=== PATIENT | female | born 1970 | race Caucasian/White ===

== ENCOUNTER 2016-10-13 10:36 | Emergency (ER) | payer OTHER ==
[2016-10-13] MEDS ORDERED: SODIUM CHLORIDE 0.9% 1,000 ML IV STA (11:26)
[2016-10-13] MEDS ORDERED: ONDANSETRON 4 MG/2 ML VIAL IVP STA (11:26)
[2016-10-13] MEDS ORDERED: HYDROmorphone 1 MG/ML 1 ML SYRINGE IVP STA (11:26)
--- NOTE | 2016-10-13 11:30 | ED ---
Abdominal Pain HPI - General Chief Complaint: Abdominal Pain Stated Complaint: abd pain Time Seen by Provider: 10/13/16 11:19 Source: patient Mode of arrival: ambulatory - History of Present Illness Initial Comments: 46-year-old female patient presents to emergency department with complaint of left lower quadrant abdominal pain that started about 4 days ago. Patient states that since then she has been feeling generally unwell, has had chills, and has not wanted to get out of bed. Patient states that she did contact her surgeon Dr. Middleton and he did order a CT as well as labs and urine which she had completed at [facility]. She has not got the results of these tests, and Dr. Middleton is on vacation. Patient does have a history of diverticulitis, bowel obstruction, bowel resection, and colostomy with reversal in 2013. Patient is also complaining of some left flank tenderness, frequency in urination, and nausea. She did have a small amount of diarrhea yesterday. Patient denies any vomiting, constipation, fever, chest pain shortness of breath , dizziness, weakness, hematuria, dysuria, or urinary urgency. - Related Data Home Medications Medication Instructions Recorded Confirmed Lisinopril 40 mg PO DAILY 06/22/15 10/13/16 Acetaminophen/Diphenhydramine 2 - 3 tab PO TID PRN 02/29/16 10/13/16 [Tylenol PM 500-25mg] Gabapentin 800 mg PO TID 02/29/16 10/13/16 Methocarbamol [Robaxin] 500 mg PO Q8H PRN 02/29/16 10/13/16 HYDROcodone/APAP 7.5-325MG [[place] 1 tab PO BID PRN 10/13/16 10/13/16 7.5-325] Simvastatin [Zocor] 20 mg PO HS 10/13/16 10/13/16 Previous Rx's Medication Instructions Recorded Ciprofloxacin HCl [Cipro] 500 mg PO Q12HR #20 tablet 10/13/16 metroNIDAZOLE [Flagyl] 500 mg PO TID #30 tab 10/13/16 Allergies Allergy/AdvReac Type Severity Reaction Status Date / Time erythromycin base Allergy Nausea & Verified 10/13/16 11:22 [Erythromycin Base] Vomiting tramadol HCl [From Ultram] Allergy Itching Verified 10/13/16 11:22 simvastatin AdvReac LEG CRAMPS Verified 10/13/16 11:22 Review of Systems ROS Statement: Those systems with pertinent positive or pertinent negative responses have been documented in the HPI. ROS Other: All systems not noted in ROS Statement are negative. Past Medical History Past Medical History: Asthma, COPD, GERD/Reflux, Hyperlipidemia, Hypertension Additional Past Medical History / Comment(s): DIVERTICULITIS. RESTLESS LEG SYNDROME. DDD, BACK PAIN History of Any Multi-Drug Resistant Organisms: None Reported Past Surgical History: Back Surgery, Bowel Resection, Cholecystectomy, Hernia Repair, Tonsillectomy, Tubal Ligation Additional Past Surgical History / Comment(s): TEMPORARY COLOSTOMY. EPIDURAL INJECTIONS, COLOSTOMY REVERSAL, BACK SURGERY 04/27 Past Anesthesia/Blood Transfusion Reactions: Postoperative Nausea & Vomiting ( PONV) Past Psychological History: Anxiety, Bipolar, Depression Smoking Status: Current every day smoker Past Alcohol Use History: None Reported Past Drug Use History: Marijuana - Past Family History Mother Family Medical History: No Reported History Father Family Medical History: COPD Sister(s) Family Medical History: No Reported History Brother(s) Family Medical History: No Reported History Daughter(s) Family Medical History: No Reported History Son(s) Family Medical History: No Reported History General Exam General appearance: alert, in no apparent distress Eye exam: Present: normal appearance, PERRL, EOMI. Absent: scleral icterus, conjunctival injection, periorbital swelling ENT exam: Present: normal exam, mucous membranes moist Neck exam: Present: normal inspection. Absent: tenderness, meningismus, lymphadenopathy Respiratory exam: Present: normal lung sounds bilaterally. Absent: respiratory distress, wheezes, rales, rhonchi, stridor Cardiovascular Exam: Present: regular rate, normal rhythm, normal heart sounds. Absent: systolic murmur, diastolic murmur, rubs, gallop, clicks GI/Abdominal exam: Present: soft, distended (Left lower quadrant), tenderness, normal bowel sounds. Absent: guarding, rebound, rigid, organomegaly, mass, hernia Extremities exam: Present: normal inspection, full ROM, normal capillary refill. Absent: tenderness, pedal edema, joint swelling, calf tenderness Back exam: Present: normal inspection, CVA tenderness (L). Absent: CVA tenderness (R) Neurological exam: Present: alert, oriented X3, CN II-XII intact Psychiatric exam: Present: normal affect, normal mood Skin exam: Present: warm, dry, intact, normal color. Absent: rash Course Vital Signs 10/13/16 10:59 Temperature 99.5 F Pulse Rate 90 Respiratory 18 Rate Blood Pressure 166/109 O2 Sat by Pulse 98 Oximetry Medical Decision Making - Medical Decision Making 46-year-old female patient presents to emergency department today for evaluation of left lower quadrant abdominal pain. Patient did have a computed tomography scan done at [facility] on 3:30 which did show a slowly enlarging right adrenal mass, minimal diverticulosis of the sigmoid colon, cystic lesion associated with the left adnexa significantly smaller in size on a previous study, and mild degenerative changes within the spine. KUB performed here today reveals a nonspecific abdomen. Urine and serum labs are unremarkable. Patient's symptoms and area of the pain are consistent with some diverticulitis. Patient will be treated for that at this time with a home prescription of Cipro and Flagyl. Patient does have Bryan at home for pain control. Patient instructed to follow-up with her surgeon soon as possible. As well as her primary care physician in one to 2 days for recheck. Patient instructed to return for any new, worsening, or concerning symptoms. Patient verbalizes understanding and agrees this plan. - Lab Data Result diagrams: 10/13/16 11:47 10/13/16 11:47 Lab Results 10/13/16 10/13/16 10/13/16 Range/Units 11:47 11:47 11:47 WBC 6.2 (3.8-10.6) k/uL RBC 4.67 (3.80-5.40) m/uL Hgb 14.6 (11.4-16.0) gm/dL Hct 45.9 (34.0-46.0) % MCV 98.4 (80.0-100.0) fL MCH 31.4 (25.0-35.0) pg MCHC 31.9 (31.0-37.0) g/dL RDW 13.5 (11.5-15.5) % Plt Count 363 (150-450) k/uL Neutrophils % 69 % Lymphocytes % 21 % Monocytes % 5 % Eosinophils % 2 % Basophils % 1 % Neutrophils # 4.3 (1.3-7.7) k/uL Lymphocytes # 1.3 (1.0-4.8) k/uL Monocytes # 0.3 (0-1.0) k/uL Eosinophils # 0.1 (0-0.7) k/uL Basophils # 0.0 (0-0.2) k/uL Sodium 142 (137-145) mmol/L Potassium 4.2 (3.5-5.1) mmol/L Chloride 108 H (98-107) mmol/L Carbon Dioxide 22 (22-30) mmol/L Anion Gap 12 mmol/L BUN 10 (7-17) mg/dL Creatinine 0.61 (0.52-1.04) mg/dL Est GFR (MDRD) Af Amer >60 (>60 ml/min/1.73 sqM) Est GFR (MDRD) Non-Af >60 (>60 ml/min/1.73 sqM) Glucose 99 (74-99) mg/dL Calcium 10.2 (8.4-10.2) mg/dL Total Bilirubin 0.4 (0.2-1.3) mg/dL AST 14 (14-36) U/L ALT 13 (9-52) U/L Alkaline Phosphatase 74 (38-126) U/L Total Protein 7.3 (6.3-8.2) g/dL Albumin 4.4 (3.5-5.0) g/dL Amylase 77 (30-110) U/L Lipase 88 (23-300) U/L Urine Color Colorless Urine Appearance Clear (Clear) Urine pH 6.0 (5.0-8.0) Ur Specific [place] 1.001 (1.001-1.035) Urine Protein Negative (Negative) Urine Glucose (UA) Negative (Negative) Urine Ketones Negative (Negative) Urine Blood Negative (Negative) Urine Nitrite Negative (Negative) Urine Bilirubin Negative (Negative) Urine Urobilinogen <2.0 (<2.0) mg/dL Ur Leukocyte Esterase Negative (Negative) Disposition Clinical Impression: Diverticulitis of sigmoid colon, Abdominal pain Disposition: HOME SELF-CARE Condition: Stable Instructions: Abdominal Pain (ED), Diverticulitis (ED), Diverticulitis Diet (ED ) Additional Instructions: Increased fluids. Use home medications for pain control. Take antibiotic prescriptions and full. Follow-up with surgeon and primary care physician. Return for any new, worsening, or concerning symptoms. Prescriptions: Ciprofloxacin HCl [Cipro] 500 mg PO Q12HR #20 tablet metroNIDAZOLE [Flagyl] 500 mg PO TID #30 tab Referrals: Thierno Garcia MD [Primary Care Provider] - 1-2 days Time of Disposition: 12:58
[2016-10-13 12:05] LABS: Appearance,Urine Clear (Clear); Basophils % (A) 1 %; Bilirubin,Urine Negative (Negative); CH 31.9; CHCM 32.6; Eosinophils # (A) 0.1 k/uL (0-0.7); Eosinophils % (A) 2 %; Glucose,Urine (UA) Negative (Negative); HCT 45.9 % (34.0-46.0); HDW 2.52; HGB 14.6 gm/dL (11.4-16.0); Ketones,Urine Negative (Negative); Leukocyte Esterase,Urine Negative (Negative); Luc % (Auto) 3; Lymphocytes # (A) 1.3 k/uL (1.0-4.8); Lymphocytes % (A) 21 %; MCH 31.4 pg (25.0-35.0); MCHC 31.9 g/dL (31.0-37.0); MCV 98.4 fL (80.0-100.0); Mean Platelet Volume 6.3; Monocytes # (A) 0.3 k/uL (0-1.0); Monocytes % (A) 5 %; Neutrophils # (A) 4.3 k/uL (1.3-7.7); Neutrophils % (A) 69 %; Nitrite,Urine Negative (Negative); Protein,Urine Negative (Negative); RBC 4.67 m/uL (3.80-5.40); RDW 13.5 % (11.5-15.5); Specific Gravity,Urine 1.001 (1.001-1.035); UA Billing (MACRO vs. MICRO) CHEM; Urobilinogen,Urine <2.0 mg/dL (<2.0); WBC 6.2 k/uL (3.8-10.6); WBC (Perox) 6.45
[2016-10-13 12:13] LABS: ALT 13 U/L (9-52); AST 14 U/L (14-36); Alkaline Phosphatase 74 U/L (38-126); Amylase 77 U/L (30-110); Anion Gap 12 mmol/L; Blood Urea Nitrogen 10 mg/dL (7-17); Calcium 10.2 mg/dL (8.4-10.2); Carbon Dioxide 22 mmol/L (22-30); Chloride 108 mmol/L (98-107); Glucose 99 mg/dL (74-99); Non-African American GFR(MDRD) >60 (>60 ml/min/1.73 sqM); Potassium 4.2 mmol/L (3.5-5.1); Sodium 142 mmol/L (137-145); Total Bilirubin 0.4 mg/dL (0.2-1.3); Total Protein 7.3 g/dL (6.3-8.2)
--- NOTE | 2016-10-13 12:32 | XR ---
EXAMINATION TYPE: XR KUB DATE OF EXAM: 10/13/2016 12:25 PM CLINICAL HISTORY: History of colitis and prior abdominal surgeries presents with pain TECHNIQUE: 2 upright KUB images of the abdomen are obtained. COMPARISON: Abdominal x-ray March 24, 2016. CT abdomen and pelvis September 03, 2015. FINDINGS: Gas is seen in nondistended stomach as well as small and large bowel loops scattered throug hout the abdomen and pelvis. There are scattered pelvic phleboliths seen. Cholecystectomy clips are n oted. S-shaped scoliosis is present. Lung bases are clear. No pneumoperitoneum is identified. IMPRESSION: Overall nonobstructive bowel gas pattern.
[2016-10-13 13:27] VITALS: BP 141/77; PULSE 57; RESP 16; TEMP 98.2
== END 2016-10-13 13:24 | disposition home or self-care (01) ==
LOC: EC 10:36
DX: K57.32 Diverticulitis of large intestine without perforation or abscess without bleeding (principal); I10 Essential (primary) hypertension; E78.5 Hyperlipidemia, unspecified; F17.200 Nicotine dependence, unspecified, uncomplicated; Z90.49 Acquired absence of other specified parts of digestive tract; Z98.51 Tubal ligation status; Z98.890 Other specified postprocedural states; Z79.899 Other long term (current) drug therapy; Z88.1 Allergy status to other antibiotic agents; Z88.6 Allergy status to analgesic agent; Z88.8 Allergy status to other drugs, medicaments and biological substances
CPT/HCPCS: 96374 ×2; 96375 ×2; 99284 ×2; 36415; 80053; 82150; 83690; 85025; 81003; 74000; J2405; J1170

== ENCOUNTER → 2016-11-24 | Outpatient (CLI) | payer OTHER ==
--- NOTE | 2016-11-24 21:44 | MR ---
EXAMINATION TYPE: MR lumbar spine wo con DATE OF EXAM: 11/24/2016 9:35 PM COMPARISON: 09/14/2014 HISTORY: Low back pain x10 years, Surg 1 year ago CONTRAST: 0 mL intravenous MultiHance. TECHNIQUE: Multiplanar, multisequence images of the lumbar spine were acquired. FINDINGS: L5-S1: No significant disc bulge or disc herniation. No spinal canal stenosis. No foraminal stenosi s. There is been an interval laminectomy at L5 on the right.. L4-L5: There is mild disc bulge present with mild anterior thecal sac contact. No AP spinal canal ankur nosis or neural foraminal stenosis present. L3-L4: No significant disc bulge or disc herniation. No spinal canal stenosis. No foraminal stenosi s. . L2-L3: Mild right paracentral disc bulging is present with mild anterior thecal sac compression. No A P spinal canal stenosis present. Neural foramen are patent. L1-L2: No significant disc bulge or disc herniation. No spinal canal stenosis. No foraminal stenosi s. . T12-L1: No significant disc bulge or disc herniation. No spinal canal stenosis. No foraminal stenos is. . Cord terminates at the T12-L1 level. IMPRESSION: 1. Mild disc bulging in the right paracentral region at L2-L3 with mild anterior thecal sac compressi on. 2. Mild disc bulge L4-5. Thecal sac contact. 3. Postsurgical changes L5-S1.
--- NOTE | 2016-11-25 08:37 | XR ---
EXAM TYPE: LUMBAR SPINE X RAY SERIES COMPARISON: NONE HISTORY: Pain TECHNIQUE: 6 views are submitted including extension and flexion lateral views. FINDINGS: Alignment is anatomic. The pedicles are intact. The transverse processes are intact. There is no s pondylolysis or spondylolisthesis. There is hypertrophic change and degenerative disc disease at all levels with vacuum disc at L2-3. Facet arthropathy L5-S1 and L4-L5 slight scoliotic curvature. Surgical clips right upper quadrant. On extension view there is a 4 mm retrolisthesis of L4 relative to L5 which is stable in flexion and neutral views. IMPRESSION: 1. Multilevel degenerative disc disease with 4 mm retrolisthesis L4 on L5 which is stable in flexion and extension.
== END ==
LOC: RADMRIMAIN 20:20
PROVIDERS: ATTEND Neurological Surgery
DX: M51.26 Other intervertebral disc displacement, lumbar region (principal); M51.36 Other intervertebral disc degeneration, lumbar region; M43.16 Spondylolisthesis, lumbar region; Z98.890 Other specified postprocedural states
CPT/HCPCS: 72114; 72148

== ENCOUNTER 2016-12-13 11:30 | Emergency (ER) | payer OTHER ==
[2016-12-13 11:42] VITALS: BP 120/76; PULSE 84; RESP 20; TEMP 97.5
[2016-12-13] MEDS ORDERED: HYDROmorphone 1 MG/ML 1 ML SYRINGE IM STA (12:20)
[2016-12-13] MEDS ORDERED: ORPHENADRINE 30 MG/ML 2 ML VIAL IM STA (12:20)
[2016-12-13] MEDS ORDERED: KETOROLAC 60 MG/2 ML VIAL IM STA (12:20)
--- NOTE | 2016-12-13 12:22 | ED ---
Back Pain [facility] - General Chief Complaint: Back Pain/Injury Stated Complaint: Back Pain Time Seen by Provider: 12/13/16 12:12 Source: patient, RN notes reviewed, old records reviewed Limitations: no limitations - History of Present Illness Initial Comments: This is a 46-year-old female presenting to emergency Department chief complaint of acute exacerbation of chronic back pain. Patient reports that she had an MRI done 2 weeks ago and is seeing Dr. Delgadillo for this. Patient reports that she had an appointment with him and he she has a follow-up appointment with him on Thursday discussed the findings. She reports that she has a herniated L2-L3 and L3-L4 disc. Patient states she's had previous spinal fusion. Patient states that over the past few days she's been doing more strenuous work and is out of her pain medication. She is on a pain contract with Dr. Nance. Patient states that she is looking for some relief here. She understands that she cannot receive any pain medications. Patient states that she's been hunched over and her neck is now hurting because she has been compensating for her lower back. Patient denies any difficulty urinating or bowel movements. Denies any saddle anesthesias. Patient states that her father is coming to pick her up to drive her home.Patient denies any recent fever, chills, shortness of breath, chest pain, back pain, abdominal pain, nausea vomiting, numbness or tingling, dysuria or hematuria, constipation or diarrhea, headaches or visual changes, or any other current symptoms - Related Data Home Medications Medication Instructions Recorded Confirmed Lisinopril 40 mg PO DAILY 06/22/15 10/13/16 Acetaminophen/Diphenhydramine 2 - 3 tab PO TID PRN 02/29/16 10/13/16 [Tylenol PM 500-25mg] Gabapentin 800 mg PO TID 02/29/16 10/13/16 Methocarbamol [Robaxin] 500 mg PO Q8H PRN 02/29/16 10/13/16 HYDROcodone/APAP 7.5-325MG [[place] 1 tab PO BID PRN 10/13/16 10/13/16 7.5-325] Simvastatin [Zocor] 20 mg PO HS 10/13/16 10/13/16 Previous Rx's Medication Instructions Recorded Ciprofloxacin HCl [Cipro] 500 mg PO Q12HR #20 tablet 10/13/16 Ondansetron Odt [Zofran Odt] 4 mg PO Q8HR PRN #10 tab 10/13/16 metroNIDAZOLE [Flagyl] 500 mg PO TID #30 tab 10/13/16 Baclofen 10 mg PO TID #15 tab 12/13/16 Allergies Allergy/AdvReac Type Severity Reaction Status Date / Time erythromycin base Allergy Nausea & Verified 12/13/16 11:42 [Erythromycin Base] Vomiting tramadol HCl [From Ultram] Allergy Itching Verified 12/13/16 11:42 simvastatin AdvReac LEG CRAMPS Verified 12/13/16 11:42 Review of Systems ROS Statement: Those systems with pertinent positive or pertinent negative responses have been documented in the HPI. ROS Other: All systems not noted in ROS Statement are negative. Past Medical History Past Medical History: Asthma, COPD, Fibromyalgia, GERD/Reflux, Hyperlipidemia, Hypertension Additional Past Medical History / Comment(s): DIVERTICULITIS. RESTLESS LEG SYNDROME. DDD, BACK PAIN History of Any Multi-Drug Resistant Organisms: None Reported Past Surgical History: Back Surgery, Bowel Resection, Cholecystectomy, Hernia Repair, Tonsillectomy, Tubal Ligation Additional Past Surgical History / Comment(s): TEMPORARY COLOSTOMY. EPIDURAL INJECTIONS, COLOSTOMY REVERSAL, BACK SURGERY 04/27 Past Anesthesia/Blood Transfusion Reactions: Postoperative Nausea & Vomiting ( PONV) Past Psychological History: Anxiety, Bipolar, Depression Smoking Status: Current every day smoker Past Alcohol Use History: None Reported Past Drug Use History: Marijuana - Past Family History Mother Family Medical History: No Reported History Father Family Medical History: COPD Sister(s) Family Medical History: No Reported History Brother(s) Family Medical History: No Reported History Daughter(s) Family Medical History: No Reported History Son(s) Family Medical History: No Reported History General Exam - General Exam Comments Initial Comments: Pleasant 46-year-old female. No distress. Limitations: no limitations General appearance: alert, in no apparent distress Head exam: Present: atraumatic, normocephalic, normal inspection Eye exam: Present: normal appearance, PERRL, EOMI. Absent: scleral icterus, conjunctival injection, periorbital swelling ENT exam: Present: normal exam, mucous membranes moist Neck exam: Present: normal inspection. Absent: tenderness, meningismus, lymphadenopathy Respiratory exam: Present: normal lung sounds bilaterally. Absent: respiratory distress, wheezes, rales, rhonchi, stridor Cardiovascular Exam: Present: regular rate, normal rhythm, normal heart sounds. Absent: systolic murmur, diastolic murmur, rubs, gallop, clicks GI/Abdominal exam: Present: soft, normal bowel sounds. Absent: distended, tenderness, guarding, rebound, rigid Extremities exam: Present: normal inspection, full ROM, normal capillary refill. Absent: tenderness, pedal edema, joint swelling, calf tenderness Back exam: Present: normal inspection, full ROM, tenderness (lumbar spinal tenderness) Expanded Back exam: Positive Straight Leg Raise: Left Neurological exam: Present: alert, oriented X3, CN II-XII intact Psychiatric exam: Present: normal affect, normal mood Skin exam: Present: warm, dry, intact, normal color. Absent: rash Course Vital Signs 12/13/16 11:39 Temperature 97.5 F L Pulse Rate 84 Respiratory 20 Rate Blood Pressure 120/76 O2 Sat by Pulse 100 Oximetry Medical Decision Making - Medical Decision Making Pleasant 46-year-old female with chief complaint of chronic back pain. She is under a pain contract. Recent MRI shows herniated L2-L3 and L3-L4 disc. She is informed of the results. Denies any saddle anesthesias. Patient does have full range of motion. Positive bilateral straight leg test. Patient was given IM Toradol, Norflex and 0.5 of Dilaudid for her pain. Patient has been advised to follow-up with her primary care provider for further pain medication refill. She will be discharged with some muscle relaxer medication. Patient understands treatment plan and will comply. Return parameters were discussed. She does have an appointment on Thursday to see spinal specialist. Disposition Clinical Impression: Acute exacerbation of chronic low back pain Disposition: HOME SELF-CARE Condition: Good Instructions: Chronic Back Pain (ED) Additional Instructions: Follow-up with her primary care provider within the next 2-3 days. Patient advised to apply heat over the lower back and neck. Take muscle relaxers as prescribed. Return the emergency Department if any alarming signs or symptoms occur. Prescriptions: Baclofen 10 mg PO TID #15 tab Referrals: Thierno Garcia MD [Primary Care Provider] - 1-2 days Time of Disposition: 12:21
== END 2016-12-13 12:36 | disposition home or self-care (01) ==
LOC: EC 11:30
DX: M51.26 Other intervertebral disc displacement, lumbar region (principal); I10 Essential (primary) hypertension; E78.5 Hyperlipidemia, unspecified; F17.200 Nicotine dependence, unspecified, uncomplicated; Z79.899 Other long term (current) drug therapy; Z88.1 Allergy status to other antibiotic agents; Z88.5 Allergy status to narcotic agent; Z88.8 Allergy status to other drugs, medicaments and biological substances; Z98.1 Arthrodesis status
CPT/HCPCS: 99283; 96372 ×3; J2360; J1885; J1170

== ENCOUNTER 2016-12-22 09:59 | Emergency (ER) | payer OTHER ==
[2016-12-22] MEDS ORDERED: SODIUM CHLORIDE 0.9% 1,000 ML IV STA ×2 (10:26)
[2016-12-22] MEDS ORDERED: ONDANSETRON 4 MG/2 ML VIAL IVP STA ×2 (10:26→12:10)
[2016-12-22] MEDS ORDERED: HYDROmorphone 1 MG/ML 1 ML SYRINGE IVP STA (10:26)
--- NOTE | 2016-12-22 10:29 | ED ---
General Adult HPI - General Chief complaint: Nausea/Vomiting/Diarrhea Stated complaint: Vomiting Time Seen by Provider: 12/22/16 10:15 Source: patient, RN notes reviewed Mode of arrival: wheelchair Limitations: no limitations - History of Present Illness Initial comments: Patient 46-year-old female who presents emergency room today with chief complaint of symptoms nausea vomiting diarrhea over the last 3 days. She states she's unable to keep anything down. Has not been able take her pain medication or blood pressure medicine due to the symptoms. Denies any signs of blood. Does admit to some abdominal cramping which she believes is from the nausea. She denies any other complaints or symptoms at this time. Patient denies any recent fever, chills, shortness of breath, chest pain, numbness or tingling, dysuria or hematuria, constipation, headaches or visual changes, or any other complaints. - Related Data Home Medications Medication Instructions Recorded Confirmed Lisinopril 40 mg PO DAILY 06/22/15 12/22/16 ALPRAZolam [Xanax] 0.25 mg PO BID 12/22/16 12/22/16 Atorvastatin Calcium [Lipitor] 20 mg PO HS 12/22/16 12/22/16 Diclofenac Sodium [Voltaren] 75 mg PO BID 12/22/16 12/22/16 Gabapentin [Gabapentin] 600 mg PO TID 12/22/16 12/22/16 HYDROcodone/APAP 10-325MG [[place] 1 tab PO TID PRN 12/22/16 12/22/16 10-325] Previous Rx's Medication Instructions Recorded Ondansetron Odt [Zofran ODT] 4 mg PO Q8HR PRN #20 tab 12/22/16 Allergies Allergy/AdvReac Type Severity Reaction Status Date / Time erythromycin base AdvReac Nausea & Verified 12/22/16 10:59 [Erythromycin Base] Vomiting simvastatin AdvReac LEG CRAMPS Verified 12/22/16 10:59 tramadol HCl [From Ultram] AdvReac Itching Verified 12/22/16 10:59 Review of Systems ROS Statement: Those systems with pertinent positive or pertinent negative responses have been documented in the HPI. ROS Other: All systems not noted in ROS Statement are negative. Past Medical History Past Medical History: Asthma, COPD, Fibromyalgia, GERD/Reflux, Hyperlipidemia, Hypertension Additional Past Medical History / Comment(s): DIVERTICULITIS. RESTLESS LEG SYNDROME. DDD, BACK PAIN History of Any Multi-Drug Resistant Organisms: None Reported Past Surgical History: Back Surgery, Bowel Resection, Cholecystectomy, Hernia Repair, Tonsillectomy, Tubal Ligation Additional Past Surgical History / Comment(s): TEMPORARY COLOSTOMY. EPIDURAL INJECTIONS, COLOSTOMY REVERSAL, BACK SURGERY 04/27 Past Anesthesia/Blood Transfusion Reactions: Postoperative Nausea & Vomiting ( PONV) Past Psychological History: Anxiety, Bipolar, Depression Smoking Status: Current every day smoker Past Alcohol Use History: None Reported Past Drug Use History: Marijuana - Past Family History Mother Family Medical History: No Reported History Father Family Medical History: COPD Sister(s) Family Medical History: No Reported History Brother(s) Family Medical History: No Reported History Daughter(s) Family Medical History: No Reported History Son(s) Family Medical History: No Reported History General Exam - General Exam Comments Initial Comments: General: The patient is awake and alert, in no distress, and does not appear acutely ill. Eye: Pupils are equal, round and reactive to light, extra-ocular movements are intact. No nystagmus. There is normal conjunctiva bilaterally. No signs of icterus. Ears, nose, mouth and throat: There are moist mucous membranes and no oral lesions. Neck: The neck is supple, there is no tenderness or JVD. Cardiovascular: There is a regular rate and rhythm. No murmur, rub or gallop is appreciated. Respiratory: Lungs are clear to auscultation, respirations are non-labored, breath sounds are equal. No wheezes, stridor, rales, or rhonchi. Gastrointestinal: Normal. Abdomen. Normal bowel sounds. Patient does have mild tenderness epigastric and midline of the abdomen. No rebound tenderness. No guarding. No CVA tenderness. Musculoskeletal: Normal ROM, no tenderness. Strength 5/5. Sensation intact. Pulses equal bilaterally 2+. Neurological: A&O x 3. CN II-XII intact, There are no obvious motor or sensory deficits. Coordination appears grossly intact. Speech is normal. Skin: Skin is warm and dry and no rashes or lesions are noted. Psychiatric: Cooperative, appropriate mood & affect, normal judgment. Limitations: no limitations Course Vital Signs 12/22/16 10:00 Temperature 98.4 F Pulse Rate 74 Respiratory 20 Rate Blood Pressure 129/75 O2 Sat by Pulse 98 Oximetry Medical Decision Making - Medical Decision Making Patient reexamined at this time shows no signs of distress. Patient's labs been reviewed does show 3+ ketones. Given a liter half fluids here in the emergency room is feeling better. Patient's AST ALT mildly elevated. Advised patient close follow-up family doctor over the next 2 days have repeat liver enzymes checked. Patient feeling better will be discharged home with nausea medication. Advised return if symptoms increase or worsen. - Lab Data Result diagrams: 12/22/16 11:11 12/22/16 11:11 Lab Results 12/22/16 12/22/16 12/22/16 Range/Units 10:43 11:03 11:11 WBC (3.8-10.6) k/uL RBC (3.80-5.40) m/uL Hgb (11.4-16.0) gm/dL Hct (34.0-46.0) % MCV (80.0-100.0) fL MCH (25.0-35.0) pg MCHC (31.0-37.0) g/dL RDW (11.5-15.5) % Plt Count (150-450) k/uL Neutrophils % % Lymphocytes % % Monocytes % % Eosinophils % % Basophils % % Neutrophils # (1.3-7.7) k/uL Lymphocytes # (1.0-4.8) k/uL Monocytes # (0-1.0) k/uL Eosinophils # (0-0.7) k/uL Basophils # (0-0.2) k/uL Sodium 138 (137-145) mmol/L Potassium 3.5 (3.5-5.1) mmol/L Chloride 107 (98-107) mmol/L Carbon Dioxide 20 L (22-30) mmol/L Anion Gap 11 mmol/L BUN 8 (7-17) mg/dL Creatinine 0.43 L (0.52-1.04) mg/dL Est GFR (MDRD) Af Amer >60 (>60 ml/min/1.73 sqM) Est GFR (MDRD) Non-Af >60 (>60 ml/min/1.73 sqM) Glucose 115 H (74-99) mg/dL Calcium 9.2 (8.4-10.2) mg/dL Total Bilirubin 0.4 (0.2-1.3) mg/dL AST 78 H (14-36) U/L ALT 270 H (9-52) U/L Alkaline Phosphatase 106 (38-126) U/L Total Protein 6.2 L (6.3-8.2) g/dL Albumin 3.6 (3.5-5.0) g/dL Amylase 37 (30-110) U/L Lipase 42 (23-300) U/L Urine Color Yellow Urine Appearance Clear (Clear) Urine pH 6.5 (5.0-8.0) Ur Specific [place] 1.017 (1.001-1.035) Urine Protein 1+ H (Negative) Urine Glucose (UA) Negative (Negative) Urine Ketones 3+ H (Negative) Urine Blood Small H (Negative) Urine Nitrite Negative (Negative) Urine Bilirubin Negative (Negative) Urine Urobilinogen 2.0 (<2.0) mg/dL Ur Leukocyte Esterase Negative (Negative) Urine RBC 3 (0-5) /hpf Urine WBC 1 (0-5) /hpf Ur Squamous Epith Cells 1 (0-4) /hpf Urine Mucus Moderate H (None) /hpf Stool Occult Blood Negative (Negative) 12/22/16 Range/Units 11:11 WBC 7.6 (3.8-10.6) k/uL RBC 4.15 (3.80-5.40) m/uL Hgb 13.1 (11.4-16.0) gm/dL Hct 39.8 (34.0-46.0) % MCV 95.8 (80.0-100.0) fL MCH 31.5 (25.0-35.0) pg MCHC 32.9 (31.0-37.0) g/dL RDW 14.9 (11.5-15.5) % Plt Count 333 (150-450) k/uL Neutrophils % 83 % Lymphocytes % 11 % Monocytes % 4 % Eosinophils % 0 % Basophils % 0 % Neutrophils # 6.3 (1.3-7.7) k/uL Lymphocytes # 0.8 L (1.0-4.8) k/uL Monocytes # 0.3 (0-1.0) k/uL Eosinophils # 0.0 (0-0.7) k/uL Basophils # 0.0 (0-0.2) k/uL Sodium (137-145) mmol/L Potassium (3.5-5.1) mmol/L Chloride (98-107) mmol/L Carbon Dioxide (22-30) mmol/L Anion Gap mmol/L BUN (7-17) mg/dL Creatinine (0.52-1.04) mg/dL Est GFR (MDRD) Af Amer (>60 ml/min/1.73 sqM) Est GFR (MDRD) Non-Af (>60 ml/min/1.73 sqM) Glucose (74-99) mg/dL Calcium (8.4-10.2) mg/dL Total Bilirubin (0.2-1.3) mg/dL AST (14-36) U/L ALT (9-52) U/L Alkaline Phosphatase (38-126) U/L Total Protein (6.3-8.2) g/dL Albumin (3.5-5.0) g/dL Amylase (30-110) U/L Lipase (23-300) U/L Urine Color Urine Appearance (Clear) Urine pH (5.0-8.0) Ur Specific [place] (1.001-1.035) Urine Protein (Negative) Urine Glucose (UA) (Negative) Urine Ketones (Negative) Urine Blood (Negative) Urine Nitrite (Negative) Urine Bilirubin (Negative) Urine Urobilinogen (<2.0) mg/dL Ur Leukocyte Esterase (Negative) Urine RBC (0-5) /hpf Urine WBC (0-5) /hpf Ur Squamous Epith Cells (0-4) /hpf Urine Mucus (None) /hpf Stool Occult Blood (Negative) Disposition Clinical Impression: Nausea vomiting and diarrhea Disposition: HOME SELF-CARE Condition: Good Instructions: Acute Nausea and Vomiting (ED) Additional Instructions: Please use medication as discussed. Please follow-up with family doctor in the next 2 days of symptoms have not improved. Please return to emergency room if the symptoms increase or worsen or for any other concerns. Prescriptions: Ondansetron Odt [Zofran ODT] 4 mg PO Q8HR PRN #20 tab PRN Reason: Nausea Referrals: Thierno Garcia MD [Primary Care Provider] - 1-2 days Time of Disposition: 12:34
[2016-12-22 11:01] LABS: Appearance,Urine Clear (Clear); Bilirubin,Urine Negative (Negative); Glucose,Urine (UA) Negative (Negative); Ketones,Urine 3+ (Negative); Leukocyte Esterase,Urine Negative (Negative); Mucus,Urine Moderate /hpf; Nitrite,Urine Negative (Negative); PH, Urine 6.5 (5.0-8.0); Particle Count 5017; Protein,Urine 1+ (Negative); RBC,Urine 3 /hpf (0-5); Specific Gravity,Urine 1.017 (1.001-1.035); Squamous Epithelial Cell,Urine 1 /hpf (0-4); UA Billing (MACRO vs. MICRO) MICRO; WBC,Urine 1 /hpf (0-5)
[2016-12-22 11:30] LABS: Basophils % (A) 0 %; CH 31.5; CHCM 33.1; Eosinophils % (A) 0 %; HCT 39.8 % (34.0-46.0); HDW 2.58; HGB 13.1 gm/dL (11.4-16.0); Luc # (Auto) 0.11; Luc % (Auto) 1; Lymphocytes # (A) 0.8 k/uL (1.0-4.8); Lymphocytes % (A) 11 %; MCH 31.5 pg (25.0-35.0); MCHC 32.9 g/dL (31.0-37.0); MCV 95.8 fL (80.0-100.0); Mean Platelet Volume 6.7; Monocytes # (A) 0.3 k/uL (0-1.0); Monocytes % (A) 4 %; Neutrophils # (A) 6.3 k/uL (1.3-7.7); Neutrophils % (A) 83 %; RBC 4.15 m/uL (3.80-5.40); RDW 14.9 % (11.5-15.5); WBC 7.6 k/uL (3.8-10.6); WBC (Perox) 7.64
--- NOTE | 2016-12-22 11:38 | XR ---
Abdomen HISTORY: Abdomen pain, nausea vomiting and diarrhea Frontal view of the abdomen on 2 images Comparison prior exam 10/13/2016 Scoliosis, surgical clips in right upper quadrant are stable. Lung bases are clear. There is no bowel obstruction or pneumoperitoneum evident. There are air-fluid levels present. Probable vascular calci fications within the pelvis. IMPRESSION: Correlate for enteritis, ileus, follow-up as indicated.
[2016-12-22 11:55] LABS: ALT 270 U/L (9-52); AST 78 U/L (14-36); Alkaline Phosphatase 106 U/L (38-126); Amylase 37 U/L (30-110); Anion Gap 11 mmol/L; Blood Urea Nitrogen 8 mg/dL (7-17); Calcium 9.2 mg/dL (8.4-10.2); Carbon Dioxide 20 mmol/L (22-30); Chloride 107 mmol/L (98-107); Glucose 115 mg/dL (74-99); Non-African American GFR(MDRD) >60 (>60 ml/min/1.73 sqM); Potassium 3.5 mmol/L (3.5-5.1); Sodium 138 mmol/L (137-145); Total Bilirubin 0.4 mg/dL (0.2-1.3); Total Protein 6.2 g/dL (6.3-8.2)
[2016-12-22] MEDS ORDERED: SODIUM CHLORIDE 0.9% 500 ML IV STA (12:10)
[2016-12-22] MEDS ORDERED: FAMOTIDINE 20 MG/2 ML VIAL IV STA (12:24)
[2016-12-22 13:08] VITALS: BP 136/78; PULSE 70; RESP 18; TEMP 98.9
== END 2016-12-22 13:08 | disposition home or self-care (01) ==
LOC: EC 09:59
DX: R11.2 Nausea with vomiting, unspecified (principal); R19.7 Diarrhea, unspecified; R10.816 Epigastric abdominal tenderness; R74.8 Abnormal levels of other serum enzymes; F17.200 Nicotine dependence, unspecified, uncomplicated; K21.9 Gastro-esophageal reflux disease without esophagitis; I10 Essential (primary) hypertension; Z79.1 Long term (current) use of non-steroidal anti-inflammatories (NSAID); Z79.899 Other long term (current) drug therapy; Z88.1 Allergy status to other antibiotic agents; Z88.6 Allergy status to analgesic agent; Z88.8 Allergy status to other drugs, medicaments and biological substances; Z90.49 Acquired absence of other specified parts of digestive tract; Z93.3 Colostomy status
CPT/HCPCS: 36415; 80053; 82150; 83690; 85025; 82272; 81001; 74000; 99284; 96374; 96375 ×2; 96376; 96361 ×2; J2405; J1170

== ENCOUNTER → 2017-01-05 | Outpatient (CLI) | payer OTHER ==
[2017-01-05 12:24] LABS: EKG EKG PERFORMED
[2017-01-05 13:04] LABS: Appearance,Urine Clear (Clear); Bilirubin,Urine Negative (Negative); Glucose,Urine (UA) Negative (Negative); Ketones,Urine Negative (Negative); Leukocyte Esterase,Urine Negative (Negative); Nitrite,Urine Negative (Negative); Protein,Urine Negative (Negative); Specific Gravity,Urine 1.012 (1.001-1.035); UA Billing (MACRO vs. MICRO) CHEM; Urobilinogen,Urine <2.0 mg/dL (<2.0)
[2017-01-05 13:18] LABS: Basophils % (A) 0 %; CH 31.2; CHCM 31.4; Eosinophils # (A) 0.1 k/uL (0-0.7); Eosinophils % (A) 1 %; HCT 41.8 % (34.0-46.0); HDW 2.52; Hypochromasia Slight; Luc # (Auto) 0.12; Luc % (Auto) 2; Lymphocytes # (A) 1.5 k/uL (1.0-4.8); Lymphocytes % (A) 23 %; MCHC 31.1 g/dL (31.0-37.0); MCV 99.7 fL (80.0-100.0); Macrocytosis Slight; Mean Platelet Volume 6.3; Monocytes # (A) 0.3 k/uL (0-1.0); Monocytes % (A) 5 %; Neutrophils # (A) 4.3 k/uL (1.3-7.7); Neutrophils % (A) 69 %; RDW 14.8 % (11.5-15.5); WBC 6.3 k/uL (3.8-10.6); WBC (Perox) 6.76
--- NOTE | 2017-01-05 13:19 | XR ---
EXAMINATION TYPE: XR chest 2V DATE OF EXAM: 01/05/2017 HISTORY: Z01.818 pre surgical. REFERENCE: NONE. FINDINGS: The lungs are clear. Pleural spaces are clear. Heart size is normal. IMPRESSION: NORMAL CHEST.
[2017-01-05 13:20] LABS: Partial Thromboplastin Time 22.3 sec (22.0-30.0); Prothrombin Time 9.9 sec (9.0-12.0)
[2017-01-05 13:30] LABS: Anion Gap 8 mmol/L; Blood Urea Nitrogen 10 mg/dL (7-17); Carbon Dioxide 23 mmol/L (22-30); Chloride 107 mmol/L (98-107); Non-African American GFR(MDRD) >60 (>60 ml/min/1.73 sqM); Potassium 4.3 mmol/L (3.5-5.1); Sodium 138 mmol/L (137-145)
== END | disposition home or self-care (01) ==
LOC: RADXRMAIN 11:41
PROVIDERS: ATTEND Neurological Surgery
DX: Z01.818 Encounter for other preprocedural examination (principal); Z01.812 Encounter for preprocedural laboratory examination
CPT/HCPCS: 36415; 71020; 80051; 81003; 82565; 84520; 85025; 85610; 85730; 87070; 87086; 93005

== ENCOUNTER → 2017-01-14 | Outpatient (CLI) | payer OTHER ==
[2017-01-14 10:14] LABS: ALT 23 U/L (9-52); AST 15 U/L (14-36); Cholesterol 217 mg/dL (<200); Creatine Kinase 36 U/L (30-135); HDL Cholesterol 56 mg/dL (40-60); Triglycerides 166 mg/dL (<150)
== END | disposition home or self-care (01) ==
LOC: LABWHC1 09:21
PROVIDERS: ATTEND Internal Medicine
DX: E78.2 Mixed hyperlipidemia (principal)
CPT/HCPCS: 36415; 80061; 82550; 84450; 84460

== ENCOUNTER 2017-01-15 09:05 | Inpatient (IN) | payer OTHER ==
[2017-01-15] MEDS ORDERED: LIDOCAINE 2% INJ 20 MG/ML (20 ML MDV) ONE (13:10)
[2017-01-15] MEDS ORDERED: fentaNYL (PF) 50 MCG/ML 2 ML AMP ONE (13:11)
[2017-01-15] MEDS ORDERED: MIDAZOLAM 2 MG/2 ML VIAL ONE (13:11)
[2017-01-15] MEDS ORDERED: SODIUM CHLORIDE 0.9% 1,000 ML IV ONE (13:30)
[2017-01-15] MEDS ORDERED: fentaNYL (PF) 50 MCG/ML 2 ML AMP IVP ONE (13:33)
[2017-01-15] MEDS ORDERED: LIDOCAINE 2% INJ 20 MG/ML SQ ONE (13:36)
[2017-01-15] MEDS ORDERED: MIDAZOLAM 2 MG/2 ML VIAL IVP ONE (13:42)
[2017-01-15] MEDS ORDERED: PRASUGREL 10 MG TAB ONE (13:43)
[2017-01-15] MEDS ORDERED: BIVALIRUDIN BOLUS 250 MG/50 ML IV ONE (13:44)
[2017-01-15] MEDS ORDERED: PRASUGREL 10 MG TAB PO ONE (13:44)
[2017-01-15] MEDS ORDERED: BIVALIRUDIN 250 MG in SODIUM CHLORIDE 0.9% 50 ML IV ONE (13:45)
[2017-01-15] MEDS ORDERED: NITROGLYCERIN 1000MCG/10ML SYRINGE INTRACORON ONE (13:47)
[2017-01-15] MEDS ORDERED: IODIXANOL 320 MG/ML 100 ML IV ONE (14:08)
[2017-01-15] MEDS ORDERED: RX INFO: IV CONTRAST WAS GIVEN 1 EACH MISC MISCELLANE PRN (14:23)
[2017-01-15] MEDS ORDERED: MAG HYDROX/AL HYDROX/SIMETH 30 ML CUP PO PRN (14:23)
[2017-01-15] MEDS ORDERED: NITROGLYCERIN SL TABS 0.4 MG TAB SUBLINGUAL PRN (14:23)
[2017-01-15] MEDS ORDERED: ATROPINE SULFATE 0.1 MG/ML 10ML SYRINGE IV PRN (14:23)
[2017-01-15] MEDS ORDERED: SODIUM CHLORIDE 0.9% 1,000 ML IV SCH (14:30)
[2017-01-15] MEDS ORDERED: ONDANSETRON 4 MG TAB PO PRN (14:55)
[2017-01-15] MEDS: HYDROcodone/APAP 10-325MG 1 EACH TAB PO PRN ×2 (15:10→20:17)
[2017-01-15] MEDS: ALPRAZolam 0.25 MG TAB PO PRN ×2 (15:10→20:18)
[2017-01-15 15:26] LABS: Glucose,Whole Blood 108 mg/dL (75-99)
[2017-01-15] MEDS: GABAPENTIN 300 MG CAP PO SCH ×2 (15:53→21:04)
[2017-01-15 16:39] VITALS: BMI 34.0
[2017-01-15] MEDS: ATORVASTATIN 80 MG TAB PO SCH (20:18)
[2017-01-15] MEDS: METOPROLOL TARTRATE 25 MG TAB PO SCH (20:19)
[2017-01-15] MEDS: ZOLPIDEM 5 MG TAB PO PRN (21:04)
[2017-01-16] MEDS: ALPRAZolam 0.25 MG TAB PO PRN ×2 (02:13→07:50)
[2017-01-16] MEDS: HYDROcodone/APAP 10-325MG 1 EACH TAB PO PRN ×4 (02:13→18:41)
[2017-01-16 03:32] LABS: CH 30.9; HDW 2.52; HGB 12.4 gm/dL (11.4-16.0); MCH 31.7 pg (25.0-35.0); MCHC 32.7 g/dL (31.0-37.0); MCV 96.9 fL (80.0-100.0); Mean Platelet Volume 6.7; RBC 3.92 m/uL (3.80-5.40); RDW 14.7 % (11.5-15.5); WBC 9.7 k/uL (3.8-10.6)
[2017-01-16 03:48] LABS: Anion Gap 6 mmol/L; Blood Urea Nitrogen 10 mg/dL (7-17); Calcium 9.2 mg/dL (8.4-10.2); Carbon Dioxide 20 mmol/L (22-30); Chloride 112 mmol/L (98-107); Cholesterol 182 mg/dL (<200); Glucose 102 mg/dL (74-99); HDL Cholesterol 49 mg/dL (40-60); Magnesium 1.7 mg/dL (1.6-2.3); Non-African American GFR(MDRD) >60 (>60 ml/min/1.73 sqM); Phosphorous 4.4 mg/dL (2.5-4.5); Potassium 4.2 mmol/L (3.5-5.1); Sodium 138 mmol/L (137-145); Triglycerides 247 mg/dL (<150)
--- NOTE | 2017-01-16 07:28 | CONS ---
CARDIAC CONSULTATION Ms. Barr is a 46-year-old female with a known history of hypertension, hyperlipidemia, history of chronic tobacco use and a family history of coronary artery disease who presented to the emergency room at [facility] with symptoms of chest discomfort radiating to the jaw. She has been having discomfort on and off since yesterday, after having an EMG, presented to the emergency room today and was found to have ST segment elevation. In view of that, was transferred to [facility] for further evaluation. Patient denies any prior cardiac history. Unfortunately, she smokes on a regular basis. She is quite limited in her activity because of her back discomfort and has been evaluated for possible surgical intervention. She follows on a regular basis with Dr. Mancilla regarding her back. She has no clear history of PND or peripheral edema. She has no dizziness, no palpitation, no syncope. Her coronary risk factor is remarkable for hypertension, hyperlipidemia, chronic tobacco use and a history of coronary artery disease in her family. Her medication at home includes Xanax, amlodipine 5 mg daily, Lipitor 20 mg daily, gabapentin, hydrocodone, ibuprofen and lisinopril. REVIEW OF SYSTEMS: RESPIRATORY SYSTEM: She has history of asthma, history of chronic tobacco use. GI SYSTEM: No recent GI bleeding, no peptic ulcer disease. SYSTEM: No dysuria or hematuria. NERVOUS SYSTEM: History of chronic back pain. SOCIAL HISTORY: She drinks a large amount of caffeine, smokes as noted and uses marijuana occasionally. No alcohol intake. PHYSICAL EXAMINATION: She is a 46-year-old female, alert, oriented, evaluated in the Cardiac Catheterization laboratory, anxious, heart rate in the 60s, blood pressure 147/ 100. HEAD: Normocephalic. EYES: Sclera nonicteric. NECK: No bruit. LUNGS: Clear to auscultation anteriorly. HEART: Regular rate and rhythm, S1, S2, no S3, no rub. ABDOMEN: Soft, nontender, positive bowel sounds, no organomegaly. EXTREMITIES: No edema. Intact pedal pulses. EKG reveals sinus mechanism, normal axis with ST segment elevation of lead 2, 3 and AVF with small QRS apparent. IMPRESSION: 1. Acute inferior myocardial infarction. 2. Chronic tobacco use. 3. Hypertension. 4. Hyperlipidemia. 5. Chronic back pain. 6. History of bipolar disorder. RECOMMENDATION: I have recommended proceeding with coronary angiography and angioplasty and stenting if needed. The finding, as well as the risk and complication were discussed with the patient who is in full understanding and agreement. Thank you for this consult. Will follow with you. SHAWNA
[2017-01-16] MEDS: LISINOPRIL 5 MG TAB PO SCH (07:46)
[2017-01-16] MEDS: ASPIRIN 81 MG CHEW PO SCH (07:46)
[2017-01-16] MEDS: METOPROLOL TARTRATE 25 MG TAB PO SCH ×2 (07:47→19:34)
[2017-01-16] MEDS: PRASUGREL 10 MG TAB PO SCH (07:47)
[2017-01-16] MEDS: GABAPENTIN 300 MG CAP PO SCH ×3 (07:47→19:35)
--- NOTE | 2017-01-16 10:06 | ECHOF ---
Referral Reason:mi MEASUREMENTS -------- HEIGHT: 165.1 cm WEIGHT: 92.5 kg BP: 147/83 IVSd: 1.1 cm (0.6 - 1.1) LVIDd: 3.3 cm (3.9 - 5.3) LVPWd: 1.4 cm (0.6 - 1.1) IVSs: 1.5 cm LVIDs: 2.5 cm LVPWs: 1.7 cm Ao Diam: 3.3 cm (2.0 - 3.7) AV Cusp: 2.0 cm (1.5 - 2.6) LA Diam: 2.8 cm (2.7 - 3.8) MV EXCURSION: 20.130 mm (> 18.000) MV EF SLOPE: 82 mm/s (70 - 150) EPSS: 0.4 cm MV E Darrel: 1.08 m/s MV DecT: 204 ms MV A Darrel: 0.50 m/s MV E/A Ratio: 2.17 RAP: 5.00 mmHg RVSP: 33.59 mmHg FINDINGS -------- Sinus rhythm. This was a technically good study. There is mild concentric left ventricular hypertrophy. Overall left ventricular systolic function is normal with, an EF between 55 - 60 %. The right ventricle is normal in size and function. The left atrium is normal in size. The right atrium is normal in size. The aortic valve is trileaflet, and appears structurally normal. No aortic stenosis or regurgitation. Mild mitral regurgitation is present. Mild tricuspid regurgitation present. The right ventricular systolic pressure, as measured by Doppler, is 33.59mmHg. Pulmonic valve appears structurally normal. The aortic root size is normal. The pericardium is normal. CONCLUSIONS -------- 1. Sinus rhythm. 2. Mild tricuspid regurgitation present. 3. The right ventricular systolic pressure, as measured by Doppler, is 33.59mmHg. 4. Pulmonic valve appears structurally normal. 5. The aortic root size is normal. 6. The pericardium is normal. 7. This was a technically good study. 8. There is mild concentric left ventricular hypertrophy. 9. Overall left ventricular systolic function is normal with, an EF between 55 - 60 %. 10. The right ventricle is normal in size and function. 11. The left atrium is normal in size. 12. The right atrium is normal in size. 13. The aortic valve is trileaflet, and appears structurally normal. No aortic stenosis or regurgitation. 14. Mild mitral regurgitation is present. BULLDOZER/LOADER/COMPACTOR/SCRAPER: Gabrielle Curran RDCS
[2017-01-16] MEDS: ALPRAZolam 0.5 MG TAB PO PRN ×2 (13:34→18:41)
[2017-01-16] MEDS: ATORVASTATIN 80 MG TAB PO SCH (19:35)
[2017-01-16] MEDS: ZOLPIDEM 5 MG TAB PO PRN (22:19)
[2017-01-17] MEDS: ALPRAZolam 0.5 MG TAB PO PRN ×2 (03:33→09:58)
[2017-01-17] MEDS: HYDROcodone/APAP 10-325MG 1 EACH TAB PO PRN ×2 (03:33→09:58)
[2017-01-17 08:26] VITALS: RESP 18; TEMP 97.7
--- NOTE | 2017-01-17 08:57 | PCN ---
Mrs. Barr is a 46 year old female with a known history of hypertension, hyperlipidemia, chronic tobacco use who presented with [facility] with symptoms of chest discomfort and evidence consistent with an acute inferior myocardial infarction. In view of that, recommendation was made regarding cardiac catheterization. The procedure as well as risks and complications were discussed with the patient who is in full understanding and agreement. PROCEDURE: The patient was brought to the concrete plant laborer, after receiving Fentanyl and Benadryl and achieving moderate conscious sedative state, using Xylocaine anesthesia and Seldinger technique, a 6 Belgian sheath was introduced into the right femoral artery. Following that, selective right and left coronary angiography was performed using 6 Belgian 4 Bend left Nolan catheter and 6 Belgian right FR4 guiding catheter. After obtaining images of the left system, angioplasty and stenting of the right coronary artery were performed. Following that, a 6 Belgian tight pigtail catheter was introduced into the left ventricle and a 30 degree LARSON view of the left ventricle was obtained. Following that, catheter and sheath were removed. Hemostasis was obtained with deployment of an Angioseal. There were no immediate complications. The patient was returned to her room in stable condition. FINDINGS: LEFT MAIN: This is a large size vessel bifurcating into the left circumflex, left anterior descending coronary artery, left main coronary artery without any obstructive coronary artery disease. LEFT ANTERIOR DESCENDING ARTERY: This is a large size vessel reaching towards the apex with a wrap around the apex segment giving rise to two diagonal branches. The second one is large in caliber. The proximal left circumflex has mild intimal disease 10-20%. LEFT CIRCUMFLEX: This is a non-dominant vessel giving rise to two obtuse marginal branches. The first one is large in caliber. The left circumflex and its branches have no evidence of obstructive coronary artery disease. RIGHT CORONARY ARTERY: This is a large dominant vessel bifurcating into PDA and PLV. In the mid right coronary artery, there is intracoronary thrombus with 99 % stenosis. The rest of the vessel has no high grade stenosis. LEFT VENTRICULOGRAM: The left ventriculogram was performed in 30 degree LARSON view and revealed mild mid interior wall hypokinesia. Ejection fraction is 50% . There was no significant mitral regurgitation. HEMODYNAMICS: There was no gradient across the aortic valve. The left ventricular end diastolic pressure was 16-18 mmHg. CONCLUSION: 1. Critical stenosis in the mid right coronary artery. 2. Mild plaque in the proximal left anterior descending coronary artery. 3. Minimally impaired left ventricular systolic function. In view of the findings and anatomy, I recommend proceeding with angioplasty and stenting of the right coronary artery. The procedure, as well as risks and complications were discussed with the patient who is in full understanding and agreement. SHAWNA
--- NOTE | 2017-01-17 09:08 | PCN ---
Mrs. Barr is a 46 year old female who presents with acute myocardial infarction to the [facility]. Underwent cardiac catheterization and was found to have critical stenosis involving the mid right coronary artery , in view of that, recommendation was made regarding angioplasty and stenting. The procedure, risks and complications were discussed with the patient who is in full understanding and agreement. PROCEDURE: Using the 6 [place] FR4 guiding catheter and after cannulating the ostium, a 0.14 balanced medium weight J-wire was advanced across the lesion, positioned distally and then a 2.5 x 12 mm Trek balloon was advanced. One inflation at 10 atmospheres was done. Following that, the balloon was removed and a 2.75 x 15 mm Xience Alpine stent was deployed, it was dilated at 16 atmospheres. Following that, the balloon was removed and a 2.75 x 12 mm Xience alpine stent was deployed proximal to the first one and was dilated at 16 atmospheres. After the last inflation, after appropriate wait, the balloon and the guidewire were withdrawn back in the guiding catheter. Images were obtained, repeated. Those images revealed stable successful stenting. At that point, left ventriculogram was performed. Following that, the catheter and the sheath were removed. Hemostasis was obtained with deployment of an Angioseal. There were no immediate complications. The patient was returned to her room in stable condition. Of note, the patient received Angiomax per protocol as well as oral loading dose of Effient. she had chest discomfort and EKG changes with the inflation that resolved at the end of the procedure. RESULTS: Successful stenting of the mid right coronary artery with reduction of stenosis from 99% to 0%. RECOMMENDATIONS: The patient will be continued on aspirin, Effient, beta allie , bakari inhibitor, statin. The importance of dual antiplatelet treatment was discussed with the patient and her family who are in full understanding and agreement. SHAWNA
--- NOTE | 2017-01-17 09:22 | PN ---
Dear Dr. Garcia: I had the pleasure of performing cardiac catheterization and coronary angioplasty and stenting on Mrs. Barr on the january and a full copy of procedure note will be forwarded to you. In brief, she was found to have subtotally occluded mid right coronary artery and underwent successful stenting of that vessel using drug eluting stent. I am hopeful that this procedure will stabilize her status. Thank you again for allowing me to participate in her care. Please feel free to call for any questions. Sincerely yours, SHAWNA
[2017-01-17] MEDS: GABAPENTIN 300 MG CAP PO SCH (10:00)
[2017-01-17] MEDS: ASPIRIN 81 MG CHEW PO SCH (10:00)
[2017-01-17] MEDS: PRASUGREL 10 MG TAB PO SCH (10:00)
[2017-01-17] MEDS: METOPROLOL TARTRATE 25 MG TAB PO SCH (10:00)
[2017-01-17] MEDS: LISINOPRIL 5 MG TAB PO SCH (10:00)
--- NOTE | 2017-01-17 10:23 | HP ---
DATE OF ADMISSION: 01/15/2017 DATE OF SERVICE: 01/15/2017 CHIEF COMPLAINT: Chest pain. This is a 46-year-old white female who went to [facility] Emergency Room with complaints of chest discomfort and chest pain. The patient was having this chest discomfort and pain with radiation to the jaw for about 24 hours. Apparently the patient thought that this was due to the ENG she had in Dr. Mancilla's office. In the emergency room she was found to have ST elevation in the II, III and aVF leads. The patient was transferred to [facility] for further evaluation and treatment. The patient was seen by Dr. Seo and he did cardiac catheterization, valvuloplasty and stent placement. She was then admitted to ICU. I saw the patient in the ICU and the patient was at that time having significant relief in her symptoms. Her vital signs are stable. Her past medical history reveals that she has longstanding history of hypertensive cardiovascular disease, hyperlipidemia, and she also has chronic low back pain and she also has had lumbar spinal fusion and currently patient is receiving pain management from Dr. Mancilla. She also has a history of major depression. She has been on Voltaren, Neurontin, [place], lisinopril and simvastatin. She has had a partial colectomy for diverticulitis by Dr. Middleton. She also had a history of chronic obstructive pulmonary disease. She was recently scheduled for spinal surgery and apparently she was found this was going to be cancelled. She smokes about a pack of cigarettes a day. She has no known drug allergies. Family history is strongly positive for coronary artery disease. The patient's younger sister apparently had a heart attack. The patient's mother also has coronary artery disease. REVIEW OF SYSTEMS: Patient has headaches on and off and she has had no history of cardiac disease in the past and also she has generalized body pain and arthritis and also fibromyalgia. She has no abdominal pain. She has no polyuria or dysuria. She has no other neurological symptoms. Physical examination reveals a 46-year-old white female well nourished and well developed. She is alert and oriented. She is extremely anxious. She has some relief of the chest pain following the angioplasty and stent placement. There is no jaundice. There is no generalized lymphadenopathy or petechia and no bruises. Pulse is 76 per minute and regular. Blood pressure 136/70. Examination of the ENT negative. Neck is supple. There is no jugular venous distention. There is no goiter. There is no carotid bruit. Heart is in sinus rhythm. Lungs are clear to auscultation and percussion. Abdomen is soft and nontender. There is no mass palpable. Examination of the lower extremities reveal no pitting edema. Neurologic examination does not reveal any localizing signs. IMPRESSION: 1. Chest pain. 2. Unstable angina. 3. Rule out acute myocardial infarction. 4. Hypertensive cardiovascular disease. 5. Chronic obstructive pulmonary disease. 6. Degenerative disc disease lumbar spine with lumbar radiculopathy. 7. Past history of diverticulitis and partial colectomy. 8. Hyperlipidemia. 9. Major depression. PLAN: Will continue to monitor her heart and vital signs in the ICU and will get serial EKGs and cardiac enzymes. Dr. Seo will continue to follow the patient. When her condition is stable she will be transferred out of ICU and also she will be placed back on her home medications and she will be placed on Xanax p.r.n. for her anxiety. The prognosis is guarded. The diagnosis, prognosis and therapeutic plans were discussed in detail with the patient. SHAWNA
--- NOTE | 2017-01-17 12:22 | P.PN ---
Subjective Principal diagnosis: NOn STEMI This is a 46-year-old female with known history of hypertension, hyperlipidemia, chronic tobacco use, family history of coronary artery disease who presented to the hospital with a non-Q wave myocardial infarction. She underwent angioplasty with stent placement of the mid RCA Dr. Seo. He was seen and examined this morning, denies any chest pain or difficulty in breathing. She has been up ambulating without any difficulty. Patient is requesting to be put on Chantix 4 nicotine cessation. Pressure 138/70 with a heart rate in the 70s. Potassium 4.2, BUN 10, creatinine 0.5. Objective - Vital Signs Vital signs: Vital Signs Temp 97.7 F 01/17/17 08:00 Pulse 71 01/17/17 08:00 Resp 18 01/17/17 08:00 BP 139/71 01/17/17 08:00 Pulse Ox 92 L 01/17/17 04:00 Intake & Output 01/16/17 01/17/17 01/17/17 18:59 06:59 18:59 Intake Total 360 460 220 Output Total 200 400 Balance 160 60 220 Weight 86.4 kg 89.9 kg Intake: IV 40 20 Invasive Line 2 40 20 Oral 360 420 200 Output: Urine 200 400 Other: Voiding Method Toilet Toilet Toilet # Voids 1 0 - Exam PHYSICAL EXAMINATION: HEENT: Head is atraumatic, normocephalic. Pupils equal, round. Neck is supple. There is no elevated jugular venous pressure. HEART EXAMINATION: Heart S1, S2 normal. No murmur or gallop heard. CHEST EXAMINATION: Lungs are clear to auscultation and precussion. No chest wall tenderness is noted on palpation or with deep breathing. ABDOMEN: [ Soft, nontender. Bowel sounds are heard. No organomegaly noted]. Right groin soft, no evidence of any hematoma. EXTREMITIES:[ 2+ peripheral pulses with no evidence of peripheral edema and no calf tenderness noted]. NEUROLOGIC [patient is awake, alert and oriented -3.] . - Labs CBC & Chem 7: 01/16/17 03:21 01/16/17 03:21 Assessment and Plan (1) NSTEMI (non-ST elevated myocardial infarction) Status: Acute (2) Hyperlipemia Status: Acute (3) Nicotine dependence Status: Acute (4) Bipolar 1 disorder, depressed Status: Acute (5) Hypertension Status: Acute (6) Tobacco use Status: Acute Plan: From cardiology's perspective, patient should be able to be discharged home today. We will make her a follow-up appointment to see Dr. Seo in the office in one week. She will be discharged home on aspirin 81 mg daily, Lipitor 80 mg daily, lisinopril 5 mg daily, metoprolol tartrate 25 mg one tablet by mouth twice a day, Effient 10 mg daily, for one month then the patient has been provided an additional prescription to start Plavix 75 mg daily at that time. Patient will also be discharged home on Chantix as well as sublingual nitroglycerin. Prescriptions for all of the above medications have been provided to the patient and she has been educated regarding these as well. DNP note has been reviewed, I agree with a documented findings and plan of care. Patient was seen and examined.
--- NOTE | 2017-01-17 12:29 | PN ---
This patient is status post anterior wall myocardial infarction. The patient is doing fairly well. She has remained hemodynamically stable. Denies any chest pain or shortness of breath. Patient is afebrile. Respirations are not labored. Blood pressure is 140/90 mmHg. Heart: S1, S2 normal. Lungs are clinically clear to auscultation and percussion. Right groin is normal. Patient's maximum troponin was 5.0. We will continue the current medications. She will be transferred to the [facility] Unit. SHAWNA
[2017-01-17 12:32] VITALS: BP 116/78; PULSE 64
--- NOTE | 2017-01-17 15:54 | PN ---
DATE OF SERVICE: 01/16/2017 This is a 46 year old white female who went to [facility] emergency room with chest pain and she was found to have EKG changes of ST elevation and the patient was transferred to [facility] and Dr. Seo saw the patient and he did a cardiac catheterization and angioplasty and stent placement and post procedure, the patient was admitted to ICU. The patient apparently has significant relief in her symptoms. Apparently she has had acute inferior myocardial infarction and the patient is requiring ( ) without any complications. Her vital signs are stable. She is complaining of severe anxiety and she will be placed on Xanax prn. She also has been placed back on her previous medications and her low back pain is being controlled with [place] and apparently the patient if she continues to be stable, she will be transferred out of ICU to telemetry possibly today or tomorrow. Prognosis guarded. Apparently the patient has been scheduled for lumbar spinal fusion and this will be cancelled. SHAWNA
== END 2017-01-17 14:19 | disposition home or self-care (01) | DRG 247 ==
LOC: 6ICU 13:30 → 6SEL 01-16 19:24
PROVIDERS: ADMIT Internal Medicine; ATTEND Internal Medicine
PROC: B2111ZZ Fluoroscopy of Multiple Coronary Arteries using Low Osmolar Contrast (ICD-10-PCS; 2017-01-15)
PROC: B2151ZZ Fluoroscopy of Left Heart using Low Osmolar Contrast (ICD-10-PCS; 2017-01-15)
PROC: 027035Z Dilation of Coronary Artery, One Artery with Two Drug-eluting Intraluminal Devices, Percutaneous Approach (ICD-10-PCS; principal; 2017-01-15 13:20)
PROC: 4A023N7 Measurement of Cardiac Sampling and Pressure, Left Heart, Percutaneous Approach (ICD-10-PCS; 2017-01-15 13:20)
DX: I21.19 ST elevation (STEMI) myocardial infarction involving other coronary artery of inferior wall (principal); I11.9 Hypertensive heart disease without heart failure; E78.5 Hyperlipidemia, unspecified; J44.9 Chronic obstructive pulmonary disease, unspecified; I25.10 Atherosclerotic heart disease of native coronary artery without angina pectoris; R51 Headache; J45.909 Unspecified asthma, uncomplicated; M51.16 Intervertebral disc disorders with radiculopathy, lumbar region; E78.00 Pure hypercholesterolemia, unspecified; F41.9 Anxiety disorder, unspecified; M79.7 Fibromyalgia; M19.90 Unspecified osteoarthritis, unspecified site; F31.9 Bipolar disorder, unspecified; G89.29 Other chronic pain; F17.210 Nicotine dependence, cigarettes, uncomplicated; F12.90 Cannabis use, unspecified, uncomplicated; Z79.1 Long term (current) use of non-steroidal anti-inflammatories (NSAID); Z79.891 Long term (current) use of opiate analgesic; Z79.899 Other long term (current) drug therapy; Z82.49 Family history of ischemic heart disease and other diseases of the circulatory system; Z90.49 Acquired absence of other specified parts of digestive tract; Z98.1 Arthrodesis status; Z88.1 Allergy status to other antibiotic agents; Z88.5 Allergy status to narcotic agent; Z88.8 Allergy status to other drugs, medicaments and biological substances; Z87.19 Personal history of other diseases of the digestive system; Z86.19 Personal history of other infectious and parasitic diseases
CPT/HCPCS: 80048; 80061; 83735; 84100; 84484; 85027; 93306; 93458

== ENCOUNTER 2017-02-13 11:26 | Inpatient (IN) | payer OTHER ==
[2017-02-13] MEDS ORDERED: IPRATROPIUM-ALBUTEROL 3 ML NEB INHALATION STA (12:11)
[2017-02-13] MEDS ORDERED: ONDANSETRON 4 MG/2 ML VIAL IVP STA (12:12)
[2017-02-13] MEDS ORDERED: FAMOTIDINE 20 MG/2 ML VIAL IV STA (12:12)
--- NOTE | 2017-02-13 12:15 | ED ---
General Adult HPI - General Chief complaint: Nausea/Vomiting/Diarrhea Stated complaint: SOB, CONGESTION Time Seen by Provider: 02/13/17 12:05 Source: patient, RN notes reviewed Mode of arrival: ambulatory Limitations: no limitations - History of Present Illness Initial comments: Patient is a pleasant 46-year-old female presenting to the emergency department for complaints of shortness of breath and nausea and vomiting. Patient states she is felt short of breath since he left the hospital. Patient states she left the hospital 2 weeks ago following a heart attack. Patient states breathing has slowly worsened since that time. Patient does have a history of similar breathing problems previously associated with COPD. Occasional cough. Patient has had nausea vomiting diarrhea for the past 2-3 days. Diarrhea is a couple times per day. Patient has vomited multiple times. Patient still has nausea. No fever. No chest pain. No recent antibiotics. - Related Data Home Medications Medication Instructions Recorded Confirmed ALPRAZolam [Xanax] 0.25 mg PO DAILY PRN 12/22/16 02/13/17 Gabapentin 600 mg PO TID 12/22/16 02/13/17 HYDROcodone/APAP 10-325MG [[place] 1 tab PO Q4H PRN 12/22/16 02/13/17 10-325] Albuterol Inhaler [Ventolin Hfa 2 puff INHALATION RT-Q6H PRN 01/15/17 02/13/17 Inhaler] Aspirin EC [Ecotrin Low Dose] 81 mg PO DAILY 02/13/17 02/13/17 Clopidogrel Bisulfate [Plavix] 75 mg PO DAILY 02/13/17 02/13/17 Varenicline [Chantix] 0.5 - 1 mg PO DIRECTED 02/13/17 02/13/17 Previous Rx's Medication Instructions Recorded Atorvastatin [Lipitor] 80 mg PO HS #30 tab 01/17/17 Lisinopril [Zestril] 5 mg PO DAILY #30 tab 01/17/17 Metoprolol Tartrate [Lopressor] 25 mg PO BID #60 tab 01/17/17 Nitroglycerin Sl Tabs [Nitrostat] 0.4 mg SUBLINGUAL Q5M PRN #25 01/17/17 Prasugrel [Effient] 10 mg PO DAILY #30 tab 01/17/17 Allergies Allergy/AdvReac Type Severity Reaction Status Date / Time erythromycin base AdvReac Nausea & Verified 02/13/17 13:14 [Erythromycin Base] Vomiting simvastatin AdvReac LEG CRAMPS Verified 02/13/17 13:14 tramadol HCl [From Ultram] AdvReac Itching Verified 02/13/17 13:14 Review of Systems ROS Statement: Those systems with pertinent positive or pertinent negative responses have been documented in the HPI. ROS Other: All systems not noted in ROS Statement are negative. Constitutional: Denies: fever Eyes: Denies: eye pain ENT: Denies: ear pain Respiratory: Reports: cough, dyspnea Cardiovascular: Denies: chest pain Endocrine: Reports: fatigue Gastrointestinal: Reports: nausea, vomiting, diarrhea. Denies: abdominal pain Genitourinary: Denies: dysuria Musculoskeletal: Denies: back pain Skin: Denies: rash Neurological: Denies: weakness Past Medical History Past Medical History: Asthma, COPD, Fibromyalgia, GERD/Reflux, Hyperlipidemia, Hypertension, Myocardial Infarction (OR) Additional Past Medical History / Comment(s): DIVERTICULITIS. RESTLESS LEG SYNDROME. DDD, BACK PAIN History of Any Multi-Drug Resistant Organisms: None Reported Past Surgical History: Back Surgery, Bowel Resection, Cholecystectomy, Heart Catheterization With Stent, Hernia Repair, Tonsillectomy, Tubal Ligation Additional Past Surgical History / Comment(s): TEMPORARY COLOSTOMY. EPIDURAL INJECTIONS, COLOSTOMY REVERSAL, BACK SURGERY 04/27, cyst taken off ovary. Past Anesthesia/Blood Transfusion Reactions: Postoperative Nausea & Vomiting ( PONV) Past Psychological History: Anxiety, Bipolar, Depression Smoking Status: Current every day smoker Past Alcohol Use History: None Reported Past Drug Use History: Marijuana - Past Family History Mother Family Medical History: Hyperlipidemia, Hypertension, Myocardial Infarction (OR) Father Family Medical History: Hypertension Additional Family Medical History / Comment(s): per pt she thinks father has COPD of emphysema Sister(s) Family Medical History: No Reported History Brother(s) Family Medical History: No Reported History Daughter(s) Family Medical History: No Reported History Son(s) Family Medical History: No Reported History General Exam Limitations: no limitations General appearance: alert, in no apparent distress Head exam: Present: atraumatic Eye exam: Present: normal appearance, PERRL ENT exam: Present: normal oropharynx Neck exam: Present: normal inspection Respiratory exam: Present: wheezes Cardiovascular Exam: Present: regular rate, normal rhythm GI/Abdominal exam: Present: soft. Absent: tenderness Extremities exam: Present: normal inspection. Absent: pedal edema, calf tenderness Neurological exam: Present: alert Psychiatric exam: Present: normal affect, normal mood Skin exam: Present: normal color Course Vital Signs 02/13/17 02/13/17 02/13/17 11:39 12:19 12:21 Temperature 98.2 F Pulse Rate 72 71 Respiratory 20 22 Rate Blood Pressure 144/82 150/84 O2 Sat by Pulse 100 99 Oximetry 02/13/17 02/13/17 12:33 12:44 Temperature Pulse Rate 73 77 Respiratory Rate Blood Pressure O2 Sat by Pulse Oximetry EKG Findings - EKG Comments: EKG Findings:: Sinus rhythm 72. [place] 134. QRS 74. QT 408. QTC 446. Normal axis. Normal QRS. Normal ST-T. Medical Decision Making - Medical Decision Making Patient reexamined and is somewhat improved following nebulizer treatment. Patient states overall she does not feel well. Case was discussed in detail with Dr. Patel, who will admit for Dr. Garcia. Patient does not meet sepsis criteria. - Lab Data Result diagrams: 02/13/17 12:00 02/13/17 12:00 Lab Results 02/13/17 02/13/17 02/13/17 Range/Units 12:00 12:00 12:00 WBC 7.1 (3.8-10.6) k/uL RBC 3.76 L (3.80-5.40) m/uL Hgb 11.8 (11.4-16.0) gm/dL Hct 35.9 (34.0-46.0) % MCV 95.5 (80.0-100.0) fL MCH 31.5 (25.0-35.0) pg MCHC 33.0 (31.0-37.0) g/dL RDW 15.4 (11.5-15.5) % Plt Count 316 (150-450) k/uL Neutrophils % 82 % Lymphocytes % 8 % Monocytes % 7 % Eosinophils % 1 % Basophils % 0 % Neutrophils # 5.9 (1.3-7.7) k/uL Lymphocytes # 0.6 L (1.0-4.8) k/uL Monocytes # 0.5 (0-1.0) k/uL Eosinophils # 0.0 (0-0.7) k/uL Basophils # 0.0 (0-0.2) k/uL PT (9.0-12.0) sec INR (<1.2) APTT (22.0-30.0) sec Sodium 143 (137-145) mmol/L Potassium 3.8 (3.5-5.1) mmol/L Chloride 111 H (98-107) mmol/L Carbon Dioxide 21 L (22-30) mmol/L Anion Gap 11 mmol/L BUN 9 (7-17) mg/dL Creatinine 0.53 (0.52-1.04) mg/dL Est GFR (MDRD) Af Amer >60 (>60 ml/min/1.73 sqM) Est GFR (MDRD) Non-Af >60 (>60 ml/min/1.73 sqM) Glucose 92 (74-99) mg/dL Calcium 8.9 (8.4-10.2) mg/dL Total Bilirubin 0.2 (0.2-1.3) mg/dL AST 14 (14-36) U/L ALT 23 (9-52) U/L Alkaline Phosphatase 133 H (38-126) U/L Total Creatine Kinase 59 (30-135) U/L CK-MB (CK-2) 0.7 (0.0-2.4) ng/mL CK-MB (CK-2) Rel Index 1.2 Troponin I <0.012 (0.000-0.034) ng/mL NT-Pro-B Natriuret Pep pg/mL Total Protein 5.6 L (6.3-8.2) g/dL Albumin 3.1 L (3.5-5.0) g/dL 02/13/17 02/13/17 Range/Units 12:00 12:00 WBC (3.8-10.6) k/uL RBC (3.80-5.40) m/uL Hgb (11.4-16.0) gm/dL Hct (34.0-46.0) % MCV (80.0-100.0) fL MCH (25.0-35.0) pg MCHC (31.0-37.0) g/dL RDW (11.5-15.5) % Plt Count (150-450) k/uL Neutrophils % % Lymphocytes % % Monocytes % % Eosinophils % % Basophils % % Neutrophils # (1.3-7.7) k/uL Lymphocytes # (1.0-4.8) k/uL Monocytes # (0-1.0) k/uL Eosinophils # (0-0.7) k/uL Basophils # (0-0.2) k/uL PT 11.1 (9.0-12.0) sec INR 1.1 (<1.2) APTT 24.1 (22.0-30.0) sec Sodium (137-145) mmol/L Potassium (3.5-5.1) mmol/L Chloride (98-107) mmol/L Carbon Dioxide (22-30) mmol/L Anion Gap mmol/L BUN (7-17) mg/dL Creatinine (0.52-1.04) mg/dL Est GFR (MDRD) Af Amer (>60 ml/min/1.73 sqM) Est GFR (MDRD) Non-Af (>60 ml/min/1.73 sqM) Glucose (74-99) mg/dL Calcium (8.4-10.2) mg/dL Total Bilirubin (0.2-1.3) mg/dL AST (14-36) U/L ALT (9-52) U/L Alkaline Phosphatase (38-126) U/L Total Creatine Kinase (30-135) U/L CK-MB (CK-2) (0.0-2.4) ng/mL CK-MB (CK-2) Rel Index Troponin I (0.000-0.034) ng/mL NT-Pro-B Natriuret Pep 1850 pg/mL Total Protein (6.3-8.2) g/dL Albumin (3.5-5.0) g/dL - Radiology Data Radiology results: image reviewed (Chest x-ray does show right middle lobe infiltrate.) Disposition Clinical Impression: Pneumonia, Vomiting Disposition: ADMITTED IP TO THIS [facility] Referrals: Thierno Garcia MD [Primary Care Provider] - 1-2 days Decision Time: 13:35
[2017-02-13 12:29] LABS: Basophils % (A) 0 %; CH 31.6; CHCM 33.3; Eosinophils % (A) 1 %; HCT 35.9 % (34.0-46.0); HDW 2.66; HGB 11.8 gm/dL (11.4-16.0); Luc # (Auto) 0.15; Luc % (Auto) 2; Lymphocytes # (A) 0.6 k/uL (1.0-4.8); Lymphocytes % (A) 8 %; MCH 31.5 pg (25.0-35.0); MCV 95.5 fL (80.0-100.0); Mean Platelet Volume 7.2; Monocytes # (A) 0.5 k/uL (0-1.0); Monocytes % (A) 7 %; Neutrophils # (A) 5.9 k/uL (1.3-7.7); Neutrophils % (A) 82 %; RBC 3.76 m/uL (3.80-5.40); RDW 15.4 % (11.5-15.5); WBC 7.1 k/uL (3.8-10.6); WBC (Perox) 7.83
[2017-02-13 12:34] LABS: INR 1.1 (<1.2); Partial Thromboplastin Time 24.1 sec (22.0-30.0); Prothrombin Time 11.1 sec (9.0-12.0)
[2017-02-13 12:36] LABS: ALT 23 U/L (9-52); AST 14 U/L (14-36); Alkaline Phosphatase 133 U/L (38-126); Anion Gap 11 mmol/L; Blood Urea Nitrogen 9 mg/dL (7-17); Calcium 8.9 mg/dL (8.4-10.2); Carbon Dioxide 21 mmol/L (22-30); Chloride 111 mmol/L (98-107); Glucose 92 mg/dL (74-99); Non-African American GFR(MDRD) >60 (>60 ml/min/1.73 sqM); Potassium 3.8 mmol/L (3.5-5.1); Sodium 143 mmol/L (137-145); Total Bilirubin 0.2 mg/dL (0.2-1.3); Total Protein 5.6 g/dL (6.3-8.2)
[2017-02-13 12:57] LABS: Creatine Kinase 59 U/L (30-135)
[2017-02-13 13:10] LABS: Creatine Kinase MB 0.7 ng/mL (0.0-2.4); Troponin I <0.012 ng/mL (0.000-0.034)
--- NOTE | 2017-02-13 13:10 | XR ---
"EXAMINATION TYPE: XR chest 2V DATE OF EXAM: 02/13/2017 COMPARISON: Chest radiograph dated 01/05/2017 HISTORY: Difficulty breathing TECHNIQUE: Frontal and lateral views of the chest are obtained. FINDINGS: There is new focal right middle lobe airspace disease retracting the minor fissure inferio rly with adjacent peribronchial thickening and air bronchograms of the bronchus intermedius. There is no pleural effusion or pneumothorax seen. The cardiac silhouette size is within normal limi ts. The osseous structures are intact. Cholecystectomy clips are noted within the right upper quadr ant. IMPRESSION: New right middle lobe airspace disease retracting the minor fissure with associated lupis bronchial thickening along the bronchus intermedius. Findings favor acute infectious process such as pneumonia or bronchitis and postobstructive atelectasis from distal mucous plugging. A Yellow message has been communicated to Jam Garrett DO via the [employer] | Critical Result sy stem on 02/13/2017 1:08 PM, Message ID [id number]."
[2017-02-13] MEDS ORDERED: DICYCLOMINE 10 MG/ML 2 ML AMP IM STA (13:20)
[2017-02-13] MEDS ORDERED: PNEUMONIA PROTOCOL UTILIZED 1 EACH MISC PO PRN (13:35)
[2017-02-13] MEDS ORDERED: LEVOFLOXACIN 750MG-D5W PMX 750 MG in DEXTROSE/WATER 1 150ML.BAG IVPB STA (13:35)
[2017-02-13] MEDS ORDERED: PIPERACILLIN-TAZOBACTAM 3.375 GM in DEXTROSE/WATER 1 50ML.BAG IVPB STA (13:35)
[2017-02-13] MEDS ORDERED: IPRATROPIUM-ALBUTEROL 3 ML NEB INHALATION PRN (13:35)
[2017-02-13] MEDS: SODIUM CHLORIDE 0.9% 1,000 ML IV SCH ×2 (14:16→23:12)
[2017-02-13] MEDS: PIPERACILLIN-TAZOBACTAM 3.375 GM in DEXTROSE/WATER 1 50ML.BAG IVPB SCH ×2 (16:28→23:12)
[2017-02-13] MEDS: IPRATROPIUM-ALBUTEROL 3 ML NEB INHALATION SCH ×2 (16:35→20:30)
[2017-02-13] MEDS ORDERED: RX INFO: IV CONTRAST WAS GIVEN 1 EACH MISC MISCELLANE PRN (16:44)
[2017-02-13] MEDS ORDERED: CLOPIDOGREL 75 MG TAB PO SCH (17:00)
--- NOTE | 2017-02-13 17:19 | P.HPIM ---
History of Present Illness H&P Date: 02/13/17 Chief Complaint: Coughing, sneezing, diarrhea, shortness of breath this morning as she got u This is a dictation by Dr. Bradly Lilly FACP. PCP is Dr. Thierno Garcia. Date of service 02/13/2017 History and physical in the temporary absence of Dr. Thierno Garcia. Chief complaint: # In the morning when she got up and around, however she has been coughing and sneezing with diarrhea watery stools with the stomach upset for the last 2 days. Patient stated that her mom who living in a home beside her home she came and visited and she had a bronchitis and that she coughing in front of her and she felt subsequently 2 days later that she got her infection from her mom. History of present illness: 46 years old white female she is currently engaged and she has 4 children. 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 She presented today to the emergency room with sudden onset of shortness of breath started today after she got up around and with a history of she has been coughing and sneezing having diarrhea with the stomach upset and that she has a wet to the stools she denied any recent history of antibiotic and no recent history of traveling. Past medical history patient was in the hospital 2 weeks ago where she has chest pain and they did the cardiac catheterization followed by 2 stent was placed by Dr. kirstin ames. She did not really know if she is on a few and or Plavix or Plavix and aspirin we had to figure out through her pharmacist which we currently placed her on aspirin and Plavix according the information we received from the [facility] through our pharmacy. Her Social history she is and she has 4 children 2 boys and 2 girls and she had the 10 grandchildren. Her ALLERGY she has ALLERGY to tramadol and Ultram and cold her itching also she has ALLERGY to erythromycin and exhibited causing upset stomach. Family history Mom 68 years old with a history of stent and MA, dad 73 years old history of hypertension, her brother 1 and he is 4 years old and healthy and she has one sister at age of 43 and has a stent. Surgical history she has been worked with several surgery by Dr. Middleton , patient with a history of blockage and the colostomy one year ago and then reversed subsequently after 1 year duration she had 4 hernia and incisional was repaired she had a tubal ligation and she had laparoscopic cholecystectomy and she had tonsillectomy her back fused in [place] by Dr. jackson. Patient smoker for 30 years and that trying to get out smoking and that she started on the Chantix in the hospital and her previous admission to the to the cardiac floor on the discharge she stated that she finished the first week and currently on the blue pill twice a day which is 1 mg twice a day of Chantix. And she wishing to quit smoking. Medication is adjusted and seen and we will be pleased her on Chantix again as to continue for helping her to stop smoking new Review of system neuropsychiatry was negative no evidence of strokes in the past. #2 cardiovascular history of recent admission to the hospital with a [address] kirstin ames and resolving chest pain with a strong family history of hyperlipidemia respiratory mainly the cough and the shortness of breath associated with the chest x-ray right middle lobe was questionable pneumonia versus infarct versus PE. GI symptoms of diarrhea sneezing and we will obtain C. difficile. no symptoms. Musculoskeletal generally achy. On examination today: HEENT was negative normal hearing normal oropharynx no rhinitis. Neck supple no JVD no thyromegaly no lymphadenopathy trachea midline. Next Chest increased anteroposterior diameter with the rhonchi's however no dullness on percussion on the right middle lobe with the associated cough. Heart regular sinus rhythm. Abdomen soft positive bowel sounds with the scar from previous laparoscopic cholecystectomy and tubal ligation. Extremities no edema and positive pulses Skin multiple tattooing 32 in number scattered over the body with the presence of risk of hepatitis. Assessment and plan #1 right middle lobe pneumonia #2 with a sudden onset of shortness of breath will be ruling out acute PE's patient he would the recent hospitalization. #3 tracheobronchitis #4 hyperlipidemia with family history of heart disease #5 COPD with chronic smoker #6 cessation of smoking with the start of Chantix. #7 multiple tattooing. Plan #1 acute hepatitis viral panel #2 obtain computed tomography scan angiogram was normal renal function #3 continue the antibiotic #4 continue this Chantix No. 5 clarification on her antiplatelet found to be Plavix and aspirin which reordered as well as DVT prophylaxis with SCDs on the lower extremities. Farther treatment depend on the patient response and the results of the computed tomography scan thank you Past Medical History Past Medical History: Asthma, Chest Pain / Angina, COPD, Fibromyalgia, GERD/ Reflux, Hyperlipidemia, Hypertension, Myocardial Infarction (MA) Additional Past Medical History / Comment(s): DIVERTICULITIS. RESTLESS LEG SYNDROME. DDD, BACK PAIN Last Myocardial Infarction Date:: 01-15-17 History of Any Multi-Drug Resistant Organisms: None Reported Past Surgical History: Back Surgery, Bowel Resection, Cholecystectomy, Heart Catheterization With Stent, Hernia Repair, Tonsillectomy, Tubal Ligation Additional Past Surgical History / Comment(s): "HAD A FOOT OF BOWEL REMOVE "TEMPORARY COLOSTOMY. EPIDURAL INJECTIONS, COLOSTOMY REVERSAL. "HAD 4 SX FOR INC HERNIA-HAS CLIP FOR MESH IN PLACE" BACK SURGERY 04/27, cyst taken off ovary.X2 CARDIAC STENTS Past Anesthesia/Blood Transfusion Reactions: Postoperative Nausea & Vomiting ( PONV) Date of Last Stent Placement:: 01-15-17 Smoking Status: Current every day smoker - Past Family History Mother Family Medical History: Hyperlipidemia, Hypertension, Myocardial Infarction (MA) Father Family Medical History: Hypertension Additional Family Medical History / Comment(s): per pt she thinks father has COPD of emphysema Sister(s) Family Medical History: No Reported History Brother(s) Family Medical History: No Reported History Daughter(s) Family Medical History: No Reported History Son(s) Family Medical History: No Reported History Medications and Allergies Home Medications Medication Instructions Recorded Confirmed Type ALPRAZolam [Xanax] 0.25 mg PO DAILY PRN 12/22/16 02/13/17 History Gabapentin 600 mg PO TID 12/22/16 02/13/17 History HYDROcodone/APAP 10-325MG [[place] 1 tab PO Q4H PRN 12/22/16 02/13/17 History 10-325] Albuterol Inhaler [Ventolin Hfa 2 puff INHALATION RT-Q6H PRN 01/15/17 02/13/17 History Inhaler] Aspirin EC [Ecotrin Low Dose] 81 mg PO DAILY 02/13/17 02/13/17 History Clopidogrel Bisulfate [Plavix] 75 mg PO DAILY 02/13/17 02/13/17 History Varenicline [Chantix] 0.5 - 1 mg PO DIRECTED 02/13/17 02/13/17 History Allergies Allergy/AdvReac Type Severity Reaction Status Date / Time erythromycin base AdvReac Nausea & Verified 02/13/17 13:14 [Erythromycin Base] Vomiting simvastatin AdvReac LEG CRAMPS Verified 02/13/17 13:14 tramadol HCl [From Ultram] AdvReac Itching Verified 02/13/17 13:14 Physical Exam Vitals: Vital Signs Temp Pulse Pulse Resp BP BP Pulse Ox 02/13/17 16:27 98.1 F 74 20 123/71 98 02/13/17 15:19 98.6 F 73 20 130/60 96 02/13/17 14:23 98.6 F 02/13/17 13:46 73 20 126/90 99 02/13/17 12:44 77 02/13/17 12:33 73 02/13/17 12:21 150/84 02/13/17 12:19 71 22 99 02/13/17 11:39 98.2 F 72 20 144/82 100 Intake and Output 02/13/17 02/13/17 02/13/17 06:59 14:59 22:59 Other: Voiding Method Toilet Weight 86.183 kg Patient Weight 02/14/17 06:59 Weight 86.183 kg Results CBC & Chem 7: 02/13/17 12:00 02/13/17 12:00 Labs: Abnormal Lab Results - Last 24 Hours (Table) 02/13/17 02/13/17 Range/Units 12:00 12:00 RBC 3.76 L (3.80-5.40) m/uL Lymphocytes # 0.6 L (1.0-4.8) k/uL Chloride 111 H (98-107) mmol/L Carbon Dioxide 21 L (22-30) mmol/L Alkaline Phosphatase 133 H (38-126) U/L Total Protein 5.6 L (6.3-8.2) g/dL Albumin 3.1 L (3.5-5.0) g/dL
[2017-02-13] MEDS: ASPIRIN 81 MG CHEW PO SCH (17:42)
--- NOTE | 2017-02-13 18:34 | CT ---
EXAMINATION TYPE: CT chest angio for PE DATE OF EXAM: 02/13/2017 COMPARISON: NONE HISTORY: Patient complains of difficulty breathing, chest congestion, and new diagnosis of pneumonia. CT DLP: 334.5 mGycm Automated exposure control for dose reduction was used. CONTRAST: CT Chest for pulmonary embolism performed with with IV Contrast, patient injected with 100 mL of Omni paque 350. FINDINGS: There are 3-D post processed images. The lungs are clear of consolidation. There is no sign of a pulmonary mass. There is mild pulmonary e mphysema. There are some interstitial groundglass type infiltrates in the mid lung hanson. There is s ome linear density in the right mid lung consistent with some loculated pleural fluid and atelectasis . This measures 4 x 1.5 cm. There is some focal atelectasis at the lateral lung bases as well. There is no mobile pleural fluid. Heart size is normal. There is mild bilateral bronchial adenopathy with lymph nodes that measure up to 1 cm. There is some linear filling defect in the lateral basal segment right lower lobe pulmonary artery. I see no evidence of aortic aneurysm or dissection. The ascending aorta is top normal in size and nicanor sures 4 cm. The bony thorax is intact. There is spurring in the thoracic spine. IMPRESSION: There is evidence for small embolism in the right lower lobe pulmonary artery. Minimal bronchial adenopathy. Patchy bilateral atelectasis and pleural thickening. Groundglass inters titial pulmonary infiltrates are nonspecific and consistent with interstitial lung disease. Borderline enlarged ascending aorta. 3.5 cm low-density right adrenal mass without change compared to old CT scan on 09/03/2015. This exam was discussed with the nurse on the floor Samson at 6:30 PM.
[2017-02-13] MEDS ORDERED: HEPARIN SODIUM,PORCINE 5,000 UNIT/ML 1 ML VIAL IV PRN (18:43)
[2017-02-13] MEDS ORDERED: HEPARIN SODIUM,PORCINE 5,000 UNIT/ML 1 ML VIAL IV ONE (19:00)
[2017-02-13 19:38] LABS: Basophils % (A) 0 %; CH 31.5; CHCM 32.5; Eosinophils % (A) 0 %; HCT 34.7 % (34.0-46.0); HDW 2.63; HGB 11.1 gm/dL (11.4-16.0); Luc # (Auto) 0.19; Luc % (Auto) 3; Lymphocytes # (A) 0.6 k/uL (1.0-4.8); Lymphocytes % (A) 10 %; MCH 31.2 pg (25.0-35.0); MCHC 31.9 g/dL (31.0-37.0); MCV 97.6 fL (80.0-100.0); Mean Platelet Volume 7.1; Monocytes # (A) 0.4 k/uL (0-1.0); Monocytes % (A) 7 %; Neutrophils # (A) 4.8 k/uL (1.3-7.7); Neutrophils % (A) 79 %; RBC 3.56 m/uL (3.80-5.40); RDW 15.7 % (11.5-15.5); WBC 6.1 k/uL (3.8-10.6); WBC (Perox) 6.65
[2017-02-13 19:46] LABS: INR 1.1 (<1.2); Partial Thromboplastin Time 25.2 sec (22.0-30.0); Prothrombin Time 10.9 sec (9.0-12.0)
[2017-02-13] MEDS: HEPARIN SODIUM,PORCINE/D5W PMX 25,000 UNIT in DEXTROSE/WATER 1 500ML.BAG IV SCH (19:54)
[2017-02-13] MEDS: GABAPENTIN 300 MG CAP PO SCH (20:42)
[2017-02-13] MEDS: METOPROLOL TARTRATE 25 MG TAB PO SCH (20:42)
[2017-02-13] MEDS: ATORVASTATIN 80 MG TAB PO SCH (20:42)
[2017-02-13] MEDS: HYDROcodone/APAP 10-325MG 1 EACH TAB PO PRN (20:43)
[2017-02-13] MEDS: ALPRAZolam 0.25 MG TAB PO PRN (20:43)
[2017-02-13] MEDS ORDERED: PANTOPRAZOLE 40 MG/10 ML VIAL IVP ONE (21:00)
[2017-02-14 01:37] LABS: Basophils % (A) 0 %; CH 31.4; CHCM 32.3; Eosinophils % (A) 1 %; HCT 34.2 % (34.0-46.0); HDW 2.62; HGB 10.6 gm/dL (11.4-16.0); Luc # (Auto) 0.14; Luc % (Auto) 3; Lymphocytes # (A) 0.8 k/uL (1.0-4.8); Lymphocytes % (A) 15 %; MCH 30.5 pg (25.0-35.0); MCHC 31.1 g/dL (31.0-37.0); MCV 97.9 fL (80.0-100.0); Macrocytosis Slight; Mean Platelet Volume 7.4; Monocytes # (A) 0.4 k/uL (0-1.0); Monocytes % (A) 7 %; Neutrophils # (A) 3.9 k/uL (1.3-7.7); Neutrophils % (A) 74 %; RBC 3.49 m/uL (3.80-5.40); RDW 15.6 % (11.5-15.5); WBC 5.3 k/uL (3.8-10.6); WBC (Perox) 5.64
[2017-02-14] MEDS ORDERED: HEPARIN SODIUM,PORCINE 10,000 UNIT/ML 1 ML VIAL IV STA (01:56)
[2017-02-14] MEDS: HYDROcodone/APAP 10-325MG 1 EACH TAB PO PRN ×4 (05:20→23:04)
--- NOTE | 2017-02-14 07:40 | XR ---
EXAMINATION TYPE: XR chest 2V DATE OF EXAM: 02/14/2017 HISTORY: pneumonia. REFERENCE: Previous study dated 02/13/2017. FINDINGS: Airspace disease in the right midlung has improved and is almost entirely resolved. There c ontinues to be mild interstitial change. The heart is not enlarged. No definite pleural fluid is pres ent. IMPRESSION: IMPROVING RIGHT MIDDLE LOBE PNEUMONIA.
[2017-02-14 07:48] LABS: Basophils % (A) 0 %; CH 31.5; CHCM 32.2; Eosinophils % (A) 1 %; HCT 34.1 % (34.0-46.0); HDW 2.62; HGB 10.9 gm/dL (11.4-16.0); Luc # (Auto) 0.16; Luc % (Auto) 3; Lymphocytes # (A) 0.8 k/uL (1.0-4.8); Lymphocytes % (A) 16 %; MCH 31.4 pg (25.0-35.0); MCHC 31.9 g/dL (31.0-37.0); MCV 98.3 fL (80.0-100.0); Macrocytosis Slight; Mean Platelet Volume 7.1; Monocytes # (A) 0.4 k/uL (0-1.0); Monocytes % (A) 8 %; Neutrophils # (A) 3.7 k/uL (1.3-7.7); Neutrophils % (A) 72 %; RBC 3.47 m/uL (3.80-5.40); RDW 15.7 % (11.5-15.5); WBC 5.2 k/uL (3.8-10.6); WBC (Perox) 5.51
[2017-02-14] MEDS: IPRATROPIUM-ALBUTEROL 3 ML NEB INHALATION SCH (07:56)
[2017-02-14 08:29] LABS: Anion Gap 7 mmol/L; Blood Urea Nitrogen 5 mg/dL (7-17); Carbon Dioxide 22 mmol/L (22-30); Chloride 111 mmol/L (98-107); Glucose 89 mg/dL (74-99); Non-African American GFR(MDRD) >60 (>60 ml/min/1.73 sqM); Potassium 3.5 mmol/L (3.5-5.1); Sodium 140 mmol/L (137-145)
[2017-02-14 08:42] LABS: Hepatitis B Surface Ag Index 0.07
[2017-02-14 08:47] LABS: Hepatitis B Core IgM Index 0.02
[2017-02-14] MEDS: PIPERACILLIN-TAZOBACTAM 3.375 GM in DEXTROSE/WATER 1 50ML.BAG IVPB SCH ×3 (08:48→23:03)
[2017-02-14] MEDS: METOPROLOL TARTRATE 25 MG TAB PO SCH ×2 (08:48→20:38)
[2017-02-14] MEDS: ASPIRIN 81 MG CHEW PO SCH (08:49)
[2017-02-14] MEDS: LISINOPRIL 5 MG TAB PO SCH (08:49)
[2017-02-14] MEDS: GABAPENTIN 300 MG CAP PO SCH ×3 (08:49→20:39)
[2017-02-14] MEDS: PANTOPRAZOLE 40 MG TABLET PO SCH (08:49)
[2017-02-14] MEDS: ALPRAZolam 0.25 MG TAB PO PRN (08:49)
[2017-02-14] MEDS ORDERED: HEPARIN SODIUM,PORCINE 5,000 UNIT/ML 1 ML VIAL IV STA ×2 (08:52→16:59)
[2017-02-14 08:59] LABS: Hepatitis C Virus IgG Ab Negative (Negative); Hepatitis C Virus IgG Index 0.04
[2017-02-14] MEDS: ALBUTEROL NEBULIZED 2.5 MG/3 ML INHALATION PRN ×3 (11:30→20:38)
--- NOTE | 2017-02-14 11:30 | P.PN ---
Subjective Principal diagnosis: #1 right middle lobe pneumonia #2 right lower lobe PE #3 recent history of stent placement by Dr. kirstin ames 2. #4 multiple tattoo was positive risks. #5 chronic smoker for more than 40 years with the underlying COPD, interstitial lung disease considered. #6 hepatitis panel not available yet. #7 shortness of breath improved. This is a dictation on progress note date of service 02/14/[address] Amanda Lilly FACP in the temporary absence of Dr. Thierno Garcia. Vital signs stable temperature 98.1 orally pulse 76 respiratory rate 18 blood pressure 130/66 with mean pressure 87 at 7:00 her ABGs was 97%. On exam: HEENT negative. Neck was supple no JVD no thyromegaly no lymphadenopathy. Chest: Scattered wheezes and rhonchi no dullness on percussion on the right middle lobe area, computed tomography scan angiogram of the chest indicating pneumonia in the right lower lobe with no evidence of consultation however there is a evidence of interstitial lung disease. Heart: No chest pain and patient had recently 2 weeks ago 2 stent was placed by Dr. kirstin ames she was on Plavix and aspirin. However patient found with the PE and currently on heparin protocol Plavix was held temporary until we obtain the opinion of the cardiology to evaluate what medicine we should complete with the heparin and subsequently as outpatient if they prefer Coumadin versus and no anticoagulant with the addition to the Plavix or not using the Plavix. Abdomen soft positive bowel sounds and no organomegaly enlargement patient thought that she had some diarrhea however so far we don't have any stool sample. Extremities no edema and positive pulses. Assessment and plan. As mentioned above patient on antibiotic for the pneumonia also on heparin for the underlying PE and aspirin for the stent uncontrolled we have the opinion of the cardiology regarding of the stent and the PE and a combination of medication to avoid bleeding. Also monitoring her hemoglobin and hematocrit as well and a stool for Hemoccult. Objective - Vital Signs Vital signs: Vital Signs Temp 98.1 F 02/14/17 07:00 Pulse 72 02/14/17 08:08 Resp 18 02/14/17 07:00 BP 130/66 02/14/17 07:00 Pulse Ox 93 L 02/14/17 07:56 Intake & Output 02/13/17 02/14/17 02/14/17 18:59 06:59 18:59 Intake Total 123.333 151.8 Output Total 2 Balance 121.333 151.8 Weight 86.183 kg Intake: Intake, IV Titration 123.333 151.8 Amount Heparin Sodium,Porcine/ 123.333 151.8 D5w Pmx 25,000 unit In Dextrose/Water 1 500ml. bag @ 11.604 UNITS/KG/HR 20 mls/hr IV .Q24H [facility] Rx #:[id number] Output: Urine 1 Stool 1 Other: Voiding Method Toilet # Voids 2 # Bowel Movements 2 - Labs CBC & Chem 7: 02/14/17 07:00 02/14/17 07:00 Labs: Abnormal Lab Results - Last 24 Hours (Table) 02/13/17 02/13/17 02/13/17 Range/Units 12:00 12:00 19:26 RBC 3.76 L 3.56 L (3.80-5.40) m/uL Hgb 11.1 L (11.4-16.0) gm/dL RDW 15.7 H (11.5-15.5) % Lymphocytes # 0.6 L 0.6 L (1.0-4.8) k/uL APTT (22.0-30.0) sec Chloride 111 H (98-107) mmol/L Carbon Dioxide 21 L (22-30) mmol/L BUN (7-17) mg/dL Calcium (8.4-10.2) mg/dL Alkaline Phosphatase 133 H (38-126) U/L Total Protein 5.6 L (6.3-8.2) g/dL Albumin 3.1 L (3.5-5.0) g/dL Stool Occult Blood (Negative) 02/13/17 02/14/17 02/14/17 Range/Units 21:00 01:17 01:17 RBC 3.49 L (3.80-5.40) m/uL Hgb 10.6 L (11.4-16.0) gm/dL RDW 15.6 H (11.5-15.5) % Lymphocytes # 0.8 L (1.0-4.8) k/uL APTT 33.3 H (22.0-30.0) sec Chloride (98-107) mmol/L Carbon Dioxide (22-30) mmol/L BUN (7-17) mg/dL Calcium (8.4-10.2) mg/dL Alkaline Phosphatase (38-126) U/L Total Protein (6.3-8.2) g/dL Albumin (3.5-5.0) g/dL Stool Occult Blood Positive H (Negative) 02/14/17 02/14/17 02/14/17 Range/Units 07:00 07:00 07:00 RBC 3.47 L (3.80-5.40) m/uL Hgb 10.9 L (11.4-16.0) gm/dL RDW 15.7 H (11.5-15.5) % Lymphocytes # 0.8 L (1.0-4.8) k/uL APTT 42.7 H (22.0-30.0) sec Chloride 111 H (98-107) mmol/L Carbon Dioxide (22-30) mmol/L BUN 5 L (7-17) mg/dL Calcium 8.0 L (8.4-10.2) mg/dL Alkaline Phosphatase (38-126) U/L Total Protein (6.3-8.2) g/dL Albumin (3.5-5.0) g/dL Stool Occult Blood (Negative)
--- NOTE | 2017-02-14 12:25 | P.CRDCN ---
History of Present Illness Consult date: 02/14/17 History of present illness: This is a pleasant 46-year-old female patient who sees Dr. Seo as an outpatient with a known CAD who just underwent stenting of the RCA in January 2017 presented to the hospital complaining of shortness of breath. She denies having any chest pain or discomfort but she stated she has been more short of breath lately. CTA of the chest was performed and showed small PE. The patient was subsequently admitted to the hospital and she was started on heparin IV. We get involved in the care of the patient to manage her antiplatelet in addition to the heparin. Unfortunately the Plavix was stopped which I did resume it. Currently the patient is on aspirin which I am going to continue and also she is on heparin IV. She denies having any chest pain or discomfort for or dizziness or lightheadedness or any syncope. I will obtain an echocardiogram was Doppler and continue following up with her. Past Medical History Past Medical History: Asthma, Chest Pain / Angina, COPD, Fibromyalgia, GERD/ Reflux, Hyperlipidemia, Hypertension, Myocardial Infarction ([place]) Additional Past Medical History / Comment(s): DIVERTICULITIS. RESTLESS LEG SYNDROME. DDD, BACK PAIN Last Myocardial Infarction Date:: 01-15-17 History of Any Multi-Drug Resistant Organisms: None Reported Past Surgical History: Back Surgery, Bowel Resection, Cholecystectomy, Heart Catheterization With Stent, Hernia Repair, Tonsillectomy, Tubal Ligation Additional Past Surgical History / Comment(s): "HAD A FOOT OF BOWEL REMOVE "TEMPORARY COLOSTOMY. EPIDURAL INJECTIONS, COLOSTOMY REVERSAL. "HAD 4 SX FOR INC HERNIA-HAS CLIP FOR MESH IN PLACE" BACK SURGERY 04/27, cyst taken off ovary.X2 CARDIAC STENTS Past Anesthesia/Blood Transfusion Reactions: Postoperative Nausea & Vomiting ( PONV) Date of Last Stent Placement:: 01-15-17 Smoking Status: Current every day smoker - Past Family History Mother Family Medical History: Hyperlipidemia, Hypertension, Myocardial Infarction ([place]) Father Family Medical History: Hypertension Additional Family Medical History / Comment(s): per pt she thinks father has COPD of emphysema Sister(s) Family Medical History: No Reported History Brother(s) Family Medical History: No Reported History Daughter(s) Family Medical History: No Reported History Son(s) Family Medical History: No Reported History Medications and Allergies Home Medications Medication Instructions Recorded Confirmed Type ALPRAZolam [Xanax] 0.25 mg PO DAILY PRN 12/22/16 02/13/17 History Gabapentin 600 mg PO TID 12/22/16 02/13/17 History HYDROcodone/APAP 10-325MG [[place] 1 tab PO Q4H PRN 12/22/16 02/13/17 History 10-325] Albuterol Inhaler [Ventolin Hfa 2 puff INHALATION RT-Q6H PRN 01/15/17 02/13/17 History Inhaler] Aspirin EC [Ecotrin Low Dose] 81 mg PO DAILY 02/13/17 02/13/17 History Clopidogrel Bisulfate [Plavix] 75 mg PO DAILY 02/13/17 02/13/17 History Varenicline [Chantix] 0.5 - 1 mg PO DIRECTED 02/13/17 02/13/17 History Allergies Allergy/AdvReac Type Severity Reaction Status Date / Time erythromycin base AdvReac Nausea & Verified 02/13/17 13:14 [Erythromycin Base] Vomiting simvastatin AdvReac LEG CRAMPS Verified 02/13/17 13:14 tramadol HCl [From Ultram] AdvReac Itching Verified 02/13/17 13:14 Physical Exam Vitals: Vital Signs Temp Pulse Pulse Resp BP BP Pulse Ox 02/14/17 11:44 76 02/14/17 11:31 76 02/14/17 08:08 72 02/14/17 07:56 76 93 L 02/14/17 07:00 98.1 F 68 18 130/66 97 02/14/17 05:34 76 02/14/17 05:25 72 02/14/17 05:24 98.5 F 68 16 128/77 93 L 02/13/17 23:00 98.7 F 69 16 115/65 97 02/13/17 20:48 73 02/13/17 20:40 80 140/80 02/13/17 20:31 73 02/13/17 16:27 98.1 F 74 20 123/71 98 02/13/17 15:19 98.6 F 73 20 130/60 96 02/13/17 14:23 98.6 F 02/13/17 13:46 73 20 126/90 99 02/13/17 12:44 77 02/13/17 12:33 73 Intake and Output 08/04/17 08/05/17 08/05/17 22:59 06:59 14:59 Intake Total 123.333 151.8 Output Total 2 1 Balance 121.333 150.8 Intake: Intake, IV Titration 123.333 151.8 Amount Heparin Sodium,Porcine/ 123.333 151.8 D5w Pmx 25,000 unit In Dextrose/Water 1 500ml. bag @ 11.604 UNITS/KG/HR 20 mls/hr IV .Q24H [facility] Rx #:[id number] Output: Urine 1 Stool 1 1 Other: Voiding Method Toilet # Voids 2 # Bowel Movements 2 - Constitutional General appearance: no acute distress - Respiratory Respiratory: bilateral: wheezing - Cardiovascular Rhythm: regular Heart sounds: normal: S1, S2 Results 02/14/17 07:00 02/14/17 07:00 Cardiac Enzymes 02/13/17 02/13/17 Range/Units 12:00 12:00 AST 14 (14-36) U/L CK-MB (CK-2) 0.7 (0.0-2.4) ng/mL Troponin I <0.012 (0.000-0.034) ng/mL Coagulation 02/13/17 02/13/17 02/14/17 Range/Units 12:00 19:26 01:17 PT 11.1 10.9 (9.0-12.0) sec APTT 24.1 25.2 33.3 H (22.0-30.0) sec 02/14/17 Range/Units 07:00 PT (9.0-12.0) sec APTT 42.7 H (22.0-30.0) sec CBC 02/13/17 02/13/17 02/14/17 Range/Units 12:00 19:26 01:17 WBC 7.1 6.1 5.3 (3.8-10.6) k/uL RBC 3.76 L 3.56 L 3.49 L (3.80-5.40) m/uL Hgb 11.8 11.1 L 10.6 L (11.4-16.0) gm/dL Hct 35.9 34.7 34.2 (34.0-46.0) % Plt Count 316 288 264 (150-450) k/uL 02/14/17 Range/Units 07:00 WBC 5.2 (3.8-10.6) k/uL RBC 3.47 L (3.80-5.40) m/uL Hgb 10.9 L (11.4-16.0) gm/dL Hct 34.1 (34.0-46.0) % Plt Count 293 (150-450) k/uL Comprehensive Metabolic Panel 02/13/17 02/14/17 Range/Units 12:00 07:00 Sodium 143 140 (137-145) mmol/L Potassium 3.8 3.5 (3.5-5.1) mmol/L Chloride 111 H 111 H (98-107) mmol/L Carbon Dioxide 21 L 22 (22-30) mmol/L BUN 9 5 L (7-17) mg/dL Creatinine 0.53 0.56 (0.52-1.04) mg/dL Glucose 92 89 (74-99) mg/dL Calcium 8.9 8.0 L (8.4-10.2) mg/dL AST 14 (14-36) U/L ALT 23 (9-52) U/L Alkaline Phosphatase 133 H (38-126) U/L Total Protein 5.6 L (6.3-8.2) g/dL Albumin 3.1 L (3.5-5.0) g/dL Current Medications Generic Name Dose Route Start Last Admin Trade Name Freq PRN Reason Stop Dose Admin Hydrocodone Bitart/Acetaminophen 1 each 02/13/17 19:18 02/14/17 11:19 [place] 10 PO 1 each Q6H PRN Administration Pain Albuterol Sulfate 2.5 mg 02/14/17 11:10 02/14/17 11:30 Ventolin Nebulized INHALATION 2.5 mg RT-QID PRN Administration Shortness Of Breath Or Wheezing Alprazolam 0.25 mg 02/13/17 19:18 02/14/17 08:49 Xanax PO 0.25 mg DAILY PRN Administration Anxiety Aspirin 81 mg 02/13/17 17:00 02/14/17 08:49 Aspirin PO 81 mg DAILY [facility] Administration Atorvastatin Calcium 80 mg 02/13/17 21:00 02/13/17 20:42 Lipitor PO 80 mg HS [facility] Administration Budesonide 0.5 mg 02/14/17 20:00 Pulmicort INHALATION RT-BID [facility] Clopidogrel Bisulfate 75 mg 02/14/17 12:30 Plavix PO DAILY [facility] Gabapentin 600 mg 02/13/17 22:00 02/14/17 08:49 Neurontin PO 600 mg TID [facility] Administration Heparin Sodium (Porcine) 0 unit 02/13/17 18:43 02/14/17 02:03 Heparin IV 4,000 unit PER PROTOCOL PRN Administration Low PTT Protocol Levofloxacin 750 mg/ IV 150 mls @ 100 mls/hr 02/14/17 12:00 Solution IVPB 02/26/17 12:01 Q24H [facility] Piperacillin/Tazobactam/ 50 mls @ 12.5 mls/hr 02/13/17 16:00 02/14/17 08:48 Dextrose 3.375 gm/ IV Solution IVPB 02/23/17 16:01 12.5 mls/hr Q8HR [facility] Administration Sodium Chloride 1,000 mls @ 100 mls/hr 02/13/17 13:45 02/13/17 23:12 Saline 0.9% IV 100 mls/hr .Q10H [facility] Administration Heparin Sodium/Dextrose 25,000 500 mls @ 20 mls/hr 02/13/17 19:15 02/14/17 08 :40 unit/ IV Solution IV 15.34 units/kg/hr .Q24H [facility] 26.44 mls/hr Protocol Titration 11.604 UNITS/KG/HR Lisinopril 5 mg 02/14/17 09:00 02/14/17 08:49 Zestril PO 5 mg DAILY [facility] Administration Methylprednisolone Sodium Succinate 60 mg 02/14/17 12:00 Solu-Medrol IV Q6HR [facility] Metoprolol Tartrate 25 mg 02/13/17 21:00 02/14/17 08:48 Lopressor PO 25 mg BID [facility] Administration Miscellaneous Information 1 each 02/13/17 13:35 Pneumonia Protocol Utilized PO ONCE PRN Per Protocol Miscellaneous Information 1 each 02/13/17 16:44 Rx Info: Iv Contrast Was Given MISCELLANE 02/15/17 16:47 DAILY PRN Per Protocol Pantoprazole Sodium 40 mg 02/14/17 07:30 02/14/17 08:49 Protonix PO 40 mg [id number] [facility] Administration Varenicline 1 mg 02/14/17 21:00 Chantix PO BID [facility] Intake and Output 02/13/17 02/14/17 02/14/17 22:59 06:59 14:59 Intake Total 123.333 151.8 Output Total 2 1 Balance 121.333 150.8 Intake: Intake, IV Titration 123.333 151.8 Amount Heparin Sodium,Porcine/ 123.333 151.8 D5w Pmx 25,000 unit In Dextrose/Water 1 500ml. bag @ 11.604 UNITS/KG/HR 20 mls/hr IV .Q24H [facility] Rx #:[id number] Output: Urine 1 Stool 1 1 Other: Voiding Method Toilet # Voids 2 # Bowel Movements 2 02/14/17 07:00 02/14/17 07:00 Assessment and Plan Plan: This is a pleasant 46-year-old female patient with a known CAD and prior stenting of the RCA presented to the hospital with shortness of breath and was diagnosed was PE. I am going to continue the heparin IV, resume the Plavix, and continue the aspirin. I will obtain an echocardiogram was Doppler. We'll continue following up with her.
[2017-02-14] MEDS: SODIUM CHLORIDE 0.9% 1,000 ML IV SCH ×2 (12:48→20:38)
--- NOTE | 2017-02-14 13:28 | US ---
EXAMINATION TYPE: US venous doppler duplex LE BI DATE OF EXAM: 02/14/2017 1:12 PM COMPARISON: NONE CLINICAL HISTORY: possible dvt. PE, on heparin, heart cath x 2 weeks ago rt groin. No leg pain or sw elling. SIDE PERFORMED: Bilateral TECHNIQUE: The lower extremity deep venous system is examined utilizing real time linear array sonog tamir with graded compression, doppler sonography and color-flow sonography. VESSELS IMAGED: External Iliac Vein (EIV) Common Femoral Vein Deep Femoral Vein Greater Saphenous Vein * Femoral Vein Popliteal Vein Small Saphenous Vein * Proximal Calf Veins (* superficial vessels) Right Leg: Appears negative for DVT Left Leg: Appears negative for DVT Grayscale, color doppler, spectral doppler imaging performed of the deep veins of the lower extremiti es. There is normal flow, compressibility, vascular waveforms bilaterally. IMPRESSION: No ultrasound evidence for acute DVT in either lower extremity.
[2017-02-14 15:06] VITALS: BMI 31.6
--- NOTE | 2017-02-14 15:45 | NM ---
EXAMINATION TYPE: NM pul vent and perfuse DATE OF EXAM: 02/14/2017 COMPARISON: CTA chest from yesterday. Chest x-ray from earlier today. HISTORY: Dyspnea rule out pulmonary embolism TECHNIQUE: Utilizing inhalation of 70.5 mCi Tc 99m DTPA aerosol and intravenous injection of 5.16 mC i of Tc 99m MAA, ventilation and perfusion images are acquired post injection in multiple projections . FINDINGS: Normal radiotracer distribution is noted in the lungs. There is no evidence of mismatched defects. IMPRESSION: No scintigraphic evidence for pulmonary embolism
[2017-02-14] MEDS: LEVOFLOXACIN 750MG-D5W PMX 750 MG in DEXTROSE/WATER 1 150ML.BAG IVPB SCH (16:13)
[2017-02-14] MEDS: HEPARIN SODIUM,PORCINE/D5W PMX 25,000 UNIT in DEXTROSE/WATER 1 500ML.BAG IV SCH (16:54)
[2017-02-14] MEDS: CLOPIDOGREL 75 MG TAB PO SCH (17:00)
[2017-02-14] MEDS: methylPREDNISolone SOD SUCCI 125 MG/2 ML VIAL IV SCH ×3 (17:00→23:04)
--- NOTE | 2017-02-14 18:38 | CONS ---
Kenia Barr is a 46 -year-old female who presented to [facility] about two weeks ago. At that time, she had chest pain, was found to have an acute coronary syndrome with acute myocardial infarction and subsequently had two stents placed. She subsequently was discharged home and comes into the ED on 02/13/2017 with shortness of breath that seems to be since she left the hospital. She had been having occasional cough and wheezing, had nausea and vomiting and diarrhea for the last two to three days as well. I was personally asked by Dr. Patel to provide consultation on this patient. She is scheduled to be seen in our office within the next week as well and apparently had seen her in the past for pleurisy several years ago. She denies any fever or chills at this time. CT scan was done which showed small pulmonary embolism on the right side. Subsequently a pulmonary consultation is placed. His past medical history is positive for asthma, COPD, fibromyalgia, gastroesophageal reflux disease, hyperlipidemia, hypertension, recent acute myocardial infarction, diverticulitis, restless leg syndrome. No previous history of deep venous thrombosis or pulmonary embolism. Previous history of back surgery, bowel resection with temporary colostomy. Colostomy reversal, cholecystectomy, cardiac catheterization with two stents placement. Family history is positive for COPD in her father. Mother had history of acute myocardial infarction and hyperlipidemia. MEDICATIONS: Prior to admission were: 1. Aspirin. 2. Plavix. 3. Nitroglycerine sublingual. 4. ( ). 5. Metoprolol. 6. Lisinopril. 7. [place]. 8. Gabapentin. 9. Ventolin HFA. 10. Xanax. 11. 81 mg Aspirin. Review of systems is noncontributory. On physical examination, the blood pressure was 130/66. Respiratory rate 18. Pulse rate 68. Temperature 98.1. O2 sat on room air is 97%. HEENT reveals pupils are equal. No jugular venous distention. Chest reveals decreased breath sounds. Prolonged expiration. Expiratory wheezing. Cardiovascular system reveals S1, S2. Abdomen is soft. There is trace pedal edema bilaterally. There is no calf tenderness. There is an ecchymotic area in the left amaral. White count 5.2. Hemoglobin 10.9. Sodium 140. Potassium 3.5. Chloride 111. Bicarb 22. PTT today is 42.7. Albumin is 3.1. Stool for occult blood is positive. D. dimer has not been done. CT scan of the chest was personally reviewed by me. I am not entirely convince of the pulmonary embolism in the right lower lobe pulmonary artery. There are some interstitial ground glass type infiltrates in the mid lung hanson. IMPRESSION: 1. Shortness of breath which is most likely secondary to asthma with chronic obstructive pulmonary disease with acute exacerbation. 2. Acute myocardial infarction with cardiomyopathy, contributing to shortness of breath is likely. 3. Beta allie that may be contributing to bronchospasm. 4. Possibly pulmonary embolism which if anything may be small. 5. Stool for occult blood positive. At this point in time, would check a VQ scan. If this is equivocal or negative , would consider discontinuing heparin. Would check lower extremity duplexes. Would have cardiology further evaluate the patient as the patient may need Plavix and aspirin to prevent closure of her stent. She was counseled about her condition and this approach. We will follow her closely and make changes as necessary. I would like to thank you for allowing us to participate in her care. SHAWNA
[2017-02-14] MEDS: BUDESONIDE 0.5 MG/2 ML NEBU INHALATION SCH (20:38)
[2017-02-14] MEDS: ATORVASTATIN 80 MG TAB PO SCH (20:38)
[2017-02-14] MEDS: VARENICLINE 1 MG TAB PO SCH (20:39)
[2017-02-15 04:51] LABS: Basophils % (A) 0 %; CH 31.4; CHCM 32.2; Eosinophils % (A) 0 %; HCT 35.2 % (34.0-46.0); HDW 2.66; HGB 11.1 gm/dL (11.4-16.0); Luc # (Auto) 0.06; Luc % (Auto) 2; Lymphocytes # (A) 0.6 k/uL (1.0-4.8); Lymphocytes % (A) 17 %; MCHC 31.6 g/dL (31.0-37.0); Mean Platelet Volume 7.2; Monocytes % (A) 1 %; Neutrophils # (A) 2.7 k/uL (1.3-7.7); Neutrophils % (A) 80 %; RDW 15.7 % (11.5-15.5); Reticulocyte % 0.6 % (0.5-2.0); WBC 3.4 k/uL (3.8-10.6); WBC (Perox) 3.87
[2017-02-15] MEDS: HYDROcodone/APAP 10-325MG 1 EACH TAB PO PRN ×2 (04:51→12:07)
[2017-02-15] MEDS: SODIUM CHLORIDE 0.9% 1,000 ML IV SCH (04:51)
[2017-02-15 04:58] LABS: Anion Gap 10 mmol/L; Blood Urea Nitrogen 7 mg/dL (7-17); Carbon Dioxide 24 mmol/L (22-30); Chloride 109 mmol/L (98-107); Non-African American GFR(MDRD) >60 (>60 ml/min/1.73 sqM); Sodium 143 mmol/L (137-145)
[2017-02-15] MEDS: methylPREDNISolone SOD SUCCI 125 MG/2 ML VIAL IV SCH (05:11)
[2017-02-15 05:20] LABS: Calcium 8.6 mg/dL (8.4-10.2); Glucose 183 mg/dL (74-99); Potassium 3.9 mmol/L (3.5-5.1)
[2017-02-15] MEDS: ALBUTEROL NEBULIZED 2.5 MG/3 ML INHALATION PRN ×2 (07:53→11:39)
[2017-02-15] MEDS: BUDESONIDE 0.5 MG/2 ML NEBU INHALATION SCH (07:53)
[2017-02-15 07:57] VITALS: BP 119/73; RESP 18; TEMP 97.1
[2017-02-15] MEDS: PIPERACILLIN-TAZOBACTAM 3.375 GM in DEXTROSE/WATER 1 50ML.BAG IVPB SCH (09:31)
[2017-02-15] MEDS: PANTOPRAZOLE 40 MG TABLET PO SCH (09:31)
[2017-02-15] MEDS: CLOPIDOGREL 75 MG TAB PO SCH (09:32)
[2017-02-15] MEDS: GABAPENTIN 300 MG CAP PO SCH (09:32)
[2017-02-15] MEDS: ASPIRIN 81 MG CHEW PO SCH (09:32)
[2017-02-15] MEDS: LISINOPRIL 5 MG TAB PO SCH (09:32)
[2017-02-15] MEDS: VARENICLINE 1 MG TAB PO SCH (09:32)
[2017-02-15] MEDS: METOPROLOL TARTRATE 25 MG TAB PO SCH (09:32)
[2017-02-15] MEDS: ALPRAZolam 0.25 MG TAB PO PRN (09:42)
[2017-02-15] MEDS ORDERED: predniSONE 20 MG TAB PO SCH (11:00)
--- NOTE | 2017-02-15 11:13 | P.PN ---
Subjective Principal diagnosis: Shortness of breath This is a pleasant 46-year-old female patient who sees Dr. Seo as an outpatient with a known CAD who just underwent stenting of the RCA in January 2017 presented to the hospital complaining of shortness of breath. She denies having any chest pain or discomfort but she stated she has been more short of breath lately. CTA of the chest was performed and showed small PE. The patient was subsequently admitted to the hospital and she was started on heparin IV. We get involved in the care of the patient to manage her antiplatelet in addition to the heparin. Unfortunately the Plavix was stopped which I did resume it. Currently the patient is on aspirin which I am going to continue and also she is on heparin IV. She denies having any chest pain or discomfort for or dizziness or lightheadedness or any syncope. The patient subsequently underwent VQ scan which showed no PE. The CTA was reviewed by Dr. Chelo Aviles Who did not convinced that the patient had a PE. Objective - Vital Signs Vital signs: Vital Signs Temp 97.1 F L 02/15/17 07:00 Pulse 78 02/15/17 08:17 Resp 18 02/15/17 07:00 BP 119/73 02/15/17 07:00 Pulse Ox 95 02/15/17 07:00 Intake & Output 02/14/17 02/15/17 02/15/17 18:59 06:59 18:59 Intake Total 770.179 365.324 Output Total 1 Balance 769.179 365.324 Weight 86.183 kg Intake: Intake, IV Titration 370.179 365.324 Amount Heparin Sodium,Porcine/ 370.179 365.324 D5w Pmx 25,000 unit In Dextrose/Water 1 500ml. bag @ 11.604 UNITS/KG/HR 20 mls/hr IV .Q24H [facility] Rx #:[id number] Oral 400 Output: Stool 1 Other: # Voids 2 1 # Bowel Movements 0 1 - Constitutional General appearance: Present: no acute distress - Respiratory Respiratory: bilateral: CTA - Cardiovascular Rhythm: regular Heart sounds: normal: S1, S2 - Labs CBC & Chem 7: 02/15/17 04:24 02/15/17 04:24 Labs: Abnormal Lab Results - Last 24 Hours (Table) 02/14/17 02/14/17 02/15/17 Range/Units 16:07 22:13 04:24 WBC 3.4 L (3.8-10.6) k/uL RBC 3.60 L (3.80-5.40) m/uL Hgb 11.1 L (11.4-16.0) gm/dL RDW 15.7 H (11.5-15.5) % Lymphocytes # 0.6 L (1.0-4.8) k/uL APTT 39.7 H 76.1 H (22.0-30.0) sec Chloride (98-107) mmol/L Glucose (74-99) mg/dL 02/15/17 02/15/17 Range/Units 04:24 04:24 WBC (3.8-10.6) k/uL RBC (3.80-5.40) m/uL Hgb (11.4-16.0) gm/dL RDW (11.5-15.5) % Lymphocytes # (1.0-4.8) k/uL APTT 61.5 H (22.0-30.0) sec Chloride 109 H (98-107) mmol/L Glucose 183 H (74-99) mg/dL Microbiology - Last 24 Hours (Table) 02/13/17 20:33 Gram Stain - Preliminary Sputum Sputum Culture - Preliminary 02/13/17 12:20 Blood Culture - Preliminary Blood No Growth after 24 hours Assessment and Plan Plan: From a cardiovascular standpoint of view, the patient can be discharged home. She is to be go home on aspirin and Plavix.
[2017-02-15 11:51] VITALS: PULSE 72
[2017-02-15] MEDS: LEVOFLOXACIN 750MG-D5W PMX 750 MG in DEXTROSE/WATER 1 150ML.BAG IVPB SCH ×2 (12:07→14:47)
--- NOTE | 2017-02-15 13:55 | ECHOF ---
Referral Reason:PE MEASUREMENTS -------- HEIGHT: 165.1 cm WEIGHT: 86.2 kg BP: 130/66 RVIDd: 3.2 cm (< 3.3) IVSd: 1.2 cm (0.6 - 1.1) LVIDd: 4.5 cm (3.9 - 5.3) LVPWd: 1.2 cm (0.6 - 1.1) IVSs: 1.6 cm LVIDs: 2.5 cm LVPWs: 1.6 cm LAESV Index (A-L): 28.85 ml/m Ao Diam: 3.4 cm (2.0 - 3.7) AV Cusp: 1.7 cm (1.5 - 2.6) LA Diam: 3.7 cm (2.7 - 3.8) MV E Darrel: 1.12 m/s MV DecT: 265 ms MV A Darrel: 0.65 m/s MV E/A Ratio: 1.72 RAP: 5.00 mmHg RVSP: 30.90 mmHg FINDINGS -------- Sinus rhythm. This was a technically adequate study. There is mild concentric left ventricular hypertrophy. Overall left ventricular systolic function is normal with, an EF between 60 - 65 %. The right ventricle is normal in size and function. LA is midly dilated 29-33ml/m2. The right atrium is normal in size. Aortic valve is trileaflet and is mildly thickened. There is no evidence of aortic regurgitation. There is no evidence of aortic stenosis. The mitral valve leaflets are mildly thickened. There is trace to mild mitral regurgitation. Mild tricuspid regurgitation present. There is no evidence of pulmonary hypertension. The right ventricular systolic pressure, as measured by Doppler, is 30.90mmHg. The pulmonic valve was not well visualized. The aortic root size is normal. Normal inferior vena cava with normal inspiratory collapse consistent with estimated right atrial pressure of 5 mmHg. The pericardium is normal. There is no pericardial effusion. CONCLUSIONS -------- 1. Sinus rhythm. 2. There is no evidence of pulmonary hypertension. 3. The right ventricular systolic pressure, as measured by Doppler, is 30.90mmHg. 4. The pulmonic valve was not well visualized. 5. The aortic root size is normal. 6. There is no pericardial effusion. 7. This was a technically adequate study. 8. There is mild concentric left ventricular hypertrophy. 9. Overall left ventricular systolic function is normal with, an EF between 60 - 65 %. 10. LA is midly dilated 29-33ml/m2. 11. Aortic valve is trileaflet and is mildly thickened. 12. The mitral valve leaflets are mildly thickened. 13. There is trace to mild mitral regurgitation. 14. Mild tricuspid regurgitation present. MEDICAL LOGISTICS SPECIALIST: Billy Gonzalez RDCS
[2017-02-15] MEDS ORDERED: HEPARIN SODIUM,PORCINE 5,000 UNIT/ML 1 ML VIAL SQ SCH (21:00)
--- NOTE | 2017-02-16 10:34 | PN ---
She was seen again on 02/15/2017. She has been hemodynamically stable. She has less shortness of breath and is feeling better overall. On physical examination, her respiratory rate is 18, pulse rate is 76, temperature 97.1, blood pressure 119/73. HEENT reveals pupils are equal. Chest is clear. Cardiovascular system reveals an S1, S2. Abdomen is soft. There is no pedal edema. Labs reveal a white count of 3.4, hemoglobin of 11.1. VQ is negative for pulmonary embolus. Venous Doppler study of the lower extremities is negative for DVT. CT scan of the chest was suspicious for small emboli in the right lower lobe pulmonary artery, which to me was questionable with some linear density in the right mid lung, which may have been pleural thickening versus atelectasis from mucous plugging. IMPRESSION AT THIS TIME: 1. Shortness of breath secondary to asthma with exacerbation with cardiomyopathy and recent myocardial infarction. 2. Status post stent placement for which she would require Plavix and aspirin per Cardiology. 3. Doubt pulmonary embolus and will discontinue IV heparin. Keep her on subcu heparin only for DVT prophylaxis. 4. Narrow antibiotic regimen by discontinuing Zosyn. Continue Levaquin and switch her to oral steroids. Continue bronchodilators, aerosolized steroids. Her prognosis at this time is fair. Agree with possible discharge planning in the next day or 2. MTDD
--- NOTE | 2017-02-18 18:36 | DS ---
DATE OF ADMISSION: 02/13/2017 DATE OF DISCHARGE: 02/15/2017 NEW DATA: PCP is Dr. Thierno Garcia CONSULTATIONS: 1. Dr. Chelo Aviles, Pulmonary. 2. Dr. Mendoza, Cardiology. FINAL DIAGNOSES: 1. Right middle lobe pneumonia. 2. Chronic obstructive pulmonary disease with exacerbation. 3. History of persistent asthma. 4. Coronary artery disease, atherosclerotic heart disease, with recent stent x2 in the right coronary artery. 5. Systolic function 60% to 65% with trace to mild mitral regurgitation and mild tricuspid regurgitation. 6. No evidence of pulmonary emboli by pulmonary perfusion imaging. However, small PE by pulmonary angiogram with the decision of Pulmonary, no evidence of PE as well as Cardiology, and heparin discontinued. Patient will be discharged on antibiotic and steroid per Dr. Chelo Aviles. 7. Negative hepatitis A, B and B core as well as hepatitis C, with multiple 32 tattoos on the skin of the body. 8. Bronchitis associated with current illness. Initial presentation in the ER was shortness of breath, nausea and vomiting, 2 weeks after she had previous chest pain and underwent stent placement. HOSPITAL COURSE: Patient was admitted, had a chest x-ray showing right middle lobe pneumonitis versus pneumonia with the sudden onset of shortness of breath. Pulmonary angiogram was done that indicated underlying right lower lobe small PE. Patient was started on heparin protocol. Subsequently consultation with Pulmonary, Dr. Chelo Aviles, as well as, because of the heparin, Plavix and aspirin, with the increased risk of bleeding, [facility], who has seen the patient before for stent placement [address]. [address] Mendoza saw the patient; he believed there was no evidence of PE. Dr. Chelo Aviles had a repeat V/Q scan, which was completely negative. Venous ultrasound of the lower extremities also was negative. With these findings, patient was continued on the antibiotic and bronchodilator and will be discharged home today to be followed by Dr. Chelo Aviles in the office as well as Dr. Garcia. Patient was admitted on 02/13 and discharged on 02/15. Continue the antibiotic for one week. Dr. Chelo Aviles placed her back on the steroid; he started her on 60 mg of steroid. We gave a prescription for one week duration. He will be seeing her next week within 4 to 5 days. Also she will be followed by Cardiology, Dr. Seo, for her stent and the ( ). No chest pain during her hospitalization. No evidence of congestive heart failure. No sequelae. Patient will be discharged home today, ambulatory, on cardiac diet, with the antibiotic , as mentioned, which was changed to Levaquin by Dr. Chelo Aviles, Pulmonary, at 750 mg daily for 7 days. She will also be on pantoprazole 40 mg before breakfast. She will also be on Plavix and aspirin for her stent. 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 Patient will follow, as mentioned, with Dr. Chelo Aviles as well as Dr. Thierno Garcia on his return from vacation. SHAWNA
== END 2017-02-15 14:00 | disposition home or self-care (01) | DRG 175 ==
LOC: EC 11:26 → 4MS4W 13:35
PROVIDERS: ADMIT Internal Medicine; ATTEND Internal Medicine
DX: I26.99 Other pulmonary embolism without acute cor pulmonale (principal); J18.9 Pneumonia, unspecified organism; I42.9 Cardiomyopathy, unspecified; J44.0 Chronic obstructive pulmonary disease with (acute) lower respiratory infection; J44.1 Chronic obstructive pulmonary disease with (acute) exacerbation; J45.901 Unspecified asthma with (acute) exacerbation; F17.200 Nicotine dependence, unspecified, uncomplicated; G25.81 Restless legs syndrome; I10 Essential (primary) hypertension; F41.9 Anxiety disorder, unspecified; I25.10 Atherosclerotic heart disease of native coronary artery without angina pectoris; M79.7 Fibromyalgia; K21.9 Gastro-esophageal reflux disease without esophagitis; E78.5 Hyperlipidemia, unspecified; I25.2 Old myocardial infarction; Z95.5 Presence of coronary angioplasty implant and graft; Z79.82 Long term (current) use of aspirin; Z79.02 Long term (current) use of antithrombotics/antiplatelets; Z79.899 Other long term (current) drug therapy; Z86.59 Personal history of other mental and behavioral disorders; Z88.1 Allergy status to other antibiotic agents; Z88.5 Allergy status to narcotic agent; Z88.8 Allergy status to other drugs, medicaments and biological substances; Z82.5 Family history of asthma and other chronic lower respiratory diseases
CPT/HCPCS: 36415; 71020; 71275; 78582; 80048; 80053; 80074; 82272; 82550; 82553; 83880; 84484; 85025; 85045; 85610; 85730; 87040; 87070; 87205; 87324; 93005; 93306; 93970; 94640; 94760

== ENCOUNTER 2017-03-03 10:13 | Observation (INO) | payer MEDICARE, OTHER ==
[2017-03-03] MEDS ORDERED: ASPIRIN 81 MG PO STA (10:31)
[2017-03-03] MEDS ORDERED: MORPHINE SULFATE 4 MG/ML SYRINGE IV STA (10:31)
[2017-03-03] MEDS ORDERED: NITROGLYCERIN OINT 1 INCH/GM PACKET TOPICAL STA (10:31)
[2017-03-03] MEDS ORDERED: IPRATROPIUM-ALBUTEROL 3 ML NEB INHALATION STA (10:34)
--- NOTE | 2017-03-03 10:34 | ED ---
Chest Pain HPI - General Chief Complaint: Chest Pain Stated Complaint: Chest Pain Time Seen by Provider: 03/03/17 10:25 Source: patient Mode of arrival: wheelchair Limitations: no limitations - History of Present Illness Initial Comments: This 46-year-old white female presents with a complaint of some chest pain. This is described as a midsternal chest tightness which started this past evening. She denies any radiation. It is associated with some shortness of breath which she has had for the past 3 days. She took 2 sublingual nitroglycerin last evening with relief. She took 2 more sublingual nitroglycerin this morning with some relief. She does relate a cardiac history. She had 2 cardiac stents placed last month after suffering from a myocardial infarction. She denies any leg pain or swelling. She does have a history of previous pulmonary embolism. She denies any fevers or chills. She does have an occasional cough. No other complaints or modifying factors. - Related Data Home Medications Medication Instructions Recorded Confirmed Gabapentin 600 mg PO TID 12/22/16 03/03/17 HYDROcodone/APAP 10-325MG [[place] 1 tab PO TID PRN 12/22/16 03/03/17 10-325] Albuterol Inhaler [Ventolin Hfa 2 puff INHALATION RT-Q6H PRN 01/15/17 03/03/17 Inhaler] Aspirin EC [Ecotrin Low Dose] 81 mg PO DAILY 02/13/17 03/03/17 Clopidogrel Bisulfate [Plavix] 75 mg PO DAILY 02/13/17 03/03/17 Varenicline [Chantix] 0.5 - 1 mg PO DIRECTED 02/13/17 03/03/17 ALPRAZolam [Xanax] 0.5 mg PO DAILY PRN 03/03/17 03/03/17 Diclofenac Sodium [Voltaren] 75 mg PO BID 03/03/17 03/03/17 amLODIPine [Norvasc] 5 mg PO DAILY 03/03/17 03/03/17 Previous Rx's Medication Instructions Recorded Atorvastatin [Lipitor] 80 mg PO HS #30 tab 01/17/17 Lisinopril [Zestril] 5 mg PO DAILY #30 tab 01/17/17 Metoprolol Tartrate [Lopressor] 25 mg PO BID #60 tab 01/17/17 Nitroglycerin Sl Tabs [Nitrostat] 0.4 mg SUBLINGUAL Q5M PRN #25 01/17/17 Budesonide [Pulmicort] 0.5 mg INHALATION RT-BID #14 neb 02/15/17 Allergies Allergy/AdvReac Type Severity Reaction Status Date / Time erythromycin base AdvReac Nausea & Verified 03/03/17 11:05 [Erythromycin Base] Vomiting simvastatin AdvReac LEG CRAMPS Verified 03/03/17 11:05 tramadol HCl [From Ultram] AdvReac Itching Verified 03/03/17 11:05 Review of Systems ROS Statement: Those systems with pertinent positive or pertinent negative responses have been documented in the HPI. ROS Other: All systems not noted in ROS Statement are negative. Past Medical History Past Medical History: Asthma, Chest Pain / Angina, COPD, Fibromyalgia, GERD/ Reflux, Hyperlipidemia, Hypertension, Myocardial Infarction ([place]) Additional Past Medical History / Comment(s): DIVERTICULITIS. RESTLESS LEG SYNDROME. DDD, BACK PAIN Last Myocardial Infarction Date:: 01-15-17 History of Any Multi-Drug Resistant Organisms: None Reported Past Surgical History: Back Surgery, Bowel Resection, Cholecystectomy, Heart Catheterization With Stent, Hernia Repair, Tonsillectomy, Tubal Ligation Additional Past Surgical History / Comment(s): "HAD A FOOT OF BOWEL REMOVE "TEMPORARY COLOSTOMY. EPIDURAL INJECTIONS, COLOSTOMY REVERSAL. "HAD 4 SX FOR INC HERNIA-HAS CLIP FOR MESH IN PLACE" BACK SURGERY 04/27, cyst taken off ovary.X2 CARDIAC STENTS Past Anesthesia/Blood Transfusion Reactions: Postoperative Nausea & Vomiting ( PONV) Date of Last Stent Placement:: 01-15-17 Past Psychological History: Anxiety, Bipolar, Depression Smoking Status: Current every day smoker - Past Family History Mother Family Medical History: Hyperlipidemia, Hypertension, Myocardial Infarction ([place]) Father Family Medical History: Hypertension Additional Family Medical History / Comment(s): per pt she thinks father has COPD of emphysema Sister(s) Family Medical History: No Reported History Brother(s) Family Medical History: No Reported History Daughter(s) Family Medical History: No Reported History Son(s) Family Medical History: No Reported History General Exam - General Exam Comments Initial Comments: GENERAL: The patient is well nourished and well hydrated. VITAL SIGNS: Heart rate, blood pressure, respiratory rate reviewed as recorded in nurse's notes. EYES: Pupils are round and reactive. Extraocular movements are intact. No conjunctival / lid redness or swelling. ENT: No external evidence of injury, swelling, or ecchymosis. Airway is patent. Throat is clear. NECK: Nontender. No swelling or evidence of injury. No subcutaneous emphysema. Trachea is midline. No thyroid mass. HEART: Regular rate and rhythm. Good peripheral pulses. LUNGS/CHEST: Breath sounds clear and equal bilaterally. No rales, rhonchi, or wheezes. No ecchymosis, subcutaneous emphysema, or tenderness. ABDOMEN: Abdomen soft without tenderness. No palpable masses or organomegaly. No peritoneal signs. No abdominal wall swelling or ecchymosis. EXTREMITIES: No extremity tenderness. Normal muscle tone and function. No thoracolumbar tenderness. NEUROLOGIC: Sensation is grossly intact. Cranial nerve exam reveals face is symmetrical, tongue is midline, speech is clear. SKIN: No abrasions or ecchymosis is noted. No induration or masses noted. PSYCHIATRIC: Alert and oriented. Appropriate behavior and judgment. Limitations: no limitations Course Vital Signs 03/03/17 03/03/17 03/03/17 10:15 11:00 11:13 Temperature 98.3 F Pulse Rate 79 77 66 Respiratory 18 Rate Blood Pressure 169/91 O2 Sat by Pulse 100 Oximetry 03/03/17 11:18 Temperature Pulse Rate 64 Respiratory 20 Rate Blood Pressure 125/76 O2 Sat by Pulse 100 Oximetry Chest Pain MDM - MDM The patient was seen and examined. All diagnostics were reviewed. EKG shows a normal sinus rhythm at a rate of 73. There is no acute ST-T wave changes identified. The OH intervals 126, QRS duration is 82, and the QTc interval is 414. She receives some aspirin, Nitropaste, and morphine. The laboratories all essentially within normal limits. The chest x-ray does not show any acute processes. This felt as though the possibility of acute coronary syndrome certainly is possible. The possibility of a stent occlusion also is present. This felt as though she would require admission to the hospital for further evaluation and treatment. She is feeling better on recheck but still has some pain in would like more pain medication. Case is discussed with Dr. Garcia and he is agreeable to admission with cardiology to consult. Disposition Clinical Impression: Chest pain, Dyspnea, Unstable angina, History of coronary artery stent placement Disposition: ADMITTED IP TO THIS HOSP Condition: Fair Time of Disposition: : Decision Date: 03/03/17 Decision Time: :
[2017-03-03 11:02] LABS: Basophils # (A) 0.1 k/uL (0-0.2); Basophils % (A) 1 %; CH 30.9; CHCM 32.6; Eosinophils # (A) 0.1 k/uL (0-0.7); Eosinophils % (A) 1 %; HCT 36.3 % (34.0-46.0); HDW 2.77; HGB 11.7 gm/dL (11.4-16.0); Luc # (Auto) 0.25; Luc % (Auto) 2; Lymphocytes # (A) 2.4 k/uL (1.0-4.8); Lymphocytes % (A) 22 %; MCH 30.6 pg (25.0-35.0); MCHC 32.1 g/dL (31.0-37.0); MCV 95.2 fL (80.0-100.0); Monocytes # (A) 0.9 k/uL (0-1.0); Monocytes % (A) 8 %; Neutrophils # (A) 7.5 k/uL (1.3-7.7); Neutrophils % (A) 67 %; RBC 3.82 m/uL (3.80-5.40); RDW 15.6 % (11.5-15.5); WBC 11.2 k/uL (3.8-10.6); WBC (Perox) 11.04
[2017-03-03 11:12] LABS: ALT 35 U/L (9-52); AST 14 U/L (14-36); Alkaline Phosphatase 80 U/L (38-126); Anion Gap 12 mmol/L; Blood Urea Nitrogen 16 mg/dL (7-17); Calcium 9.3 mg/dL (8.4-10.2); Carbon Dioxide 21 mmol/L (22-30); Chloride 105 mmol/L (98-107); Glucose 84 mg/dL (74-99); INR 0.9 (<1.2); Non-African American GFR(MDRD) >60 (>60 ml/min/1.73 sqM); Potassium 3.9 mmol/L (3.5-5.1); Prothrombin Time 9.7 sec (9.0-12.0); Sodium 138 mmol/L (137-145); Total Bilirubin 0.5 mg/dL (0.2-1.3); Total Protein 6.6 g/dL (6.3-8.2)
[2017-03-03 11:27] LABS: Partial Thromboplastin Time 21.3 sec (22.0-30.0)
[2017-03-03 11:31] LABS: Creatine Kinase 32 U/L (30-135)
[2017-03-03 11:44] LABS: Creatine Kinase MB 0.8 ng/mL (0.0-2.4); Troponin I <0.012 ng/mL (0.000-0.034)
--- NOTE | 2017-03-03 11:54 | XR ---
EXAMINATION TYPE: XR chest 2V DATE OF EXAM: 03/03/2017 COMPARISON: Prior chest x-ray 02/14/2017 HISTORY: Chest pain TECHNIQUE: Frontal and lateral views of the chest are obtained. FINDINGS: There is no focal air space opacity, pleural effusion, or pneumothorax seen. The cardiac silhouette size is within normal limits. There are overlying cardiac leads. There may be spinal cur vature, patient is rotated. The osseous structures are intact. IMPRESSION: No acute cardiopulmonary process.
[2017-03-03] MEDS ORDERED: HEPARIN SODIUM,PORCINE 5,000 UNIT/ML 1 ML VIAL IV ONE (13:25)
[2017-03-03] MEDS ORDERED: HEPARIN SODIUM,PORCINE 5,000 UNIT/ML 1 ML VIAL IV PRN (13:25)
[2017-03-03] MEDS ORDERED: MORPHINE SULFATE 4 MG/ML SYRINGE IV PRN (13:25)
[2017-03-03] MEDS ORDERED: NITROGLYCERIN SL TABS 0.4 MG TAB SUBLINGUAL PRN ×2 (13:25→13:28)
[2017-03-03] MEDS ORDERED: HEPARIN SODIUM,PORCINE/D5W PMX 25,000 UNIT in DEXTROSE/WATER 1 500ML.BAG IV SCH (13:30)
[2017-03-03] MEDS: HYDROcodone/APAP 10-325MG 1 EACH TAB PO PRN ×2 (13:50→20:02)
[2017-03-03 14:18] VITALS: RESP 18
[2017-03-03] MEDS: GABAPENTIN 300 MG CAP PO SCH (15:28)
[2017-03-03] MEDS: ALPRAZolam 0.5 MG TAB PO PRN (15:30)
[2017-03-03] MEDS: ALBUTEROL NEBULIZED 2.5 MG/3 ML INHALATION PRN ×2 (16:18→20:53)
[2017-03-03 17:36] LABS: Creatine Kinase 26 U/L (30-135)
[2017-03-03] MEDS: PROMETHAZINE 6.25MG/5ML 147.5 MG/118 ML BOTTLE PO PRN (17:41)
[2017-03-03 17:50] LABS: Creatine Kinase MB 0.6 ng/mL (0.0-2.4); Troponin I <0.012 ng/mL (0.000-0.034)
[2017-03-03] MEDS: NITROGLYCERIN OINT 1 INCH/GM PACKET TOPICAL SCH (20:04)
[2017-03-03] MEDS: VARENICLINE 1 MG TAB PO SCH (20:16)
[2017-03-03] MEDS: ETODOLAC 400 MG TAB PO SCH (20:16)
[2017-03-03] MEDS: METOPROLOL TARTRATE 25 MG TAB PO SCH (20:17)
[2017-03-03] MEDS: BUDESONIDE 0.5 MG/2 ML NEBU INHALATION SCH (20:53)
[2017-03-03] MEDS ORDERED: ATORVASTATIN 80 MG TAB PO SCH (21:00)
[2017-03-03 23:30] LABS: Creatine Kinase 22 U/L (30-135)
[2017-03-03 23:33] LABS: Creatine Kinase MB 0.6 ng/mL (0.0-2.4); Troponin I <0.012 ng/mL (0.000-0.034)
[2017-03-04] MEDS: GABAPENTIN 300 MG CAP PO SCH ×2 (00:50→08:39)
[2017-03-04] MEDS: PROMETHAZINE 6.25MG/5ML 147.5 MG/118 ML BOTTLE PO PRN ×3 (00:50→12:15)
[2017-03-04] MEDS: NITROGLYCERIN OINT 1 INCH/GM PACKET TOPICAL SCH ×2 (00:52→05:22)
[2017-03-04] MEDS: HYDROcodone/APAP 10-325MG 1 EACH TAB PO PRN ×2 (04:12→12:14)
[2017-03-04] MEDS: ALBUTEROL NEBULIZED 2.5 MG/3 ML INHALATION PRN (07:12)
[2017-03-04] MEDS: BUDESONIDE 0.5 MG/2 ML NEBU INHALATION SCH (07:13)
[2017-03-04] MEDS: ALPRAZolam 0.5 MG TAB PO PRN (07:40)
[2017-03-04] MEDS: ETODOLAC 400 MG TAB PO SCH (08:39)
[2017-03-04] MEDS: VARENICLINE 1 MG TAB PO SCH (08:39)
[2017-03-04] MEDS: METOPROLOL TARTRATE 25 MG TAB PO SCH (08:39)
[2017-03-04] MEDS ORDERED: ASPIRIN 81 MG PO SCH (09:00)
[2017-03-04] MEDS ORDERED: amLODIPine 5 MG TAB PO SCH (09:00)
[2017-03-04] MEDS ORDERED: ASPIRIN 325 MG TAB PO SCH (09:00)
[2017-03-04] MEDS ORDERED: CLOPIDOGREL 75 MG TAB PO SCH (09:00)
[2017-03-04] MEDS ORDERED: LISINOPRIL 5 MG TAB PO SCH (09:00)
[2017-03-04 09:32] LABS: Mean Platelet Volume 6.5
[2017-03-04 10:17] LABS: Cholesterol 142 mg/dL (<200); HDL Cholesterol 56 mg/dL (40-60)
--- NOTE | 2017-03-04 10:22 | P.CRDCN ---
History of Present Illness Consult date: 03/04/17 History of present illness: This is a 46 year old female patient who follows with Dr. Seo in the office. She recently underwent cardiac catherization January 15, 2017 and had stenting to the RCA. She subsequently returned to the hospital with chest pain and shortness of breath was thought to have a pulmonary embolism. CTA showed a pulmonary embolism but subsequent VQ scan was negative for PE. She was however found to have pneumonia at that time. She was instructed to continue her aspirin and Plavix as previously ordered. Patient states ever since her catheterization she has had intermittent episodes of mid sternal chest heaviness and soreness. She states this pain is intermittent in nature comes on approximately one time per day and is relieved by sublingual nitroglycerin. This pain is associated with mild shortness of breath. But she denies any associated pain in the arms, neck or jaw. She denies nausea, vomiting, dizziness, palpitations or diaphoresis. Upon examination today she is currently pain free although on palpation she has some chest wall soreness in the midsternal region. Patient states the pain is sometimes worse when she takes a deep breath. She has completed her course of antibiotics for previously diagnosed pneumonia. She is still smoking half a pack per day. She does plan to quit but has been unable to stop it entirely. Review of Systems REVIEW OF SYSTEMS: Patient denies any chest discomfort. No shortness of breath. No diaphoresis. Denies headache, dizziness, blurred vision, double vision. No dyspnea on exertion. Patient denies any stomach discomfort. No nausea, vomiting. No hematochezia. No hematemesis. Denies any black stools or blood in his stools. No syncope. No palpitations. No cough. No recent fever or chills. No muscle weakness or numbness. Past Medical History Past Medical History: Asthma, Chest Pain / Angina, COPD, Fibromyalgia, GERD/ Reflux, Hyperlipidemia, Hypertension, Myocardial Infarction ([place]), Pulmonary Embolus (PE) Additional Past Medical History / Comment(s): Pt recently admitted 02/13/17 with pneumonia. Other hx: DIVERTICULITIS. RESTLESS LEG SYNDROME. DDD, BACK PAIN Last Myocardial Infarction Date:: 01-15-17 History of Any Multi-Drug Resistant Organisms: None Reported Past Surgical History: Back Surgery, Bowel Resection, Cholecystectomy, Heart Catheterization With Stent, Hernia Repair, Tonsillectomy, Tubal Ligation Additional Past Surgical History / Comment(s): "HAD A FOOT OF BOWEL REMOVE "TEMPORARY COLOSTOMY, EPIDURAL INJECTIONS, COLOSTOMY REVERSAL. "HAD 4 SX FOR INC HERNIA-HAS CLIP/MESH IN PLACE, BACK SURGERY 04/27, cyst taken off ovary, PCI with 2 stents in RCA. Past Anesthesia/Blood Transfusion Reactions: Postoperative Nausea & Vomiting ( PONV) Additional Past Anesthesia/Blood Transfusion Reaction / Comment(s): Pt currently has broken front tooth. Date of Last Stent Placement:: 01-15-17 Smoking Status: Current every day smoker - Past Family History Mother Family Medical History: Hyperlipidemia, Hypertension, Myocardial Infarction ([place]) Father Family Medical History: Hypertension Additional Family Medical History / Comment(s): per pt she thinks father has COPD of emphysema Sister(s) Family Medical History: No Reported History Brother(s) Family Medical History: No Reported History Daughter(s) Family Medical History: No Reported History Son(s) Family Medical History: No Reported History Medications and Allergies Home Medications Medication Instructions Recorded Confirmed Type Gabapentin 600 mg PO TID 12/22/16 03/03/17 History HYDROcodone/APAP 10-325MG [[place] 1 tab PO TID PRN 12/22/16 03/03/17 History 10-325] Albuterol Inhaler [Ventolin Hfa 2 puff INHALATION RT-Q6H PRN 01/15/17 03/03/17 History Inhaler] Aspirin EC [Ecotrin Low Dose] 81 mg PO DAILY 02/13/17 03/03/17 History Clopidogrel Bisulfate [Plavix] 75 mg PO DAILY 02/13/17 03/03/17 History Varenicline [Chantix] 0.5 - 1 mg PO DIRECTED 02/13/17 03/03/17 History ALPRAZolam [Xanax] 0.5 mg PO DAILY PRN 03/03/17 03/03/17 History Diclofenac Sodium [Voltaren] 75 mg PO BID 03/03/17 03/03/17 History amLODIPine [Norvasc] 5 mg PO DAILY 03/03/17 03/03/17 History Allergies Allergy/AdvReac Type Severity Reaction Status Date / Time erythromycin base AdvReac Nausea & Verified 03/03/17 11:05 [Erythromycin Base] Vomiting simvastatin AdvReac LEG CRAMPS Verified 03/03/17 11:05 tramadol HCl [From Ultra] AdvReac Itching Verified 03/03/17 11:05 Physical Exam Vitals: Vital Signs Temp Pulse Pulse Resp BP BP BP 03/04/17 08:00 68 18 03/04/17 07:27 97.9 F 68 18 101/64 03/04/17 07:22 76 03/04/17 07:12 76 03/04/17 04:00 72 18 03/04/17 03:17 97.5 F L 72 18 98/56 03/04/17 00:00 97.5 F L 74 18 100/50 03/03/17 21:10 78 03/03/17 20:53 78 03/03/17 20:00 86 18 03/03/17 19:10 98.7 F 86 18 139/74 03/03/17 16:32 76 03/03/17 16:18 75 03/03/17 14:16 98.1 F 74 18 132/86 03/03/17 13:51 98.1 F 67 20 111/65 03/03/17 13:25 03/03/17 11:18 64 20 125/76 03/03/17 11:13 66 03/03/17 11:00 77 03/03/17 10:15 98.3 F 79 18 169/91 Pulse Ox 03/04/17 08:00 03/04/17 07:27 99 03/04/17 07:22 03/04/17 07:12 03/04/17 04:00 03/04/17 03:17 99 03/04/17 00:00 98 03/03/17 21:10 03/03/17 20:53 03/03/17 20:00 03/03/17 19:10 98 03/03/17 16:32 03/03/17 16:18 03/03/17 14:16 03/03/17 13:51 03/03/17 13:25 98 03/03/17 11:18 100 03/03/17 11:13 03/03/17 11:00 03/03/17 10:15 100 Intake and Output 03/03/17 03/04/17 03/04/17 22:59 06:59 14:59 Intake Total 240 261.392 592 Balance 240 261.392 592 Intake: Intake, IV Titration 261.392 Amount Heparin Sodium,Porcine/ 261.392 D5w Pmx 25,000 unit In Dextrose/Water 1 500ml. bag @ 11.5 UNITS/KG/HR 20 .03 mls/hr IV .Q24H [facility] Rx#:[id number] Oral 240 592 Other: Voiding Method Toilet GENERAL: This is a 46-year-old female in no apparent distress at the time of my examination. HEENT: Head is atraumatic, normocephalic. Pupils are equal, round. Sclerae anicteric. Conjunctivae are clear. Mucous membranes of the mouth are moist. Neck is supple. There is no jugular venous distention. No carotid bruit is heard. LUNGS: Clear to auscultation no wheezes, rales or rhonchi. No chest wall tenderness is noted on palpation or with deep breathing. HEART: Regular rate and rhythm without murmurs, rubs or gallops. S1 and S2 heard. ABDOMEN: Soft, nontender. Bowel sounds are heard. No organomegaly noted. EXTREMITIES: 2+ peripheral pulses with no evidence of peripheral edema and no calf tenderness noted. NEUROLOGIC: Patient is awake, alert and oriented x3. Results 03/04/17 09:19 03/03/17 10:31 Cardiac Enzymes 03/03/17 03/03/17 03/03/17 Range/Units 10:31 10:31 16:59 AST 14 (14-36) U/L CK-MB (CK-2) 0.8 0.6 (0.0-2.4) ng/mL Troponin I <0.012 <0.012 (0.000-0.034) ng/mL 03/03/17 Range/Units 22:45 AST (14-36) U/L CK-MB (CK-2) 0.6 (0.0-2.4) ng/mL Troponin I <0.012 (0.000-0.034) ng/mL Coagulation 03/03/17 03/04/17 Range/Units 10:31 01:02 PT 9.7 (9.0-12.0) sec APTT 21.3 L 30.8 H (22.0-30.0) sec CBC 03/03/17 03/04/17 Range/Units 10:31 09:19 WBC 11.2 H (3.8-10.6) k/uL RBC 3.82 (3.80-5.40) m/uL Hgb 11.7 (11.4-16.0) gm/dL Hct 36.3 (34.0-46.0) % Plt Count 502 H 338 (150-450) k/uL Comprehensive Metabolic Panel 03/03/17 Range/Units 10:31 Sodium 138 (137-145) mmol/L Potassium 3.9 (3.5-5.1) mmol/L Chloride 105 (98-107) mmol/L Carbon Dioxide 21 L (22-30) mmol/L BUN 16 (7-17) mg/dL Creatinine 0.63 (0.52-1.04) mg/dL Glucose 84 (74-99) mg/dL Calcium 9.3 (8.4-10.2) mg/dL AST 14 (14-36) U/L ALT 35 (9-52) U/L Alkaline Phosphatase 80 (38-126) U/L Total Protein 6.6 (6.3-8.2) g/dL Albumin 4.2 (3.5-5.0) g/dL Current Medications Generic Name Dose Route Start Last Admin Trade Name Freq PRN Reason Stop Dose Admin Hydrocodone Bitart/Acetaminophen 1 each 03/03/17 13:28 03/04/17 04:12 [place] 10 PO 1 each TID PRN Administration Pain Albuterol Sulfate 2.5 mg 03/03/17 13:28 03/04/17 07:12 Ventolin Nebulized INHALATION 2.5 mg RT-Q6H PRN Administration Shortness Of Breath Alprazolam 0.5 mg 03/03/17 13:28 03/04/17 07:40 Xanax PO 0.5 mg DAILY PRN Administration Anxiety Amlodipine Besylate 5 mg 03/04/17 09:00 03/04/17 08:40 Norvasc PO 5 mg DAILY EARNESTINE Administration Aspirin 81 mg 03/04/17 09:00 03/04/17 08:40 Aspirin PO 81 mg DAILY EARNESTINE Administration Atorvastatin Calcium 80 mg 03/03/17 21:00 03/03/17 20:16 Lipitor PO 80 mg HS EARNESTINE Administration Budesonide 0.5 mg 03/03/17 20:00 03/04/17 07:13 Pulmicort INHALATION 0.5 mg RT-BID EARNESTINE Administration Clopidogrel Bisulfate 75 mg 03/04/17 09:00 Plavix PO DAILY EARNESTINE Etodolac 400 mg 03/03/17 21:00 03/04/17 08:39 Lodine PO 400 mg BID EARNESTINE Administration Gabapentin 600 mg 03/03/17 16:00 03/04/17 08:39 Neurontin PO 600 mg TID EARNESTINE Administration Lisinopril 5 mg 03/04/17 09:00 03/04/17 08:39 Zestril PO 5 mg DAILY EARNESTINE Administration Metoprolol Tartrate 25 mg 03/03/17 21:00 03/04/17 08:39 Lopressor PO 25 mg BID EARNESTINE Administration Morphine Sulfate 4 mg 03/03/17 13:25 Morphine Sulfate (Inj) IV Q3H PRN Chest Pain Nitroglycerin 0.4 mg 03/03/17 13:28 Nitrostat SUBLINGUAL Q5M PRN Chest Pain Promethazine HCl 6.25 mg 03/03/17 14:53 03/04/17 05:14 Phenergan Syrup PO 6.25 mg Q6H PRN Administration Nausea And Vomiting Varenicline 1 mg 03/03/17 21:00 03/04/17 08:39 Chantix PO 1 mg BID EARNESTINE Administration Intake and Output 03/03/17 03/04/17 03/04/17 22:59 06:59 14:59 Intake Total 240 261.392 592 Balance 240 261.392 592 Intake: Intake, IV Titration 261.392 Amount Heparin Sodium,Porcine/ 261.392 D5w Pmx 25,000 unit In Dextrose/Water 1 500ml. bag @ 11.5 UNITS/KG/HR 20 .03 mls/hr IV .Q24H [facility] Rx#:[id number] Oral 240 592 Other: Voiding Method Toilet 03/04/17 09:19 03/03/17 10:31 - Imaging and Cardiology Echo: report reviewed (Preserved left ventricular function with an ejection fraction of 60-65%, no evidence of pulmonary hypertension, mild tricuspid regurg , trace to mild mitral regurg and left ventricular hypertrophy.) EKG Interpretations (text) EKG indicates a normal sinus mechanism with nonspecific ST abnormalities indicative of an acute coronary event at this time. Assessment and Plan Plan: ASSESSMENT 1. Chest pain, atypical 2. Coronary artery disease with recent stenting in January 2017 3. Panic tobacco abuse 4. COPD 5. Essential hypertension 6. Hyperlipidemia 7. GERD PLAN The patient's clinical presentation is not indicative of an acute coronary event. Smoking cessation discussed at length, patient is agreeable. At this time I would not move forward with any further cardiac testing. The patient is stable for discharge home. I advised the patient to follow-up with her core carrier as well as see Dr. Seo in 2 weeks. Nurse Practitioner note has been reviewed, I agree with a documented findings and plan of care. Patient was seen and examined.
[2017-03-04 11:29] VITALS: BP 113/61; PULSE 77; TEMP 97.8
--- NOTE | 2017-03-05 07:35 | HP ---
DATE OF ADMISSION: 03/03/17 CHIEF COMPLAINT: Chest pain. This is a 46 year old white female who came to the emergency room because of chest pain. Fir the past few days, the patient was having mid anterior chest pain in the substernal area and the pain was tightness or pressure like pain. There was no radiation but there was associated with some shortness of breath and she took some Nitroglycerine which relieved the pain but it was recurring and getting worse so she was brought to the emergency room. In the ER, she was evaluated extensively and her EKG did not show any acute changes. Chest x- ray was unremarkable. Her cardiac enzymes were within normal limits. The patient has history of recent myocardial infarction and cardiac catheterization and stent placement. The patient was admitted to the hospital for further evaluation and treatment. Her past medical history is that as mentioned before. She recently had a myocardial infarction and she had cardiac catheterization and two stent placements. She also has other multiple medical problems and known to have fibromyalgia, osteoarthritis in multiple joints and she has chronic obstructive pulmonary disease and she also has back pain and arthritis and she has had abdominal surgery for diverticulitis and complications. Current medications include: 1. [place] 10/325 one q8 hours prn. 2. Gabapentin 600 mg po t.i.d. 3. Albuterol inhaler. 4. Aspirin 81 mg po daily. 5. Plavix 75 mg po daily. 6. She used to be a heavy smoker and now she is trying to quit smoking and she is on Chantix. 7. Xanax 0.5 mg po daily prn. 8. Voltaren 75 mg po b.i.d. 9. Norvasc 10 mg po daily. 10. Lipitor 80 mg po daily. 11. Lisinopril 5 mg po daily. 12. Metoprolol 25 mg po b.i.d. 13. Nitroglycerine sublingual prn. 14. Pulmicort inhaler. SHE IS ALLERGIC TO ERYTHROMYCIN, ULTRAM AND SIMVASTATIN gives her leg cramps. FAMILY HISTORY: Strongly positive for heart disease and hypertension. REVIEW OF SYSTEMS: The patient denies any headache. Appetite has been good. Bowels are well. She has chest pain as mentioned earlier. She denies any cough. She has no abdominal pain. She has no polyuria or dysuria. She has no neurological symptoms. Physical examination reveals a 46 year old white female well nourished and well developed. She is alert and oriented. She apparently is free of any chest pain since admission. Her temperature is 98.3, pulse 78 per minute and regular, blood pressure was high at the time of arrival in the ER. It was 169/ 91 and ( ) has come down to 125/76. There is no jaundice. There is no generalized lymphadenopathy. There are no petechia or bruises. HEENT: negative. Neck is supple. There is no jugular venous distention. There is no goiter. There is no carotid bruit. Heart is in sinus rhythm. Lungs are clear to auscultation and percussion. Abdomen is soft and nontender. There is no mass palpable. Examination of the lower extremities revealed no pitting edema. Neurological examination does not reveal any localizing signs. IMPRESSION: 1. Chest pain. 2. Unstable angina. 3. Coronary artery disease with past history of myocardial infarction and stent placements. 4. Chronic obstructive pulmonary disease. 5. Fibromyalgia. 6. Degenerative joint arthritis of multiple joints. 7. Low back pain. 8. Past history of abdominal surgery for diverticulitis and complications. PLAN: The patient will be admitted to the hospital and her heart will be monitored on telemetry. We will get serial EKGs and cardiac enzymes. We will also get cardiology consultation. We will place her back on her previous home medications. The prognosis is guarded. Diagnosis, prognosis and therapeutic plans have been discussed in detail with the patient. SHAWNA
== END 2017-03-04 13:36 | disposition home or self-care (01) ==
LOC: EC 10:13 → 3OBS 13:25
PROVIDERS: ADMIT Internal Medicine; ATTEND Internal Medicine
DX: R07.89 Other chest pain (principal); I25.110 Atherosclerotic heart disease of native coronary artery with unstable angina pectoris; I25.2 Old myocardial infarction; Z95.5 Presence of coronary angioplasty implant and graft; J44.9 Chronic obstructive pulmonary disease, unspecified; M79.7 Fibromyalgia; G25.81 Restless legs syndrome; M15.9 Polyosteoarthritis, unspecified; M54.5 Low back pain; I10 Essential (primary) hypertension; Z82.49 Family history of ischemic heart disease and other diseases of the circulatory system; Z79.899 Other long term (current) drug therapy; Z79.82 Long term (current) use of aspirin; Z79.51 Long term (current) use of inhaled steroids; Z79.02 Long term (current) use of antithrombotics/antiplatelets; Z79.891 Long term (current) use of opiate analgesic; K21.9 Gastro-esophageal reflux disease without esophagitis; E78.5 Hyperlipidemia, unspecified; Z88.5 Allergy status to narcotic agent; Z88.1 Allergy status to other antibiotic agents; Z88.8 Allergy status to other drugs, medicaments and biological substances; Z86.711 Personal history of pulmonary embolism; Z87.01 Personal history of pneumonia (recurrent); Z79.1 Long term (current) use of non-steroidal anti-inflammatories (NSAID); F17.200 Nicotine dependence, unspecified, uncomplicated
CPT/HCPCS: 99285; 96376 ×3; 96375 ×2; 96365; 36415; 94640 ×3; 93005; 85379; 83880; 80061; 80053; 82550; 82553; 83735; 84484; 85025; 85049; 85610; 85730 ×2; 71020; G0378 ×2; J2270; J1644 ×3

== ENCOUNTER 2017-08-29 12:49 | Emergency (ER) | payer MEDICARE, OTHER ==
[2017-08-29 13:22] VITALS: BP 137/86; PULSE 84; RESP 18; TEMP 98.2
--- NOTE | 2017-08-29 13:40 | ED ---
Lower Extremity Injury HPI - General Chief Complaint: Extremity Injury, Lower Stated Complaint: Knee Injury-fall Time Seen by Provider: 08/29/17 13:33 Source: patient, RN notes reviewed Mode of arrival: ambulatory Limitations: no limitations - History of Present Illness Initial Comments: 47-year-old female presents emergency Department chief complaint left knee pain. Patient states that she slipped getting him out of her vehicle. Patient states that she caught her left thigh along the edge of the vehicle. Patient complains of left knee pain states she has a very bad knee usually sees Dr. Oliveros for her knee . Patient currently takes [place] prescribed by pain management. Patient states that when she wraps it feels better but states when she does not wrapped it feels that wants to give out or lock up. Patient's had her knee drained several times in the past. Patient denies any paresthesias no other injuries noted. - Related Data Home Medications Medication Instructions Recorded Confirmed Gabapentin 600 mg PO TID 12/22/16 03/20/17 HYDROcodone/APAP 10-325MG [[place] 1 tab PO TID PRN 12/22/16 03/20/17 10-325] Albuterol Inhaler [Ventolin Hfa 2 puff INHALATION RT-Q6H PRN 01/15/17 03/20/17 Inhaler] Aspirin EC [Ecotrin Low Dose] 81 mg PO DAILY 02/13/17 03/20/17 Clopidogrel Bisulfate [Plavix] 75 mg PO DAILY 02/13/17 03/20/17 Varenicline [Chantix Starter Pack] 0.5 - 1 mg PO DIRECTED 02/13/17 03/20/17 ALPRAZolam [Xanax] 0.5 mg PO DAILY PRN 03/03/17 03/20/17 Diclofenac Sodium [Voltaren] 75 mg PO BID 03/03/17 03/20/17 amLODIPine [Norvasc] 5 mg PO DAILY 03/03/17 03/20/17 Previous Rx's Medication Instructions Recorded Atorvastatin [Lipitor] 80 mg PO HS #30 tab 01/17/17 Lisinopril [Zestril] 5 mg PO DAILY #30 tab 01/17/17 Metoprolol Tartrate [Lopressor] 25 mg PO BID #60 tab 01/17/17 Nitroglycerin Sl Tabs [Nitrostat] 0.4 mg SUBLINGUAL Q5M PRN #25 01/17/17 Budesonide [Pulmicort] 0.5 mg INHALATION RT-BID #14 neb 02/15/17 Famotidine [Pepcid] 20 mg PO BID #20 tablet 03/20/17 Ondansetron Odt [Zofran ODT] 4 mg PO Q8HR PRN #20 tab 03/20/17 Allergies Allergy/AdvReac Type Severity Reaction Status Date / Time erythromycin base AdvReac Nausea & Verified 08/29/17 13:22 [Erythromycin Base] Vomiting simvastatin AdvReac LEG CRAMPS Verified 08/29/17 13:22 tramadol HCl [From Ultram] AdvReac Itching Verified 08/29/17 13:22 Review of Systems ROS Statement: Those systems with pertinent positive or pertinent negative responses have been documented in the HPI. ROS Other: All systems not noted in ROS Statement are negative. Past Medical History Past Medical History: Asthma, Chest Pain / Angina, COPD, Fibromyalgia, GERD/ Reflux, Hyperlipidemia, Hypertension, Myocardial Infarction (VT), Pulmonary Embolus (PE) Additional Past Medical History / Comment(s): Pt recently admitted 02/13/17 with pneumonia. Other hx: DIVERTICULITIS. RESTLESS LEG SYNDROME. DDD, BACK PAIN Last Myocardial Infarction Date:: 01-15-17 History of Any Multi-Drug Resistant Organisms: None Reported Past Surgical History: Back Surgery, Bowel Resection, Cholecystectomy, Heart Catheterization With Stent, Hernia Repair, Tonsillectomy, Tubal Ligation Additional Past Surgical History / Comment(s): "HAD A FOOT OF BOWEL REMOVE "TEMPORARY COLOSTOMY, EPIDURAL INJECTIONS, COLOSTOMY REVERSAL. "HAD 4 SX FOR INC HERNIA-HAS CLIP/MESH IN PLACE, BACK SURGERY 04/27, cyst taken off ovary, PCI with 2 stents in RCA. Past Anesthesia/Blood Transfusion Reactions: Postoperative Nausea & Vomiting ( PONV) Additional Past Anesthesia/Blood Transfusion Reaction / Comment(s): Pt currently has broken front tooth. Date of Last Stent Placement:: 01-15-17 Past Psychological History: Anxiety, Bipolar, Depression Smoking Status: Current every day smoker Past Alcohol Use History: None Reported Past Drug Use History: Marijuana - Past Family History Mother Family Medical History: Hyperlipidemia, Hypertension, Myocardial Infarction (VT) Father Family Medical History: Hypertension Additional Family Medical History / Comment(s): per pt she thinks father has COPD of emphysema Sister(s) Family Medical History: No Reported History Brother(s) Family Medical History: No Reported History Daughter(s) Family Medical History: No Reported History Son(s) Family Medical History: No Reported History General Exam Limitations: no limitations General appearance: alert, in no apparent distress Head exam: Present: atraumatic, normocephalic, normal inspection Neck exam: Present: normal inspection. Absent: tenderness, meningismus, lymphadenopathy Respiratory exam: Present: normal lung sounds bilaterally. Absent: respiratory distress, wheezes, rales, rhonchi, stridor Cardiovascular Exam: Present: regular rate, normal rhythm, normal heart sounds. Absent: systolic murmur, diastolic murmur, rubs, gallop, clicks Extremities exam: Present: other (Left leg there is some ecchymosis noted just superior to the left knee and left thigh region, knee has slight laxity there is minimal swelling, vascular intact patient reports some tenderness over the lateral portion there is no tenderness inferior to the left knee) Neurological exam: Present: reflexes normal. Absent: motor sensory deficit Course Vital Signs 08/29/17 13:19 Temperature 98.2 F Pulse Rate 84 Respiratory 18 Rate Blood Pressure 137/86 O2 Sat by Pulse 98 Oximetry Medical Decision Making - Medical Decision Making 47-year-old female presented emergency from for left knee pain. Patient presented after injury consistent with sprain. Patient does see Dr. Oliveros for knee she is advised follow-up with Dr. Oliveros she also has an appointment on Thursday with her primary care physician. Patient is on pain management. She is advised to continue her pain meds and return for any worsening symptoms. Disposition Clinical Impression: Left knee sprain Disposition: HOME SELF-CARE Condition: Stable Instructions: Knee Sprain (ED) Additional Instructions: Please return to the Emergency Department if symptoms worsen or any other concerns. Referrals: Thierno Garcia MD [Primary Care Provider] - 1-2 days Abdoul Oliveros DO [Doctor of Osteopathic Medicine] - 1-2 days Time of Disposition: 14:08
--- NOTE | 2017-08-29 14:04 | XR ---
EXAMINATION TYPE: XR knee complete LT , 3 VIEWS DATE OF EXAM ORDERED: 08/29/2017 HISTORY: Pain. COMPARISON: None. FINDINGS: No fracture, dislocation or knee joint effusion is seen. IMPRESSION: NO ACUTE OSSEOUS LESION.
[2017-08-29] MEDS ORDERED: HYDROcodone/APAP 7.5-325MG 1 EACH TAB PO ONE (14:11)
== END 2017-08-29 14:30 | disposition home or self-care (01) ==
LOC: EC 12:49
DX: S83.92XA Sprain of unspecified site of left knee, initial encounter (principal); I10 Essential (primary) hypertension; M79.7 Fibromyalgia; I25.2 Old myocardial infarction; F17.200 Nicotine dependence, unspecified, uncomplicated; Z79.02 Long term (current) use of antithrombotics/antiplatelets; Z79.1 Long term (current) use of non-steroidal anti-inflammatories (NSAID); Z79.82 Long term (current) use of aspirin; Z79.899 Other long term (current) drug therapy; Z88.1 Allergy status to other antibiotic agents; Z88.5 Allergy status to narcotic agent; Z88.8 Allergy status to other drugs, medicaments and biological substances; Z87.39 Personal history of other diseases of the musculoskeletal system and connective tissue; Z86.79 Personal history of other diseases of the circulatory system; W00.0XXA Fall on same level due to ice and snow, initial encounter; Y92.89 Other specified places as the place of occurrence of the external cause
CPT/HCPCS: 73562; 99283; L1830

== ENCOUNTER → 2017-09-01 | Outpatient (CLI) | payer MEDICARE, OTHER ==
[2017-09-01 11:49] LABS: Anisocytosis Slight; HCT 38.1 % (34.0-46.0); HGB 11.5 gm/dL (11.4-16.0); Hypochromasia Marked; MCH 27.1 pg (25.0-35.0); MCHC 30.2 g/dL (31.0-37.0); MCV 89.6 fL (80.0-100.0); Mean Platelet Volume 6.1; Platelet Count 607 k/uL (150-450); RBC 4.25 m/uL (3.80-5.40); WBC 7.4 k/uL (3.8-10.6)
[2017-09-01 12:20] LABS: ALT 10 U/L (9-52); AST 14 U/L (14-36); Albumin 4.2 g/dL (3.5-5.0); Alkaline Phosphatase 82 U/L (38-126); Anion Gap 11 mmol/L; Blood Urea Nitrogen 15 mg/dL (7-17); Calcium 10.2 mg/dL (8.4-10.2); Carbon Dioxide 24 mmol/L (22-30); Chloride 107 mmol/L (98-107); Cholesterol 243 mg/dL (<200); Glucose 118 mg/dL (74-99); HDL Cholesterol 62 mg/dL (40-60); LDL Cholesterol,Calculated 131 mg/dL (0-99); Potassium 4.5 mmol/L (3.5-5.1); Sodium 142 mmol/L (137-145); Total Bilirubin 0.2 mg/dL (0.2-1.3); Triglycerides 252 mg/dL (<150)
[2017-09-01 12:30] LABS: T4, Free (Free Thyroxine) 0.68 ng/dL (0.78-2.19)
== END | disposition home or self-care (01) ==
LOC: LABWHC1 11:03
PROVIDERS: ATTEND Internal Medicine
DX: E78.2 Mixed hyperlipidemia (principal); I25.10 Atherosclerotic heart disease of native coronary artery without angina pectoris; I11.9 Hypertensive heart disease without heart failure
CPT/HCPCS: 36415; 80053; 80061; 84439; 84443; 85027

== ENCOUNTER → 2017-09-22 | Outpatient (CLI) | payer MEDICARE, OTHER ==
--- NOTE | 2017-09-22 14:54 | MM ---
Reason for exam: additional evaluation requested from prior study. Last mammogram was performed 2 years and 5 months ago. History: Patient is postmenopausal. US discontinued breast bx RT of the right breast, June 13, 2015. Physical Findings: Nurse did not find any significant physical abnormalities on exam. MG Diagnostic Mammo w CAD AYDEN Bilateral CC and MLO view(s) were taken. Prior study comparison: April 27, 2015, right breast MG 3d work up w/cad RT. April 16, 2015, bilateral MG screening mammo w CAD. There are scattered fibroglandular densities. No significant new findings when compared with previous films. These results were verbally communicated with the patient and result sheet given to the patient on 09/22/17. ASSESSMENT: Benign, BI-RAD 2 RECOMMENDATION: Routine screening mammogram of both breasts in 1 year.
== END | disposition home or self-care (01) ==
LOC: RADMAMWWP 13:20
PROVIDERS: ATTEND Internal Medicine
DX: N60.01 Solitary cyst of right breast (principal); N60.02 Solitary cyst of left breast; R92.8 Other abnormal and inconclusive findings on diagnostic imaging of breast
CPT/HCPCS: 77066

== ENCOUNTER 2017-09-26 11:43 | Emergency (ER) | payer MEDICARE, OTHER ==
[2017-09-26] MEDS ORDERED: ONDANSETRON 4 MG/2 ML VIAL IVP STA (12:11)
[2017-09-26] MEDS ORDERED: KETOROLAC 30 MG/ML 1 ML VIAL IVP STA (12:11)
[2017-09-26] MEDS ORDERED: SODIUM CHLORIDE 0.9% 1,000 ML IV STA (12:11)
--- NOTE | 2017-09-26 12:16 | ED ---
General Adult HPI - General Chief complaint: Extremity Injury, Lower Stated complaint: LEFT LEG PAIN, VOMITING, PRE OP Time Seen by Provider: 09/26/17 12:05 Source: patient, RN notes reviewed Mode of arrival: wheelchair Limitations: no limitations - History of Present Illness Initial comments: 87-year-old female presents to the emergency department for chief complaint of left knee pain. Patient states she has had a bad left knee which she sees Dr. Oliveros for. She does have a surgery scheduled with Dr. Oliveros in 10 days. Patient states her knee is hurting today in making her nauseous. Patient states she has vomited a few times in the past couple days. Patient states she feels like she can't eat anything today. Patient is taking [place] prescribed by pain management. Patient last took a [place] 2 hours ago. Patient says that is helping some. She feels she is dehydrated and needs some fluids. Patient denies any recent trauma to the knee. Patient denies shortness of breath or chest pain. Patient denies abdominal pain. - Related Data Home Medications Medication Instructions Recorded Confirmed Gabapentin 600 mg PO TID 12/22/16 09/26/17 HYDROcodone/APAP 10-325MG [[place] 1 tab PO TID PRN 12/22/16 09/26/17 10-325] Albuterol Inhaler [Ventolin Hfa 2 puff INHALATION RT-Q6H PRN 01/15/17 09/26/17 Inhaler] Aspirin EC [Ecotrin Low Dose] 81 mg PO DAILY 02/13/17 09/26/17 Clopidogrel Bisulfate [Plavix] 75 mg PO DAILY 02/13/17 09/26/17 ALPRAZolam [Xanax] 0.5 mg PO DAILY PRN 03/03/17 09/26/17 Diclofenac Sodium [Voltaren] 75 mg PO BID 03/03/17 09/26/17 amLODIPine [Norvasc] 5 mg PO DAILY 03/03/17 09/26/17 Previous Rx's Medication Instructions Recorded Atorvastatin [Lipitor] 80 mg PO HS #30 tab 01/17/17 Lisinopril [Zestril] 5 mg PO DAILY #30 tab 01/17/17 Metoprolol Tartrate [Lopressor] 25 mg PO BID #60 tab 01/17/17 Nitroglycerin Sl Tabs [Nitrostat] 0.4 mg SUBLINGUAL Q5M PRN #25 01/17/17 Budesonide [Pulmicort] 0.5 mg INHALATION RT-BID #14 neb 02/15/17 Famotidine [Pepcid] 20 mg PO BID #20 tablet 03/20/17 Ondansetron Odt [Zofran ODT] 4 mg PO Q8HR PRN #20 tab 03/20/17 Meloxicam [Mobic] 7.5 mg PO DAILY #7 tab 09/26/17 Ondansetron HCl [Zofran] 4 mg PO Q8HR PRN #14 tablet 09/26/17 Allergies Allergy/AdvReac Type Severity Reaction Status Date / Time erythromycin base AdvReac Nausea & Verified 09/26/17 12:27 [Erythromycin Base] Vomiting simvastatin AdvReac LEG CRAMPS Verified 09/26/17 12:27 tramadol HCl [From Ultram] AdvReac Itching Verified 09/26/17 12:27 Review of Systems ROS Statement: Those systems with pertinent positive or pertinent negative responses have been documented in the HPI. ROS Other: All systems not noted in ROS Statement are negative. Past Medical History Past Medical History: Asthma, Chest Pain / Angina, COPD, Fibromyalgia, GERD/ Reflux, Hyperlipidemia, Hypertension, Myocardial Infarction (SD), Pulmonary Embolus (PE) Additional Past Medical History / Comment(s): Pt recently admitted 02/13/17 with pneumonia. Other hx: DIVERTICULITIS. RESTLESS LEG SYNDROME. DDD, BACK PAIN Last Myocardial Infarction Date:: 01-15-17 History of Any Multi-Drug Resistant Organisms: None Reported Past Surgical History: Back Surgery, Bowel Resection, Cholecystectomy, Heart Catheterization With Stent, Hernia Repair, Tonsillectomy, Tubal Ligation Additional Past Surgical History / Comment(s): "HAD A FOOT OF BOWEL REMOVE "TEMPORARY COLOSTOMY, EPIDURAL INJECTIONS, COLOSTOMY REVERSAL. "HAD 4 SX FOR INC HERNIA-HAS CLIP/MESH IN PLACE, BACK SURGERY 04/27, cyst taken off ovary, PCI with 2 stents in RCA. Past Anesthesia/Blood Transfusion Reactions: Postoperative Nausea & Vomiting ( PONV) Additional Past Anesthesia/Blood Transfusion Reaction / Comment(s): Pt currently has broken front tooth. Date of Last Stent Placement:: 01-15-17 Past Psychological History: Anxiety, Bipolar, Depression Smoking Status: Current every day smoker Past Alcohol Use History: None Reported Past Drug Use History: Marijuana - Past Family History Mother Family Medical History: Hyperlipidemia, Hypertension, Myocardial Infarction (SD) Father Family Medical History: Hypertension Additional Family Medical History / Comment(s): per pt she thinks father has COPD of emphysema Sister(s) Family Medical History: No Reported History Brother(s) Family Medical History: No Reported History Daughter(s) Family Medical History: No Reported History Son(s) Family Medical History: No Reported History General Exam Limitations: no limitations General appearance: alert, in no apparent distress Head exam: Present: atraumatic, normocephalic, normal inspection Respiratory exam: Present: normal lung sounds bilaterally. Absent: respiratory distress, wheezes, rales, rhonchi, stridor Cardiovascular Exam: Present: regular rate, normal rhythm, normal heart sounds. Absent: systolic murmur, diastolic murmur, rubs, gallop, clicks GI/Abdominal exam: Present: soft, normal bowel sounds. Absent: distended, tenderness, guarding, rebound, rigid Extremities exam: Present: full ROM (Limited range of motion of left knee due to pain. No tenderness behind the knee.), tenderness (To the left knee), normal capillary refill (Less than 2 seconds in lower extremities), other ( Sensation and range of motion intact in the left foot.). Absent: pedal edema, joint swelling (No swelling noted in the left leg.), calf tenderness Neurological exam: Present: alert, oriented X3 Skin exam: Present: warm, dry, intact, normal color. Absent: rash Course Vital Signs 09/26/17 11:44 Temperature 98.4 F Pulse Rate 75 Respiratory 20 Rate Blood Pressure 145/106 O2 Sat by Pulse 99 Oximetry Medical Decision Making - Medical Decision Making 47-year-old female presents to the emergency department for chief complaint of left knee pain. Patient states she is on [place] prescribed by pain management. Patient states she has been nauseous due to the pain and has vomited multiple times over the past couple days. Patient states she feels dehydrated. Patient did take an [place] 2 hours ago which is helping with the pain. CBC and CMP were drawn due to patient's vomiting which demonstrated no acute abnormalities. An x- ray taking in the ER of the left knee on 08/29/2017 showed no fracture, dislocation or knee joint effusion. Patient was given Toradol and Zofran. 1000 L bolus was also administered. Patient felt much better after having these medications and felt ready to go home. Patient stated that she is not taking ibuprofen but her pain management doctors did mention starting low back. Patient will be prescribed Zofran and Mobic. She will continue taking her currently prescribed pain medications. She is to follow-up with Dr. Oliveros and pain management. - Lab Data Result diagrams: 09/26/17 12:45 09/26/17 12:45 Lab Results 09/26/17 09/26/17 Range/Units 12:45 12:45 WBC 12.6 H (3.8-10.6) k/uL RBC 4.54 (3.80-5.40) m/uL Hgb 13.1 (11.4-16.0) gm/dL Hct 39.4 (34.0-46.0) % MCV 86.8 (80.0-100.0) fL MCH 28.9 (25.0-35.0) pg MCHC 33.3 (31.0-37.0) g/dL RDW 16.8 H (11.5-15.5) % Plt Count 520 H (150-450) k/uL Neutrophils % 87 % Lymphocytes % 7 % Monocytes % 4 % Eosinophils % 1 % Basophils % 0 % Neutrophils # 10.9 H (1.3-7.7) k/uL Lymphocytes # 0.9 L (1.0-4.8) k/uL Monocytes # 0.5 (0-1.0) k/uL Eosinophils # 0.1 (0-0.7) k/uL Basophils # 0.1 (0-0.2) k/uL Anisocytosis Slight Sodium 140 (137-145) mmol/L Potassium 4.5 (3.5-5.1) mmol/L Chloride 104 (98-107) mmol/L Carbon Dioxide 24 (22-30) mmol/L Anion Gap 12 mmol/L BUN 14 (7-17) mg/dL Creatinine 0.81 (0.52-1.04) mg/dL Est GFR (CKD-EPI)AfAm >90 (>60 ml/min/1.73 sqM) Est GFR (CKD-EPI)NonAf 87 (>60 ml/min/1.73 sqM) Glucose 115 H (74-99) mg/dL Calcium 10.8 H (8.4-10.2) mg/dL Total Bilirubin 0.3 (0.2-1.3) mg/dL AST 15 (14-36) U/L ALT 20 (9-52) U/L Alkaline Phosphatase 113 (38-126) U/L Total Protein 7.8 (6.3-8.2) g/dL Albumin 4.5 (3.5-5.0) g/dL Disposition Clinical Impression: Knee pain Disposition: HOME SELF-CARE Condition: Good Instructions: Knee Pain (ED) Additional Instructions: Please return to the emergency Department if pain or symptoms worsen. Please follow-up with pain management and Dr. Oliveros. Please begin taking Mobic in addition to your current pain medications. Prescriptions: Meloxicam [Mobic] 7.5 mg PO DAILY #7 tab Ondansetron HCl [Zofran] 4 mg PO Q8HR PRN #14 tablet PRN Reason: Nausea Referrals: Thierno Garcia MD [Primary Care Provider] - 1-2 days
[2017-09-26 12:53] LABS: Anisocytosis Slight; Basophils # (A) 0.1 k/uL (0-0.2); Basophils % (A) 0 %; Eosinophils # (A) 0.1 k/uL (0-0.7); Eosinophils % (A) 1 %; HCT 39.4 % (34.0-46.0); HGB 13.1 gm/dL (11.4-16.0); Lymphocytes # (A) 0.9 k/uL (1.0-4.8); Lymphocytes % (A) 7 %; MCH 28.9 pg (25.0-35.0); MCHC 33.3 g/dL (31.0-37.0); MCV 86.8 fL (80.0-100.0); Mean Platelet Volume 6.4; Monocytes # (A) 0.5 k/uL (0-1.0); Monocytes % (A) 4 %; Neutrophils # (A) 10.9 k/uL (1.3-7.7); Neutrophils % (A) 87 %; Platelet Count 520 k/uL (150-450); RBC 4.54 m/uL (3.80-5.40); RDW 16.8 % (11.5-15.5); WBC 12.6 k/uL (3.8-10.6)
[2017-09-26 13:06] LABS: ALT 20 U/L (9-52); AST 15 U/L (14-36); Albumin 4.5 g/dL (3.5-5.0); Alkaline Phosphatase 113 U/L (38-126); Anion Gap 12 mmol/L; Blood Urea Nitrogen 14 mg/dL (7-17); Calcium 10.8 mg/dL (8.4-10.2); Carbon Dioxide 24 mmol/L (22-30); Chloride 104 mmol/L (98-107); Glucose 115 mg/dL (74-99); Potassium 4.5 mmol/L (3.5-5.1); Sodium 140 mmol/L (137-145); Total Bilirubin 0.3 mg/dL (0.2-1.3); Total Protein 7.8 g/dL (6.3-8.2)
[2017-09-26 14:22] VITALS: BP 119/76; PULSE 61; RESP 18; TEMP 97.9
== END 2017-09-26 14:25 | disposition home or self-care (01) ==
LOC: EC 11:43
DX: M25.562 Pain in left knee (principal); R11.2 Nausea with vomiting, unspecified; M79.7 Fibromyalgia; I10 Essential (primary) hypertension; I25.2 Old myocardial infarction; Z86.711 Personal history of pulmonary embolism; F17.200 Nicotine dependence, unspecified, uncomplicated; Z79.01 Long term (current) use of anticoagulants; Z79.82 Long term (current) use of aspirin; Z79.899 Other long term (current) drug therapy; Z88.1 Allergy status to other antibiotic agents; Z88.6 Allergy status to analgesic agent; Z88.8 Allergy status to other drugs, medicaments and biological substances
CPT/HCPCS: 99283; 96374; 96375; 36415; 80053; 85025; J2405; J1885

== ENCOUNTER → 2017-10-14 | Outpatient (CLI) | payer MEDICARE ==
[2017-10-14 10:59] LABS: Partial Thromboplastin Time 22.2 sec (22.0-30.0); Prothrombin Time 9.9 sec (9.0-12.0)
[2017-10-14 11:00] LABS: Appearance,Urine Clear (Clear); Bilirubin,Urine Negative (Negative); Blood,Urine Negative (Negative); Color,Urine Yellow; Glucose,Urine (UA) Negative (Negative); Ketones,Urine Negative (Negative); Leukocyte Esterase,Urine Negative (Negative); Nitrite,Urine Negative (Negative); PH, Urine 6.5 (5.0-8.0); Protein,Urine Trace (Negative); Specific Gravity,Urine 1.018 (1.001-1.035)
== END | disposition home or self-care (01) ==
LOC: LABPAT 10:27
PROVIDERS: ATTEND Internal Medicine
DX: Z01.812 Encounter for preprocedural laboratory examination (principal); D68.9 Coagulation defect, unspecified; R35.0 Frequency of micturition
CPT/HCPCS: 81003; 85610; 85730

== ENCOUNTER 2017-10-23 06:52 | Day surgery (SDC) | payer MEDICARE, OTHER ==
[2017-10-14 13:17] VITALS: BMI 32.4
[~2017-10-23 06:52] MED LIST: DEXAMETHASONE SOD PHOSPHATE 10 MG/ML 1 ML VIAL IV ONE; LACTATED RINGERS 1,000 ML IV SCH; MIDAZOLAM 2 MG/2 ML VIAL IV PRN; MORPHINE SULFATE 4 MG/ML SYRINGE IV PRN; ONDANSETRON 4 MG/2 ML VIAL IVP ONE; Pre Op ABX Message 1 EACH MISC MISCELLANE ONE
[2017-10-23 07:19] VITALS: RESP 16
[2017-10-23] MEDS ORDERED: LIDOCAINE 1% 20 ML VIAL (10MG/ML) FOR IV START INTRADERMA ONE (07:19)
[2017-10-23 07:32] LABS: Glucose,Whole Blood 93 mg/dL (75-99)
[2017-10-23] MEDS ORDERED: BUPIVACAINE (PF) 0.5% 30 ML VIAL SQ ONE ×2 (07:49→08:47)
[2017-10-23] MEDS ORDERED: PROPOFOL 10 MG/ML 20 ML VIAL IV ONE (07:52)
[2017-10-23] MEDS ORDERED: SUCCINYLCHOLINE CHLORIDE 100 MG/5 ML SYR IV ONE (07:52)
[2017-10-23] MEDS ORDERED: fentaNYL (PF) 50 MCG/ML 2 ML AMP ONE (07:52)
[2017-10-23] MEDS ORDERED: LIDOCAINE 1% INJ 10MG/ML (20 ML MDV) ONE (07:52)
[2017-10-23] MEDS ORDERED: ceFAZolin 1,000 MG VIAL IVPB ONE (08:14)
[2017-10-23 09:00] VITALS: TEMP 97
[2017-10-23] MEDS: MEPERIDINE 50 MG/ML SYRINGE IVP ONE ×2 (09:17→09:27)
[2017-10-23] MEDS ORDERED: fentaNYL (PF) 50 MCG/ML 2 ML AMP IV ONE (09:40)
[2017-10-23] MEDS ORDERED: HYDROcodone/APAP 10-325MG 1 EACH TAB PO ONE (10:36)
[2017-10-23 10:55] VITALS: BP 108/68; PULSE 60
--- NOTE | 2017-10-27 10:56 | OP ---
OPERATIVE REPORT DATE OF SERVICE: 10/23/2017. SURGEON: Abdoul Oliveros DO. PREOPERATIVE DIAGNOSIS: Torn left knee medial meniscus with degenerative joint disease of the medial compartment. FINAL DIAGNOSES: 1. Mild degenerative tear tendon medial meniscus. 2. 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 PROCEDURE PERFORMED: Left knee arthroscopy, medial and lateral femoral chondroplasty. PROCEDURE: The patient was taken to the operative suite and placed in supine position. General inhalation anesthesia was performed per Anesthesiology. The leg was secured in the leg franklin and Betadine prep was carried out over the left knee from mid thigh to mid calf. Sterile drapes were applied in the usual manner. The superolateral and the arthroscope was inserted into the medial compartment. Under direct visualization, the grade 3 to 4 chondromalacia of the medial femoral condyle was noted. This was probed and the degenerative medial meniscus. A medial chondroplasty was performed in the medial compartment. The scope was then introduced in a medial portal under direct visualization of a chondromalacia. The meniscus was probed and no evidence of discernible tear. The meniscal shaver was utilized in preparing the chondroplasty. The area was debrided as well. Area was copiously. Inspection of the patellar femoral groove revealed minimal chondromalacia . The area was irritated copiously. Portal wounds were approximated with 4-0 nylon suture interrupted fashion. Joint was infiltrated with 0.5% Marcaine plain. Sterile dressing was applied. Patient was transferred to the recovery room in satisfactory postop condition. GROSS PATHOLOGY: There was evidence of chondromalacia grade 3 to 4 medial and lateral femoral condyle. MMODL / IJN: [id number] / SHAWNA
== END 2017-10-23 11:05 | disposition home or self-care (01) ==
LOC: OR 06:52
PROVIDERS: ATTEND Orthopaedic Surgery
DX: M94.262 Chondromalacia, left knee (principal); S83.242A Other tear of medial meniscus, current injury, left knee, initial encounter; W18.49XA Other slipping, tripping and stumbling without falling, initial encounter; M17.12 Unilateral primary osteoarthritis, left knee; M71.22 Synovial cyst of popliteal space [Baker], left knee; E10.9 Type 1 diabetes mellitus without complications; I10 Essential (primary) hypertension; E78.5 Hyperlipidemia, unspecified; F32.9 Major depressive disorder, single episode, unspecified; J44.9 Chronic obstructive pulmonary disease, unspecified; M79.7 Fibromyalgia; I25.10 Atherosclerotic heart disease of native coronary artery without angina pectoris; K21.9 Gastro-esophageal reflux disease without esophagitis; F17.210 Nicotine dependence, cigarettes, uncomplicated; Z79.02 Long term (current) use of antithrombotics/antiplatelets; Z79.51 Long term (current) use of inhaled steroids; Z79.82 Long term (current) use of aspirin; Z79.891 Long term (current) use of opiate analgesic; Z79.899 Other long term (current) drug therapy; Z88.6 Allergy status to analgesic agent; Z88.1 Allergy status to other antibiotic agents; Z88.5 Allergy status to narcotic agent; Z88.8 Allergy status to other drugs, medicaments and biological substances
CPT/HCPCS: 29877; J2270; J1100; J2175; J2405; J0690; J2001; J3010; J0330; J2704

== ENCOUNTER → 2018-01-14 | Outpatient (CLI) | payer MEDICARE ==
--- NOTE | 2018-01-14 10:59 | USB ---
Reason for exam: clinical finding. History: Patient is postmenopausal. US discontinued breast bx RT of the right breast, June 13, 2015. Indicated problem(s): palpable abnormality in the right breast. Physical Findings: Nurse Summary: right breast palpable 6 o'clock posterior nipple, 1 x 1cm, tender, movable (nurse ts). US Breast RT Right complete breast ultrasound includes all four quadrants, the retroareolar region and axilla. Finding demonstrates a 0.3 x 0.2 x 0.2cm oval, cystic, benign lesion at 2 o'clock, a 0.5 x 0.4 x 0.2cm oval, cystic, benign lesion at 9 o'clock and a 0.8 x 0.4 x 0.5cm irregular, mixed lesion at the posterior nipple with calcification, possible intracystic/intraductal lesion versus debris. Given patient's report of clear nipple discharge, biopsy is recommended. These results were verbally communicated with the patient and result sheet given to the patient on 01/14/18. ASSESSMENT: Suspicious, BI-RAD 4 RECOMMENDATION: Ultrasound core biopsy of the right breast. Called Dr. Garcia with mammographic findings and has scheduled an appointment for the patient for 02/11/18 at 10:[address] Middleton. Biopsy scheduled for 01/21/18 at 1:00. PRELIMINARY REPORT CALLED AND FAXED TO DR. MIDDLETON ON 01/14/18.
== END | disposition home or self-care (01) ==
LOC: RADUSWWP 08:54
PROVIDERS: ATTEND Internal Medicine
DX: N63.10 Unspecified lump in the right breast, unspecified quadrant (principal); N64.4 Mastodynia

== ENCOUNTER 2018-01-23 11:12 | Emergency (ER) | payer MEDICARE, OTHER ==
--- NOTE | 2018-01-23 12:10 | XR ---
EXAMINATION TYPE: XR lumbosacral spine min 4V , 5 VIEWS DATE OF EXAM ORDERED: 01/23/2018 HISTORY: Pain. COMPARISON: Previous study dated 11/24/2016. FINDINGS: There is been a previous cholecystectomy. There is a mild to moderate levoscoliosis. This is slightly more prominent than on the previous study . Vertebral body height is maintained. There is mild retrograde listhesis of L4 on L5 and L2 on L3. There is diffuse disc space loss with relative sparing of the L5-S1 level. There is hypertrophic spon dylosis most marked at L2-3 and L3-4. There is no spondylolysis. There is mild, diffuse facet arthrop athy. The pedicles are intact. IMPRESSION: 1. NO ACUTE OSSEOUS LESION. 2. DEGENERATIVE CHANGE.
--- NOTE | 2018-01-23 12:11 | XR ---
EXAMINATION TYPE: XR knee complete LT , 3 VIEWS DATE OF EXAM ORDERED: 01/23/2018 HISTORY: Pain. COMPARISON: Previous study dated 08/29/2017. FINDINGS: There is mild peaking of intercondylar spines. The joint spaces are maintained. There is n o fracture, dislocation or joint effusion. IMPRESSION: 1. NO ACUTE OSSEOUS LESION. 2. EARLIEST CHANGES OF OSTEOARTHRITIS.
--- NOTE | 2018-01-23 12:36 | ED ---
General Adult HPI - General Chief complaint: Fall Stated complaint: Fell-knee/tailbone injury Time Seen by Provider: 01/23/18 11:38 Source: patient, RN notes reviewed Mode of arrival: ambulatory Limitations: no limitations - History of Present Illness Initial comments: Patient for 47-year-old female significant past medical history for chronic knee and back pain presented to the emergency room today with a chief complaint of twisting her right knee and falling landing on her tailbone yesterday. She states she bruised her tailbone. 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 Patient states she twisted it yesterday. States feels essentially same but has been locking up more often lately. She does admit that she's been having injections which seemed to help with some symptoms. Patient states tenderness to the tailbone worse when she sits. Denying any other complaints or symptoms. She states that she is under pain contract. Patient denies any recent fever, chills, shortness of breath, chest pain, back pain, abdominal pain, nausea or vomiting, numbness or tingling, headaches or visual changes, or any other complaints. - Related Data Home Medications Medication Instructions Recorded Confirmed Gabapentin 600 mg PO TID 12/22/16 01/15/18 HYDROcodone/APAP 10-325MG [[place] 1 tab PO TID PRN 12/22/16 01/15/18 10-325] Albuterol Inhaler [Ventolin Hfa 2 puff INHALATION RT-Q6H PRN 01/15/17 01/15/18 Inhaler] Aspirin EC [Ecotrin Low Dose] 81 mg PO DAILY 02/13/17 01/15/18 Clopidogrel Bisulfate [Plavix] 75 mg PO DAILY 02/13/17 01/15/18 ALPRAZolam [Xanax] 0.5 mg PO DAILY PRN 03/03/17 01/15/18 Acetaminophen/Diphenhydramine 1 each PO DAILY PRN 10/14/17 01/15/18 [Tylenol PM Extra Strength] Budesonide [Pulmicort] 0.5 mg INHALATION RT-BID PRN 10/14/17 01/15/18 Furosemide [Lasix] 40 mg PO DAILY PRN 10/14/17 01/15/18 Omeprazole 20 mg PO DAILY 10/14/17 01/15/18 Potassium Chloride [K-Tab ER] 10 meq PO DAILY 10/14/17 01/15/18 amLODIPine [Norvasc] 5 mg PO DAILY 10/14/17 01/15/18 Previous Rx's Medication Instructions Recorded Atorvastatin [Lipitor] 80 mg PO HS #30 tab 01/17/17 Lisinopril [Zestril] 5 mg PO DAILY #30 tab 01/17/17 Metoprolol Tartrate [Lopressor] 25 mg PO BID #60 tab 01/17/17 Nitroglycerin Sl Tabs [Nitrostat] 0.4 mg SUBLINGUAL Q5M PRN #25 01/17/17 Allergies Allergy/AdvReac Type Severity Reaction Status Date / Time erythromycin base AdvReac Nausea & Verified 01/23/18 11:26 [Erythromycin Base] Vomiting tramadol HCl [From Ultram] AdvReac Itching Verified 01/23/18 11:26 Review of Systems ROS Statement: Those systems with pertinent positive or pertinent negative responses have been documented in the HPI. ROS Other: All systems not noted in ROS Statement are negative. Past Medical History Past Medical History: Coronary Artery Disease (CAD), Hyperlipidemia, Myocardial Infarction ([place]) Additional Past Medical History / Comment(s): Other hx: DIVERTICULITIS. RESTLESS LEG SYNDROME. DDD, BACK PAIN, osteoporsis,pr Last Myocardial Infarction Date:: 01-15-17 History of Any Multi-Drug Resistant Organisms: None Reported Past Surgical History: Back Surgery, Bowel Resection, Cholecystectomy, Heart Catheterization With Stent, Hernia Repair, Tonsillectomy, Tubal Ligation Additional Past Surgical History / Comment(s): "HAD A FOOT OF BOWEL REMOVED "TEMPORARY COLOSTOMY, COLOSTOMY REVERSAL. "HAD 4 SX FOR INC HERNIA-HAS CLIP/ MESH IN PLACE, BACK SURGERY 04/27, cyst taken off ovary, PCI with 2 stents in RCA, Epidural injections Past Anesthesia/Blood Transfusion Reactions: Postoperative Nausea & Vomiting ( PONV) Additional Past Anesthesia/Blood Transfusion Reaction / Comment(s): Pt currently has broken front tooth, anxiety upon awakening from anesthesia Date of Last Stent Placement:: 01-15-17 Past Psychological History: Anxiety, Bipolar, Depression Smoking Status: Current every day smoker Past Alcohol Use History: None Reported Past Drug Use History: Marijuana - Past Family History Mother Family Medical History: Hyperlipidemia, Hypertension, Myocardial Infarction ([place]) Father Family Medical History: Hypertension Additional Family Medical History / Comment(s): per pt she thinks father has COPD of emphysema Sister(s) Family Medical History: No Reported History Brother(s) Family Medical History: No Reported History Daughter(s) Family Medical History: No Reported History Son(s) Family Medical History: No Reported History General Exam - General Exam Comments Initial Comments: General: The patient is awake and alert, in no distress, and does not appear acutely ill. Eye: Pupils are equal, round and reactive to light, extra-ocular movements are intact. No nystagmus. There is normal conjunctiva bilaterally. No signs of icterus. Ears, nose, mouth and throat: There are moist mucous membranes and no oral lesions. Neck: The neck is supple, there is no tenderness or JVD. Cardiovascular: There is a regular rate and rhythm. No murmur, rub or gallop is appreciated. Respiratory: Lungs are clear to auscultation, respirations are non-labored, breath sounds are equal. No wheezes, stridor, rales, or rhonchi. Musculoskeletal: Normal ROM. Patient does have tenderness to lower lumbar had L4-S1. Strength 5/5. Sensation intact. Pulses equal bilaterally 2+. Neurological: A&O x 3. CN II-XII intact, There are no obvious motor or sensory deficits. Coordination appears grossly intact. Speech is normal. Skin: Skin is warm and dry and no rashes or lesions are noted. Psychiatric: Cooperative, appropriate mood & affect, normal judgment. Limitations: no limitations Course Vital Signs 01/23/18 11:22 Temperature 98.4 F Pulse Rate 71 Respiratory 17 Rate Blood Pressure 132/89 O2 Sat by Pulse 99 Oximetry Medical Decision Making - Medical Decision Making Patient's x-rays have been reviewed and are negative for any acute abnormalities. Results were discussed with the patient. At this time patient will be discharged to follow-up with her orthopedic doctor. Patient advised to continue with current pain medication. Return if any symptoms worsen Disposition Clinical Impression: Fall, Knee pain, Acute low back pain Disposition: HOME SELF-CARE Condition: Good Instructions: Knee Pain (ED) Additional Instructions: Please follow-up with orthopedic/family doctor in the next 2-5 days of symptoms have not improved. Please return to emergency room if the symptoms increase or worsen or for any other concerns. Is patient prescribed a controlled substance at d/c from ED?: No Referrals: Thierno Garcia MD [Primary Care Provider] - 1-2 days Time of Disposition: 12:35
[2018-01-23 12:54] VITALS: BP 127/87; PULSE 65; RESP 18; TEMP 97.7
== END 2018-01-23 12:52 | disposition home or self-care (01) ==
LOC: EC 11:12
DX: M25.561 Pain in right knee (principal); M54.5 Low back pain; I25.10 Atherosclerotic heart disease of native coronary artery without angina pectoris; E78.5 Hyperlipidemia, unspecified; I25.2 Old myocardial infarction; F41.9 Anxiety disorder, unspecified; F17.200 Nicotine dependence, unspecified, uncomplicated; Z98.890 Other specified postprocedural states; Z79.02 Long term (current) use of antithrombotics/antiplatelets; Z79.82 Long term (current) use of aspirin; Z79.899 Other long term (current) drug therapy; Z88.1 Allergy status to other antibiotic agents; Z88.5 Allergy status to narcotic agent; W18.39XA Other fall on same level, initial encounter; X50.1XXA Overexertion from prolonged static or awkward postures, initial encounter
CPT/HCPCS: 72110; 99283

== ENCOUNTER 2018-03-17 12:23 | Emergency (ER) | payer MEDICARE, OTHER ==
[2018-03-17 13:35] VITALS: BP 141/96; PULSE 76; RESP 18; TEMP 98.1
[2018-03-17] MEDS ORDERED: HYDROcodone/APAP 5-325MG 1 EACH TAB PO STA (13:40)
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
== END 2018-03-17 13:57 | disposition home or self-care (01) ==
LOC: EC 12:23
DX: G89.29 Other chronic pain (principal); M25.562 Pain in left knee; M25.572 Pain in left ankle and joints of left foot; I25.10 Atherosclerotic heart disease of native coronary artery without angina pectoris; E78.5 Hyperlipidemia, unspecified; I25.2 Old myocardial infarction; G25.81 Restless legs syndrome; F41.9 Anxiety disorder, unspecified; F31.9 Bipolar disorder, unspecified; F17.200 Nicotine dependence, unspecified, uncomplicated; Z90.49 Acquired absence of other specified parts of digestive tract; Z95.5 Presence of coronary angioplasty implant and graft; Z98.890 Other specified postprocedural states; Z93.3 Colostomy status; Z79.02 Long term (current) use of antithrombotics/antiplatelets; Z79.82 Long term (current) use of aspirin; Z79.899 Other long term (current) drug therapy
CPT/HCPCS: 99283

== ENCOUNTER 2018-05-02 11:12 | Emergency (ER) | payer MEDICARE, OTHER ==
[2018-05-02 11:17] VITALS: BP 141/91; PULSE 85; RESP 16; TEMP 98.2
[2018-05-02] MEDS ORDERED: ACET/COD 300 MG/30 MG STARTER PACK 6 TAB BTL PO STA (11:43)
--- NOTE | 2018-05-02 11:45 | ED ---
Skin/Abscess/FB HPI - General Chief complaint: Skin/Abscess/Foreign Body Stated complaint: LUMP, RT BREAST Time Seen by Provider: 05/02/18 11:26 Source: patient, RN notes reviewed Mode of arrival: ambulatory Limitations: no limitations - History of Present Illness Initial comments: 48-year-old female presents emergency Department chief complaint of right breast infection. Patient states that she has had increasing discomfort and noticed a little bit drainage and redness. Patient's redness is improved. Patient states drank has resolved but she still has some soreness. Patient is scheduled to have biopsy because she's had lungs found on a mammogram. Patient is scheduled to have biopsies by Dr. bean. Patient denies any fevers, chills, chest pain, shortness breath, headache or dizziness. - Related Data Home Medications Medication Instructions Recorded Confirmed Gabapentin 600 mg PO TID 12/22/16 01/15/18 HYDROcodone/APAP 10-325MG [[place] 1 tab PO TID PRN 12/22/16 01/15/18 10-325] Albuterol Inhaler [Ventolin Hfa 2 puff INHALATION RT-Q6H PRN 01/15/17 01/15/18 Inhaler] Aspirin EC [Ecotrin Low Dose] 81 mg PO DAILY 02/13/17 01/15/18 Clopidogrel Bisulfate [Plavix] 75 mg PO DAILY 02/13/17 01/15/18 ALPRAZolam [Xanax] 0.5 mg PO DAILY PRN 03/03/17 01/15/18 Acetaminophen/Diphenhydramine 1 each PO DAILY PRN 10/14/17 01/15/18 [Tylenol PM Extra Strength] Budesonide [Pulmicort] 0.5 mg INHALATION RT-BID PRN 10/14/17 01/15/18 Furosemide [Lasix] 40 mg PO DAILY PRN 10/14/17 01/15/18 Omeprazole 20 mg PO DAILY 10/14/17 01/15/18 Potassium Chloride [K-Tab ER] 10 meq PO DAILY 10/14/17 01/15/18 amLODIPine [Norvasc] 5 mg PO DAILY 10/14/17 01/15/18 Previous Rx's Medication Instructions Recorded Atorvastatin [Lipitor] 80 mg PO HS #30 tab 01/17/17 Lisinopril [Zestril] 5 mg PO DAILY #30 tab 01/17/17 Metoprolol Tartrate [Lopressor] 25 mg PO BID #60 tab 01/17/17 Nitroglycerin Sl Tabs [Nitrostat] 0.4 mg SUBLINGUAL Q5M PRN #25 01/17/17 Sulfamethox-Tmp 800-160Mg [Bactrim 1 each PO Q12HR #20 tab 05/02/18 Ds] Allergies Allergy/AdvReac Type Severity Reaction Status Date / Time erythromycin base AdvReac Nausea & Verified 05/02/18 11:17 [Erythromycin Base] Vomiting tramadol HCl [From Ultram] AdvReac Itching Verified 05/02/18 11:17 Review of Systems ROS Statement: Those systems with pertinent positive or pertinent negative responses have been documented in the HPI. ROS Other: All systems not noted in ROS Statement are negative. Past Medical History Past Medical History: Coronary Artery Disease (CAD), Hyperlipidemia, Myocardial Infarction ([place]) Additional Past Medical History / Comment(s): Other hx: DIVERTICULITIS. RESTLESS LEG SYNDROME. DDD, BACK PAIN, osteoporsis,pr Last Myocardial Infarction Date:: 01-15-17 History of Any Multi-Drug Resistant Organisms: None Reported Past Surgical History: Back Surgery, Bowel Resection, Cholecystectomy, Heart Catheterization With Stent, Hernia Repair, Tonsillectomy, Tubal Ligation Additional Past Surgical History / Comment(s): "HAD A FOOT OF BOWEL REMOVED "TEMPORARY COLOSTOMY, COLOSTOMY REVERSAL. "HAD 4 SX FOR INC HERNIA-HAS CLIP/ MESH IN PLACE, BACK SURGERY 04/27, cyst taken off ovary, PCI with 2 stents in RCA, Epidural injections Past Anesthesia/Blood Transfusion Reactions: Postoperative Nausea & Vomiting ( PONV) Additional Past Anesthesia/Blood Transfusion Reaction / Comment(s): Pt currently has broken front tooth, anxiety upon awakening from anesthesia Date of Last Stent Placement:: 01-15-17 Past Psychological History: Anxiety, Bipolar, Depression Smoking Status: Current every day smoker Past Alcohol Use History: None Reported Past Drug Use History: Marijuana - Past Family History Mother Family Medical History: Hyperlipidemia, Hypertension, Myocardial Infarction ([place]) Father Family Medical History: Hypertension Additional Family Medical History / Comment(s): per pt she thinks father has COPD of emphysema Sister(s) Family Medical History: No Reported History Brother(s) Family Medical History: No Reported History Daughter(s) Family Medical History: No Reported History Son(s) Family Medical History: No Reported History General Exam Limitations: no limitations General appearance: alert, in no apparent distress Respiratory exam: Present: normal lung sounds bilaterally. Absent: respiratory distress, wheezes, rales, rhonchi, stridor Cardiovascular Exam: Present: regular rate, normal rhythm, normal heart sounds. Absent: systolic murmur, diastolic murmur, rubs, gallop, clicks Skin exam: Present: warm, dry, intact, normal color, other (Breast exam performed with RN daily, there is small area of erythema around the lower aspect of the malleolus ordered. This appears to be an early infection. ). Absent: rash Course Vital Signs 05/02/18 11:15 Temperature 98.2 F Pulse Rate 85 Respiratory 16 Rate Blood Pressure 141/91 O2 Sat by Pulse 98 Oximetry Medical Decision Making - Medical Decision Making 48-year-old female presented to emergency from for right breast discomfort and drainage. Patient appears to have early abscess or cellulitis. Patient was started on Bactrim. She is scheduled for biopsy. Return parameters were discussed. Disposition Clinical Impression: Infection of right breast Disposition: HOME SELF-CARE Condition: Stable Instructions: Breast Mass (ED) Additional Instructions: Please return to the Emergency Department if symptoms worsen or any other concerns. Prescriptions: Sulfamethox-Tmp 800-160Mg [Bactrim Ds] 1 each PO Q12HR #20 tab Is patient prescribed a controlled substance at d/c from ED?: No Referrals: Thierno Garcia MD [Primary Care Provider] - 1-2 days Time of Disposition: 11:43
== END 2018-05-02 12:03 | disposition home or self-care (01) ==
LOC: EC 11:12
DX: N61.0 Mastitis without abscess (principal); I25.10 Atherosclerotic heart disease of native coronary artery without angina pectoris; I25.2 Old myocardial infarction; F41.9 Anxiety disorder, unspecified; F31.9 Bipolar disorder, unspecified; F17.200 Nicotine dependence, unspecified, uncomplicated; Z79.82 Long term (current) use of aspirin; Z79.02 Long term (current) use of antithrombotics/antiplatelets; Z79.51 Long term (current) use of inhaled steroids; Z79.899 Other long term (current) drug therapy; Z88.1 Allergy status to other antibiotic agents; Z88.5 Allergy status to narcotic agent; Z95.5 Presence of coronary angioplasty implant and graft
CPT/HCPCS: 99283

== ENCOUNTER → 2018-06-02 | Outpatient (CLI) | payer MEDICARE, OTHER ==
--- NOTE | 2018-06-02 14:44 | US ---
EXAMINATION TYPE: US venous doppler duplex LE LT DATE OF EXAM: 06/02/2018 2:29 PM COMPARISON: NONE CLINICAL HISTORY: 48-year-old female M25.562 pain in left knee. Pending left knee surgery and painful cramps began in calf, h/o PE, no h/o DVT, not on thinners SIDE PERFORMED: Left TECHNIQUE: The lower extremity deep venous system is examined utilizing real time linear array sonog tamir with graded compression, doppler sonography and color-flow sonography. FINDINGS: VESSELS IMAGED: External Iliac Vein (EIV) Common Femoral Vein Deep Femoral Vein Greater Saphenous Vein * Femoral Vein Popliteal Vein Small Saphenous Vein * Proximal Calf Veins Posterior tibial veins (* superficial vessels) Left Leg: Appears negative for DVT tech impression to office of negative findings IMPRESSION: No evidence for DVT within the left lower extremity.
== END | disposition home or self-care (01) ==
LOC: RADUSWWP 13:32
PROVIDERS: ATTEND Orthopaedic Surgery
DX: I80.9 Phlebitis and thrombophlebitis of unspecified site (principal); M17.12 Unilateral primary osteoarthritis, left knee; E10.9 Type 1 diabetes mellitus without complications; M24.10 Other articular cartilage disorders, unspecified site

== ENCOUNTER 2018-06-30 15:50 | Observation (INO) | payer MEDICARE, OTHER ==
[2018-06-30] MEDS ORDERED: NITROGLYCERIN OINT 1 INCH/GM PACKET TOPICAL STA (16:16)
[2018-06-30] MEDS ORDERED: ASPIRIN 81 MG PO STA (16:16)
--- NOTE | 2018-06-30 16:32 | ED ---
General Adult HPI - General Chief complaint: Chest Pain Stated complaint: chest feels heavy Time Seen by Provider: 06/30/18 16:02 Source: patient, RN notes reviewed Mode of arrival: wheelchair Limitations: no limitations - History of Present Illness Initial comments: Patient is a pleasant 48-year-old female presenting to the emergency Department with pressure of her left chest. Onset of symptoms was just a couple of hours ago. Discomfort is mild. No radiation. No new dyspnea from her chronic COPD. No associated diaphoresis or nausea. Patient did have arthroscopic surgery of the left knee just 6 days ago. No calf pain or calf tenderness. He should states her knee discomfort is improving as expected. no history of similar chest discomfort previously. - Related Data Home Medications Medication Instructions Recorded Confirmed Gabapentin 600 mg PO TID 12/22/16 06/30/18 Albuterol Inhaler [Ventolin Hfa 2 puff INHALATION RT-Q6H PRN 01/15/17 06/30/18 Inhaler] Aspirin EC [Ecotrin Low Dose] 81 mg PO DAILY 02/13/17 06/30/18 ALPRAZolam [Xanax] 0.5 mg PO BID PRN 03/03/17 06/30/18 Acetaminophen/Diphenhydramine 1 tab PO HS PRN 10/14/17 06/30/18 [Tylenol PM Extra Strength] Omeprazole 20 mg PO DAILY 10/14/17 06/30/18 amLODIPine [Norvasc] 5 mg PO DAILY 10/14/17 06/30/18 HYDROcodone/APAP 7.5-325MG [[place] 1 tab PO BID PRN 06/30/18 06/30/18 7.5-325] Previous Rx's Medication Instructions Recorded Atorvastatin [Lipitor] 80 mg PO HS #30 tab 01/17/17 Lisinopril [Zestril] 5 mg PO DAILY #30 tab 01/17/17 Metoprolol Tartrate [Lopressor] 25 mg PO BID #60 tab 01/17/17 Nitroglycerin Sl Tabs [Nitrostat] 0.4 mg SUBLINGUAL Q5M PRN #25 01/17/17 Allergies Allergy/AdvReac Type Severity Reaction Status Date / Time erythromycin base AdvReac Nausea & Verified 06/30/18 16:45 [Erythromycin Base] Vomiting tramadol HCl [From Ultram] AdvReac Itching Verified 06/30/18 16:45 Review of Systems ROS Statement: Those systems with pertinent positive or pertinent negative responses have been documented in the HPI. ROS Other: All systems not noted in ROS Statement are negative. Constitutional: Denies: fever Eyes: Denies: eye pain ENT: Denies: ear pain Respiratory: Denies: cough Cardiovascular: Reports: chest pain Endocrine: Denies: fatigue Gastrointestinal: Denies: abdominal pain Genitourinary: Denies: dysuria Musculoskeletal: Denies: back pain Skin: Denies: rash Neurological: Denies: weakness Past Medical History Past Medical History: Coronary Artery Disease (CAD), Hyperlipidemia, Myocardial Infarction (AL) Additional Past Medical History / Comment(s): Other hx: DIVERTICULITIS. RESTLESS LEG SYNDROME. DDD, BACK PAIN, osteoporsis,pr Last Myocardial Infarction Date:: 01-15-17 History of Any Multi-Drug Resistant Organisms: None Reported Past Surgical History: Back Surgery, Bowel Resection, Cholecystectomy, Heart Catheterization With Stent, Hernia Repair, Tonsillectomy, Tubal Ligation Additional Past Surgical History / Comment(s): "HAD A FOOT OF BOWEL REMOVED "TEMPORARY COLOSTOMY, COLOSTOMY REVERSAL. "HAD 4 SX FOR INC HERNIA-HAS CLIP/ MESH IN PLACE, BACK SURGERY 04/27, cyst taken off ovary, PCI with 2 stents in RCA, Epidural injections Past Anesthesia/Blood Transfusion Reactions: Postoperative Nausea & Vomiting ( PONV) Additional Past Anesthesia/Blood Transfusion Reaction / Comment(s): Pt currently has broken front tooth, anxiety upon awakening from anesthesia Date of Last Stent Placement:: 01-15-17 Past Psychological History: Anxiety, Bipolar, Depression Smoking Status: Current every day smoker Past Alcohol Use History: None Reported Past Drug Use History: Marijuana - Past Family History Mother Family Medical History: Hyperlipidemia, Hypertension, Myocardial Infarction (AL) Father Family Medical History: Hypertension Additional Family Medical History / Comment(s): per pt she thinks father has COPD of emphysema Sister(s) Family Medical History: No Reported History Brother(s) Family Medical History: No Reported History Daughter(s) Family Medical History: No Reported History Son(s) Family Medical History: No Reported History General Exam Limitations: no limitations General appearance: alert, in no apparent distress Head exam: Present: atraumatic Eye exam: Present: normal appearance, PERRL Neck exam: Present: normal inspection Respiratory exam: Present: normal lung sounds bilaterally, chest wall tenderness Cardiovascular Exam: Present: regular rate, normal rhythm Expanded Peripheral pulses: 2+: Radial (R), Radial (L), Dorsalis Pedis (R), Dorsalis Pedis (L) GI/Abdominal exam: Present: soft. Absent: tenderness Extremities exam: Absent: pedal edema, calf tenderness Neurological exam: Present: alert Psychiatric exam: Present: normal affect, normal mood Skin exam: Present: normal color Course Vital Signs 06/30/18 15:53 Temperature 98.3 F Pulse Rate 86 Respiratory 16 Rate Blood Pressure 128/88 O2 Sat by Pulse 99 Oximetry EKG Findings - EKG Comments: EKG Findings:: Normal sinus rhythm 74. IL 152. QRS 88. QT 368. QTC 408. Normal axis. Normal QRS. No acute ST change. Medical Decision Making - Medical Decision Making Patient reevaluated and symptom-free following Nitropaste. Patient updated on results and plan. Case was discussed in detail with Dr. yi, covering for Dr. Garcia, who will admit - Lab Data Result diagrams: 06/30/18 16:21 06/30/18 16:21 Lab Results 06/30/18 06/30/18 06/30/18 Range/Units 16:21 16:21 16:21 WBC 7.8 (3.8-10.6) k/uL RBC 4.76 (3.80-5.40) m/uL Hgb 14.1 (11.4-16.0) gm/dL Hct 44.3 (34.0-46.0) % MCV 93.1 (80.0-100.0) fL MCH 29.6 (25.0-35.0) pg MCHC 31.8 (31.0-37.0) g/dL RDW 15.3 (11.5-15.5) % Plt Count 482 H (150-450) k/uL Neutrophils % 64 % Lymphocytes % 27 % Monocytes % 5 % Eosinophils % 2 % Basophils % 1 % Neutrophils # 5.0 (1.3-7.7) k/uL Lymphocytes # 2.1 (1.0-4.8) k/uL Monocytes # 0.4 (0-1.0) k/uL Eosinophils # 0.2 (0-0.7) k/uL Basophils # 0.0 (0-0.2) k/uL PT (9.0-12.0) sec INR (<1.2) APTT (22.0-30.0) sec Sodium 141 (137-145) mmol/L Potassium 3.5 (3.5-5.1) mmol/L Chloride 109 H (98-107) mmol/L Carbon Dioxide 20 L (22-30) mmol/L Anion Gap 12 mmol/L BUN 11 (7-17) mg/dL Creatinine 0.54 (0.52-1.04) mg/dL Est GFR (CKD-EPI)AfAm >90 (>60 ml/min/1.73 sqM) Est GFR (CKD-EPI)NonAf >90 (>60 ml/min/1.73 sqM) Glucose 140 H (74-99) mg/dL Calcium 10.0 (8.4-10.2) mg/dL Magnesium 1.9 (1.6-2.3) mg/dL Total Bilirubin 0.3 (0.2-1.3) mg/dL AST 14 (14-36) U/L ALT 19 (9-52) U/L Alkaline Phosphatase 78 (38-126) U/L Total Creatine Kinase 40 (30-135) U/L CK-MB (CK-2) 0.7 (0.0-2.4) ng/mL CK-MB (CK-2) Rel Index 1.8 Troponin I <0.012 (0.000-0.034) ng/mL Total Protein 7.1 (6.3-8.2) g/dL Albumin 4.2 (3.5-5.0) g/dL 06/30/18 Range/Units 16:21 WBC (3.8-10.6) k/uL RBC (3.80-5.40) m/uL Hgb (11.4-16.0) gm/dL Hct (34.0-46.0) % MCV (80.0-100.0) fL MCH (25.0-35.0) pg MCHC (31.0-37.0) g/dL RDW (11.5-15.5) % Plt Count (150-450) k/uL Neutrophils % % Lymphocytes % % Monocytes % % Eosinophils % % Basophils % % Neutrophils # (1.3-7.7) k/uL Lymphocytes # (1.0-4.8) k/uL Monocytes # (0-1.0) k/uL Eosinophils # (0-0.7) k/uL Basophils # (0-0.2) k/uL PT 10.2 (9.0-12.0) sec INR 0.9 (<1.2) APTT 21.0 L (22.0-30.0) sec Sodium (137-145) mmol/L Potassium (3.5-5.1) mmol/L Chloride (98-107) mmol/L Carbon Dioxide (22-30) mmol/L Anion Gap mmol/L BUN (7-17) mg/dL Creatinine (0.52-1.04) mg/dL Est GFR (CKD-EPI)AfAm (>60 ml/min/1.73 sqM) Est GFR (CKD-EPI)NonAf (>60 ml/min/1.73 sqM) Glucose (74-99) mg/dL Calcium (8.4-10.2) mg/dL Magnesium (1.6-2.3) mg/dL Total Bilirubin (0.2-1.3) mg/dL AST (14-36) U/L ALT (9-52) U/L Alkaline Phosphatase (38-126) U/L Total Creatine Kinase (30-135) U/L CK-MB (CK-2) (0.0-2.4) ng/mL CK-MB (CK-2) Rel Index Troponin I (0.000-0.034) ng/mL Total Protein (6.3-8.2) g/dL Albumin (3.5-5.0) g/dL - Radiology Data Radiology results: report reviewed (Computed tomography scan of the chest negative for pulmonary embolism) Disposition Clinical Impression: Chest pain Disposition: ADMITTED IP TO THIS HOSP Is patient prescribed a controlled substance at d/c from ED?: No Referrals: Thierno Garcia MD [Primary Care Provider] - 1-2 days Decision Time: 18:30
[2018-06-30 16:38] LABS: Basophils % (A) 1 %; Eosinophils # (A) 0.2 k/uL (0-0.7); Eosinophils % (A) 2 %; HCT 44.3 % (34.0-46.0); HGB 14.1 gm/dL (11.4-16.0); Lymphocytes # (A) 2.1 k/uL (1.0-4.8); Lymphocytes % (A) 27 %; MCH 29.6 pg (25.0-35.0); MCHC 31.8 g/dL (31.0-37.0); MCV 93.1 fL (80.0-100.0); Mean Platelet Volume 6.2; Monocytes # (A) 0.4 k/uL (0-1.0); Monocytes % (A) 5 %; Neutrophils % (A) 64 %; Platelet Count 482 k/uL (150-450); RBC 4.76 m/uL (3.80-5.40); RDW 15.3 % (11.5-15.5); WBC 7.8 k/uL (3.8-10.6)
[2018-06-30 16:44] LABS: ALT 19 U/L (9-52); AST 14 U/L (14-36); Albumin 4.2 g/dL (3.5-5.0); Alkaline Phosphatase 78 U/L (38-126); Anion Gap 12 mmol/L; Blood Urea Nitrogen 11 mg/dL (7-17); Carbon Dioxide 20 mmol/L (22-30); Chloride 109 mmol/L (98-107); Glucose 140 mg/dL (74-99); Magnesium 1.9 mg/dL (1.6-2.3); Potassium 3.5 mmol/L (3.5-5.1); Sodium 141 mmol/L (137-145); Total Bilirubin 0.3 mg/dL (0.2-1.3); Total Protein 7.1 g/dL (6.3-8.2)
[2018-06-30 16:50] LABS: INR 0.9 (<1.2); Prothrombin Time 10.2 sec (9.0-12.0)
[2018-06-30 16:51] LABS: Creatine Kinase 40 U/L (30-135)
[2018-06-30 17:03] LABS: Creatine Kinase MB 0.7 ng/mL (0.0-2.4); Troponin I <0.012 ng/mL (0.000-0.034)
--- NOTE | 2018-06-30 17:53 | CT ---
EXAMINATION TYPE: CT angio chest DATE OF EXAM: 06/30/2018 5:39 PM COMPARISON: 02/13/2017 HISTORY: Chest pain and shortness of breath. Post Op knee surgery [address] DLP: 385.5 mGycm Automated exposure control for dose reduction was used. CONTRAST: CTA scan of the thorax is performed with IV Contrast, patient injected with 100 mL of Isovue 370, pul monary embolism protocol. There are 3-D post processed images.. FINDINGS: There is normal contrast opacification of the pulmonary arteries. I see no filling defect. There is no mediastinal adenopathy. There are no hilar masses. Thoracic aorta appears intact without evidence of aneurysm or dissection. There is no pleural effusion. The lungs are clear of consolidatio n. There is low-density 3.5 cm rounded mass on the right adrenal gland. The bony thorax is intact. He art size is normal. IMPRESSION: NO EVIDENCE OF PULMONARY EMBOLISM. THERE IS CLEARING OF THE PATCHY INFILTRATES AND ATELECTASIS IN THE LUNGS COMPARED TO OLD EXAM. 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
[2018-06-30] MEDS ORDERED: NITROGLYCERIN SL TABS 0.4 MG TAB SUBLINGUAL PRN ×2 (18:30→19:07)
[2018-06-30] MEDS ORDERED: ALBUTEROL NEBULIZED 2.5 MG/3 ML INHALATION PRN (19:07)
[2018-06-30] MEDS: GABAPENTIN 300 MG CAP PO SCH (19:37)
[2018-06-30] MEDS: METOPROLOL TARTRATE 25 MG TAB PO SCH (19:37)
[2018-06-30] MEDS: HYDROcodone/APAP 7.5-325MG 1 EACH TAB PO PRN (19:37)
[2018-06-30] MEDS: ALPRAZolam 0.5 MG TAB PO PRN (19:43)
[2018-06-30 20:00] VITALS: BMI 32.5
--- NOTE | 2018-06-30 20:48 | HP ---
HISTORY AND PHYSICAL DATE OF SERVICE: 06/30/2018 This patient is a 48-year-old white female, . DATA: Height 5 feet 5 inches, weight 88.904 kg, BSA 1.96 m2. BMI is 32.6 kg/m2. ALLERGIES: ERYTHROMYCIN BASE (caused nausea and vomiting) and TRAMADOL (caused itching). CHIEF COMPLAINT: The patient presented to the emergency room and at that time she complained of chest pain on the chest wall that had stayed for 2 hours. HISTORY OF PRESENT ILLNESS: A 48-year-old white female presented to the emergency room with pressure on the left breast. The onset was a couple of hours ago. She had mild discomfort. No radiation localized on the substernal area. No association. No radiation to the right arm or left arm. No radiation to the neck. No dyspnea. Patient with a history of COPD and a chronic smoker. She has a history of smoking for 30 years. She used to smoke 2 packs per day. Now she smokes half a pack a day. The patient recently had surgery on her left knee last Thursday by Dr. Guanako Freire, apparently for a torn meniscus. However, we do not have the details. The patient on her no diaphoresis. She has no discomfort except localized pain, substernal and on the costochondral junction. It can simulate the pain in the chest. FAMILY HISTORY: She had 4 children, 2 boys and 2 girls. She is a smoker. She is . She had the surgery on her left knee last Thursday. As mentioned, she has been smoking for 30 years. She has a past history as well of blood clot. They found that she had a PE and they started her on anticoagulation. However, they stopped it before she had the surgery, and at that time Dr. Seo, her e business consultant, the one who evaluated her prior, stopped the Plavix. Patient has also a history of angioplasty and 2 stent placements. She has a history of borderline hyperglycemia with the associated steroids. She also has a history of COPD. MEDICATION LIST: 1. Gabapentin 600 mg t.i.d. 2. Albuterol inhaler. 3. Ventolin 2 puffs q.6 hours. 4. Aspirin, enteric-coated, 81 mg once a day. 5. Alprazolam, Xanax 0.5 mg twice a day. 6. Tylenol, which is acetaminophen, with diphenhydramine, which is Tylenol PM for sleeping. 7. Amlodipine 5 mg daily. 8. Hydrocodone/APAP, prescribed by Orthopedics, Dr. Guanako Freire, 7.5/325 mg [place] one tablet twice a day. 9. She has also a history of using atorvastatin 80 mg at bedtime. 10.Zestril 5 mg daily. 11.Metoprolol tartrate 25 mg b.i.d. 12.Nitroglycerin sublingually p.r.n. 0.4 mg. REVIEW OF SYSTEMS: NEUROPSYCHIATRY: She had no blurred vision. No falling attacks. No history of strokes in the past. Patient is well developed. She has a history of some nodule in her right breast and she was following with Dr. Middleton, but she had her leg surgery which delayed her from going back for further investigation and treatment. She has no problem with her eyes or ears. She denied any cough or expectoration. She stated that she has the history of COPD. CARDIOVASCULAR: History of ND in the past. She had 2 stents placed. Also she was on Plavix, which has been stopped recently because of her surgery on the right knee. ENDOCRINE: No symptoms of diabetes and no thyroid disease. GENITOURINARY: No dysuria or hematuria. MUSCULOSKELETAL: She stated that she had back surgery in the past. However, I could not see any scars. No generalized weakness. No history of cancer in the past. PAST MEDICAL HISTORY: 1. As mentioned, coronary artery disease. 2. Hyperlipidemia. 3. Myocardial infarction. She had her last myocardial infarction on January 15, 2017. 4. History of diverticulitis. 5. Restless legs syndrome. 6. History of back surgery. 7. Bowel resection, taking part of her bowel out because of obstruction. 8. Cholecystectomy. 9. Heart catheterization. 10.Hernia repair. 11.Tonsillectomy. 12.Tubal ligation. 13.They removed a foot of her bowel and she had a colostomy as first stage, and subsequently she had revision of the colostomy, apparently by Dr. Middleton. 14.She had also a cyst on the ovary. 15.She had 2 stents in the right coronary artery. 16.Epidural injection in the past. 17.History of anxiety and bipolar disorder and depression. She is currently a smoker. Occasional history of marijuana. FAMILY HISTORY: Hyperlipidemia, hypertension, ND in her father. She thinks he also has COPD and emphysema. Her sister and daughter and the son have no abnormalities. Also, her brother is fine. PHYSICAL EXAMINATION: Head was normocephalic, atraumatic. Pupils equal, reactive. Conjunctivae pink. Sclerae nonicteric. Her oropharynx reveals natural teeth with missing teeth. Uvula midline. No facial asymmetry. The neck was supple. No JVD. SKIN: She has multiple tattooing all over the extremities and back and front and upper extremities as well. Her lungs are expanded with the underlying COPD, but no wheezes, no rhonchi. HEART: PMI in the fifth intercostal space with normal S1, S2. No gallop. Palpation of the costochondral junction on the right side is indicating the chest pain and also on the left lower sternum with the underlying costochondritis. ABDOMEN: Soft. Positive bowel sounds. No tenderness. EXTREMITIES: Positive pulses bilaterally. She has onychomycosis bilaterally. No evidence of tinea pedis. VITAL SIGNS ON ADMISSION: Temperature 98.3, pulse 86, respiratory rate 16, blood pressure 128/88, saturation 99. Her EKG was indicating sinus rhythm, 74 beats per minute, with no acute ST-segment elevation or depression and normal EKG. Her troponin also was normal. LABORATORIES: White count 7.8, hemoglobin 14.1, hematocrit 44.3, platelet count 482. Her chemistry is indicating sodium 141, potassium 3.5, chloride 109, carbon dioxide 20. BUN of 11, creatinine 0.54 with blood sugar 140. The estimated glomerular filtration rate more than 90. Magnesium 1.9. Her liver function tests were normal with AST and ALT and alkaline phosphatase within normal limit. Troponin less than 0.012. CK and CK-MB and index all within normal limits. Her PT and INR also were normal. CT scan negative of the chest with the history of PE in the past and negative for PE. FINAL DIAGNOSES: 1. Chest pain, probably costochondritis, with the underlying data indicating normal EKG and normal troponin. 2. History of coronary artery disease, atherosclerotic heart disease, status post 2 stents and recent surgery, indicating the Plavix was discontinued. 3. History of pulmonary embolism. However, CT scan is negative. 4. History of hypertension, controlled. 5. History of hyperlipidemia. 6. Chronic pain with acute on top of chronic pain with the underlying left knee surgery last Thursday by Dr. Guanako Freire. 7. Chronic smoker with chronic obstructive pulmonary disease and probable emphysema. She presented with heaviness in the chest for 2 hours. PLAN: Patient will be seen by Cardiology in consultation. Depending on the cardiology recommendations, we will be following. Otherwise, the patient has underlying costochondritis and we will plan for nonsteroidal anti-inflammatory to be started with each meal; 600 mg of Motrin. Meanwhile, patient will be admitted on observation status pending the cardiology opinion. MMODL / IJN: [id number] /
[2018-06-30] MEDS ORDERED: diphenhydrAMINE 25 MG CAP PO PRN (21:00)
[2018-06-30] MEDS ORDERED: ATORVASTATIN 80 MG TAB PO SCH (21:00)
[2018-06-30] MEDS ORDERED: ACETAMINOPHEN TAB 500 MG TAB PO PRN (21:00)
[2018-06-30] MEDS: PANTOPRAZOLE 40 MG TABLET PO SCH (21:43)
[2018-06-30] MEDS: IBUPROFEN 600 MG TAB PO SCH (21:44)
[2018-06-30 23:54] LABS: Creatine Kinase 35 U/L (30-135)
[2018-07-01 00:07] LABS: Creatine Kinase MB 0.5 ng/mL (0.0-2.4); Troponin I <0.012 ng/mL (0.000-0.034)
[2018-07-01] MEDS: IBUPROFEN 600 MG TAB PO SCH ×2 (00:14→12:28)
[2018-07-01] MEDS: NITROGLYCERIN OINT 1 INCH/GM PACKET TOPICAL SCH ×3 (00:15→12:30)
[2018-07-01 04:56] LABS: Cholesterol 219 mg/dL (<200); HDL Cholesterol 47 mg/dL (40-60); LDL Cholesterol,Calculated 126 mg/dL (0-99); Triglycerides 228 mg/dL (<150)
[2018-07-01 05:21] LABS: Creatine Kinase 32 U/L (30-135)
[2018-07-01 05:31] LABS: Creatine Kinase MB 0.5 ng/mL (0.0-2.4); Troponin I <0.012 ng/mL (0.000-0.034)
[2018-07-01] MEDS: HYDROcodone/APAP 7.5-325MG 1 EACH TAB PO PRN (05:48)
[2018-07-01 08:29] VITALS: RESP 18; TEMP 98.2
[2018-07-01] MEDS ORDERED: NON-FORMULARY DRUG (Aspirin Ec 81 MG) PO SCH (09:00)
[2018-07-01] MEDS ORDERED: ASPIRIN 325 MG TAB PO SCH (09:00)
[2018-07-01] MEDS ORDERED: amLODIPine 5 MG TAB PO SCH (09:00)
[2018-07-01] MEDS ORDERED: LISINOPRIL 5 MG TAB PO SCH (09:00)
[2018-07-01] MEDS ORDERED: DOBUTamine DRIP for NUC MED 500 MG in DEXTROSE/WATER 1 250ML.BAG IV ONE (09:59)
[2018-07-01 12:10] VITALS: BP 130/87; PULSE 83
[2018-07-01] MEDS: GABAPENTIN 300 MG CAP PO SCH (12:28)
[2018-07-01] MEDS: METOPROLOL TARTRATE 25 MG TAB PO SCH (12:29)
[2018-07-01] MEDS: PANTOPRAZOLE 40 MG TABLET PO SCH (12:30)
[2018-07-01] MEDS: ALPRAZolam 0.5 MG TAB PO PRN (12:37)
--- NOTE | 2018-07-01 12:58 | P.CRDCN ---
History of Present Illness History of present illness: This is a pleasant 40-year-old female past medical history significant for coronary artery disease s/p stent placement to mid-RCA x2 2016, hypertension, dyslipidemia, peripheral neuropathy chronic nicotine dependence. She follows with Dr. Seo in the office. If necessary consultation for chest pain. Patient underwent arthroscopic surgery of the left knee 6 days ago and she has been using crutches at home. She states yesterday while going back and forth to the restroom she started feeling heavy sensation in her chest. She denies any increased shortness of breath. She states she has significant shortness of breath as a baseline but nothing yesterday seemed to be more than usual. She does feel so she's been having episodes of fever or chills but do not check her temperature at home. At the time of my exam she is seen and examined resting comfortably in bed in no acute distress. She denies active chest discomfort. She is very tearful and states she is going through significant amount of stress at home currently. EKG reveals sinus mechanism with no acute ST or T wave abnormalities noted. Chest x-ray reveals evidence of a clearing infiltrate with no acute cardiopulmonary process. CT angio of the chest negative for pulmonary embolus. Laboratory data reviewed, cardiac enzymes negative. History, LDL 126. Patient states she is noncompliant with her atorvastatin secondary to lower extremity cramping. Most recent stress test performed in the office September 2017 Lexiscan stress test is negative for reversible cardiac ischemia. Current cardiac medications include aspirin 81 mg daily, atorvastatin 80 mg daily, amlodipine 5 mg daily, lisinopril 5 mg daily metoprolol 25 mg. At the time of my exam: CONSTITUTIONAL: Denies fever. Denies chills. EYES: Denies blurred vision. Denies vision changes. Denies eye pain. EARS, NOSE, MOUTH & THROAT: Denies headache. Denies sore throat. Denies ear pain. CARDIOVASCULAR: Denies chest pain. Denies shortness of breath. Denies orthopnea. Denies PND. Denies palpitations. RESPIRATORY: Denies cough. GASTROINTESTINAL: Denies abdominal pain. Denies diarrhea. Denies constipation. Denies nausea. Denies vomiting. MUSCULOSKELETAL: Denies myalgias. INTEGUMENTARY: Denies pruitis. Denies rash. NEUROLOGIC: Denies numbness. Denies tingling. Denies weakness. PSYCHIATRIC: Denies anxiety. Denies depression. ENDOCRINE: Denies fatigue. Denies weight change. Denies polydipsia. Denies polyurina. GENITOURINARY: Denies burning, hematuria or urgency with micturation. HEMATOLOGIC: Denies history of anemia. Denies bleeding. Blood pressure 104/71 heart rate 73 afebrile maintaining oxygen saturation on room air GENERAL: This is a 48-year-old female in no apparent distress at the time of my examination. HEENT: Head is atraumatic, normocephalic. Pupils are equal, round. Sclerae anicteric. Conjunctivae are clear. Mucous membranes of the mouth are moist. Neck is supple. There is no jugular venous distention. No carotid bruit is heard. LUNGS: Clear to auscultation no wheezes, rales or rhonchi. No chest wall tenderness is noted on palpation or with deep breathing. HEART: Regular rate and rhythm without murmurs, rubs or gallops. S1 and S2 heard. ABDOMEN: Soft, nontender. Bowel sounds are heard. No organomegaly noted. EXTREMITIES: No evidence of peripheral edema and no calf tenderness noted. VASCULAR: Radial and dorsalis pedis pulses palpated, no evidence of clubbing. NEUROLOGIC: Patient is awake, alert and oriented x3. ASSESSMENT Chest pain, atypical. An acute coronary event has been ruled out with normal EKG evidence of ischemia negative cardiac enzymes. Stress test in the office in September 2017 is negative. History of coronary artery disease status post angioplasty stent placement to the mid RCA 2016. Hypertension Dyslipidemia, uncontrolled Anxiety Bipolar Chronic nicotine dependence PLAN Obtain 2-D echocardiogram and Doppler study to assess cardiac structure and function. Perform dobutamine stress echocardiogram to assess her shortness is cardiac ischemia. Recommend to try rosuvastatin for better control of her LDL cholesterol with less likely side effects of leg cramping. She is agreeable to attempt this. If stress test is normal she is stable from a cardiac perspective. Smoking cessation recommended. Follow-up with Dr. Seo upon discharge. Thank you kindly for this consultation. Nurse Practitioner note has been reviewed, I agree with a documented findings and plan of care. Patient was seen and examined. Past Medical History Past Medical History: Asthma, Coronary Artery Disease (CAD), COPD, Hyperlipidemia, Myocardial Infarction (VT), Pulmonary Embolus (PE) Additional Past Medical History / Comment(s): Other hx: DIVERTICULITIS. RESTLESS LEG SYNDROME. DDD, BACK PAIN, osteoporsis, palpatations. PE in 2017, insomnia Last Myocardial Infarction Date:: 01-15-17 History of Any Multi-Drug Resistant Organisms: None Reported Past Surgical History: Back Surgery, Bowel Resection, Cholecystectomy, Heart Catheterization With Stent, Hernia Repair, Tonsillectomy, Tubal Ligation Additional Past Surgical History / Comment(s): "HAD A FOOT OF BOWEL REMOVED "TEMPORARY COLOSTOMY, COLOSTOMY REVERSAL. "HAD 4 SX FOR INC HERNIA-HAS CLIP/ MESH IN PLACE, BACK SURGERY 04/27, cyst taken off ovary, PCI with 2 stents in RCA, Epidural injections, left knee arthroscopy 06/2018 Past Anesthesia/Blood Transfusion Reactions: Postoperative Nausea & Vomiting ( PONV) Additional Past Anesthesia/Blood Transfusion Reaction / Comment(s): Pt currently has broken front tooth, anxiety upon awakening from anesthesia Date of Last Stent Placement:: 01-15-17 Past Psychological History: Anxiety, Bipolar, Depression Additional Psychological History / Comment(s): OCD. Smoking Status: Current every day smoker Past Alcohol Use History: None Reported Additional Past Alcohol Use History / Comment(s): STARTED SMOKING 1985 DOWN FROM 1.5 PPD TO 1/2 Ppd Past Drug Use History: Marijuana Additional Drug Use History / Comment(s): USES MARIJUANA MAYBE ONCE WEEKLY- INSTRUCTED TO REFRAIN FROM USE FOR AT LEAST 24 HOURS PRIOR TO PROCEDURE - Past Family History Mother Family Medical History: Hyperlipidemia, Hypertension, Myocardial Infarction (VT) Father Family Medical History: Hypertension Additional Family Medical History / Comment(s): per pt she thinks father has COPD of emphysema Sister(s) Family Medical History: No Reported History Brother(s) Family Medical History: No Reported History Daughter(s) Family Medical History: No Reported History Son(s) Family Medical History: No Reported History Medications and Allergies Home Medications Medication Instructions Recorded Confirmed Type Gabapentin 600 mg PO TID 12/22/16 06/30/18 History Albuterol Inhaler [Ventolin Hfa 2 puff INHALATION RT-Q6H PRN 01/15/17 06/30/18 History Inhaler] Atorvastatin [Lipitor] 80 mg PO HS #30 tab 01/17/17 06/30/18 Rx Lisinopril [Zestril] 5 mg PO DAILY #30 tab 01/17/17 06/30/18 Rx Metoprolol Tartrate [Lopressor] 25 mg PO BID #60 tab 01/17/17 06/30/18 Rx Nitroglycerin Sl Tabs [Nitrostat] 0.4 mg SUBLINGUAL Q5M PRN #25 01/17/17 Rx Aspirin EC [Ecotrin Low Dose] 81 mg PO DAILY 02/13/17 06/30/18 History ALPRAZolam [Xanax] 0.5 mg PO BID PRN 03/03/17 06/30/18 History Acetaminophen/Diphenhydramine 1 tab PO HS PRN 10/14/17 06/30/18 History [Tylenol PM Extra Strength] Omeprazole 20 mg PO DAILY 10/14/17 06/30/18 History amLODIPine [Norvasc] 5 mg PO DAILY 10/14/17 06/30/18 History HYDROcodone/APAP 7.5-325MG [[place] 1 tab PO BID PRN 06/30/18 06/30/18 History 7.5-325] Allergies Allergy/AdvReac Type Severity Reaction Status Date / Time erythromycin base AdvReac Nausea & Verified 06/30/18 16:45 [Erythromycin Base] Vomiting tramadol HCl [From Ultram] AdvReac Itching Verified 06/30/18 16:45 Physical Exam Vitals: Vital Signs Temp Pulse Pulse Resp BP BP Pulse Ox 07/01/18 03:44 16 07/01/18 03:35 98.3 F 67 16 101/65 97 07/01/18 00:00 16 06/30/18 23:25 98.2 F 73 16 125/73 98 06/30/18 20:00 98.5 F 66 16 148/85 95 06/30/18 19:00 75 15 114/73 96 06/30/18 18:00 65 16 123/79 97 06/30/18 17:00 60 18 131/91 06/30/18 15:53 98.3 F 86 16 128/88 99 Intake and Output 06/30/18 07/01/18 07/01/18 22:59 06:59 14:59 Other: Voiding Method Toilet Toilet # Voids 3 Weight 88.904 kg Results 06/30/18 16:21 06/30/18 16:21 Cardiac Enzymes 06/30/1818 06/30/18 Range/Units 16:21 16:21 23:02 AST 14 (14-36) U/L CK-MB (CK-2) 0.7 0.5 (0.0-2.4) ng/mL Troponin I <0.012 <0.012 (0.000-0.034) ng/mL 07/01/18 Range/Units 03:59 AST (14-36) U/L CK-MB (CK-2) 0.5 (0.0-2.4) ng/mL Troponin I <0.012 (0.000-0.034) ng/mL Coagulation 06/30/18 Range/Units 16:21 PT 10.2 (9.0-12.0) sec APTT 21.0 L (22.0-30.0) sec Lipids 07/01/18 Range/Units 03:59 Triglycerides 228 H (<150) mg/dL Cholesterol 219 H (<200) mg/dL HDL Cholesterol 47 (40-60) mg/dL CBC 06/30/18 Range/Units 16:21 WBC 7.8 (3.8-10.6) k/uL RBC 4.76 (3.80-5.40) m/uL Hgb 14.1 (11.4-16.0) gm/dL Hct 44.3 (34.0-46.0) % Plt Count 482 H (150-450) k/uL Comprehensive Metabolic Panel 06/30/18 Range/Units 16:21 Sodium 141 (137-145) mmol/L Potassium 3.5 (3.5-5.1) mmol/L Chloride 109 H (98-107) mmol/L Carbon Dioxide 20 L (22-30) mmol/L BUN 11 (7-17) mg/dL Creatinine 0.54 (0.52-1.04) mg/dL Glucose 140 H (74-99) mg/dL Calcium 10.0 (8.4-10.2) mg/dL AST 14 (14-36) U/L ALT 19 (9-52) U/L Alkaline Phosphatase 78 (38-126) U/L Total Protein 7.1 (6.3-8.2) g/dL Albumin 4.2 (3.5-5.0) g/dL Current Medications Generic Name Dose Route Start Last Admin Trade Name Freq PRN Reason Stop Dose Admin Acetaminophen 500 mg 06/30/18 21:00 Tylenol Tab PO HS PRN SLEEP Hydrocodone Bitart/Acetaminophen 1 each 06/30/18 19:07 07/01/18 05:48 [place] 7.5-325 PO 1 each BID PRN Administration Pain Albuterol Sulfate 2.5 mg 06/30/18 19:07 Ventolin Nebulized INHALATION RT-Q6H PRN Shortness Of Breath Alprazolam 0.5 mg 06/30/18 19:07 06/30/18 19:43 Xanax PO 0.5 mg BID PRN Administration Anxiety Amlodipine Besylate 5 mg 07/01/18 09:00 Norvasc PO DAILY EARNESTINE Aspirin 325 mg 07/01/18 09:00 Aspirin PO DAILY EARNESTINE Atorvastatin Calcium 80 mg 06/30/18 21:00 06/30/18 19:37 Lipitor PO 80 mg HS EARNESTINE Administration Diphenhydramine HCl 25 mg 06/30/18 21:00 Benadryl PO HS PRN SLEEP Gabapentin 600 mg 06/30/18 22:00 06/30/18 19:37 Neurontin PO 600 mg TID EARNESTINE Administration Ibuprofen 600 mg 06/30/18 19:45 07/01/18 00:14 Motrin PO 600 mg PC-TID EARNESTINE Administration Lisinopril 5 mg 07/01/18 09:00 Zestril PO DAILY [facility] Metoprolol Tartrate 25 mg 06/30/18 21:00 06/30/18 19:37 Lopressor PO 25 mg BID EARNESTINE Administration Nitroglycerin 1 inch 07/01/18 00:00 07/01/18 05:09 Nitro-Bid Oint TOPICAL Not Given Q6HR EARNESTINE Nitroglycerin 0.4 mg 06/30/18 18:30 Nitrostat SUBLINGUAL Q5M PRN Chest Pain Nitroglycerin 0.4 mg 06/30/18 19:07 Nitrostat SUBLINGUAL Q5M PRN Chest Pain Pantoprazole Sodium 40 mg 06/30/18 19:15 06/30/18 21:43 Protonix PO Not Given DAILY EARNESTINE Intake and Output 06/30/18 07/01/18 07/01/18 22:59 06:59 14:59 Other: Voiding Method Toilet Toilet # Voids 3 Weight 88.904 kg 06/30/18 16:21 06/30/18 16:21
--- NOTE | 2018-07-01 13:27 | P.DS ---
Providers Date of admission: 06/30/18 18:31 Expected date of discharge: 07/01/18 Attending physician: Vikram Patel Attending physician Dr. Thierno Garcia. Consults: 06/30/18 18:31 Consult Physician Urgent Consulting Provider: Uvaldo Mendoza Consult Reason/Comments: cp Do you want consulting provider notified?: Yes Stress test was negative cardiology cleared the patient per the PA communication with the nursing staff. Primary care physician: Thierno Garcia This is dictation on discharge summary by Dr. Patel covering for Dr. Thierno Garcia. Diagnoses. #1 chest pain atypical. #2 costochondritis improved. #3 stress test was negative. Her cardiology PA. Cleared for discharge. #4 hyperlipidemia and they changed to Crestor 40 mg by the cardiology team once a day at bedtime. #5 no EKG changes and cardiac panel 3 normal. #6 COPD. #7 LDL 126 Lipitor has been changed to Crestor by cardiology Dr. Carlos. #8 recent left knee arthroscopy by Dr. Guanako lr. #9 hypertension is controlled. #10 costochondritis treated with Motrin 600 mg after meals meals 3 times a day. Hospital course: Patient admitted with chest pain and no radiation localized in the sternum and costochondral junction on the right side, patient with history of coronary artery disease and stent and previous IA, consultation with cardiology requested. Hospital course: Patient admitted under observation with serial troponin which was normal and EKG no acute changes. And she had the thyroid by the cardiology this morning and had a stress test echo, the cardiology team called to the floor and release the patient and to be followed as outpatient with her wick and base assembler. Patient will continue the current medication. Medication changed #1 Lipitor discontinued and started on Crestor 40 mg per cardiology order. #2 patient will have Motrin 600 mg after meals 3 times a day for the costochondritis. Patient discharged today on the stable general condition her temperature 98.2 pulse 83 respiratory rate was 18/m, her blood pressure 130/87 with a pulse ox 96 %. Her HEENT was negative neck was supple no JVD chest was clear to auscultation and percussion and no wheezes no rhonchi's and the heart was regular sinus rhythm and the abdomen was soft positive bowel sounds and extremities no edema with the left knee wrapped with Ronni bandage secondary to recent arthroscopy with the meniscus removal by Dr. Guanako abdalla. Patient is stable for discharge from observation and follow-up with Dr. Garcia internal medicine as well as Dr. Guanako Freire the orthopedic as well as Dr. Llanos the wick and base assembler. Plan - Discharge Summary New Discharge Prescriptions: New Rosuvastatin [Crestor] 40 mg PO DAILY #90 tablet Discontinued Atorvastatin [Lipitor] 80 mg PO HS #30 tab No Action Gabapentin 600 mg PO TID Albuterol Inhaler [Ventolin Hfa Inhaler] 2 puff INHALATION RT-Q6H PRN PRN Reason: Shortness Of Breath Lisinopril [Zestril] 5 mg PO DAILY #30 tab Metoprolol Tartrate [Lopressor] 25 mg PO BID #60 tab Nitroglycerin Sl Tabs [Nitrostat] 0.4 mg SUBLINGUAL Q5M PRN #25 PRN Reason: Chest Pain Aspirin EC [Ecotrin Low Dose] 81 mg PO DAILY ALPRAZolam [Xanax] 0.5 mg PO BID PRN PRN Reason: Anxiety amLODIPine [Norvasc] 5 mg PO DAILY Omeprazole 20 mg PO DAILY Acetaminophen/Diphenhydramine [Tylenol PM Extra Strength] 1 tab PO HS PRN PRN Reason: Insomnia HYDROcodone/APAP 7.5-325MG [[place] 7.5-325] 1 tab PO BID PRN PRN Reason: Pain Discharge Medication List Gabapentin 600 mg PO TID 12/22/16 [History] Albuterol Inhaler [Ventolin Hfa Inhaler] 2 puff INHALATION RT-Q6H PRN 01/15/17 [ History] Lisinopril [Zestril] 5 mg PO DAILY #30 tab 01/17/17 [Rx] Metoprolol Tartrate [Lopressor] 25 mg PO BID #60 tab 01/17/17 [Rx] Nitroglycerin Sl Tabs [Nitrostat] 0.4 mg SUBLINGUAL Q5M PRN #25 01/17/17 [Rx] Aspirin EC [Ecotrin Low Dose] 81 mg PO DAILY 02/13/17 [History] ALPRAZolam [Xanax] 0.5 mg PO BID PRN 03/03/17 [History] Acetaminophen/Diphenhydramine [Tylenol PM Extra Strength] 1 tab PO HS PRN [History] Omeprazole 20 mg PO DAILY 10/14/17 [History] amLODIPine [Norvasc] 5 mg PO DAILY 10/14/17 [History] HYDROcodone/APAP 7.5-325MG [[place] 7.5-325] 1 tab PO BID PRN 06/30/18 [History] Rosuvastatin [Crestor] 40 mg PO DAILY #90 tablet 07/01/18 [Rx] Follow up Appointment(s)/Referral(s): Thierno Garcia MD [Primary Care Provider] - 1-2 days Aslhey Seo MD [STAFF PHYSICIAN] - 1 Week Discharge Disposition: HOME SELF-CARE
--- NOTE | 2018-07-02 11:47 | ECHOS ---
STRESS ECHOCARDIOGRAM DATE OF SERVICE: 07/01/2018 INDICATIONS: Chest pain. MEDICATIONS: BASELINE HEART RATE: 64 BASELINE BLOOD PRESSURE: 103/76 MAXIMUM HEART RATE: 148 MAXIMUM BLOOD PRESSURE: 142/73 85% MPHR: 146 100% MPHR: 172 METS: MAXIMUM STAGE REACHED: TOTAL EXERCISE TIME: CLINICAL INFORMATION: A dobutamine stress echocardiographic study was performed. Peak heart rate of 148 was achieved. Maximum blood pressure of 142/73 mmHg was noted. Resting EKG shows normal sinus rhythm with normal ME interval and QRS duration and normal ST-T waves. No ST- segment depression suggestive of ischemia was noted. Occasional PVCs were noted. The baseline echocardiographic images reveals normal left ventricular chamber size with normal left ventricular systolic function. At the peak dose of dobutamine infusion, normal increase in the wall thickness and contractility was noted. FINAL IMPRESSION: 1. This dobutamine stress echocardiographic study is negative for stress-induced ischemia. 2. EKG portion of the stress test is not suggestive of ischemia. 3. Occasional PVCs were noted. MMODL / IJN: [id number] /
== END 2018-07-01 14:15 | disposition home or self-care (01) ==
LOC: EC 15:50 → 1SOBS 18:31
PROVIDERS: ADMIT Internal Medicine; ATTEND Internal Medicine
DX: R07.2 Precordial pain (principal); M94.0 Chondrocostal junction syndrome [Tietze]; E78.5 Hyperlipidemia, unspecified; J44.9 Chronic obstructive pulmonary disease, unspecified; I10 Essential (primary) hypertension; I25.10 Atherosclerotic heart disease of native coronary artery without angina pectoris; F17.210 Nicotine dependence, cigarettes, uncomplicated; G25.81 Restless legs syndrome; F41.9 Anxiety disorder, unspecified; F31.9 Bipolar disorder, unspecified; F42.9 Obsessive-compulsive disorder, unspecified; G89.29 Other chronic pain; M25.562 Pain in left knee; G62.9 Polyneuropathy, unspecified; T46.6X6A Underdosing of antihyperlipidemic and antiarteriosclerotic drugs, initial encounter; M54.9 Dorsalgia, unspecified; M81.0 Age-related osteoporosis without current pathological fracture; R00.2 Palpitations; I25.2 Old myocardial infarction; Z95.5 Presence of coronary angioplasty implant and graft; Z88.5 Allergy status to narcotic agent; Z88.1 Allergy status to other antibiotic agents; Z90.49 Acquired absence of other specified parts of digestive tract; Z98.0 Intestinal bypass and anastomosis status; Z86.711 Personal history of pulmonary embolism; Z79.899 Other long term (current) drug therapy; Z79.82 Long term (current) use of aspirin
CPT/HCPCS: 36415; 71275; 80053; 80061; 82550; 82553; 83735; 84484; 85025; 85610; 85730; 93005; 93351; 99285

== ENCOUNTER 2018-09-13 14:16 | Observation (INO) | payer MEDICARE, OTHER ==
[2018-09-13] MEDS ORDERED: SODIUM CHLORIDE 0.9% 500 ML 500 ML IV ONE (14:30)
--- NOTE | 2018-09-13 14:37 | ED ---
General Adult HPI - General Chief complaint: Altered Mental Status Stated complaint: Altered mental status Time Seen by Provider: 09/13/18 14:20 Source: patient, EMS, RN notes reviewed Mode of arrival: EMS Limitations: no limitations - History of Present Illness Initial comments: This is a 48-year-old female presents to the emergency department for altered mental status. According to family states happened on multiple occasions in the past after the patient gets her medications filled. Patient is supposed to be on Xanax but they cannot find the bottle and patient is also supposed to be on Neurontin there are supposed to be about 60 something pills left at this point and quite a few are missing. Patient did state that she does take extra pills, she is depressed. Patient otherwise is a poor historian and is only alert and oriented 2. Patient denies any headache patient denies numbness weakness. Patient denies chest pain difficulty breathing shortness of breath per patient denies any recent fever chills or cough per patient denies abdominal pain. - Related Data Home Medications Medication Instructions Recorded Confirmed Gabapentin 600 mg PO TID 12/22/16 09/13/18 Albuterol Inhaler [Ventolin Hfa 2 puff INHALATION RT-Q6H PRN 01/15/17 09/13/18 Inhaler] Aspirin EC [Ecotrin Low Dose] 81 mg PO DAILY 02/13/17 09/13/18 ALPRAZolam [Xanax] 0.5 mg PO BID PRN 03/03/17 09/13/18 Omeprazole 20 mg PO DAILY 10/14/17 09/13/18 amLODIPine [Norvasc] 5 mg PO DAILY 10/14/17 09/13/18 Diclofenac Sodium [Voltaren] 75 mg PO BID 09/13/18 09/13/18 Rosuvastatin [Crestor] 20 mg PO DAILY 09/13/18 09/13/18 Previous Rx's Medication Instructions Recorded Lisinopril [Zestril] 5 mg PO DAILY #30 tab 01/17/17 Metoprolol Tartrate [Lopressor] 25 mg PO BID #60 tab 01/17/17 Nitroglycerin Sl Tabs [Nitrostat] 0.4 mg SUBLINGUAL Q5M PRN #25 01/17/17 Allergies Allergy/AdvReac Type Severity Reaction Status Date / Time erythromycin base AdvReac Nausea & Verified 09/13/18 15:15 [Erythromycin Base] Vomiting tramadol HCl [From Ultram] AdvReac Itching Verified 09/13/18 15:15 Review of Systems ROS Statement: Those systems with pertinent positive or pertinent negative responses have been documented in the HPI. ROS Other: All systems not noted in ROS Statement are negative. Past Medical History Past Medical History: Asthma, Coronary Artery Disease (CAD), COPD, Hyperlipidemia, Myocardial Infarction ([place]), Pulmonary Embolus ([place]) Additional Past Medical History / Comment(s): Other hx: DIVERTICULITIS. RESTLESS LEG SYNDROME. DDD, BACK PAIN, osteoporsis, palpatations. PE in 2017, insomnia Last Myocardial Infarction Date:: 01-15-17 History of Any Multi-Drug Resistant Organisms: None Reported Past Surgical History: Back Surgery, Bowel Resection, Cholecystectomy, Heart Catheterization With Stent, Hernia Repair, Tonsillectomy, Tubal Ligation Additional Past Surgical History / Comment(s): "HAD A FOOT OF BOWEL REMOVED "TEMPORARY COLOSTOMY, COLOSTOMY REVERSAL. "HAD 4 SX FOR INC HERNIA-HAS CLIP/ MESH IN PLACE, BACK SURGERY 04/27, cyst taken off ovary, PCI with 2 stents in RCA, Epidural injections, left knee arthroscopy 06/2018 Past Anesthesia/Blood Transfusion Reactions: Postoperative Nausea & Vomiting ( PONV) Additional Past Anesthesia/Blood Transfusion Reaction / Comment(s): Pt currently has broken front tooth, anxiety upon awakening from anesthesia Date of Last Stent Placement:: 01-15-17 Past Psychological History: Anxiety, Bipolar, Depression Smoking Status: Current every day smoker Past Alcohol Use History: None Reported Past Drug Use History: Marijuana - Past Family History Mother Family Medical History: Hyperlipidemia, Hypertension, Myocardial Infarction ([place]) Father Family Medical History: Hypertension Additional Family Medical History / Comment(s): per pt she thinks father has COPD of emphysema Sister(s) Family Medical History: No Reported History Brother(s) Family Medical History: No Reported History Daughter(s) Family Medical History: No Reported History Son(s) Family Medical History: No Reported History General Exam - General Exam Comments Initial Comments: GENERAL: Patient is well-developed and well-nourished. Patient is nontoxic and well- hydrated and is in mild distress. Patient is a very poor historian and has a hard time even answering simple questions. ENT: Neck is soft and supple. No significant lymphadenopathy is noted. Oropharynx is clear. Moist mucous membranes. Neck has full range of motion without eliciting any pain. EYES: The sclera were anicteric and conjunctiva were pink and moist. Extraocular movements were intact and pupils were equal round and reactive to light. Eyelids were unremarkable. PULMONARY: Unlabored respirations. Good breath sounds bilaterally. No audible rales rhonchi or wheezing was noted. CARDIOVASCULAR: There is a regular rate and rhythm without any murmurs gallops or rubs. ABDOMEN: Soft and nontender with normal bowel sounds. No palpable organomegaly was noted. There is no palpable pulsatile mass. SKIN: Skin is clear with no lesions or rashes and otherwise unremarkable. NEUROLOGIC: Patient is alert and oriented 2. Cranial nerves II through XII are grossly intact. Motor and sensory are also intact. Normal speech, volume and content. Symmetrical smile. MUSCULOSKELETAL: Normal extremities with adequate strength and full range of motion. No lower extremity swelling or edema. No calf tenderness. LYMPHATICS: No significant lymphadenopathy is noted PSYCHIATRIC: Normal psychiatric evaluation. Limitations: no limitations Course Vital Signs 09/13/18 09/13/18 09/13/18 14:17 14:18 15:00 Temperature 98.6 F Pulse Rate 103 H 96 Respiratory 20 Rate Blood Pressure 121/93 121/93 142/71 O2 Sat by Pulse 98 97 98 Oximetry 09/13/18 15:30 Temperature Pulse Rate Respiratory Rate Blood Pressure 126/81 O2 Sat by Pulse Oximetry Medical Decision Making - Medical Decision Making EKG shows normal sinus rhythm at 90 bpm [place] interval 134 QRS is 84 QT interval 336 QTC is 428. Patient's EKG shows no ST segment elevation or depression. Patient's boyfriend called at [phone] and told us that the Xanax bottle that she just had filled a few days ago was completely empty. Patient's CT of the ring shows no acute abnormality. I spoke with Dr. Kat she agreed to admit the patient will admit the patient and I wrote admitting orders. - Lab Data Result diagrams: 09/13/18 14:21 09/13/18 14:21 Lab Results 09/13/18 09/13/18 09/13/18 Range/Units 14:21 14:21 14:21 WBC 10.5 (3.8-10.6) k/uL RBC 4.46 (3.80-5.40) m/uL Hgb 13.4 (11.4-16.0) gm/dL Hct 42.2 (34.0-46.0) % MCV 94.6 (80.0-100.0) fL MCH 30.1 (25.0-35.0) pg MCHC 31.9 (31.0-37.0) g/dL RDW 14.8 (11.5-15.5) % Plt Count 309 (150-450) k/uL Neutrophils % 79 % Lymphocytes % 12 % Monocytes % 5 % Eosinophils % 1 % Basophils % 0 % Neutrophils # 8.3 H (1.3-7.7) k/uL Lymphocytes # 1.2 (1.0-4.8) k/uL Monocytes # 0.5 (0-1.0) k/uL Eosinophils # 0.1 (0-0.7) k/uL Basophils # 0.0 (0-0.2) k/uL PT (9.0-12.0) sec INR (<1.2) APTT (22.0-30.0) sec Sodium 143 (137-145) mmol/L Potassium 4.0 (3.5-5.1) mmol/L Chloride 111 H (98-107) mmol/L Carbon Dioxide 21 L (22-30) mmol/L Anion Gap 11 mmol/L BUN 12 (7-17) mg/dL Creatinine 0.54 (0.52-1.04) mg/dL Est GFR (CKD-EPI)AfAm >90 (>60 ml/min/1.73 sqM) Est GFR (CKD-EPI)NonAf >90 (>60 ml/min/1.73 sqM) Glucose 128 H (74-99) mg/dL Calcium 9.8 (8.4-10.2) mg/dL Total Bilirubin 0.7 (0.2-1.3) mg/dL AST 18 (14-36) U/L ALT 23 (9-52) U/L Alkaline Phosphatase 135 H (38-126) U/L Creatine Kinase 30 (30-135) U/L Troponin I (0.000-0.034) ng/mL Total Protein 7.0 (6.3-8.2) g/dL Albumin 3.9 (3.5-5.0) g/dL Urine Color Yellow Urine Appearance Cloudy H (Clear) Urine pH 6.5 (5.0-8.0) Ur Specific [place] 1.022 (1.001-1.035) Urine Protein 1+ H (Negative) Urine Glucose (UA) Negative (Negative) Urine Ketones 1+ H (Negative) Urine Blood Small H (Negative) Urine Nitrite Negative (Negative) Urine Bilirubin 1+ H (Negative) Urine Urobilinogen 2.0 (<2.0) mg/dL Ur Leukocyte Esterase Trace H (Negative) Urine RBC 5 (0-5) /hpf Urine WBC 6 H (0-5) /hpf Urine Mucus Many H (None) /hpf Urine Opiates Screen Not Detected (NotDetected) Ur Oxycodone Screen Not Detected (NotDetected) Urine Methadone Screen Not Detected (NotDetected) Ur Propoxyphene Screen Not Detected (NotDetected) Ur Barbiturates Screen Not Detected (NotDetected) U Tricyclic Antidepress Not Detected (NotDetected) Ur Phencyclidine Scrn Not Detected (NotDetected) Ur Amphetamines Screen Not Detected (NotDetected) U Methamphetamines Scrn Not Detected (NotDetected) U Benzodiazepines Scrn Detected H (NotDetected) Urine Cocaine Screen Not Detected (NotDetected) U Marijuana (THC) Screen Detected H (NotDetected) 09/13/18 09/13/18 Range/Units 14:21 14:21 WBC (3.8-10.6) k/uL RBC (3.80-5.40) m/uL Hgb (11.4-16.0) gm/dL Hct (34.0-46.0) % MCV (80.0-100.0) fL MCH (25.0-35.0) pg MCHC (31.0-37.0) g/dL RDW (11.5-15.5) % Plt Count (150-450) k/uL Neutrophils % % Lymphocytes % % Monocytes % % Eosinophils % % Basophils % % Neutrophils # (1.3-7.7) k/uL Lymphocytes # (1.0-4.8) k/uL Monocytes # (0-1.0) k/uL Eosinophils # (0-0.7) k/uL Basophils # (0-0.2) k/uL PT 9.5 (9.0-12.0) sec INR 0.9 (<1.2) APTT 24.7 (22.0-30.0) sec Sodium (137-145) mmol/L Potassium (3.5-5.1) mmol/L Chloride (98-107) mmol/L Carbon Dioxide (22-30) mmol/L Anion Gap mmol/L BUN (7-17) mg/dL Creatinine (0.52-1.04) mg/dL Est GFR (CKD-EPI)AfAm (>60 ml/min/1.73 sqM) Est GFR (CKD-EPI)NonAf (>60 ml/min/1.73 sqM) Glucose (74-99) mg/dL Calcium (8.4-10.2) mg/dL Total Bilirubin (0.2-1.3) mg/dL AST (14-36) U/L ALT (9-52) U/L Alkaline Phosphatase (38-126) U/L Creatine Kinase (30-135) U/L Troponin I <0.012 (0.000-0.034) ng/mL Total Protein (6.3-8.2) g/dL Albumin (3.5-5.0) g/dL Urine Color Urine Appearance (Clear) Urine pH (5.0-8.0) Ur Specific [place] (1.001-1.035) Urine Protein (Negative) Urine Glucose (UA) (Negative) Urine Ketones (Negative) Urine Blood (Negative) Urine Nitrite (Negative) Urine Bilirubin (Negative) Urine Urobilinogen (<2.0) mg/dL Ur Leukocyte Esterase (Negative) Urine RBC (0-5) /hpf Urine WBC (0-5) /hpf Urine Mucus (None) /hpf Urine Opiates Screen (NotDetected) Ur Oxycodone Screen (NotDetected) Urine Methadone Screen (NotDetected) Ur Propoxyphene Screen (NotDetected) Ur Barbiturates Screen (NotDetected) U Tricyclic Antidepress (NotDetected) Ur Phencyclidine Scrn (NotDetected) Ur Amphetamines Screen (NotDetected) U Methamphetamines Scrn (NotDetected) U Benzodiazepines Scrn (NotDetected) Urine Cocaine Screen (NotDetected) U Marijuana (THC) Screen (NotDetected) Disposition Clinical Impression: Drug overdose, Altered mental status Disposition: ADMITTED IP TO THIS HOSP Referrals: None,Stated [Primary Care Provider] - 1-2 days Time of Disposition: 16:26
[2018-09-13 14:58] LABS: Basophils % (A) 0 %; Eosinophils # (A) 0.1 k/uL (0-0.7); Eosinophils % (A) 1 %; HCT 42.2 % (34.0-46.0); HGB 13.4 gm/dL (11.4-16.0); Lymphocytes # (A) 1.2 k/uL (1.0-4.8); Lymphocytes % (A) 12 %; MCH 30.1 pg (25.0-35.0); MCHC 31.9 g/dL (31.0-37.0); MCV 94.6 fL (80.0-100.0); Mean Platelet Volume 7.2; Monocytes # (A) 0.5 k/uL (0-1.0); Monocytes % (A) 5 %; Neutrophils # (A) 8.3 k/uL (1.3-7.7); Neutrophils % (A) 79 %; Platelet Count 309 k/uL (150-450); RBC 4.46 m/uL (3.80-5.40); RDW 14.8 % (11.5-15.5); WBC 10.5 k/uL (3.8-10.6)
[2018-09-13 15:01] LABS: Appearance,Urine Cloudy (Clear); Bilirubin,Urine 1+ (Negative); Blood,Urine Small (Negative); Color,Urine Yellow; Glucose,Urine (UA) Negative (Negative); Ketones,Urine 1+ (Negative); Leukocyte Esterase,Urine Trace (Negative); Mucus,Urine Many /hpf; Nitrite,Urine Negative (Negative); PH, Urine 6.5 (5.0-8.0); Protein,Urine 1+ (Negative); RBC,Urine 5 /hpf (0-5); Specific Gravity,Urine 1.022 (1.001-1.035); WBC,Urine 6 /hpf (0-5)
[2018-09-13 15:08] LABS: Amphetamine Screen,Urine Not Detected (NotDetected); Barbiturate Screen,Urine Not Detected (NotDetected); Benzodiazepines Screen,Urine Detected (NotDetected); Cocaine Screen,Urine Not Detected (NotDetected); Methadone Screen, Urine Not Detected (NotDetected); Opiate Screen,Urine Not Detected (NotDetected); Oxycodone Screen, Urine Not Detected (NotDetected); Phencyclidine Screen,Urine Not Detected (NotDetected); Tricyclic Antidepressant,Urine Not Detected (NotDetected); Urn Cannabinoid Scrn Detected (NotDetected)
[2018-09-13 15:09] LABS: ALT 23 U/L (9-52); AST 18 U/L (14-36); Albumin 3.9 g/dL (3.5-5.0); Alkaline Phosphatase 135 U/L (38-126); Anion Gap 11 mmol/L; Blood Urea Nitrogen 12 mg/dL (7-17); Calcium 9.8 mg/dL (8.4-10.2); Carbon Dioxide 21 mmol/L (22-30); Chloride 111 mmol/L (98-107); Creatine Kinase 30 U/L (30-135); Glucose 128 mg/dL (74-99); Sodium 143 mmol/L (137-145); Total Bilirubin 0.7 mg/dL (0.2-1.3)
[2018-09-13 15:31] LABS: INR 0.9 (<1.2); Partial Thromboplastin Time 24.7 sec (22.0-30.0); Prothrombin Time 9.5 sec (9.0-12.0)
--- NOTE | 2018-09-13 15:46 | CT ---
EXAMINATION TYPE: CT brain wo con DATE OF EXAM: 09/13/2018 COMPARISON: None HISTORY: Patient poor historian, altered mental status CT DLP: 1217.4 mGycm. Automated Exposure Control for Dose Reduction was Utilized. TECHNIQUE: CT scan of the head is performed without contrast. FINDINGS: There is no acute intracranial hemorrhage, mass effect, or midline shift identified. The ventricles and sulci are within normal limits in size. The globes are intact and the visualized sin uses are remarkable for inflammatory change in the right maxillary sinus. Hyperostosis frontalis inte rna changes are present. IMPRESSION: No acute intracranial hemorrhage, mass effect, or midline shift is seen.
--- NOTE | 2018-09-13 16:24 | XR ---
EXAMINATION TYPE: XR chest 2V DATE OF EXAM: 09/13/2018 COMPARISON: NONE HISTORY: Altered mental status TECHNIQUE: Frontal and lateral views of the chest are obtained on 6 images. FINDINGS: There is no focal air space opacity, pleural effusion, or pneumothorax seen. The cardiac silhouette size is within normal limits. The osseous structures are intact. There are cardiac leads . Patient is rotated. IMPRESSION: No acute cardiopulmonary process. Follow-up as indicated.
[2018-09-13] MEDS ORDERED: SODIUM CHLORIDE 0.9% 1,000 ML IV ONE (16:27)
[2018-09-13] MEDS ORDERED: NALOXONE 0.4 MG/ML 1 ML VIAL IV PRN (18:16)
[2018-09-13] MEDS ORDERED: ONDANSETRON 4 MG/2 ML VIAL IVP PRN (18:16)
[2018-09-13] MEDS ORDERED: ACETAMINOPHEN TAB 325 MG TAB PO PRN (18:16)
[2018-09-13] MEDS ORDERED: ALBUTEROL NEBULIZED 2.5 MG/3 ML INHALATION PRN (18:18)
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
[2018-09-13] MEDS: NICOTINE 14MG/24HR PATCH TRANSDERM SCH (20:08)
[2018-09-13] MEDS ORDERED: HALOPERIDOL LACTATE 5 MG/ML 1 ML VIAL IM STA (22:32)
[2018-09-14 07:44] VITALS: RESP 18
[2018-09-14 07:57] LABS: HCT 36.4 % (34.0-46.0); HGB 11.4 gm/dL (11.4-16.0); MCHC 31.4 g/dL (31.0-37.0); MCV 95.3 fL (80.0-100.0); Mean Platelet Volume 6.3; Platelet Count 328 k/uL (150-450); RBC 3.82 m/uL (3.80-5.40); RDW 14.8 % (11.5-15.5); WBC 6.4 k/uL (3.8-10.6)
[2018-09-14] MEDS ORDERED: PANTOPRAZOLE 40 MG TABLET PO SCH (08:00)
[2018-09-14] MEDS: NICOTINE 14MG/24HR PATCH TRANSDERM SCH (08:03)
[2018-09-14 08:10] LABS: ALT 31 U/L (9-52); AST 25 U/L (14-36); Albumin 3.4 g/dL (3.5-5.0); Alkaline Phosphatase 120 U/L (38-126); Anion Gap 10 mmol/L; Blood Urea Nitrogen 9 mg/dL (7-17); Carbon Dioxide 21 mmol/L (22-30); Chloride 113 mmol/L (98-107); Glucose 103 mg/dL (74-99); Potassium 3.5 mmol/L (3.5-5.1); Sodium 144 mmol/L (137-145); Total Bilirubin 0.4 mg/dL (0.2-1.3)
[2018-09-14] MEDS ORDERED: amLODIPine 5 MG TAB PO SCH (09:00)
[2018-09-14] MEDS ORDERED: ASPIRIN 81 MG PO SCH (09:00)
[2018-09-14] MEDS ORDERED: ENOXAPARIN 40 MG/0.4 ML SYRINGE SQ SCH (09:00)
[2018-09-14] MEDS ORDERED: ATORVASTATIN 40 MG TAB PO SCH (09:00)
[2018-09-14] MEDS ORDERED: METOPROLOL TARTRATE 25 MG TAB PO SCH (09:00)
[2018-09-14] MEDS ORDERED: LISINOPRIL 5 MG TAB PO SCH (09:00)
[2018-09-14] MEDS ORDERED: ETODOLAC 400 MG TAB PO SCH (09:00)
[2018-09-14 14:58] VITALS: BP 112/74; PULSE 79; TEMP 98.1
--- NOTE | 2018-09-14 15:02 | P.DS ---
Providers Date of admission: 09/13/18 16:27 Expected date of discharge: 09/14/18 Attending physician: Shagufta Kat DO Consults: 09/13/18 18:17 Consult Physician Routine Consulting Provider: Miguel Ruiz Consult Reason/Comments: intentional overdose, possible suicide attempt Do you want consulting provider notified?: Yes Primary care physician: Stated None Hospital Course: Discharge Diagnosis: Overdose of Neurontin and Xanax, intentional Depression COPD without exacerbation Atherosclerotic coronary artery disease with history of myocardial infarction Dyslipidemia Tobacco abuse History of pulmonary embolism Hospital Course: Patient is a 48-year-old female with a past medical history of coronary artery disease with prior NM and cardiac stent 2, dyslipidemia, COPD, and prior pulmonary embolism who came into the ER via EMS for altered mentation. Family reports that she took an overdose of her Neurontin and Xanax. Apparently the bottle filled on 09/29 Xanax was unable to be located and the Neurontin has noticed a significant amount of tablets. On arrival to the ER she was found to be tachycardic with a heart rate of 103 but her other vital signs within normal limits. Laboratory analysis was unremarkable other than urine drug screen being positive for marijuana and benzodiazepines. Head CT was negative. Chest x-ray negative. She was admitted for observation. She was placed under suicide precautions as after admission she stated she took the pills that she could no longer handle her niece. Her mentation improved and she was alert and oriented 3 by the morning after admission. She was evaluated by sych who recommended inpatient admission. She was therefore transferred to the mental health unit. Patient seen and examined at bedside. Upset and wants to go home. No nausea, upset stomach. Feeling more clear and her leg heaviness has resolved. Vital signs reviewed and stable. General: non toxic, no distress, appears at stated age Derm: warm, dry Head: atraumatic, normocephalic, symmetric Eyes: EOMI, no lid lag, anicteric sclera Mouth: no lip lesion, mucus membranes moist Cardiovascular: S1S2 reg, no murmur, positive posterior tibial pulse bilateral, Lungs: CTA bilateral, no rhonchi, no rales , no accessory muscle use Abdominal: soft, nontender to palpation, no guarding, no appreciable organomegaly Ext: no gross muscle atrophy, no edema, no contractures Neuro: CN II-XI grossly intact, no focal neuro deficits Psych: Alert, oriented, anxious affect but withdrawn from events that occurred A total of 25 minutes of time were spent preparing this complex discharge summary . Pertinent Studies: Head CT-no acute process Chest x-ray-no acute process Patient Condition at Discharge: Stable Plan - Discharge Summary New Discharge Prescriptions: Continue Albuterol Inhaler [Ventolin Hfa Inhaler] 2 puff INHALATION RT-Q6H PRN PRN Reason: Shortness Of Breath Lisinopril [Zestril] 5 mg PO DAILY #30 tab Metoprolol Tartrate [Lopressor] 25 mg PO BID #60 tab Nitroglycerin Sl Tabs [Nitrostat] 0.4 mg SUBLINGUAL Q5M PRN #25 PRN Reason: Chest Pain Aspirin EC [Ecotrin Low Dose] 81 mg PO DAILY amLODIPine [Norvasc] 5 mg PO DAILY Omeprazole 20 mg PO DAILY Rosuvastatin [Crestor] 20 mg PO DAILY Diclofenac Sodium [Voltaren] 75 mg PO BID Discontinued Gabapentin 600 mg PO TID ALPRAZolam [Xanax] 0.5 mg PO BID PRN PRN Reason: Anxiety Discharge Medication List Albuterol Inhaler [Ventolin Hfa Inhaler] 2 puff INHALATION RT-Q6H PRN 01/15/17 [ History] Lisinopril [Zestril] 5 mg PO DAILY #30 tab 01/17/17 [Rx] Metoprolol Tartrate [Lopressor] 25 mg PO BID #60 tab 01/17/17 [Rx] Nitroglycerin Sl Tabs [Nitrostat] 0.4 mg SUBLINGUAL Q5M PRN #25 01/17/17 [Rx] Aspirin EC [Ecotrin Low Dose] 81 mg PO DAILY 02/13/17 [History] Omeprazole 20 mg PO DAILY 10/14/17 [History] amLODIPine [Norvasc] 5 mg PO DAILY 10/14/17 [History] Diclofenac Sodium [Voltaren] 75 mg PO BID 09/13/18 [History] Rosuvastatin [Crestor] 20 mg PO DAILY 09/13/18 [History] Follow up Appointment(s)/Referral(s): None,Stated [Primary Care Provider] - 1-2 days Activity/Diet/Wound Care/Special Instructions: heart healthy diet activity as tolerated Discharge Disposition: TRANSFER TO PSYCH HOSP/UNIT
== END 2018-09-14 15:43 ==
LOC: EC 14:16 → 4MS4W 16:27 → 4SSUR 17:41
PROVIDERS: ADMIT Internal Medicine; ATTEND Internal Medicine
DX: T42.6X2A Poisoning by other antiepileptic and sedative-hypnotic drugs, intentional self-harm, initial encounter (principal); T42.4X2A Poisoning by benzodiazepines, intentional self-harm, initial encounter; R41.82 Altered mental status, unspecified; R00.0 Tachycardia, unspecified; J44.9 Chronic obstructive pulmonary disease, unspecified; I25.10 Atherosclerotic heart disease of native coronary artery without angina pectoris; F17.210 Nicotine dependence, cigarettes, uncomplicated; I25.2 Old myocardial infarction; E78.5 Hyperlipidemia, unspecified; M54.9 Dorsalgia, unspecified; F41.9 Anxiety disorder, unspecified; F31.9 Bipolar disorder, unspecified; Z86.711 Personal history of pulmonary embolism; Z95.5 Presence of coronary angioplasty implant and graft; Z79.899 Other long term (current) drug therapy; Z79.82 Long term (current) use of aspirin; Z79.1 Long term (current) use of non-steroidal anti-inflammatories (NSAID); Z88.5 Allergy status to narcotic agent; Z88.1 Allergy status to other antibiotic agents; Z90.49 Acquired absence of other specified parts of digestive tract
CPT/HCPCS: 96372 ×2; 96361; 99285; 36415; 93005; 80053 ×2; 82550; 84484; 85025; 85027; 85610; 85730; 81001; 80306; 71046; 70450; G0378 ×2; S4990; J1630; J1650

== ENCOUNTER 2018-09-14 13:45 | Inpatient (IN) | payer MEDICARE, MEDICAID ==
[2018-09-14 16:26] VITALS: BMI 35.1
[2018-09-14] MEDS ORDERED: MAG HYDROX/AL HYDROX/SIMETH 30 ML CUP PO PRN (18:42)
[2018-09-14] MEDS ORDERED: MAGNESIUM HYDROXIDE 2,400 MG/10 ML CUP PO PRN (18:42)
[2018-09-14] MEDS ORDERED: LORazepam 2 MG/ML INJ IM PRN (18:44)
[2018-09-14] MEDS: METOPROLOL TARTRATE 25 MG TAB PO SCH (20:17)
[2018-09-14] MEDS: ETODOLAC 400 MG TAB PO SCH (20:17)
[2018-09-14] MEDS: ACETAMINOPHEN TAB 325 MG TAB PO PRN (20:19)
[2018-09-14] MEDS: ALBUTEROL INHALER 60 PUFF/8 GM INHALER INHALATION PRN (21:12)
[2018-09-15] MEDS: ETODOLAC 400 MG TAB PO SCH ×2 (09:04→21:13)
[2018-09-15] MEDS: PANTOPRAZOLE 40 MG TABLET PO SCH (09:05)
[2018-09-15] MEDS: METOPROLOL TARTRATE 25 MG TAB PO SCH ×2 (09:05→21:14)
[2018-09-15] MEDS: LISINOPRIL 5 MG TAB PO SCH (09:06)
[2018-09-15] MEDS: ASPIRIN 81 MG PO SCH (09:06)
[2018-09-15] MEDS: ATORVASTATIN 40 MG TAB PO SCH (09:06)
[2018-09-15] MEDS: amLODIPine 5 MG TAB PO SCH (09:07)
[2018-09-15 09:16] LABS: Basophils % (A) 0 %; Eosinophils # (A) 0.1 k/uL (0-0.7); Eosinophils % (A) 2 %; HCT 40.5 % (34.0-46.0); HGB 12.9 gm/dL (11.4-16.0); Hypochromasia Slight; Lymphocytes # (A) 1.3 k/uL (1.0-4.8); Lymphocytes % (A) 22 %; MCH 29.9 pg (25.0-35.0); MCHC 31.7 g/dL (31.0-37.0); MCV 94.4 fL (80.0-100.0); Mean Platelet Volume 6.4; Monocytes # (A) 0.5 k/uL (0-1.0); Monocytes % (A) 7 %; Neutrophils % (A) 65 %; Platelet Count 345 k/uL (150-450); RDW 14.6 % (11.5-15.5); WBC 6.2 k/uL (3.8-10.6)
[2018-09-15] MEDS: ALBUTEROL INHALER 60 PUFF/8 GM INHALER INHALATION PRN ×2 (09:25→14:09)
[2018-09-15 09:33] LABS: ALT 30 U/L (9-52); AST 22 U/L (14-36); Albumin 3.8 g/dL (3.5-5.0); Alkaline Phosphatase 119 U/L (38-126); Anion Gap 12 mmol/L; Blood Urea Nitrogen 9 mg/dL (7-17); Calcium 9.8 mg/dL (8.4-10.2); Carbon Dioxide 21 mmol/L (22-30); Chloride 109 mmol/L (98-107); Cholesterol 165 mg/dL (<200); Glucose 165 mg/dL (74-99); HDL Cholesterol 42 mg/dL (40-60); LDL Cholesterol,Calculated 91 mg/dL (0-99); Potassium 3.6 mmol/L (3.5-5.1); Sodium 142 mmol/L (137-145); Total Bilirubin 0.4 mg/dL (0.2-1.3); Total Protein 6.7 g/dL (6.3-8.2); Triglycerides 158 mg/dL (<150)
--- NOTE | 2018-09-15 11:12 | P.HPMEDMHU ---
History of Present Illness H&P Date: 09/15/18 Chief Complaint: overdose Patient is a 48 yo CF with a past medical history of COPD, CAD, HLD, and prior MT who initially presented for altered mentation and overdose. She was initially observed on the medical floor and her mentation returned back to baseline and she was subsequently been admitted to the mental health unit. Patient seen and examined. She denies any chest pain, unusual shortness of breath, nausea, vomiting, diarrhea, or constipation. She wants to go home. She denies any anxiety. She states she'll be living with her mother when she leaves the hospital. Review of Systems Pertinent positives and negatives as discussed in HPI, a complete review of systems was performed and all other systems are negative. Past Medical History Past Medical History: Asthma, Coronary Artery Disease (CAD), COPD, Hyperlipidemia, Myocardial Infarction (MT), Pulmonary Embolus (PE) Additional Past Medical History / Comment(s): Other hx: DIVERTICULITIS. RESTLESS LEG SYNDROME. DDD, BACK PAIN, osteoporsis, palpatations. Pulmonary embolism in 2017, insomnia Last Myocardial Infarction Date:: 01-15-17 History of Any Multi-Drug Resistant Organisms: None Reported Past Surgical History: Back Surgery, Bowel Resection, Cholecystectomy, Heart Catheterization With Stent, Hernia Repair, Tonsillectomy, Tubal Ligation Additional Past Surgical History / Comment(s): "HAD A FOOT OF BOWEL REMOVED "TEMPORARY COLOSTOMY, COLOSTOMY REVERSAL. "HAD 4 SX FOR INC HERNIA-HAS CLIP/ MESH IN PLACE, BACK SURGERY 04/27, cyst taken off ovary, PCI with 2 stents in RCA, Epidural injections, left knee arthroscopy 06/2018 Past Anesthesia/Blood Transfusion Reactions: Postoperative Nausea & Vomiting ( PONV) Additional Past Anesthesia/Blood Transfusion Reaction / Comment(s): anxiety upon awakening from anesthesia Date of Last Stent Placement:: 01-15-17 Past Psychological History: Anxiety, Bipolar, Depression Additional Psychological History / Comment(s): OCD. Smoking Status: Current every day smoker Past Alcohol Use History: None Reported Additional Past Alcohol Use History / Comment(s): STARTED SMOKING 1985 DOWN FROM 1.5 PPD TO 1/2 Ppd Past Drug Use History: None Reported Additional Drug Use History / Comment(s): USES MARIJUANA MAYBE ONCE WEEKLY- INSTRUCTED TO REFRAIN FROM USE FOR AT LEAST 24 HOURS PRIOR TO PROCEDURE - Past Family History Mother Family Medical History: Hyperlipidemia, Hypertension, Myocardial Infarction (MT) Father Family Medical History: Hypertension Additional Family Medical History / Comment(s): per pt she thinks father has COPD of emphysema Sister(s) Family Medical History: No Reported History Brother(s) Family Medical History: No Reported History Daughter(s) Family Medical History: No Reported History Son(s) Family Medical History: No Reported History Medications and Allergies Home Medications Medication Instructions Recorded Confirmed Type Albuterol Inhaler [Ventolin Hfa 2 puff INHALATION RT-Q6H PRN 01/15/17 09/14/18 History Inhaler] Aspirin EC [Ecotrin Low Dose] 81 mg PO DAILY 02/13/17 09/14/18 History Omeprazole 20 mg PO DAILY 10/14/17 09/14/18 History amLODIPine [Norvasc] 5 mg PO DAILY 10/14/17 09/14/18 History Diclofenac Sodium [Voltaren] 75 mg PO BID 09/13/18 09/14/18 History Rosuvastatin [Crestor] 20 mg PO DAILY 09/13/18 09/14/18 History Allergies Allergy/AdvReac Type Severity Reaction Status Date / Time erythromycin base AdvReac Nausea & Verified 09/14/18 17:58 [Erythromycin Base] Vomiting tramadol HCl [From Ultram] AdvReac Itching Verified 09/14/18 17:58 nicotine patch AdvReac Severe Hallucinati Uncoded 09/14/18 15:57 ons Physical Exam Osteopathic Statement: *. No significant issues noted on an osteopathic structural exam other than those noted in the History and Physical/Consult. Vitals: Vital Signs Temp Pulse Pulse Resp BP BP Pulse Ox 09/15/18 06:51 98.5 F 83 14 114/64 09/14/18 20:16 97 143/99 09/14/18 16:02 98.6 F 81 20 124/82 97 Intake and Output 09/14/18 09/15/18 09/15/18 22:59 06:59 14:59 Other: Weight 95.7 kg General: non toxic, no distress, appears at stated age, normal weight Derm: Multiple tattoos, no unusual rashes/lesions no unusual ecchymoses, warm, dry Head: atraumatic, normocephalic, symmetric Eyes: EOMI, no lid lag, anicteric sclera, pupils equal round reactive to light ENT: Nose and ears atraumatic, no thrush, no pharyngeal erythema Neck: No thyromegaly, no cervical lymphadenopathy, trachea midline, supple Mouth: no lip lesion, mucus membranes moist Cardiovascular: S1S2 reg, no murmur, positive posterior tibial pulse bilateral, no edema, capillary refill less than 2 seconds Lungs: CTA bilateral, no rhonchi, no rales , no accessory muscle use Abdominal: soft, nontender to palpation, no guarding, no appreciable organomegaly, normal bowel sounds Ext: no gross muscle atrophy, muscle strength 5 out of 5 in all 4 extremities grossly, no contractures, Neuro: CN II-XI grossly intact, light touch intact all 4 extremities, finger to nose within normal limits, Psych: Alert, oriented, flat affect Cranial Nerve Examination - Cranial Nerves Cranial Nerve II- Optic: Intact Cranial Nerve III- Oculomotor: Intact Cranial Nerve IV- Trochlear: Intact Cranial Nerve V- Trigeminal: Intact Cranial Nerve - Abducens: Intact Cranial Nerve VII- Facial: Intact Cranial Nerve VIII- Auditory: Intact Cranial Nerve IX- Glossopharyngeal: Intact Cranial Nerve X- Vagus: Intact Cranial Nerve XI- Accessory: Intact Cranial Nerve XII- Hypoglossal: Intact Results CBC & Chem 7: 09/15/18 08:51 09/15/18 08:51 Labs: Abnormal Lab Results - Last 24 Hours (Table) 09/15/18 Range/Units 08:51 Chloride 109 H (98-107) mmol/L Carbon Dioxide 21 L (22-30) mmol/L Creatinine 0.48 L (0.52-1.04) mg/dL Glucose 165 H (74-99) mg/dL Triglycerides 158 H (<150) mg/dL Thrombosis Risk Factor Assmnt - DVT/VTE Prophylaxis DVT/VTE Prophylaxis: Low risk, early ambulation encouraged - Choose All That Apply Any of the Below Risk Factors Present?: No Other Risk Factors: No Other congenital or acquired thrombophilia - If yes, enter type in comment: No Thrombosis Risk Factor Assessment Level: Very Low Risk Assessment and Plan Assessment: Restless leg - trial of requip - Rx written for discharge COPD without exacerbation - prn albuterol HTN - norvasc, lopressor, lisinopril - follow BP HLD -lipitor CAD - ASA Depression - your psych management Thank you for allowing us to participate in the care of this patient. We will follow peripherally. Do not hesitate to contact us with questions. Someone can be reached from the [facility] hospitalist group at all hours of the day at [phone].
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
[2018-09-15] MEDS: ESCITALOPRAM 5 MG TAB PO SCH (13:35)
[2018-09-15 20:05] LABS: Hemoglobin A1C 5.7 % (4.0-6.0)
[2018-09-16] MEDS: LORazepam 1 MG TAB PO PRN (00:30)
[2018-09-16] MEDS: amLODIPine 5 MG TAB PO SCH (08:34)
[2018-09-16] MEDS: ATORVASTATIN 40 MG TAB PO SCH (08:34)
[2018-09-16] MEDS: LISINOPRIL 5 MG TAB PO SCH (08:34)
[2018-09-16] MEDS: ASPIRIN 81 MG PO SCH (08:34)
[2018-09-16] MEDS: PANTOPRAZOLE 40 MG TABLET PO SCH (08:34)
[2018-09-16] MEDS: METOPROLOL TARTRATE 25 MG TAB PO SCH ×2 (08:34→21:21)
[2018-09-16] MEDS: ESCITALOPRAM 5 MG TAB PO SCH (08:34)
[2018-09-16] MEDS: ETODOLAC 400 MG TAB PO SCH ×2 (08:35→21:20)
[2018-09-16] MEDS: ALBUTEROL INHALER 60 PUFF/8 GM INHALER INHALATION PRN ×2 (10:25→20:38)
--- NOTE | 2018-09-16 13:55 | P.PN ---
Progress Note - Text Interval history: The patient is found in the hallway she follows me to an interview room. She states her mood is better. She feels more relaxed. She plans on leaving her fianc and will be moving into her parents home which is just next door. She has no questions or concerns regarding the Lexapro. She asked that we titrate the Requip further as she continues to have restless leg symptoms. She has been attending groups. Appetite stable. Mental status exam: The patient is alert she is dressed in her own clothing hygiene grooming are adequate. She is pleasant and cooperative. She indicates her mood is good she denies having any suicidal or homicidal ideation intent or plan. She is demonstrating no tangential thinking loose associations or flight of ideas. She reports no auditory or visual hallucinations or any specific delusions. There is no observed evidence of psychosis. Insight and judgment improving. Plan: The patient will continue on her current psychotropic medication. We will plan to titrate the Lexapro to 10 mg daily. The patient reports social work completed a phone family meeting with her parents we will await the input from that meeting. The patient does appear to be stabilizing. Continue to monitor her for safety and encourage full participation in the milieu. Vital signs reviewed.
[2018-09-17] MEDS: LORazepam 1 MG TAB PO PRN (00:20)
[2018-09-17] MEDS: ACETAMINOPHEN TAB 325 MG TAB PO PRN (00:20)
[2018-09-17 00:23] VITALS: BP 156/92; PULSE 85; RESP 16; TEMP 97.8
[2018-09-17] MEDS: LISINOPRIL 5 MG TAB PO SCH (08:29)
[2018-09-17] MEDS: ESCITALOPRAM 5 MG TAB PO SCH (08:30)
[2018-09-17] MEDS: PANTOPRAZOLE 40 MG TABLET PO SCH (08:30)
[2018-09-17] MEDS: ASPIRIN 81 MG PO SCH (08:30)
[2018-09-17] MEDS: METOPROLOL TARTRATE 25 MG TAB PO SCH (08:30)
[2018-09-17] MEDS: ETODOLAC 400 MG TAB PO SCH (08:30)
[2018-09-17] MEDS: amLODIPine 5 MG TAB PO SCH (08:30)
[2018-09-17] MEDS: ATORVASTATIN 40 MG TAB PO SCH (08:30)
--- NOTE | 2018-09-17 12:13 | P.DS ---
Providers Date of admission: 09/14/18 13:45 Expected date of discharge: 09/17/18 Attending physician: Clifton Agee Consults: 09/14/18 18:42 Consult Physician Routine Consulting Provider: Andrey Isbell Consult Reason/Comments: H&P and medical Do you want consulting provider notified?: Yes Primary care physician: Thierno Garcia - Discharge Diagnosis(es) (1) Depression Current Visit: Yes Status: Acute Priority: High (2) Anxiety Current Visit: Yes Status: Acute Priority: Medium Hospital Course: Brief summary of admission note: This patient is a 48-year-old female who was admitted to the mental health unit from the medical floor after suicide attempt via overdose with Xanax and Neurontin. The patient had overdosed with a handful of Xanax and Neurontin tablets while at home. She had been involved in a verbal altercation with her fianc and was overwhelmed. She states that it wasn't her original intent to but wanted to escape the s ituation. She reported feeling sad and depressed and overwhelmed with that relationship. Additionally she felt overwhelmed by having to care for her 21-year-old autistic niece. For full details please refer to my psychiatric evaluation dated 09/15/2018. Summary of hospital course: The patient was admitted to the mental health unit voluntarily. We reviewed her presenting symptoms and treatment options. We decided to initiate Lexapro ultimately titrating to 10 mg daily. At this point there was no clear evidence that she has a bipolar disorder but we discussed it would be important for that to be monitored in the outpatient setting. The patient tolerated the medication well with no reported side effect. She was seen by internal medicine for routine history and physical exam. She met with social work several times to complete a psychosocial assessment and for discharge planning purposes. The patient attended groups she was pleasant and cooperative and easily directed. She decided that she was going to reside with her parents. Social work was able to reach the patient's mother via phone and they were agreeable with the discharge plan. The patient states her mother will be distributing her medicines to her. Mental status exam: The patient is alert she presents with adequate hygiene grooming eye contact is appropriate speech is fluent spontaneous nonpressured. She denies having any suicidal ideation intent or plan. She reports no homicidal ideation intent or plan. She indicates her mood is better affect is euthymic in appearance. She is endorsing no auditory or visual hallucinations or any specific delusions. There is no observed evidence of psychosis. Thought process is linear she demonstrates no tangential thinking loose associations or flight of ideas. She does not appear hypomanic or manic. She is oriented to person place and date. She demonstrates no verbal or physical aggressiveness. Insight and judgment grossly intact. Impressions 1. Depression on specified rule out major depressive disorder versus bipolar depression, anxiety and specified, rule out cannabis use disorder 2. Medical communities include coronary artery disease, neuropathy, restless leg symptoms, chronic back pain Plan: The patient will be discharged mental health unit today and she will be residing with her parents. She will follow up with [facility] for outpatient mental health services. She will continue on Lexapro 10 mg daily. She will follow-up with her primary care physician and other specialists as needed. She is instructed to abstain from any use of alcohol marijuana or any other substance as they may elevate her safety risk. She does not feel that she needs inpatient chemical dependency treatment to address substance use. At this time there is no imminent safety risk she is appropriate for continued care as an outpatient. She is instructed to return to the hospital for any acute safety concerns. Patient Condition at Discharge: Stable Plan - Discharge Summary Discharge Rx Participant: No New Discharge Prescriptions: New Escitalopram [Lexapro] 10 mg PO DAILY #30 tab Etodolac [Lodine] 400 mg PO BID #60 tab rOPINIRole HCL [Requip] 0.75 mg PO HS #30 tablet Continue Albuterol Inhaler [Ventolin Hfa Inhaler] 2 puff INHALATION RT-Q6H PRN PRN Reason: Shortness Of Breath Lisinopril [Zestril] 5 mg PO DAILY #30 tab Metoprolol Tartrate [Lopressor] 25 mg PO BID #60 tab Nitroglycerin Sl Tabs [Nitrostat] 0.4 mg SUBLINGUAL Q5M PRN #25 PRN Reason: Chest Pain Aspirin EC [Ecotrin Low Dose] 81 mg PO DAILY amLODIPine [Norvasc] 5 mg PO DAILY Omeprazole 20 mg PO DAILY Rosuvastatin [Crestor] 20 mg PO DAILY Discontinued Diclofenac Sodium [Voltaren] 75 mg PO BID Discharge Medication List Albuterol Inhaler [Ventolin Hfa Inhaler] 2 puff INHALATION RT-Q6H PRN 01/15/17 [History] Lisinopril [Zestril] 5 mg PO DAILY #30 tab 01/17/17 [Rx] Metoprolol Tartrate [Lopressor] 25 mg PO BID #60 tab 01/17/17 [Rx] Nitroglycerin Sl Tabs [Nitrostat] 0.4 mg SUBLINGUAL Q5M PRN #25 01/17/17 [Rx] Aspirin EC [Ecotrin Low Dose] 81 mg PO DAILY 02/13/17 [History] Omeprazole 20 mg PO DAILY 10/14/17 [History] amLODIPine [Norvasc] 5 mg PO DAILY 10/14/17 [History] Rosuvastatin [Crestor] 20 mg PO DAILY 09/13/18 [History] Escitalopram [Lexapro] 10 mg PO DAILY #30 tab 09/17/18 [Rx] Etodolac [Lodine] 400 mg PO BID #60 tab 09/17/18 [Rx] rOPINIRole HCL [Requip] 0.75 mg PO HS #30 tablet 09/17/18 [Rx] Follow up Appointment(s)/Referral(s): [facility] [Outside] - 1-2 Days (Walk In Intake Thursday 8:30-3pm Thursday 8:30-3pm)
[2018-09-18] MEDS ORDERED: ESCITALOPRAM 10 MG TAB PO SCH (09:00)
== END 2018-09-17 13:15 | disposition home or self-care (01) | DRG 881 ==
LOC: 3MHU 13:45
PROVIDERS: ADMIT Psychiatry & Neurology Psychiatry; ATTEND Psychiatry & Neurology Psychiatry
DX: F32.9 Major depressive disorder, single episode, unspecified (principal); I25.10 Atherosclerotic heart disease of native coronary artery without angina pectoris; G25.81 Restless legs syndrome; M54.9 Dorsalgia, unspecified; G89.29 Other chronic pain; F41.9 Anxiety disorder, unspecified; J44.9 Chronic obstructive pulmonary disease, unspecified; I10 Essential (primary) hypertension; E78.5 Hyperlipidemia, unspecified; G62.9 Polyneuropathy, unspecified; I25.2 Old myocardial infarction; Z95.5 Presence of coronary angioplasty implant and graft; Z90.49 Acquired absence of other specified parts of digestive tract; Z82.49 Family history of ischemic heart disease and other diseases of the circulatory system; Z91.5 Personal history of self-harm; Z63.6 Dependent relative needing care at home; Z79.899 Other long term (current) drug therapy
CPT/HCPCS: 80053; 80061; 83036; 84443; 85025; 94640

== ENCOUNTER → 2018-09-29 | Day surgery (SDC) | payer MEDICARE, OTHER ==
[2018-09-29 12:22] VITALS: BP 129/89; PULSE 61; RESP 12; TEMP 98.2
--- NOTE | 2018-09-29 13:39 | USB ---
Discontinued ultrasound guided biopsy right breast HISTORY: Abnormal right breast ultrasound 01/14/2018 Patient presented for potential right-sided ultrasound-guided biopsy. The retroareolar lesion noted p reviously is not reproduced at this time. Biopsy was therefore discontinued. This was discussed with the patient. Please note biopsy should not be delayed in the setting of a clinically suspicious abnor mality. IMPRESSION: 1. Discontinued ultrasound guided biopsy right breast. Recommendation: Annual screening mammography advised.
== END | disposition home or self-care (01) ==
LOC: RADUSWWP 12:03
PROVIDERS: ATTEND Internal Medicine
DX: R92.8 Other abnormal and inconclusive findings on diagnostic imaging of breast (principal)

== ENCOUNTER → 2018-12-10 | Outpatient (CLI) | payer MEDICARE ==
--- NOTE | 2018-12-10 15:40 | US ---
EXAMINATION TYPE: US venous doppler duplex LE LT DATE OF EXAM: 12/10/2018 3:27 PM COMPARISON: US 06/02/18 left lower extremity venous ultrasound CLINICAL HISTORY: Left lower leg pain [id number]. SIDE PERFORMED: Left TECHNIQUE: The lower extremity deep venous system is examined utilizing real time linear array sonog tamir with graded compression, doppler sonography and color-flow sonography. VESSELS IMAGED: External Iliac Vein (EIV) Common Femoral Vein Deep Femoral Vein Greater Saphenous Vein * Femoral Vein Popliteal Vein Small Saphenous Vein * Proximal Calf Veins (* superficial vessels) Left Leg: Negative for DVT Grayscale, color doppler, spectral doppler imaging performed of the deep veins of the left lower extr emity. There is normal flow, compressibility, vascular waveforms. IMPRESSION: No ultrasound evidence for acute DVT in the left lower extremity.
== END | disposition home or self-care (01) ==
LOC: RADUSWWP 14:56
PROVIDERS: ATTEND Orthopaedic Surgery
DX: I80.9 Phlebitis and thrombophlebitis of unspecified site (principal); M17.12 Unilateral primary osteoarthritis, left knee; M25.562 Pain in left knee; M25.462 Effusion, left knee; M24.10 Other articular cartilage disorders, unspecified site; Z98.890 Other specified postprocedural states

== ENCOUNTER 2019-01-17 11:01 | Emergency (ER) | payer MEDICARE ==
[2019-01-17] MEDS ORDERED: SODIUM CHLORIDE 0.9% 1,000 ML IV STA (12:05)
[2019-01-17] MEDS ORDERED: SODIUM CHLORIDE 0.9% 500 ML 500 ML IV STA (12:05)
[2019-01-17] MEDS ORDERED: ALBUTEROL NEBULIZED 2.5 MG/3 ML INHALATION STA (12:05)
[2019-01-17] MEDS ORDERED: IPRATROPIUM 0.5 MG/2.5 ML NEBU INHALATION STA (12:05)
[2019-01-17 12:20] LABS: Anisocytosis Slight; Basophils % (A) 0 %; Eosinophils # (A) 0.1 k/uL (0-0.7); Eosinophils % (A) 1 %; HCT 42.4 % (34.0-46.0); HGB 13.4 gm/dL (11.4-16.0); Hypochromasia Slight; Lymphocytes # (A) 1.7 k/uL (1.0-4.8); Lymphocytes % (A) 21 %; MCH 28.6 pg (25.0-35.0); MCHC 31.7 g/dL (31.0-37.0); MCV 90.1 fL (80.0-100.0); Mean Platelet Volume 6.6; Monocytes # (A) 0.5 k/uL (0-1.0); Monocytes % (A) 5 %; Neutrophils # (A) 5.9 k/uL (1.3-7.7); Neutrophils % (A) 71 %; Platelet Count 355 k/uL (150-450); RBC 4.71 m/uL (3.80-5.40); RDW 16.5 % (11.5-15.5); WBC 8.3 k/uL (3.8-10.6)
[2019-01-17] MEDS ORDERED: MORPHINE SULFATE 4 MG/ML SYRINGE IVP STA (12:20)
[2019-01-17] MEDS ORDERED: KETOROLAC 30 MG/ML 1 ML VIAL IVP STA (12:20)
[2019-01-17 12:31] LABS: ALT 18 U/L (9-52); AST 13 U/L (14-36); African American GFR (CKD) >90 (>60 ml/min/1.73 sqM); Alkaline Phosphatase 90 U/L (38-126); Anion Gap 9 mmol/L; Blood Urea Nitrogen 11 mg/dL (7-17); Calcium 9.7 mg/dL (8.4-10.2); Carbon Dioxide 23 mmol/L (22-30); Chloride 110 mmol/L (98-107); Glucose 94 mg/dL (74-99); INR 0.9 (<1.2); Magnesium 1.6 mg/dL (1.6-2.3); Partial Thromboplastin Time 22.3 sec (22.0-30.0); Potassium 3.8 mmol/L (3.5-5.1); Prothrombin Time 9.6 sec (9.0-12.0); Sodium 142 mmol/L (137-145); Total Bilirubin 0.2 mg/dL (0.2-1.3); Total Protein 6.6 g/dL (6.3-8.2)
--- NOTE | 2019-01-17 13:17 | ED ---
SOB HPI - General Chief Complaint: Shortness of Breath Stated Complaint: lung pain Time Seen by Provider: 01/17/19 11:46 Source: patient, RN notes reviewed, old records reviewed Mode of arrival: ambulatory Limitations: no limitations - History of Present Illness Initial Comments: This is a 40-year-old female the ER for evaluation. Patient resents today for evaluation regarding shortness of breath and right-sided chest pain. Patient has history of similar complaints, history of COPD and asthma. Patient complains of right-sided chest pain similar chest pain she has had with prior heart attack. No recent travel history no sick contacts no nausea vomiting currently. Patient has no current fevers. She does have increased cough and congestion. Complaining of chest pain. Feels like prior histories of pleurisy. Shortness of breath MD Complaint: shortness of breath, cough, chest pain, pain with inspiration -: days(s) Radiation: right arm Severity: mild Severity scale (1-10): 2 Quality: aching, throbbing Consistency: intermittent Improves With: nothing Worsens With: nothing Known History Of: COPD, other (History of PE) Context: recent URI Associated Symptoms: chest pain, pain with inspiration, cough, sputum production Treatments Prior to Arrival: none - Related Data Home Medications Medication Instructions Recorded Confirmed Albuterol Inhaler [Ventolin Hfa 2 puff INHALATION RT-Q6H PRN 01/15/17 01/17/19 Inhaler] Aspirin EC [Ecotrin Low Dose] 81 mg PO DAILY 02/13/17 01/17/19 Omeprazole 20 mg PO DAILY 10/14/17 01/17/19 amLODIPine [Norvasc] 5 mg PO DAILY 10/14/17 01/17/19 Rosuvastatin [Crestor] 20 mg PO DAILY 09/13/18 01/17/19 Acetaminophen/Diphenhydramine 2 tab PO HS 09/20/18 01/17/19 [Tylenol PM 500-25mg] Fish Oil/Dha/Epa [Fish Oil 1,200 1 cap PO DAILY 09/20/18 01/17/19 mg Fish Oil] Multivitamins, Thera [Multivitamin 1 tab PO DAILY 09/20/18 01/17/19 (formulary)] Previous Rx's Medication Instructions Recorded Lisinopril [Zestril] 5 mg PO DAILY #30 tab 01/17/17 Metoprolol Tartrate [Lopressor] 25 mg PO BID #60 tab 01/17/17 Nitroglycerin Sl Tabs [Nitrostat] 0.4 mg SUBLINGUAL Q5M PRN #25 01/17/17 Escitalopram [Lexapro] 10 mg PO DAILY #30 tab 09/17/18 rOPINIRole HCL [Requip] 0.75 mg PO HS #30 tablet 09/17/18 Albuterol Nebulized [Ventolin 2.5 mg INHALATION Q4H PRN #25 nebu 01/17/19 Nebulized] Albuterol Sulfate [Proair Hfa] 1 - 2 puff INHALATION Q4H PRN #1 01/17/19 inhaler predniSONE 50 mg PO DAILY #5 tab 01/17/19 Allergies Allergy/AdvReac Type Severity Reaction Status Date / Time erythromycin base AdvReac Nausea & Verified 01/17/19 11:45 [Erythromycin Base] Vomiting tramadol HCl [From Ultram] AdvReac Itching Verified 01/17/19 11:45 nicotine patch AdvReac Severe Hallucinati Uncoded 01/17/19 11:17 ons Review of Systems ROS Statement: Those systems with pertinent positive or pertinent negative responses have been documented in the HPI. ROS Other: All systems not noted in ROS Statement are negative. Past Medical History Past Medical History: Asthma, Coronary Artery Disease (CAD), COPD, Hyperlipidemia, Myocardial Infarction ([place]), Pulmonary Embolus (PE) Additional Past Medical History / Comment(s): Other hx: DIVERTICULITIS. RESTLESS LEG SYNDROME. DDD, BACK PAIN, osteoporsis, palpatations. Pulmonary embolism in 2017, insomnia Last Myocardial Infarction Date:: 01-15-17 History of Any Multi-Drug Resistant Organisms: None Reported Past Surgical History: Back Surgery, Bowel Resection, Cholecystectomy, Heart Catheterization With Stent, Hernia Repair, Tonsillectomy, Tubal Ligation Additional Past Surgical History / Comment(s): "HAD A FOOT OF BOWEL REMOVED"TEMPORARY COLOSTOMY, COLOSTOMY REVERSAL. "HAD 4 SX FOR INC HERNIA-HAS CLIP/MESH IN PLACE, BACK SURGERY 04/27, cyst taken off ovary, PCI with 2 stents in RCA, Epidural injections, left knee arthroscopy 06/2018 Past Anesthesia/Blood Transfusion Reactions: Postoperative Nausea & Vomiting (PONV) Additional Past Anesthesia/Blood Transfusion Reaction / Comment(s): anxiety upon awakening from anesthesia Date of Last Stent Placement:: 01-15-17 Past Psychological History: Anxiety, Bipolar, Depression Past Drug Use History: None Reported - Past Family History Mother Family Medical History: Hyperlipidemia, Hypertension, Myocardial Infarction ([place]) Father Family Medical History: Hypertension Additional Family Medical History / Comment(s): per pt she thinks father has COPD of emphysema Sister(s) Family Medical History: No Reported History Brother(s) Family Medical History: No Reported History Daughter(s) Family Medical History: No Reported History Son(s) Family Medical History: No Reported History General Exam Limitations: no limitations General appearance: alert, in no apparent distress Head exam: Present: atraumatic, normocephalic, normal inspection Eye exam: Present: normal appearance, PERRL, EOMI. Absent: scleral icterus, conjunctival injection, periorbital swelling ENT exam: Present: normal exam, mucous membranes moist Neck exam: Present: normal inspection. Absent: tenderness, meningismus, lymphadenopathy Respiratory exam: Present: normal lung sounds bilaterally. Absent: respiratory distress, wheezes, rales, rhonchi, stridor Cardiovascular Exam: Present: regular rate, normal rhythm, normal heart sounds. Absent: systolic murmur, diastolic murmur, rubs, gallop, clicks GI/Abdominal exam: Present: soft, normal bowel sounds. Absent: distended, tenderness, guarding, rebound, rigid Extremities exam: Present: normal inspection, full ROM, normal capillary refill. Absent: tenderness, pedal edema, joint swelling, calf tenderness Back exam: Present: normal inspection Neurological exam: Present: alert, oriented X3, CN II-XII intact Psychiatric exam: Present: normal affect, normal mood Skin exam: Present: warm, dry, intact, normal color. Absent: rash Course Vital Signs 01/17/19 01/17/19 01/17/19 11:14 12:30 12:50 Temperature 98.6 F Pulse Rate 67 54 L 51 L Respiratory 24 20 Rate Blood Pressure 148/82 120/85 O2 Sat by Pulse 96 97 Oximetry 01/17/19 01/17/19 01/17/19 13:11 14:13 15:33 Temperature 97.8 F Pulse Rate 50 L 68 61 Respiratory 18 18 Rate Blood Pressure 123/75 120/74 O2 Sat by Pulse 97 94 L Oximetry - Reevaluation(s) Reevaluation #1: 01/17/19 15:05 Medical record reviewed Reevaluation #2: 01/17/19 15:05 Patient symptoms are significantly improved with breathing treatment, pain control Reevaluation #3: 01/17/19 15:58 No significant acute distress patient like to be going home Medical Decision Making - Medical Decision Making 40 female the ER for evaluation of significant shortness of breath and chest p ain, pleuritic reaction with COPD exacerbation, will discharge on steroids and breathing treatments - Lab Data Result diagrams: 01/17/19 11:55 01/17/19 11:55 Lab Results 01/17/19 01/17/19 01/17/19 Range/Units 11:55 11:55 11:55 WBC 8.3 (3.8-10.6) k/uL RBC 4.71 (3.80-5.40) m/uL Hgb 13.4 (11.4-16.0) gm/dL Hct 42.4 (34.0-46.0) % MCV 90.1 (80.0-100.0) fL MCH 28.6 (25.0-35.0) pg MCHC 31.7 (31.0-37.0) g/dL RDW 16.5 H (11.5-15.5) % Plt Count 355 (150-450) k/uL Neutrophils % 71 % Lymphocytes % 21 % Monocytes % 5 % Eosinophils % 1 % Basophils % 0 % Neutrophils # 5.9 (1.3-7.7) k/uL Lymphocytes # 1.7 (1.0-4.8) k/uL Monocytes # 0.5 (0-1.0) k/uL Eosinophils # 0.1 (0-0.7) k/uL Basophils # 0.0 (0-0.2) k/uL Hypochromasia Slight Anisocytosis Slight PT (9.0-12.0) sec INR (<1.2) APTT (22.0-30.0) sec Sodium 142 (137-145) mmol/L Potassium 3.8 (3.5-5.1) mmol/L Chloride 110 H (98-107) mmol/L Carbon Dioxide 23 (22-30) mmol/L Anion Gap 9 mmol/L BUN 11 (7-17) mg/dL Creatinine 0.54 (0.52-1.04) mg/dL Est GFR (CKD-EPI)AfAm >90 (>60 ml/min/1.73 sqM) Est GFR (CKD-EPI)NonAf >90 (>60 ml/min/1.73 sqM) Glucose 94 (74-99) mg/dL Calcium 9.7 (8.4-10.2) mg/dL Magnesium 1.6 (1.6-2.3) mg/dL Total Bilirubin 0.2 (0.2-1.3) mg/dL AST 13 L (14-36) U/L ALT 18 (9-52) U/L Alkaline Phosphatase 90 (38-126) U/L Troponin I (0.000-0.034) ng/mL NT-Pro-B Natriuret Pep 63 pg/mL Total Protein 6.6 (6.3-8.2) g/dL Albumin 4.0 (3.5-5.0) g/dL 01/17/19 01/17/19 Range/Units 11:55 11:55 WBC (3.8-10.6) k/uL RBC (3.80-5.40) m/uL Hgb (11.4-16.0) gm/dL Hct (34.0-46.0) % MCV (80.0-100.0) fL MCH (25.0-35.0) pg MCHC (31.0-37.0) g/dL RDW (11.5-15.5) % Plt Count (150-450) k/uL Neutrophils % % Lymphocytes % % Monocytes % % Eosinophils % % Basophils % % Neutrophils # (1.3-7.7) k/uL Lymphocytes # (1.0-4.8) k/uL Monocytes # (0-1.0) k/uL Eosinophils # (0-0.7) k/uL Basophils # (0-0.2) k/uL Hypochromasia Anisocytosis PT 9.6 (9.0-12.0) sec INR 0.9 (<1.2) APTT 22.3 (22.0-30.0) sec Sodium (137-145) mmol/L Potassium (3.5-5.1) mmol/L Chloride (98-107) mmol/L Carbon Dioxide (22-30) mmol/L Anion Gap mmol/L BUN (7-17) mg/dL Creatinine (0.52-1.04) mg/dL Est GFR (CKD-EPI)AfAm (>60 ml/min/1.73 sqM) Est GFR (CKD-EPI)NonAf (>60 ml/min/1.73 sqM) Glucose (74-99) mg/dL Calcium (8.4-10.2) mg/dL Magnesium (1.6-2.3) mg/dL Total Bilirubin (0.2-1.3) mg/dL AST (14-36) U/L ALT (9-52) U/L Alkaline Phosphatase (38-126) U/L Troponin I <0.012 (0.000-0.034) ng/mL NT-Pro-B Natriuret Pep pg/mL Total Protein (6.3-8.2) g/dL Albumin (3.5-5.0) g/dL - EKG Data -: EKG Interpreted by Me (EKG shows sinus bradycardia rate of 52, FL 136, QRS 80, QTC 47) - Radiology Data Radiology results: report reviewed (CTA chest is negative for acute disease), image reviewed Disposition Clinical Impression: Acute exacerbation of chronic obstructive airways disease, Chest pain Disposition: HOME SELF-CARE Condition: Good Instructions (If sedation given, give patient instructions): Acute Bronchitis (ED) Prescriptions: predniSONE 50 mg PO DAILY #5 tab Albuterol Sulfate [Proair Hfa] 1 - 2 puff INHALATION Q4H PRN #1 inhaler PRN Reason: Shortness Of Breath Albuterol Nebulized [Ventolin Nebulized] 2.5 mg INHALATION Q4H PRN #25 nebu PRN Reason: Shortness Of Breath Is patient prescribed a controlled substance at d/c from ED?: No Referrals: Vikram Patel MD [Primary Care Provider] - 1-2 days
[2019-01-17 14:16] VITALS: RESP 18
--- NOTE | 2019-01-17 15:24 | CT ---
CT CHEST FOR PULMONARY EMBOLISM. EXAMINATION TYPE: CT angio chest DATE OF EXAM: 01/17/2019 INDICATION: Trouble breathing CT DLP: 370.3 mGycm, Automated exposure control for dose reduction was used. CONTRAST: Patient injected with 100 mL of Isovue 370. COMPARISON: 06/30/2018 TECHNIQUE: CT of the chest is performed on a spiral scan at 2 mm thick sections. Study is performed with intravenous contrast timed for evaluation for pulmonary embolism. This will limit additional po rtions of the evaluation. 3-D MIP images reconstructed by the technologist are reviewed on the compu ter in the coronal and sagittal planes. FINDINGS: No persistent filling defects are evident to suggest an acute pulmonary embolism. Right heart strain is evident. No mediastinal or hilar adenopathy enlarged by CT criteria is evident. The ascending aorta diameter at the level of the main pulmonary artery is 3.7 cm. The main pulmonary artery diameter at the bifur cation is 2.4 cm. Lung windows are clear. Pneumatocele is in the upper anterior right lung. Limited CT sections through the upper abdomen. There is a 3.0 cm hypodensity within the right adrenal gland measuring -6 Hounsfield units. 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 IMPRESSIONS: 1. No acute pulmonary embolism.
[2019-01-17 16:07] VITALS: BP 106/77; PULSE 73; TEMP 97.7
== END 2019-01-17 16:07 | disposition home or self-care (01) ==
LOC: EC 11:01
DX: J44.1 Chronic obstructive pulmonary disease with (acute) exacerbation (principal); I25.10 Atherosclerotic heart disease of native coronary artery without angina pectoris; I25.2 Old myocardial infarction; E78.5 Hyperlipidemia, unspecified; Z79.82 Long term (current) use of aspirin; Z79.899 Other long term (current) drug therapy; Z88.1 Allergy status to other antibiotic agents; Z88.8 Allergy status to other drugs, medicaments and biological substances; Z88.5 Allergy status to narcotic agent; Z86.711 Personal history of pulmonary embolism; Z95.5 Presence of coronary angioplasty implant and graft
CPT/HCPCS: 36415; 94640; 93005; 83880; 80053; 83735; 84484; 85025; 85610; 85730; 71275; 99285; 96374; 96375; 96361 ×4; J2270; J1885

== ENCOUNTER 2019-03-22 12:42 | Emergency (ER) | payer MEDICARE, OTHER ==
[2019-03-22 12:47] VITALS: TEMP 98
[2019-03-22] MEDS ORDERED: ASPIRIN 81 MG PO STA (13:04)
[2019-03-22] MEDS ORDERED: MORPHINE SULFATE 4 MG/ML SYRINGE IV STA (13:04)
[2019-03-22] MEDS ORDERED: SODIUM CHLORIDE 0.9% 1,000 ML IV STA ×2 (13:04)
[2019-03-22] MEDS ORDERED: KETOROLAC 30 MG/ML 1 ML VIAL IVP STA (13:05)
--- NOTE | 2019-03-22 13:10 | ED ---
Recheck HPI - General Chief Complaint: Recheck/Abnormal Lab/Rx Stated Complaint: Hypertensive Time Seen by Provider: 03/22/19 12:49 Source: patient, RN notes reviewed, old records reviewed Mode of arrival: ambulatory Limitations: no limitations - History of Present Illness Initial Comments: Patient is a 48-year-old female who presents emergency department today with complaints of chronic neck pain, complaining of tingling down her arm. She also reports this morning she woke up with chest pain and did take a nitro with relief of her chest pain. Patient states that she seen her complaints coordinator recently and he increased her to take Motrin 600 for her neck pain. She is supposed to have surgery on her neck due to severe degenerative disc disease. Patient reports that she is having some chronic numbness and tingling in her arm, but was worried today because her pain was worse. She states that she also could feel that her blood pressure was elevated. Patient states that she has no chest pain at this time, as it was relieved after she had her nitro. She's had a heart attack in 2017 and has 2 coronary artery stents. Patient states her textbook associate Dr. Seo. - Related Data Home Medications Medication Instructions Recorded Confirmed Albuterol Inhaler [Ventolin Hfa 2 puff INHALATION RT-Q6H PRN 01/15/17 03/22/19 Inhaler] Aspirin EC [Ecotrin Low Dose] 81 mg PO DAILY 02/13/17 03/22/19 Omeprazole 20 mg PO DAILY 10/14/17 03/22/19 Rosuvastatin [Crestor] 20 mg PO DAILY 09/13/18 03/22/19 Acetaminophen/Diphenhydramine 2 tab PO HS 09/20/18 03/22/19 [Tylenol PM 500-25mg] Fish Oil/Dha/Epa [Fish Oil 1,200 1 cap PO DAILY 09/20/18 03/22/19 mg Fish Oil] Multivitamins, Thera [Multivitamin 1 tab PO DAILY 09/20/18 03/22/19 (formulary)] Glucosamine/Chondr Mead A Sod [Osteo 1 tab PO DAILY 03/22/19 03/22/19 Bi-Flex Caplet] Lisinopril [Zestril] 10 mg PO DAILY 03/22/19 03/22/19 Previous Rx's Medication Instructions Recorded Lisinopril [Zestril] 5 mg PO DAILY #30 tab 01/17/17 Metoprolol Tartrate [Lopressor] 25 mg PO BID #60 tab 01/17/17 Nitroglycerin Sl Tabs [Nitrostat] 0.4 mg SUBLINGUAL Q5M PRN #25 01/17/17 Escitalopram [Lexapro] 10 mg PO DAILY #30 tab 09/17/18 rOPINIRole HCL [Requip] 0.75 mg PO HS #30 tablet 09/17/18 Albuterol Nebulized [Ventolin 2.5 mg INHALATION Q4H PRN #25 nebu 01/17/19 Nebulized] Allergies Allergy/AdvReac Type Severity Reaction Status Date / Time erythromycin base AdvReac Nausea & Verified 03/22/19 13:05 [Erythromycin Base] Vomiting tramadol HCl [From Ultram] AdvReac Itching Verified 03/22/19 13:05 nicotine patch AdvReac Severe Hallucinati Uncoded 03/22/19 13:05 ons/NIGHTMA RES Review of Systems ROS Statement: Those systems with pertinent positive or pertinent negative responses have been documented in the HPI. ROS Other: All systems not noted in ROS Statement are negative. Past Medical History Past Medical History: Asthma, Coronary Artery Disease (CAD), COPD, Hyperlipidemia, Myocardial Infarction ([place]), Pulmonary Embolus (PE) Additional Past Medical History / Comment(s): Other hx: DIVERTICULITIS. RESTLESS LEG SYNDROME. DDD, BACK PAIN, osteoporsis, palpatations. Pulmonary embolism in 2017, insomnia Last Myocardial Infarction Date:: 01-15-17 History of Any Multi-Drug Resistant Organisms: None Reported Past Surgical History: Back Surgery, Bowel Resection, Cholecystectomy, Heart Catheterization With Stent, Hernia Repair, Tonsillectomy, Tubal Ligation Additional Past Surgical History / Comment(s): "HAD A FOOT OF BOWEL REMOVED"TEMPORARY COLOSTOMY, COLOSTOMY REVERSAL. "HAD 4 SX FOR INC HERNIA-HAS CLIP/MESH IN PLACE, BACK SURGERY 04/27, cyst taken off ovary, PCI with 2 stents in RCA, Epidural injections, left knee arthroscopy 06/2018 Past Anesthesia/Blood Transfusion Reactions: Postoperative Nausea & Vomiting (PONV) Additional Past Anesthesia/Blood Transfusion Reaction / Comment(s): anxiety upon awakening from anesthesia Date of Last Stent Placement:: 01-15-17 Past Psychological History: Anxiety, Bipolar, Depression Smoking Status: Current every day smoker Past Alcohol Use History: None Reported Past Drug Use History: None Reported - Past Family History Mother Family Medical History: Hyperlipidemia, Hypertension, Myocardial Infarction ([place]) Father Family Medical History: Hypertension Additional Family Medical History / Comment(s): per pt she thinks father has COPD of emphysema Sister(s) Family Medical History: No Reported History Brother(s) Family Medical History: No Reported History Daughter(s) Family Medical History: No Reported History Son(s) Family Medical History: No Reported History General Exam - General Exam Comments Initial Comments: 40-year-old female. Alert and oriented 3. Patient appears in mild to moderate discomfort. Limitations: no limitations General appearance: alert, in no apparent distress Head exam: Present: atraumatic, normocephalic, normal inspection Eye exam: Present: normal appearance, PERRL, EOMI. Absent: scleral icterus, conjunctival injection, periorbital swelling ENT exam: Present: normal exam Neck exam: Present: normal inspection, other. Absent: tenderness, meningismus, lymphadenopathy Respiratory exam: Present: normal lung sounds bilaterally. Absent: respiratory distress, wheezes, rales, rhonchi, stridor Cardiovascular Exam: Present: regular rate, normal rhythm, normal heart sounds. Absent: systolic murmur, diastolic murmur, rubs, gallop, clicks GI/Abdominal exam: Present: soft, normal bowel sounds. Absent: distended, tenderness, guarding, rebound, rigid Extremities exam: Present: normal inspection, full ROM, normal capillary refill. Absent: tenderness, pedal edema, joint swelling, calf tenderness Back exam: Present: normal inspection Neurological exam: Present: alert, oriented X3, CN II-XII intact Psychiatric exam: Present: normal affect, normal mood Skin exam: Present: warm, dry, intact, normal color. Absent: rash Course Vital Signs 03/22/19 03/22/19 12:44 14:00 Temperature 98.0 F Pulse Rate 62 49 L Respiratory 18 16 Rate Blood Pressure 157/100 127/97 O2 Sat by Pulse 100 98 Oximetry Medical Decision Making - Medical Decision Making Patient is a 40-year-old female with chief complaint of worsening chronic back pain with tingling to her arm. She states when she did wake up also complaining of chest pain. She states that she took a nitro did have relief of her chest pain. She's had a history of coronary artery disease and 2 stents in 2017. At this time patient's labs showed normal troponin and EKG shows normal sinus rhythm. Patient at this time has continued to complain of some chest discomfort rating a 7 out of 10 but she also relates that seems to be occasionally with movement. After multiple times a train to delineate treatment also skeletal or seeming to be cardiac chest pain Patient states it does seem to be deep burning to her heart. I did discuss that we give the Patient for observation and repeat troponin levels. Discussed this with Dr. Garrett who discussed case with Dr. Patel. - Lab Data Result diagrams: 03/22/19 13:00 03/22/19 13:00 Lab Results 03/22/19 03/22/19 03/22/19 Range/Units 13:00 13:00 13:00 WBC 6.4 (3.8-10.6) k/uL RBC 4.63 (3.80-5.40) m/uL Hgb 14.0 (11.4-16.0) gm/dL Hct 43.4 (34.0-46.0) % MCV 93.9 (80.0-100.0) fL MCH 30.3 (25.0-35.0) pg MCHC 32.3 (31.0-37.0) g/dL RDW 17.3 H (11.5-15.5) % Plt Count 326 (150-450) k/uL Neutrophils % 68 % Lymphocytes % 20 % Monocytes % 7 % Eosinophils % 3 % Basophils % 1 % Neutrophils # 4.3 (1.3-7.7) k/uL Lymphocytes # 1.3 (1.0-4.8) k/uL Monocytes # 0.4 (0-1.0) k/uL Eosinophils # 0.2 (0-0.7) k/uL Basophils # 0.0 (0-0.2) k/uL Anisocytosis Slight PT (9.0-12.0) sec INR (<1.2) APTT (22.0-30.0) sec Sodium 142 (137-145) mmol/L Potassium 4.1 (3.5-5.1) mmol/L Chloride 112 H (98-107) mmol/L Carbon Dioxide 22 (22-30) mmol/L Anion Gap 8 mmol/L BUN 11 (7-17) mg/dL Creatinine 0.56 (0.52-1.04) mg/dL Est GFR (CKD-EPI)AfAm >90 (>60 ml/min/1.73 sqM) Est GFR (CKD-EPI)NonAf >90 (>60 ml/min/1.73 sqM) Glucose 97 (74-99) mg/dL Calcium 9.9 (8.4-10.2) mg/dL Magnesium 1.7 (1.6-2.3) mg/dL Total Bilirubin 0.2 (0.2-1.3) mg/dL AST 21 (14-36) U/L ALT 25 (9-52) U/L Alkaline Phosphatase 82 (38-126) U/L Troponin I (0.000-0.034) ng/mL NT-Pro-B Natriuret Pep 77 pg/mL Total Protein 6.9 (6.3-8.2) g/dL Albumin 4.1 (3.5-5.0) g/dL 03/22/19 03/22/19 Range/Units 13:00 13:00 WBC (3.8-10.6) k/uL RBC (3.80-5.40) m/uL Hgb (11.4-16.0) gm/dL Hct (34.0-46.0) % MCV (80.0-100.0) fL MCH (25.0-35.0) pg MCHC (31.0-37.0) g/dL RDW (11.5-15.5) % Plt Count (150-450) k/uL Neutrophils % % Lymphocytes % % Monocytes % % Eosinophils % % Basophils % % Neutrophils # (1.3-7.7) k/uL Lymphocytes # (1.0-4.8) k/uL Monocytes # (0-1.0) k/uL Eosinophils # (0-0.7) k/uL Basophils # (0-0.2) k/uL Anisocytosis PT 9.7 (9.0-12.0) sec INR 0.9 (<1.2) APTT 22.4 (22.0-30.0) sec Sodium (137-145) mmol/L Potassium (3.5-5.1) mmol/L Chloride (98-107) mmol/L Carbon Dioxide (22-30) mmol/L Anion Gap mmol/L BUN (7-17) mg/dL Creatinine (0.52-1.04) mg/dL Est GFR (CKD-EPI)AfAm (>60 ml/min/1.73 sqM) Est GFR (CKD-EPI)NonAf (>60 ml/min/1.73 sqM) Glucose (74-99) mg/dL Calcium (8.4-10.2) mg/dL Magnesium (1.6-2.3) mg/dL Total Bilirubin (0.2-1.3) mg/dL AST (14-36) U/L ALT (9-52) U/L Alkaline Phosphatase (38-126) U/L Troponin I <0.012 (0.000-0.034) ng/mL NT-Pro-B Natriuret Pep pg/mL Total Protein (6.3-8.2) g/dL Albumin (3.5-5.0) g/dL 03/22/19 14:18 EKG shows sinus pericardia, normal sinus rhythm otherwise. Ventricular rate of 51 bpm. Intervals 164 ms. She mandaeism 84 ms. QT QTc is 436/401 ms. - Radiology Data Radiology results: report reviewed Chest x-ray is negative for any acute cardio primary process. Disposition Clinical Impression: Chest pain, DDD (degenerative disc disease), cervical Disposition: ADMITTED IP TO THIS HOSP Condition: Stable Is patient prescribed a controlled substance at d/c from ED?: No Referrals: Vikram Patel MD [Primary Care Provider] - 1-2 days Time of Disposition: 14:20
[2019-03-22 13:26] LABS: Anisocytosis Slight; Basophils % (A) 1 %; Eosinophils # (A) 0.2 k/uL (0-0.7); Eosinophils % (A) 3 %; HCT 43.4 % (34.0-46.0); Lymphocytes # (A) 1.3 k/uL (1.0-4.8); Lymphocytes % (A) 20 %; MCH 30.3 pg (25.0-35.0); MCHC 32.3 g/dL (31.0-37.0); MCV 93.9 fL (80.0-100.0); Mean Platelet Volume 6.5; Monocytes # (A) 0.4 k/uL (0-1.0); Monocytes % (A) 7 %; Neutrophils # (A) 4.3 k/uL (1.3-7.7); Neutrophils % (A) 68 %; Platelet Count 326 k/uL (150-450); RBC 4.63 m/uL (3.80-5.40); RDW 17.3 % (11.5-15.5); WBC 6.4 k/uL (3.8-10.6)
[2019-03-22 13:31] LABS: ALT 25 U/L (9-52); AST 21 U/L (14-36); African American GFR (CKD) >90 (>60 ml/min/1.73 sqM); Albumin 4.1 g/dL (3.5-5.0); Alkaline Phosphatase 82 U/L (38-126); Anion Gap 8 mmol/L; Blood Urea Nitrogen 11 mg/dL (7-17); Calcium 9.9 mg/dL (8.4-10.2); Carbon Dioxide 22 mmol/L (22-30); Chloride 112 mmol/L (98-107); Glucose 97 mg/dL (74-99); Magnesium 1.7 mg/dL (1.6-2.3); Potassium 4.1 mmol/L (3.5-5.1); Sodium 142 mmol/L (137-145); Total Bilirubin 0.2 mg/dL (0.2-1.3); Total Protein 6.9 g/dL (6.3-8.2)
[2019-03-22 13:33] LABS: INR 0.9 (<1.2); Partial Thromboplastin Time 22.4 sec (22.0-30.0); Prothrombin Time 9.7 sec (9.0-12.0)
--- NOTE | 2019-03-22 13:38 | XR ---
EXAMINATION TYPE: XR chest 2V DATE OF EXAM: 03/22/2019 COMPARISON: 09/13/2018 HISTORY: Chest pain TECHNIQUE: Frontal and lateral views of the chest are obtained. FINDINGS: There is no focal air space opacity, pleural effusion, or pneumothorax seen. The cardiac silhouette size is within normal limits. The osseous structures are intact. IMPRESSION: No acute cardiopulmonary process.
[2019-03-22] MEDS ORDERED: NITROGLYCERIN SL TABS 0.4 MG TAB SUBLINGUAL PRN (14:21)
[2019-03-22] MEDS ORDERED: MORPHINE SULFATE 4 MG/ML SYRINGE IV PRN (14:21)
[2019-03-22] MEDS ORDERED: HEPARIN SODIUM,PORCINE 5,000 UNIT/ML 1 ML VIAL IV ONE (14:21)
[2019-03-22] MEDS ORDERED: HEPARIN SOD,PORK IN 0.45% NACL 25,000 UNIT in 0.45% NACL 1 250ML.BAG IV SCH (14:30)
[2019-03-22 14:41] VITALS: BP 134/75; PULSE 47; RESP 27
[2019-03-22] MEDS ORDERED: ACET/COD 300 MG/30 MG STARTER PACK 6 TAB BTL PO STA (14:41)
--- NOTE | 2019-03-22 14:41 | ED ---
Medical Decision Making - Medical Decision Making After Dr. Garrett discussed this with Dr. Patel stated Patient does not need to be admitted and does exhibit drug-seeking tendencies. Patient can follow out patiently and follow-up with pain management for chronic back pain. Patient was informed of these new treatment plan and is agreeable. I discussed in any further worsening chest and she can always return to the ER for repeat evaluation. Patient understands treatment plan will comply. Return parameters were discussed. - Lab Data Result diagrams: 03/22/19 13:00 03/22/19 13:00 Lab Results 03/22/19 03/22/19 03/22/19 Range/Units 13:00 13:00 13:00 WBC 6.4 (3.8-10.6) k/uL RBC 4.63 (3.80-5.40) m/uL Hgb 14.0 (11.4-16.0) gm/dL Hct 43.4 (34.0-46.0) % MCV 93.9 (80.0-100.0) fL MCH 30.3 (25.0-35.0) pg MCHC 32.3 (31.0-37.0) g/dL RDW 17.3 H (11.5-15.5) % Plt Count 326 (150-450) k/uL Neutrophils % 68 % Lymphocytes % 20 % Monocytes % 7 % Eosinophils % 3 % Basophils % 1 % Neutrophils # 4.3 (1.3-7.7) k/uL Lymphocytes # 1.3 (1.0-4.8) k/uL Monocytes # 0.4 (0-1.0) k/uL Eosinophils # 0.2 (0-0.7) k/uL Basophils # 0.0 (0-0.2) k/uL Anisocytosis Slight PT (9.0-12.0) sec INR (<1.2) APTT (22.0-30.0) sec Sodium 142 (137-145) mmol/L Potassium 4.1 (3.5-5.1) mmol/L Chloride 112 H (98-107) mmol/L Carbon Dioxide 22 (22-30) mmol/L Anion Gap 8 mmol/L BUN 11 (7-17) mg/dL Creatinine 0.56 (0.52-1.04) mg/dL Est GFR (CKD-EPI)AfAm >90 (>60 ml/min/1.73 sqM) Est GFR (CKD-EPI)NonAf >90 (>60 ml/min/1.73 sqM) Glucose 97 (74-99) mg/dL Calcium 9.9 (8.4-10.2) mg/dL Magnesium 1.7 (1.6-2.3) mg/dL Total Bilirubin 0.2 (0.2-1.3) mg/dL AST 21 (14-36) U/L ALT 25 (9-52) U/L Alkaline Phosphatase 82 (38-126) U/L Troponin I (0.000-0.034) ng/mL NT-Pro-B Natriuret Pep 77 pg/mL Total Protein 6.9 (6.3-8.2) g/dL Albumin 4.1 (3.5-5.0) g/dL 03/22/19 03/22/19 Range/Units 13:00 13:00 WBC (3.8-10.6) k/uL RBC (3.80-5.40) m/uL Hgb (11.4-16.0) gm/dL Hct (34.0-46.0) % MCV (80.0-100.0) fL MCH (25.0-35.0) pg MCHC (31.0-37.0) g/dL RDW (11.5-15.5) % Plt Count (150-450) k/uL Neutrophils % % Lymphocytes % % Monocytes % % Eosinophils % % Basophils % % Neutrophils # (1.3-7.7) k/uL Lymphocytes # (1.0-4.8) k/uL Monocytes # (0-1.0) k/uL Eosinophils # (0-0.7) k/uL Basophils # (0-0.2) k/uL Anisocytosis PT 9.7 (9.0-12.0) sec INR 0.9 (<1.2) APTT 22.4 (22.0-30.0) sec Sodium (137-145) mmol/L Potassium (3.5-5.1) mmol/L Chloride (98-107) mmol/L Carbon Dioxide (22-30) mmol/L Anion Gap mmol/L BUN (7-17) mg/dL Creatinine (0.52-1.04) mg/dL Est GFR (CKD-EPI)AfAm (>60 ml/min/1.73 sqM) Est GFR (CKD-EPI)NonAf (>60 ml/min/1.73 sqM) Glucose (74-99) mg/dL Calcium (8.4-10.2) mg/dL Magnesium (1.6-2.3) mg/dL Total Bilirubin (0.2-1.3) mg/dL AST (14-36) U/L ALT (9-52) U/L Alkaline Phosphatase (38-126) U/L Troponin I <0.012 (0.000-0.034) ng/mL NT-Pro-B Natriuret Pep pg/mL Total Protein (6.3-8.2) g/dL Albumin (3.5-5.0) g/dL Disposition Clinical Impression: Chest pain, DDD (degenerative disc disease), cervical Disposition: HOME SELF-CARE Condition: Stable Instructions (If sedation given, give patient instructions): Neck Pain (ED) Additional Instructions: Please use medication as discussed. Please follow up with family doctor if symptoms have not improved over the next two days. Please return to the emergency room if your symptoms increase or worsen or for any other concerns. Is patient prescribed a controlled substance at d/c from ED?: No Referrals: Vikram Patel MD [Primary Care Provider] - 1-2 days Time of Disposition: 14:40
[2019-03-23] MEDS ORDERED: ASPIRIN 325 MG TAB PO SCH (09:00)
== END 2019-03-22 14:55 | disposition home or self-care (01) ==
LOC: EC 12:42
DX: M50.30 Other cervical disc degeneration, unspecified cervical region (principal); R07.89 Other chest pain; I25.10 Atherosclerotic heart disease of native coronary artery without angina pectoris; J44.9 Chronic obstructive pulmonary disease, unspecified; E78.5 Hyperlipidemia, unspecified; I25.2 Old myocardial infarction; F17.200 Nicotine dependence, unspecified, uncomplicated; Z79.82 Long term (current) use of aspirin; Z79.899 Other long term (current) drug therapy; Z88.1 Allergy status to other antibiotic agents; Z88.5 Allergy status to narcotic agent; Z88.8 Allergy status to other drugs, medicaments and biological substances; Z86.711 Personal history of pulmonary embolism; Z95.5 Presence of coronary angioplasty implant and graft
CPT/HCPCS: 36415; 93005; 83880; 80053; 83735; 84484; 85025; 85610; 85730; 71046; 99284; 96374; 96375; 96361; J2270; J1885

== ENCOUNTER 2019-05-06 09:59 | Emergency (ER) | payer MEDICARE, OTHER ==
[2019-05-06] MEDS ORDERED: KETOROLAC 30 MG/ML 1 ML VIAL IM STA (11:22)
[2019-05-06] MEDS ORDERED: CYCLOBENZAPRINE 10 MG TAB PO STA (11:23)
[2019-05-06] MEDS ORDERED: LIDOCAINE 5% PATCH TOPICAL STA (11:23)
--- NOTE | 2019-05-06 12:04 | ED ---
Back Pain HPI - General Chief Complaint: Back Pain/Injury Stated Complaint: back pain Time Seen by Provider: 05/06/19 10:39 Source: patient Limitations: no limitations - History of Present Illness Initial Comments: Patient is a 49-year-old female with history of back pain is presenting to emergency Department with a chief complaint of back pain. Patient reports that she recently had an MRI and was diagnosed with a pinched nerve in the cervical spine. She also reports a pinched nerve in the lumbar spine according to an MRI. Patient reports a few days ago she was lifting a couch to help her father and she developed sudden onset of pain in the left shoulder region. Patient reports the pain is exacerbated with motion of the left shoulder. Patient reports the pain is exacerbated with palpation as well. Patient reports the pain is sharp she is not able to sleep. Patient reports she had a similar episode before that went away only after several hours. Patient reports taking [id number] analgesics minimal improvement. Patient denies chest pain, shortness of breath, nausea, vomiting, abdominal pain, left has, dizziness or headache. - Related Data Home Medications Medication Instructions Recorded Confirmed Albuterol Inhaler [Ventolin Hfa 2 puff INHALATION RT-Q6H PRN 01/15/17 03/22/19 Inhaler] Aspirin EC [Ecotrin Low Dose] 81 mg PO DAILY 02/13/17 03/22/19 Omeprazole 20 mg PO DAILY 10/14/17 03/22/19 Rosuvastatin [Crestor] 20 mg PO DAILY 09/13/18 03/22/19 Acetaminophen/Diphenhydramine 2 tab PO HS 09/20/18 03/22/19 [Tylenol PM 500-25mg] Fish Oil/Dha/Epa [Fish Oil 1,200 1 cap PO DAILY 09/20/18 03/22/19 mg Fish Oil] Multivitamins, Thera [Multivitamin 1 tab PO DAILY 09/20/18 03/22/19 (formulary)] Glucosamine/Chondr Mead A Sod [Osteo 1 tab PO DAILY 03/22/19 03/22/19 Bi-Flex Caplet] Lisinopril [Zestril] 10 mg PO DAILY 03/22/19 03/22/19 Previous Rx's Medication Instructions Recorded Lisinopril [Zestril] 5 mg PO DAILY #30 tab 07/08/17 Metoprolol Tartrate [Lopressor] 25 mg PO BID #60 tab 01/17/17 Nitroglycerin Sl Tabs [Nitrostat] 0.4 mg SUBLINGUAL Q5M PRN #25 01/17/17 Escitalopram [Lexapro] 10 mg PO DAILY #30 tab 09/17/18 rOPINIRole HCL [Requip] 0.75 mg PO HS #30 tablet 09/17/18 Albuterol Nebulized [Ventolin 2.5 mg INHALATION Q4H PRN #25 nebu 01/17/19 Nebulized] Cyclobenzaprine [Flexeril] 10 mg PO TID PRN #15 tab 05/06/19 Famotidine [Pepcid] 20 mg PO BID #28 tablet 05/06/19 Lidocaine 4% Cream [Lmx 4] 1 applic TOPICAL DAILY #1 kit 05/06/19 Allergies Allergy/AdvReac Type Severity Reaction Status Date / Time erythromycin base AdvReac Nausea & Verified 05/06/19 10:29 [Erythromycin Base] Vomiting tramadol HCl [From Ultram] AdvReac Itching Verified 05/06/19 10:29 nicotine patch AdvReac Severe Hallucinati Uncoded 05/06/19 10:29 ons/NIGHTMA RES Review of Systems ROS Statement: Those systems with pertinent positive or pertinent negative responses have been documented in the HPI. ROS Other: All systems not noted in ROS Statement are negative. Past Medical History Past Medical History: Asthma, Coronary Artery Disease (CAD), COPD, Hyperlipidemia, Myocardial Infarction ([place]), Pulmonary Embolus (PE) Additional Past Medical History / Comment(s): Other hx: DIVERTICULITIS. RESTLESS LEG SYNDROME. DDD, BACK PAIN, osteoporsis, palpatations. Pulmonary embolism in 2017, insomnia Last Myocardial Infarction Date:: 01-15-17 History of Any Multi-Drug Resistant Organisms: None Reported Past Surgical History: Back Surgery, Bowel Resection, Cholecystectomy, Heart Catheterization With Stent, Hernia Repair, Tonsillectomy, Tubal Ligation Additional Past Surgical History / Comment(s): "HAD A FOOT OF BOWEL REMOVED"TEMPORARY COLOSTOMY, COLOSTOMY REVERSAL. "HAD 4 SX FOR INC HERNIA-HAS CLIP/MESH IN PLACE, BACK SURGERY 04/27, cyst taken off ovary, PCI with 2 stents in RCA, Epidural injections, left knee arthroscopy 06/2018 Past Anesthesia/Blood Transfusion Reactions: Postoperative Nausea & Vomiting (PONV) Additional Past Anesthesia/Blood Transfusion Reaction / Comment(s): anxiety upon awakening from anesthesia Date of Last Stent Placement:: 01-15-17 Past Psychological History: Anxiety, Bipolar, Depression Smoking Status: Current every day smoker Past Alcohol Use History: None Reported Past Drug Use History: None Reported - Past Family History Mother Family Medical History: Hyperlipidemia, Hypertension, Myocardial Infarction ([place]) Father Family Medical History: Hypertension Additional Family Medical History / Comment(s): per pt she thinks father has COPD of emphysema Sister(s) Family Medical History: No Reported History Brother(s) Family Medical History: No Reported History Daughter(s) Family Medical History: No Reported History Son(s) Family Medical History: No Reported History General Exam Limitations: no limitations General appearance: alert, in no apparent distress Head exam: Present: atraumatic, normocephalic, normal inspection Eye exam: Present: normal appearance Pupils: Present: normal accommodation ENT exam: Present: normal exam, mucous membranes moist, normal external ear exam Neck exam: Present: normal inspection, full ROM. Absent: tenderness Respiratory exam: Present: normal lung sounds bilaterally Cardiovascular Exam: Present: regular rate, normal rhythm, normal heart sounds GI/Abdominal exam: Present: soft. Absent: tenderness Extremities exam: Present: normal inspection, normal capillary refill, other (+2 ulnar and radial pulses bilaterally. +2 dorsalis pedis and posterior tibialis bilaterally.). Absent: full ROM (Limited range of motion in the left upper extremity due to pain around the left shoulder.) Back exam: Present: normal inspection, full ROM, tenderness (Left paraspinal tenderness in the lower cervical upper thoracic region.). Absent: vertebral tenderness Neurological exam: Present: alert, oriented X3 Psychiatric exam: Present: normal affect, normal mood Skin exam: Present: warm, intact, normal color Course Vital Signs 05/06/19 10:29 Temperature 98.0 F Pulse Rate 84 Respiratory 18 Rate Blood Pressure 169/100 O2 Sat by Pulse 97 Oximetry Medical Decision Making - Medical Decision Making Patient is a 49-year-old female with history of back pain is presenting to emergency Department with a chief complaint of back pain. Based on history and physical examination patient appears to only have tenderness in the left paraspinal region and the lower cervical upper thoracic region. No suspicion for dissection. Patient has no back pain pulses equal bilaterally in upper and lower showers. Patient was given Flexeril, Toradol and a Lidoderm patch. On reevaluation patient reports improvement in symptoms and she is able to comfortably move around. Patient does report limited range of motion of the left shoulder because is causing her to exacerbated the pain. Patient is requesting a sling. Patient will be discharged with Lidoderm cream, Flexeril a nd Pepcid in order to help with some of the abdominal discomfort whenever she takes NSAIDs. Strict return parameters were thoroughly discussed the patient was understanding and agreeable. Patient advised to follow with orthopedics. Case discussed physician. Disposition Clinical Impression: Back pain Disposition: HOME SELF-CARE Condition: Stable Instructions (If sedation given, give patient instructions): Acute Low Back Pain (ED) Additional Instructions: Please follow up with orthopedics. Please return to emergency department if symptoms worsen. Alternate between Tylenol and ibuprofen for pain control. Take Pepcid along with ibuprofen to alleviate some of the abdominal discomfort. Please return to emergency department if symptoms worsen. Prescriptions: Cyclobenzaprine [Flexeril] 10 mg PO TID PRN #15 tab PRN Reason: Muscle Spasm Lidocaine 4% Cream [Lmx 4] 1 applic TOPICAL DAILY #1 kit Famotidine [Pepcid] 20 mg PO BID #28 tablet Is patient prescribed a controlled substance at d/c from ED?: No Referrals: Vikram Patel MD [Primary Care Provider] - 1-2 days Jose Maria Thorpe MD [Medical Doctor] - 1-2 days Time of Disposition: 12:16
[2019-05-06] MEDS ORDERED: CYCLOBENZAPRINE 10MG STARTER 3 TAB BTL PO STA (12:11)
[2019-05-06 12:24] VITALS: BP 138/90; PULSE 79; RESP 20; TEMP 98
== END 2019-05-06 12:24 | disposition home or self-care (01) ==
LOC: EC 09:59
DX: M54.9 Dorsalgia, unspecified (principal); I25.10 Atherosclerotic heart disease of native coronary artery without angina pectoris; J44.9 Chronic obstructive pulmonary disease, unspecified; E78.5 Hyperlipidemia, unspecified; I25.2 Old myocardial infarction; F17.200 Nicotine dependence, unspecified, uncomplicated; Z79.82 Long term (current) use of aspirin; Z79.899 Other long term (current) drug therapy; Z88.1 Allergy status to other antibiotic agents; Z88.5 Allergy status to narcotic agent; Z88.8 Allergy status to other drugs, medicaments and biological substances; Z86.711 Personal history of pulmonary embolism; Z95.5 Presence of coronary angioplasty implant and graft
CPT/HCPCS: 99283; 96372; J1885

== ENCOUNTER → 2020-06-13 | Outpatient (CLI) | payer MEDICARE, OTHER ==
--- NOTE | 2020-06-14 02:06 | MR ---
EXAMINATION TYPE: MR lumbar spine wo/w con DATE OF EXAM: 06/13/2020 COMPARISON: 11/24/2016 HISTORY: LBP, BLE radiculopathy, prev surgery 2013 CONTRAST: Standard multiplanar, multisequence MRI departmental protocol utilizing 7.5 mL intravenous Gadavist g adolinium contrast. Lumbar vertebra have normal alignment. There is narrowing of disc spaces from L1 to L5. There is righ t side L4 laminectomy defect. I see no evidence of lumbar bony spinal stenosis. There is mild posteri or disc bulging from L1 to L5. Lumbar nerve roots appear normal. There is narrowing of the right side neural foramina at L2-3 and L3-4 due to disc space narrowing and facet arthropathy. Contrast images show no pathologic enhancement. Lumbar nerve roots show no pathologic enhancement. There is no parasp inal mass. The upper sacroiliac joints are intact. IMPRESSION: Previous surgery. Mild multilevel spondylotic changes. Small posterior disc herniations throughout th e lumbar spine without significant impingement on the neural elements. No adverse change compared to old exam.
--- NOTE | 2020-06-14 02:09 | MR ---
EXAMINATION TYPE: MR shoulder LT wo con DATE OF EXAM: 06/13/2020 COMPARISON: None HISTORY: Left shoulder pain, limited ROM x 1 year Multiplanar multiecho imaging of the right shoulder was performed without contrast. There is hypertrophic spurring at the AC joint. There is mild subacromial impingement due to spur for mation. The supraspinatus tendon is intact. There is no retraction. There is small amount of fluid in the subacromial subdeltoid bursa. The subscapularis tendon is intact. Biceps tendon is intact. Glenoid ryan appear intact. I see no cecil ny destructive process. There is no evidence of a fracture. IMPRESSION: There is subacromial subdeltoid fluid consistent with bursitis. No evidence of rotator cuff tear. Mild spurring at the AC joint and mild subacromial impingement.
== END | disposition home or self-care (01) ==
LOC: RADMRIMAIN 20:46
PROVIDERS: ATTEND Anesthesiology
DX: M51.26 Other intervertebral disc displacement, lumbar region (principal); M47.816 Spondylosis without myelopathy or radiculopathy, lumbar region; M19.012 Primary osteoarthritis, left shoulder; M25.812 Other specified joint disorders, left shoulder
CPT/HCPCS: 72158; 73221; A9585

== ENCOUNTER → 2021-09-05 | Outpatient (CLI) | payer MEDICARE, OTHER ==
--- NOTE | 2021-09-05 10:31 | XR ---
Right hip HISTORY: M 96.1 2 views of the right hip Bone mineralization, joint spaces and alignment are maintained. Probable phleboliths noted in the pel vis. IMPRESSION: Normal right hip.
--- NOTE | 2021-09-05 14:07 | MR ---
EXAMINATION TYPE: MR lumbar spine wo con DATE OF EXAM: 09/05/2021 COMPARISON: 06/13/2020 HISTORY: 51-year-old female LBP, RLE radiculopathy, prior surgery 2014. TECHNIQUE: Multiplanar, multisequence images of the lumbar spine were acquired without IV contrast. FINDINGS: Vertebral body heights are preserved. Conus medullaris is normal. Benign fatty matrix hemangioma within the L5 vertebral body. There is a progressive degenerated levoconvex scoliosis of the lumbar spine now with extensive edemat ous Modic type I endplate change towards the right at L2-L3. Progressive mixed Modic type I and type II degenerative endplate change towards the left at L4-L5. Moderate degenerative disc disease charact erized by a desiccated, narrowed, and bulging disks throughout, progressed from prior exam. Multilevel advanced hypertrophic facet arthropathy and ligamentum flavum thickening is noted. There is grade 1 retrolisthesis L1-L2 and L2-L3. Trace grade 1 anterolisthesis T11-T12 is unchanged. At T11-T12, hypertrophic facet arthropathy with trace grade 1 anterolisthesis and bulging disc. Mild overall narrowing of the spinal canal without cord compression. There is moderate left neural foramin al stenosis with possible abutment of the exiting left T11 nerve root. At T12-L1, mild disc bulge and ligamentum flavum thickening without canal or foraminal stenosis. At L1-L2, diffuse disc bulge with a facet arthropathy. Trace grade 1 anterolisthesis. Changes result in moderate left neuroforaminal stenosis. There is disc material impressing on the ventral thecal sac without significant spinal canal stenosis. At L2-L3, facet arthropathy with ligamentum flavum thickening, diffuse disc bulge, and great 1 retrol isthesis. Progressive disc/endplate degenerative change at this level especially towards the right. T here is slightly progressed mild overall narrowing of the spinal canal here along with increased mode rate right neuroforaminal stenosis. At L3-L4, disc bulge with facet arthropathy. Mild impression on the ventral thecal sac without signif icant spinal canal stenosis. There is moderate right neuroforaminal stenosis. At L4-L5, diffuse disc bulge with superimposed left paracentral and intraforaminal disc protrusion wh ich contributes to a increased moderate to severe left neuroforaminal stenosis and left lateral reces s stenosis. Hypertrophic facet arthropathy and ligamentum flavum thickening. Previous right-sided bernabe inotomy change at this level. Mild right neural foraminal stenosis here. At L5-S1, ligamentum flavum thickening and facet arthropathy. No spinal canal stenosis. Mild overall left neuroforaminal stenosis. No prevertebral or paravertebral soft tissue abnormality seen. Incidental circumaortic left renal vei n. IMPRESSION: 1. Previous right L4 laminotomy and a degenerated levoconvex scoliosis of the lumbar spine with progr essive moderate multilevel degenerative disc disease and now with extensive edematous Modic type I en dplate change towards the right at L2-L3. Mixed Modic type I and type II endplate change toward the l eft at L4-L5 is similar to slightly progressed. 2. Multilevel hypertrophic facet arthropathy with degenerative grade 1 anterolisthesis T11-T12 and gr chayo 1 retrolisthesis L1-L2 and L2-L3, unchanged. 3. Impression onto the ventral thecal sac from bulging discs mildly narrowing the spinal canal at a f ew levels but without any significant spinal canal stenosis. 4. At L4-L5, a left paracentral and intraforaminal disc protrusion has enlarged. There is increased m oderate to severe left neuroforaminal stenosis and left lateral recess stenosis here. 5. Levels of moderate neuroforaminal stenoses as outlined above.
== END | disposition home or self-care (01) ==
LOC: RADMRIMAIN 10:06
PROVIDERS: ATTEND Anesthesiology
DX: M51.16 Intervertebral disc disorders with radiculopathy, lumbar region (principal); M47.26 Other spondylosis with radiculopathy, lumbar region; M43.16 Spondylolisthesis, lumbar region; M43.14 Spondylolisthesis, thoracic region; M96.1 Postlaminectomy syndrome, not elsewhere classified; M99.73 Connective tissue and disc stenosis of intervertebral foramina of lumbar region
CPT/HCPCS: 72148; 73502

== ENCOUNTER 2022-10-24 17:44 | Emergency (ER) | payer MEDICARE, OTHER ==
[2022-10-24 17:51] VITALS: BP 156/72; PULSE 116; RESP 24; TEMP 98.4
[2022-10-24] MEDS ORDERED: SODIUM CHLORIDE 0.9% 1,000 ML IV STA (19:33)
[2022-10-24] MEDS ORDERED: KETOROLAC 15 MG/ML 1 ML VIAL IVP STA (19:35)
--- NOTE | 2022-10-24 19:40 | ED ---
General Adult HPI - General Chief complaint: Chest Pain Stated complaint: CHEST PAIN Time Seen by Provider: 10/24/22 19:26 Source: patient Mode of arrival: wheelchair Limitations: no limitations - History of Present Illness Initial comments: Patient is a 52-year-old female presenting to the emergency room with multiple vague complaints ongoing for various durations. Unfortunately when asking questions she gives different answers and does not correlate any histories consistently. She initially told triage that she was having chest pain however she denies any chest pain at this time. She is reporting shortness of breath cough and congestion ongoing for approximately 5 days and states that her daughter gave her Covid test at home today which was negative. She is also complaining of "kidney pain and pressure however when further questioned regarding this patient she points to her left lower abdomen. She reports that the pain starts left lower mid abdomen and radiates posteriorly to her flank. She reports that she has a history of gastritis and diverticulitis and sees Dr. holguin. She reports a history of IBS with issues of constipation and diarrhea with current complaints of constipation for the last 3 days. She reports nausea without vomiting. She is evasive when asked about fevers or chills. She reports that in response to her pain that she is having including a headache that she took 2 aspirin and Tylenol PM but is unable to say when she took these medications. She reports that she has not urinated all day today in that she is having difficulty producing saliva despite moist mucous membranes. In addition to her diverticulitis and irritable bowel syndrome history she has a past medical history significant for asthma, COPD, CAD, hyperlipidemia, AL and pulmonary emboli. - Related Data Home Medications Medication Instructions Recorded Confirmed Albuterol Inhaler [Ventolin Hfa 2 puff INHALATION RT-Q6H PRN 01/15/17 03/22/19 Inhaler] Aspirin EC [Ecotrin Low Dose] 81 mg PO DAILY 02/13/17 03/22/19 Omeprazole 20 mg PO DAILY 10/14/17 03/22/19 Rosuvastatin [Crestor] 20 mg PO DAILY 09/13/18 03/22/19 Acetaminophen/Diphenhydramine 2 tab PO HS 09/20/18 03/22/19 [Tylenol PM 500-25mg] Fish Oil/Dha/Epa [Fish Oil 1,200 1 cap PO DAILY 09/20/18 03/22/19 mg Fish Oil] Multivitamins, Thera [Multivitamin 1 tab PO DAILY 09/20/18 03/22/19 (formulary)] Glucosamine/Chondr Mead A Sod [Osteo 1 tab PO DAILY 03/22/19 03/22/19 Bi-Flex Caplet] lisinopriL [Zestril] 10 mg PO DAILY 03/22/19 03/22/19 Previous Rx's Medication Instructions Recorded Metoprolol Tartrate [Lopressor] 25 mg PO BID #60 tab 01/17/17 Nitroglycerin Sl Tabs [Nitrostat] 0.4 mg SUBLINGUAL Q5M PRN #25 01/17/17 lisinopriL [Zestril] 5 mg PO DAILY #30 tab 01/17/17 Escitalopram [Lexapro] 10 mg PO DAILY #30 tab 09/17/18 rOPINIRole HCL [Requip] 0.75 mg PO HS #30 tablet 09/17/18 Albuterol Nebulized [Ventolin 2.5 mg INHALATION Q4H PRN #25 nebu 01/17/19 Nebulized] Cyclobenzaprine [Flexeril] 10 mg PO TID PRN #15 tab 05/06/19 Famotidine [Pepcid] 20 mg PO BID #28 tablet 05/06/19 Lidocaine 4% Cream [Lmx 4] 1 applic TOPICAL DAILY #1 kit 05/06/19 Allergies Allergy/AdvReac Type Severity Reaction Status Date / Time erythromycin base AdvReac Nausea & Verified 10/24/22 17:51 [Erythromycin Base] Vomiting tramadol HCl [From Ultram] AdvReac Itching Verified 10/24/22 17:51 nicotine patch AdvReac Severe Hallucinati Uncoded 10/24/22 17:51 ons/NIGHTMA RES Review of Systems ROS Statement: Those systems with pertinent positive or pertinent negative responses have been documented in the HPI. ROS Other: All systems not noted in ROS Statement are negative. Past Medical History Past Medical History: Asthma, Coronary Artery Disease (CAD), COPD, Hyperlipidemia, Myocardial Infarction (AL), Pulmonary Embolus (PE) Additional Past Medical History / Comment(s): Other hx: DIVERTICULITIS. RESTLESS LEG SYNDROME. DDD, BACK PAIN, osteoporsis, palpatations. Pulmonary embolism in 2017, insomnia Last Myocardial Infarction Date:: 01-15-17 History of Any Multi-Drug Resistant Organisms: None Reported Past Surgical History: Back Surgery, Bowel Resection, Cholecystectomy, Heart Catheterization With Stent, Hernia Repair, Tonsillectomy, Tubal Ligation Additional Past Surgical History / Comment(s): "HAD A FOOT OF BOWEL REMOVED"TEMPORARY COLOSTOMY, COLOSTOMY REVERSAL. "HAD 4 SX FOR INC HERNIA-HAS CLIP/MESH IN PLACE, BACK SURGERY 04/27, cyst taken off ovary, PCI with 2 stents in RCA, Epidural injections, left knee arthroscopy 06/2018 Past Anesthesia/Blood Transfusion Reactions: Postoperative Nausea & Vomiting (PONV) Additional Past Anesthesia/Blood Transfusion Reaction / Comment(s): anxiety upon awakening from anesthesia Date of Last Stent Placement:: 01-15-17 Past Psychological History: Anxiety, Bipolar, Depression Smoking Status: Current every day smoker Past Alcohol Use History: None Reported Past Drug Use History: Marijuana - Past Family History Mother Family Medical History: Hyperlipidemia, Hypertension, Myocardial Infarction (AL) Father Family Medical History: Hypertension Additional Family Medical History / Comment(s): per pt she thinks father has COPD of emphysema Sister(s) Family Medical History: No Reported History Brother(s) Family Medical History: No Reported History Daughter(s) Family Medical History: No Reported History Son(s) Family Medical History: No Reported History General Exam Limitations: no limitations General appearance: alert, in no apparent distress, anxious Head exam: Present: atraumatic, normocephalic, normal inspection Eye exam: Present: normal appearance, PERRL, EOMI. Absent: scleral icterus, conjunctival injection, periorbital swelling ENT exam: Present: normal exam, mucous membranes moist Neck exam: Present: normal inspection, full ROM Respiratory exam: Present: other (Diminished bibasilar otherwise clear to auscultation). Absent: respiratory distress, wheezes, rales, rhonchi, stridor, accessory muscle use Cardiovascular Exam: Present: regular rate, tachycardia (Mild), normal heart sounds. Absent: systolic murmur, diastolic murmur, rubs, gallop, clicks GI/Abdominal exam: Present: soft, tenderness (Left lower quadrant). Absent: distended, guarding, rebound Rectal exam: Present: deferred Extremities exam: Present: normal inspection. Absent: pedal edema, joint swelling Back exam: Present: normal inspection Neurological exam: Present: alert, oriented X3, CN II-XII intact Psychiatric exam: Present: anxious Expanded Focused psych exam: Present: restlessness, flight of ideas Skin exam: Present: warm, dry, intact, normal color. Absent: rash Course Vital Signs 10/24/22 17:48 Temperature 98.4 F Pulse Rate 116 H Respiratory 24 Rate Blood Pressure 156/72 O2 Sat by Pulse 99 Oximetry Medical Decision Making - Medical Decision Making Patient chose to leave AGAINST MEDICAL ADVICE prior to resulting of all laboratory studies, diagnostic imaging and review of this information with patient. - Lab Data Result diagrams: 10/24/22 18:45 10/24/22 18:45 Lab Results 10/24/22 10/24/22 10/24/22 Range/Units 18:45 18:45 18:45 WBC 17.9 H (3.8-10.6) k/uL RBC 4.20 (3.80-5.40) m/uL Hgb 13.4 (11.4-16.0) gm/dL Hct 39.5 (34.0-46.0) % MCV 94.1 (80.0-100.0) fL MCH 32.0 (25.0-35.0) pg MCHC 34.0 (31.0-37.0) g/dL RDW 15.1 (11.5-15.5) % Plt Count 406 (150-450) k/uL MPV 7.6 Neutrophils % 76 % Lymphocytes % 16 % Monocytes % 7 % Eosinophils % 0 % Basophils % 0 % Neutrophils # 13.6 H (1.3-7.7) k/uL Lymphocytes # 2.8 (1.0-4.8) k/uL Monocytes # 1.2 H (0-1.0) k/uL Eosinophils # 0.0 (0-0.7) k/uL Basophils # 0.0 (0-0.2) k/uL Sodium 136 L (137-145) mmol/L Potassium 3.2 L (3.5-5.1) mmol/L Chloride 104 (98-107) mmol/L Carbon Dioxide 20 L (22-30) mmol/L Anion Gap 12 mmol/L BUN 17 (7-17) mg/dL Creatinine 0.97 (0.52-1.04) mg/dL Est GFR (CKD-EPI)AfAm 78 (>60 ml/min/1.73 sqM) Est GFR (CKD-EPI)NonAf 68 (>60 ml/min/1.73 sqM) Glucose 126 H (74-99) mg/dL Plasma Lactic Acid Jethro (0.7-2.0) mmol/L Calcium 9.5 (8.4-10.2) mg/dL Total Bilirubin 0.3 (0.2-1.3) mg/dL AST 26 (14-36) U/L ALT 31 (4-34) U/L Alkaline Phosphatase 71 (38-126) U/L Troponin I 0.013 (0.000-0.034) ng/mL NT-Pro-B Natriuret Pep pg/mL Total Protein 7.2 (6.3-8.2) g/dL Albumin 4.5 (3.5-5.0) g/dL Urine Color Urine Appearance (Clear) Urine pH (5.0-8.0) Ur Specific [place] (1.001-1.035) Urine Protein (Negative) Urine Glucose (UA) (Negative) Urine Ketones (Negative) Urine Blood (Negative) Urine Nitrite (Negative) Urine Bilirubin (Negative) Urine Urobilinogen (<2.0) mg/dL Ur Leukocyte Esterase (Negative) Urine RBC (0-5) /hpf Urine WBC (0-5) /hpf Ur Squamous Epith Cells (0-4) /hpf Hyaline Casts (0-2) /lpf Urine Mucus (None) /hpf 10/24/22 10/24/22 10/24/22 Range/Units 18:45 19:50 19:59 WBC (3.8-10.6) k/uL RBC (3.80-5.40) m/uL Hgb (11.4-16.0) gm/dL Hct (34.0-46.0) % MCV (80.0-100.0) fL MCH (25.0-35.0) pg MCHC (31.0-37.0) g/dL RDW (11.5-15.5) % Plt Count (150-450) k/uL MPV Neutrophils % % Lymphocytes % % Monocytes % % Eosinophils % % Basophils % % Neutrophils # (1.3-7.7) k/uL Lymphocytes # (1.0-4.8) k/uL Monocytes # (0-1.0) k/uL Eosinophils # (0-0.7) k/uL Basophils # (0-0.2) k/uL Sodium (137-145) mmol/L Potassium (3.5-5.1) mmol/L Chloride (98-107) mmol/L Carbon Dioxide (22-30) mmol/L Anion Gap mmol/L BUN (7-17) mg/dL Creatinine (0.52-1.04) mg/dL Est GFR (CKD-EPI)AfAm (>60 ml/min/1.73 sqM) Est GFR (CKD-EPI)NonAf (>60 ml/min/1.73 sqM) Glucose (74-99) mg/dL Plasma Lactic Acid Jethro 1.2 (0.7-2.0) mmol/L Calcium (8.4-10.2) mg/dL Total Bilirubin (0.2-1.3) mg/dL AST (14-36) U/L ALT (4-34) U/L Alkaline Phosphatase (38-126) U/L Troponin I (0.000-0.034) ng/mL NT-Pro-B Natriuret Pep 397 pg/mL Total Protein (6.3-8.2) g/dL Albumin (3.5-5.0) g/dL Urine Color Yellow Urine Appearance Clear (Clear) Urine pH 5.5 (5.0-8.0) Ur Specific [place] 1.033 (1.001-1.035) Urine Protein 1+ H (Negative) Urine Glucose (UA) Negative (Negative) Urine Ketones Negative (Negative) Urine Blood Negative (Negative) Urine Nitrite Negative (Negative) Urine Bilirubin Negative (Negative) Urine Urobilinogen 2.0 (<2.0) mg/dL Ur Leukocyte Esterase Trace H (Negative) Urine RBC <1 (0-5) /hpf Urine WBC 4 (0-5) /hpf Ur Squamous Epith Cells 3 (0-4) /hpf Hyaline Casts 87 H (0-2) /lpf Urine Mucus Few H (None) /hpf - EKG Data -: EKG Interpreted by Al EKG Comments: Sinus rhythm, ventricular rate 89 bpm, RI interval 152 ms, QRS duration 90 ms, QT/QTC 337/384 ms, PRT axes 53, 75, 43 Disposition Clinical Impression: Left lower quadrant abdominal pain Disposition: Left Against Medical Advice Referrals: Duane Branch MD [Primary Care Provider] - 1-2 days
--- NOTE | 2022-10-24 20:17 | XR ---
EXAMINATION TYPE: XR chest 2V DATE OF EXAM: 10/24/2022 8:12 PM COMPARISON: Chest radiographs from 03/22/2019 TECHNIQUE: XR chest 2V Frontal and lateral views of the chest. CLINICAL INDICATION:Female, 52 years old with history of difficulty breathing; FINDINGS: Lungs/Pleura: There is no evidence of pleural effusion, focal consolidation, or pneumothorax. Pulmonary vascularity: Unremarkable. Heart/mediastinum: Cardiomediastinal silhouette is unremarkable. Musculoskeletal: No acute osseous pathology. IMPRESSION: No acute cardiopulmonary disease/process.
[2022-10-24 20:23] LABS: Basophils % (A) 0 %; Eosinophils % (A) 0 %; HCT 39.5 % (34.0-46.0); HGB 13.4 gm/dL (11.4-16.0); Lymphocytes # (A) 2.8 k/uL (1.0-4.8); Lymphocytes % (A) 16 %; MCV 94.1 fL (80.0-100.0); Mean Platelet Volume 7.6; Monocytes # (A) 1.2 k/uL (0-1.0); Monocytes % (A) 7 %; Neutrophils # (A) 13.6 k/uL (1.3-7.7); Neutrophils % (A) 76 %; Platelet Count 406 k/uL (150-450); RDW 15.1 % (11.5-15.5); WBC 17.9 k/uL (3.8-10.6)
[2022-10-24 20:37] LABS: Albumin 4.5 g/dL (3.5-5.0); Calcium 9.5 mg/dL (8.4-10.2); Potassium 3.2 mmol/L (3.5-5.1); Total Bilirubin 0.3 mg/dL (0.2-1.3); Total Protein 7.2 g/dL (6.3-8.2)
[2022-10-24 20:43] LABS: Appearance,Urine Clear (Clear); Bilirubin,Urine Negative (Negative); Blood,Urine Negative (Negative); Color,Urine Yellow; Glucose,Urine (UA) Negative (Negative); Hyaline Casts,Urine 87 /lpf (0-2); Ketones,Urine Negative (Negative); Leukocyte Esterase,Urine Trace (Negative); Mucus,Urine Few /hpf; Nitrite,Urine Negative (Negative); PH, Urine 5.5 (5.0-8.0); Protein,Urine 1+ (Negative); RBC,Urine <1 /hpf (0-5); Specific Gravity,Urine 1.033 (1.001-1.035); Squamous Epithelial Cell,Urine 3 /hpf (0-4); WBC,Urine 4 /hpf (0-5)
--- NOTE | 2022-10-24 20:57 | CT ---
EXAMINATION TYPE: CT abdomen pelvis w con CT DLP: 1158.3 mGycm, Automated exposure control for dose reduction was used. DATE OF EXAM: 10/24/2022 8:27 PM COMPARISON: CT abdomen pelvis most recent from 09/03/2015. CLINICAL INDICATION:Female, 52 years old with history of abdominal pain; LLQ abdominal pain TECHNIQUE: Axial CT of the abdomen and pelvis. Sagittal and coronal reformats were created on a [employer] workstation. Contrast used:100 cc mL of Isovue 300 with IV Contrast, Oral contrast used: without Oral Contrast FINDINGS: LOWER CHEST: Unremarkable ABDOMEN LIVER: Unremarkable GALLBLADDER AND BILE DUCTS: Gallbladder is surgically absent with mild intrahepatic and extra hepatic biliary dilatation likely physiologic and a postcholecystectomy change. No evidence of choledocholit hiasis. PANCREAS: Unremarkable. SPLEEN: Splenosis present. ADRENAL GLANDS: 3.8 cm right adrenal nodule with 14 Hounsfield units on noncontrast exam on prior on 02/10/2014 this is smaller measuring up to 2.6 cm. KIDNEYS AND URETERS: No evidence of hydronephrosis or renal calculus. The ureters are unremarkable. PELVIS BLADDER: Unremarkable REPRODUCTIVE: Unremarkable. ABDOMEN & PELVIS STOMACH AND BOWEL: No evidence of bowel obstruction. The appendix is normal. There is some irregular rectal wall thickening around the anastomotic site at the rectosigmoid junction. PERITONEUM/RETROPERITONEUM: No evidence of pneumoperitoneum or free fluid. VASCULATURE: Mild atherosclerotic calcifications are present throughout the abdominal aorta and its b ranches. No evidence of aortic aneurysm. MUSCULOSKELETAL: No acute osseous abnormalities, scoliosis changes to the spine. Levoscoliosis apex L 2-L3. LYMPH NODES: No gross evidence for lymphadenopathy. SOFT TISSUE/ABDOMINAL WALL: There is a left abdominal wall hernia hernia which fat extends into the r ectal wall itself. Previously this is larger on prior and 14. Multiple additional ventral wall fat-co ntaining hernias. IMPRESSION: 1. Left lower quadrant fat-containing ventral wall hernia with fat extending into the abdominal wall . No additional finding to correlate patient's pain. No obstructive uropathy. No colitis/diverticulit is. 2. Indeterminate right adrenal nodule which is increase in size from 2014. Likely represents benign lipid rich adrenal adenoma. 3. Multiple ventral wall fat-containing hernias.
== END 2022-10-24 21:23 | disposition left against medical advice (07) ==
LOC: SUPCPDRO 17:44 → EC 17:44
DX: R10.32 Left lower quadrant pain (principal); I25.10 Atherosclerotic heart disease of native coronary artery without angina pectoris; J44.9 Chronic obstructive pulmonary disease, unspecified; I25.2 Old myocardial infarction; E78.5 Hyperlipidemia, unspecified; F41.9 Anxiety disorder, unspecified; F31.9 Bipolar disorder, unspecified; F17.200 Nicotine dependence, unspecified, uncomplicated; F12.90 Cannabis use, unspecified, uncomplicated; Z86.711 Personal history of pulmonary embolism; Z79.82 Long term (current) use of aspirin; Z79.899 Other long term (current) drug therapy; Z88.6 Allergy status to analgesic agent; Z88.8 Allergy status to other drugs, medicaments and biological substances; Z53.29 Procedure and treatment not carried out because of patient's decision for other reasons
CPT/HCPCS: 99285 ×2; 96360 ×2; 36415; 93005; 83880; 80053; 83605; 84484; 85025; 81001; 87040; 87077; 87186; 87636; 71046; 74177; Q9967

== ENCOUNTER 2022-10-25 18:02 | Emergency (ER) | payer MEDICARE, OTHER ==
[2022-10-25 18:08] VITALS: BP 138/98; PULSE 94; RESP 20; TEMP 99.4
[2022-10-25] MEDS ORDERED: VANCOMYCIN IV PER PHARMACY 1 EACH MISC MISCELLANE PRN (18:47)
[2022-10-25] MEDS ORDERED: SODIUM CHLORIDE 0.9% 500 ML 500 ML IV ONE (18:47)
[2022-10-25 18:57] LABS: Basophils % (A) 0 %; Eosinophils # (A) 0.2 k/uL (0-0.7); Eosinophils % (A) 2 %; HCT 39.6 % (34.0-46.0); Lymphocytes # (A) 2.4 k/uL (1.0-4.8); Lymphocytes % (A) 26 %; MCH 31.3 pg (25.0-35.0); MCHC 32.9 g/dL (31.0-37.0); MCV 95.2 fL (80.0-100.0); Mean Platelet Volume 6.9; Monocytes # (A) 0.5 k/uL (0-1.0); Monocytes % (A) 6 %; Neutrophils % (A) 65 %; Platelet Count 416 k/uL (150-450); RBC 4.16 m/uL (3.80-5.40); WBC 9.3 k/uL (3.8-10.6)
[2022-10-25 19:06] LABS: ALT 27 U/L (4-34); AST 22 U/L (14-36); African American GFR (CKD) >90 (>60 ml/min/1.73 sqM); Alkaline Phosphatase 70 U/L (38-126); Anion Gap 6 mmol/L; Blood Urea Nitrogen 17 mg/dL (7-17); Calcium 9.5 mg/dL (8.4-10.2); Carbon Dioxide 22 mmol/L (22-30); Chloride 109 mmol/L (98-107); Glucose 105 mg/dL (74-99); Non-African American GFR(CKD) >90 (>60 ml/min/1.73 sqM); Sodium 137 mmol/L (137-145); Total Bilirubin 0.3 mg/dL (0.2-1.3); Total Protein 6.5 g/dL (6.3-8.2)
[2022-10-25] MEDS ORDERED: cefTRIAXone IN SWFI 1,000 MG/10 ML SYRINGE IVP STA (19:17)
--- NOTE | 2022-10-25 19:56 | ED ---
Recheck HPI - General Chief Complaint: Recheck/Abnormal Lab/Rx Stated Complaint: abd labs Time Seen by Provider: 10/25/22 18:12 Source: patient Mode of arrival: wheelchair Limitations: no limitations - History of Present Illness Initial Comments: Patient is a 52-[facility]. Patient was evaluated in our ER yesterday for complaints of "kidney pain". Upon further questioning it is determined that she is actually experiencing left lower quadrant pain. Has been ongoing for weeks. Patient left AGAINST MEDICAL ADVICE last night prior to discussing her lab work and imaging results. The patient's history is confusing, as she admits to and then denies some symptoms. No fevers or chills. No dysuria or hematuria. No current chest pain, difficulty breathing, palpitations. No nausea or vomiting. - Related Data Home Medications Medication Instructions Recorded Confirmed Albuterol Inhaler [Ventolin Hfa 2 puff INHALATION RT-Q6H PRN 01/15/17 03/22/19 Inhaler] Aspirin EC [Ecotrin Low Dose] 81 mg PO DAILY 02/13/17 03/22/19 Omeprazole 20 mg PO DAILY 10/14/17 03/22/19 Rosuvastatin [Crestor] 20 mg PO DAILY 09/13/18 03/22/19 Acetaminophen/Diphenhydramine 2 tab PO HS 09/20/18 03/22/19 [Tylenol PM 500-25mg] Fish Oil/Dha/Epa [Fish Oil 1,200 1 cap PO DAILY 09/20/18 03/22/19 mg Fish Oil] Multivitamins, Thera [Multivitamin 1 tab PO DAILY 09/20/18 03/22/19 (formulary)] Glucosamine/Chondr Mead A Sod [Osteo 1 tab PO DAILY 03/22/19 03/22/19 Bi-Flex Caplet] lisinopriL [Zestril] 10 mg PO DAILY 03/22/19 03/22/19 Previous Rx's Medication Instructions Recorded Metoprolol Tartrate [Lopressor] 25 mg PO BID #60 tab 01/17/17 Nitroglycerin Sl Tabs [Nitrostat] 0.4 mg SUBLINGUAL Q5M PRN #25 01/17/17 lisinopriL [Zestril] 5 mg PO DAILY #30 tab 01/17/17 Escitalopram [Lexapro] 10 mg PO DAILY #30 tab 09/17/18 rOPINIRole HCL [Requip] 0.75 mg PO HS #30 tablet 09/17/18 Albuterol Nebulized [Ventolin 2.5 mg INHALATION Q4H PRN #25 nebu 01/17/19 Nebulized] Cyclobenzaprine [Flexeril] 10 mg PO TID PRN #15 tab 05/06/19 Famotidine [Pepcid] 20 mg PO BID #28 tablet 05/06/19 Lidocaine 4% Cream [Lmx 4] 1 applic TOPICAL DAILY #1 kit 05/06/19 Allergies Allergy/AdvReac Type Severity Reaction Status Date / Time erythromycin base AdvReac Nausea & Verified 10/25/22 18:08 [Erythromycin Base] Vomiting tramadol HCl [From Ultram] AdvReac Itching Verified 10/25/22 18:08 nicotine patch AdvReac Severe Hallucinati Uncoded 10/25/22 18:08 ons/NIGHTMA RES Review of Systems ROS Statement: Those systems with pertinent positive or pertinent negative responses have been documented in the HPI. ROS Other: All systems not noted in ROS Statement are negative. Past Medical History Past Medical History: Asthma, Coronary Artery Disease (CAD), COPD, Hyperlipidemia, Myocardial Infarction ([place]), Pulmonary Embolus (PE) Additional Past Medical History / Comment(s): Other hx: DIVERTICULITIS. RESTLESS LEG SYNDROME. DDD, BACK PAIN, osteoporsis, palpatations. Pulmonary embolism in 2017, insomnia Last Myocardial Infarction Date:: 01-15-17 History of Any Multi-Drug Resistant Organisms: None Reported Past Surgical History: Back Surgery, Bowel Resection, Cholecystectomy, Heart Catheterization With Stent, Hernia Repair, Tonsillectomy, Tubal Ligation Additional Past Surgical History / Comment(s): "HAD A FOOT OF BOWEL REMOVED"TEMPORARY COLOSTOMY, COLOSTOMY REVERSAL. "HAD 4 SX FOR INC HERNIA-HAS CLIP/MESH IN PLACE, BACK SURGERY 04/27, cyst taken off ovary, PCI with 2 stents in RCA, Epidural injections, left knee arthroscopy 06/2018 Past Anesthesia/Blood Transfusion Reactions: Postoperative Nausea & Vomiting (PONV) Additional Past Anesthesia/Blood Transfusion Reaction / Comment(s): anxiety upon awakening from anesthesia Date of Last Stent Placement:: 01-15-17 Past Psychological History: Anxiety, Bipolar, Depression Smoking Status: Current every day smoker Past Alcohol Use History: None Reported Past Drug Use History: Marijuana - Past Family History Mother Family Medical History: Hyperlipidemia, Hypertension, Myocardial Infarction ([place]) Father Family Medical History: Hypertension Additional Family Medical History / Comment(s): per pt she thinks father has COPD of emphysema Sister(s) Family Medical History: No Reported History Brother(s) Family Medical History: No Reported History Daughter(s) Family Medical History: No Reported History Son(s) Family Medical History: No Reported History General Exam Limitations: no limitations General appearance: alert, in no apparent distress Head exam: Present: atraumatic, normocephalic, normal inspection Eye exam: Present: normal appearance Neck exam: Present: normal inspection, full ROM Respiratory exam: Present: normal lung sounds bilaterally. Absent: respiratory distress, wheezes, rales, rhonchi, stridor Cardiovascular Exam: Present: regular rate, normal rhythm, normal heart sounds. Absent: systolic murmur, diastolic murmur, rubs, gallop, clicks GI/Abdominal exam: Present: soft, tenderness. Absent: distended, guarding, rebound, rigid Neurological exam: Present: alert, oriented X3, CN II-XII intact Expanded Focused psych exam: Present: pressured speech, flight of ideas Skin exam: Present: warm, dry, intact, normal color. Absent: rash Course Vital Signs 10/25/22 18:06 Temperature 99.4 F Pulse Rate 94 Respiratory 20 Rate Blood Pressure 138/98 O2 Sat by Pulse 99 Oximetry Medical Decision Making - Medical Decision Making Was pt. sent in by a medical professional or institution (, PA, SITE ADMINISTRATOR, urgent care, hospital, or prison...) When possible be specific @ -Patient was called by our ER staff alerted of positive blood cultures from yesterday's visit Did you speak to anyone other than the patient for history (EMS, parent, family, police, friend...)? What history was obtained from this source @ -No Did you review nursing and triage notes (agree or disagree)? Why? @ -I reviewed and agree with nursing and triage notes Were old charts reviewed (outside hosp., previous admission, EMS record, old EKG, old radiological studies, urgent care reports/EKG's, prison records)? Report findings @ -I reviewed yesterday's ER visit, including labs, the computed tomography scan and chest x-ray. Differential Diagnosis (chest pain, altered mental status, abdominal pain women, abdominal pain men, vaginal bleeding, weakness, fever, dyspnea, syncope, headache, dizziness, GI bleed, back pain, seizure, CVA, palpatations, mental health, musculoskeletal)? @ -not applicable EKG interpreted by me (3pts min.). @ -As above X-rays interpreted by me (1pt min.). @ -None done CT interpreted by me (1pt min.). @ -None done U/S interpreted by me (1pt. min.). @ -None done What testing was considered but not performed or refused? (CT, X-rays, U/S, labs)? Why? @ -None What meds were considered but not given or refused? Why? @ -None Did you discuss the management of the patient with other professionals (professionals i.e. , PA, SITE ADMINISTRATOR, lab, RT, psych nurse, social work coordinator, patrol community service officer, teacher, human resource officer, case assistant)? Give summary @ -No Was smoking cessation discussed for >3mins.? @ -No Was critical care preformed (if so, how long)? @ -No Were there social determinants of health that impacted care today? How? (Homelessness, low income, unemployed, alcoholism, drug addiction, transportation, low edu. Level, literacy, decrease access to med. care, residential, rehab)? @ -No Was there de-escalation of care discussed even if they declined (Discuss DNR or withdrawal of care, Hospice)? DNR status @ -No What co-morbidities impacted this encounter? (DM, HTN, Smoking, COPD, CAD, Cancer, CVA, ARF, Chemo, Hep., AIDS, mental health diagnosis, sleep apnea, morbid obesity)? @ -None Was patient admitted / discharged? Hospital course, mention meds given and route, prescriptions, significant lab abnormalities, going to OR and other pertinent info. @ -Left AGAINST MEDICAL ADVICE. Patient is a 52-year-old female presenting for evaluation after possible blood cultures obtained their facility yesterday. She was seen in the ER for left lower quadrant pain and left AGAINST MEDICAL ADVICE last night. Today she states that this pain is persisting. No fevers or chills. On physical examination there is left lower quadrant tenderness on palpation. CT from yesterday shows a hernia, no other acute process. Chest x- ray from yesterday shows no acute process. Today's lab work shows no leukocytosis or anemia. CMP is essentially unremarkable. Preliminary blood cultures are positive for gram-positive cocci. Patient was started on Rocephin, plan was to admit. Patient became verbally abusive and demanded to leave. Patient understands that leaving AGAINST MEDICAL ADVICE may result in permanent injury or . Patient signed AMA and went home. I discussed this case with my attending Dr. Keller Undiagnosed new problem with uncertain prognosis? @ -No Drug Therapy requiring intensive monitoring for toxicity (Heparin, Nitro, Insulin, Cardizem)? @ -No Were any procedures done? @ -No Diagnosis/symptom? @ -Positive blood cultures Acute, or Chronic, or Acute on Chronic? @ -Acute Uncomplicated (without systemic symptoms) or Complicated (systemic symptoms)? @ -Complicated Side effects of treatment? @ -No Exacerbation, Progression, or Severe Exacerbation? @ -No Poses a threat to life or bodily function? How? (Chest pain, [place], [place], pneumonia, PE, COPD, DKA, ARF, appy, cholecystitis, CVA, Diverticulitis, Homicidal, Suicidal, threat to staff... and all critical care pts) @ -Yes, sepsis, hypoperfusion, - Lab Data Result diagrams: 10/25/22 18:30 10/25/22 18:30 Lab Results 10/25/22 10/25/22 Range/Units 18:30 18:30 WBC 9.3 (3.8-10.6) k/uL RBC 4.16 (3.80-5.40) m/uL Hgb 13.0 (11.4-16.0) gm/dL Hct 39.6 (34.0-46.0) % MCV 95.2 (80.0-100.0) fL MCH 31.3 (25.0-35.0) pg MCHC 32.9 (31.0-37.0) g/dL RDW 15.0 (11.5-15.5) % Plt Count 416 (150-450) k/uL MPV 6.9 Neutrophils % 65 % Lymphocytes % 26 % Monocytes % 6 % Eosinophils % 2 % Basophils % 0 % Neutrophils # 6.0 (1.3-7.7) k/uL Lymphocytes # 2.4 (1.0-4.8) k/uL Monocytes # 0.5 (0-1.0) k/uL Eosinophils # 0.2 (0-0.7) k/uL Basophils # 0.0 (0-0.2) k/uL Sodium 137 (137-145) mmol/L Potassium 4.0 (3.5-5.1) mmol/L Chloride 109 H (98-107) mmol/L Carbon Dioxide 22 (22-30) mmol/L Anion Gap 6 mmol/L BUN 17 (7-17) mg/dL Creatinine 0.59 (0.52-1.04) mg/dL Est GFR (CKD-EPI)AfAm >90 (>60 ml/min/1.73 sqM) Est GFR (CKD-EPI)NonAf >90 (>60 ml/min/1.73 sqM) Glucose 105 H (74-99) mg/dL Calcium 9.5 (8.4-10.2) mg/dL Total Bilirubin 0.3 (0.2-1.3) mg/dL AST 22 (14-36) U/L ALT 27 (4-34) U/L Alkaline Phosphatase 70 (38-126) U/L Total Protein 6.5 (6.3-8.2) g/dL Albumin 4.0 (3.5-5.0) g/dL Disposition Clinical Impression: Positive blood culture Disposition: Left Against Medical Advice Referrals: Shobha Martinez MD [Primary Care Provider] - 1-2 days
== END 2022-10-25 19:59 | disposition left against medical advice (07) ==
LOC: EC 18:02
DX: R78.81 Bacteremia (principal); J44.9 Chronic obstructive pulmonary disease, unspecified; I25.10 Atherosclerotic heart disease of native coronary artery without angina pectoris; E78.5 Hyperlipidemia, unspecified; I25.2 Old myocardial infarction; F41.9 Anxiety disorder, unspecified; F31.9 Bipolar disorder, unspecified; Z88.1 Allergy status to other antibiotic agents; Z88.6 Allergy status to analgesic agent; Z88.8 Allergy status to other drugs, medicaments and biological substances; Z79.82 Long term (current) use of aspirin; Z79.899 Other long term (current) drug therapy; Z53.29 Procedure and treatment not carried out because of patient's decision for other reasons
CPT/HCPCS: 36415; 80053; 85025; 99284; 96374; J0696

== ENCOUNTER 2022-10-26 10:21 | Observation (INO) | payer MEDICARE, OTHER ==
[2022-10-26] MEDS ORDERED: LORazepam 2 MG/ML INJ IV STA (10:41)
[2022-10-26] MEDS ORDERED: ACETAMINOPHEN TAB 500 MG TAB PO STA (10:41)
[2022-10-26] MEDS ORDERED: ONDANSETRON 4 MG/2 ML VIAL IVP STA (10:43)
[2022-10-26] MEDS ORDERED: FAMOTIDINE 20 MG/2 ML VIAL IV STA (10:43)
[2022-10-26] MEDS ORDERED: SODIUM CHLORIDE 0.9% 1,000 ML IV SCH ×2 (10:45→13:45)
--- NOTE | 2022-10-26 10:45 | ED ---
General Adult HPI - General Chief complaint: Recheck/Abnormal Lab/Rx Stated complaint: Abnormal labs Time Seen by Provider: 10/26/22 10:34 Source: patient, RN notes reviewed, old records reviewed (Previous blood cultures) Mode of arrival: wheelchair Limitations: no limitations - History of Present Illness Initial comments: Patient is a pleasant 52-year-old female presenting to the emergency department with concern for possible infection. She was called by nursing staff for positive blood cultures. This were reviewed. Patient has been here recently. Patient does have complaints of cough with congestion and productive sputum. Patient also has decreased appetite and decreased fluid intake. Patient does feel dehydrated. Patient does have nausea with occasional vomiting. Patient does have some abdominal discomfort were her hernias only with cough. - Related Data Home Medications Medication Instructions Recorded Confirmed Albuterol Inhaler [Ventolin Hfa 2 puff INHALATION RT-Q6H PRN 01/15/17 03/22/19 Inhaler] Aspirin EC [Ecotrin Low Dose] 81 mg PO DAILY 02/13/17 03/22/19 Omeprazole 20 mg PO DAILY 10/14/17 03/22/19 Rosuvastatin [Crestor] 20 mg PO DAILY 09/13/18 03/22/19 Acetaminophen/Diphenhydramine 2 tab PO HS 09/20/18 03/22/19 [Tylenol PM 500-25mg] Fish Oil/Dha/Epa [Fish Oil 1,200 1 cap PO DAILY 09/20/18 03/22/19 mg Fish Oil] Multivitamins, Thera [Multivitamin 1 tab PO DAILY 09/20/18 03/22/19 (formulary)] Glucosamine/Chondr Mead A Sod [Osteo 1 tab PO DAILY 03/22/19 03/22/19 Bi-Flex Caplet] lisinopriL [Zestril] 10 mg PO DAILY 03/22/19 03/22/19 Previous Rx's Medication Instructions Recorded Metoprolol Tartrate [Lopressor] 25 mg PO BID #60 tab 01/17/17 Nitroglycerin Sl Tabs [Nitrostat] 0.4 mg SUBLINGUAL Q5M PRN #25 01/17/17 lisinopriL [Zestril] 5 mg PO DAILY #30 tab 01/17/17 Escitalopram [Lexapro] 10 mg PO DAILY #30 tab 09/17/18 rOPINIRole HCL [Requip] 0.75 mg PO HS #30 tablet 09/17/18 Albuterol Nebulized [Ventolin 2.5 mg INHALATION Q4H PRN #25 nebu 01/17/19 Nebulized] Cyclobenzaprine [Flexeril] 10 mg PO TID PRN #15 tab 05/06/19 Famotidine [Pepcid] 20 mg PO BID #28 tablet 05/06/19 Lidocaine 4% Cream [Lmx 4] 1 applic TOPICAL DAILY #1 kit 05/06/19 Allergies Allergy/AdvReac Type Severity Reaction Status Date / Time erythromycin base AdvReac Nausea & Verified 10/26/22 10:30 [Erythromycin Base] Vomiting tramadol HCl [From Ultram] AdvReac Itching Verified 10/26/22 10:30 nicotine patch AdvReac Severe Hallucinati Uncoded 10/26/22 10:30 ons/NIGHTMA RES Review of Systems ROS Statement: Those systems with pertinent positive or pertinent negative responses have been documented in the HPI. ROS Other: All systems not noted in ROS Statement are negative. Constitutional: Reports: chills Eyes: Denies: eye pain ENT: Denies: ear pain Respiratory: Reports: cough Cardiovascular: Denies: chest pain Endocrine: Reports: fatigue Gastrointestinal: Reports: nausea, vomiting. Denies: abdominal pain Genitourinary: Denies: dysuria Musculoskeletal: Denies: back pain Skin: Denies: rash Neurological: Denies: weakness Past Medical History Past Medical History: Asthma, Coronary Artery Disease (CAD), COPD, Hyperlipidemia, Myocardial Infarction ([place]), Pulmonary Embolus (PE) Additional Past Medical History / Comment(s): Other hx: DIVERTICULITIS. RESTLESS LEG SYNDROME. DDD, BACK PAIN, osteoporsis, palpatations. Pulmonary embolism in 2017, insomnia Last Myocardial Infarction Date:: 01-15-17 History of Any Multi-Drug Resistant Organisms: None Reported Past Surgical History: Back Surgery, Bowel Resection, Cholecystectomy, Heart Catheterization With Stent, Hernia Repair, Tonsillectomy, Tubal Ligation Additional Past Surgical History / Comment(s): "HAD A FOOT OF BOWEL REMOVED"TEMPORARY COLOSTOMY, COLOSTOMY REVERSAL. "HAD 4 SX FOR INC HERNIA-HAS CLIP/MESH IN PLACE, BACK SURGERY 04/27, cyst taken off ovary, PCI with 2 stents in RCA, Epidural injections, left knee arthroscopy 06/2018 Past Anesthesia/Blood Transfusion Reactions: Postoperative Nausea & Vomiting (PONV) Additional Past Anesthesia/Blood Transfusion Reaction / Comment(s): anxiety upon awakening from anesthesia Date of Last Stent Placement:: 01-15-17 Past Psychological History: Anxiety, Bipolar, Depression Smoking Status: Current every day smoker Past Alcohol Use History: None Reported Past Drug Use History: Marijuana - Past Family History Mother Family Medical History: Hyperlipidemia, Hypertension, Myocardial Infarction ([place]) Father Family Medical History: Hypertension Additional Family Medical History / Comment(s): per pt she thinks father has COPD of emphysema Sister(s) Family Medical History: No Reported History Brother(s) Family Medical History: No Reported History Daughter(s) Family Medical History: No Reported History Son(s) Family Medical History: No Reported History General Exam Limitations: no limitations General appearance: alert, in no apparent distress Head exam: Present: normocephalic Eye exam: Present: normal appearance Neck exam: Present: normal inspection Respiratory exam: Present: normal lung sounds bilaterally. Absent: respiratory distress, chest wall tenderness Cardiovascular Exam: Present: regular rate, normal rhythm GI/Abdominal exam: Present: soft. Absent: tenderness Extremities exam: Present: normal inspection. Absent: pedal edema, calf tenderness Neurological exam: Present: alert Psychiatric exam: Present: normal affect, normal mood Skin exam: Present: normal color Course Vital Signs 10/26/22 10/26/22 10:25 12:08 Temperature 98.7 F Pulse Rate 91 75 Respiratory 16 18 Rate Blood Pressure 155/87 115/86 O2 Sat by Pulse 96 100 Oximetry EKG Findings - EKG Results: EKG: interpreted by ERMD (Occasional premature supraventricular beats), sinus rhythm, normal axis, normal QRS, normal ST/T Medical Decision Making - Medical Decision Making Was pt. sent in by a medical professional or institution (, PA, ADJUNCT PROFESSOR OF LAW, urgent care, hospital, or fpc...) When possible be specific @ -Patient was called back from emergency department Did you speak to anyone other than the patient for history (EMS, parent, family, police, friend...)? What history was obtained from this source @ -No Did you review nursing and triage notes (agree or disagree)? Why? @ -I reviewed and agree with nursing and triage notes Were old charts reviewed (outside hosp., previous admission, EMS record, old EKG, old radiological studies, urgent care reports/EKG's, fpc records)? Report findings @ -Review previous blood cultures on the , 2 separate ones showing MRSA Differential Diagnosis (chest pain, altered mental status, abdominal pain women, abdominal pain men, vaginal bleeding, weakness, fever, dyspnea, syncope, headache, dizziness, GI bleed, back pain, seizure, CVA, palpatations, mental health)? @ -Differential Fever: Pneumonia, viral URI, endocarditis, myocarditis, pericarditis, otitis, sinusitis, peritonsillar Abscess, retropharyngeal Abscess, epiglottitis, peritonitis, appendicitis, Shey cystitis, diverticulitis, hepatitis, colitis, UTI, PID, TOA, pyelonephritis, prostatitis, epididymitis, meningitis, encephalit is, pulmonary embolism, CVA, thyroid storm, pancreatitis, adrenal crisis, cavernous sinus thrombosis, this is not meant to be an all-inclusive list. EKG interpreted by me (3pts min.). @ -As above X-rays interpreted by me (1pt min.). @ -Chest x-ray does not reveal acute process CT interpreted by me (1pt min.). @ -None done U/S interpreted by me (1pt. min.). @ -None done What testing was considered but not performed or refused? (CT, X-rays, U/S, labs)? Why? @ -None What meds were considered but not given or refused? Why? @ -None Did you discuss the management of the patient with other professionals (professionals i.e. , PA, ADJUNCT PROFESSOR OF LAW, lab, RT, psych nurse, social work instructor, building cleaner, teacher, digital marketing officer, director of casework services)? Give summary @ -Case discussed with Dr. Wei with [facility], who will admit covering for Dr. Alston Was smoking cessation discussed for >3mins.? @ -No Was critical care preformed (if so, how long)? @ -No Were there social determinants of health that impacted care today? How? (Homeles sness, low income, unemployed, alcoholism, drug addiction, transportation, low edu. Level, literacy, decrease access to med. care, fpc, rehab)? @ -No Was there de-escalation of care discussed even if they declined (Discuss DNR or withdrawal of care, Hospice)? DNR status @ -No What co-morbidities impacted this encounter? (DM, HTN, Smoking, COPD, CAD, Cancer, CVA, ARF, Chemo, Hep., AIDS, mental health diagnosis, sleep apnea, morbid obesity)? @ -None Was patient admitted / discharged? Hospital course, mention meds given and route, prescriptions, significant lab abnormalities, going to OR and other pertinent info. @ -Patient will be admitted for IV antibiotic treatment for bacteremia. Orders written. Undiagnosed new problem with uncertain prognosis? @ -No Drug Therapy requiring intensive monitoring for toxicity (Heparin, Nitro, Insulin, Cardizem)? @ -No Were any procedures done? @ -No Diagnosis/symptom? @ -Bacteremia Acute, or Chronic, or Acute on Chronic? @ -Acute Uncomplicated (without systemic symptoms) or Complicated (systemic symptoms)? @ -default Side effects of treatment? @ -No Exacerbation, Progression, or Severe Exacerbation? @ -No Poses a threat to life or bodily function? How? (Chest pain, [place], [place], pneumonia, PE, COPD, DKA, ARF, appy, cholecystitis, CVA, Diverticulitis, Homicidal, Suicidal, threat to staff... and all critical care pts) @ -No - Lab Data Result diagrams: 10/26/22 11:03 10/26/22 11:03 Lab Results 10/26/22 10/26/22 10/26/22 Range/Units 11:03 11:03 11:03 WBC 9.0 (3.8-10.6) k/uL RBC 4.15 (3.80-5.40) m/uL Hgb 13.3 (11.4-16.0) gm/dL Hct 39.4 (34.0-46.0) % MCV 94.7 (80.0-100.0) fL MCH 32.1 (25.0-35.0) pg MCHC 33.8 (31.0-37.0) g/dL RDW 15.4 (11.5-15.5) % Plt Count 364 (150-450) k/uL MPV 7.2 Neutrophils % 70 % Lymphocytes % 23 % Monocytes % 5 % Eosinophils % 1 % Basophils % 0 % Neutrophils # 6.3 (1.3-7.7) k/uL Lymphocytes # 2.1 (1.0-4.8) k/uL Monocytes # 0.4 (0-1.0) k/uL Eosinophils # 0.1 (0-0.7) k/uL Basophils # 0.0 (0-0.2) k/uL PT 10.1 (9.0-12.0) sec INR 0.9 (<1.2) APTT 20.3 L (22.0-30.0) sec Sodium 137 (137-145) mmol/L Potassium 4.1 (3.5-5.1) mmol/L Chloride 108 H (98-107) mmol/L Carbon Dioxide 22 (22-30) mmol/L Anion Gap 7 mmol/L BUN 16 (7-17) mg/dL Creatinine 0.52 (0.52-1.04) mg/dL Est GFR (CKD-EPI)AfAm >90 (>60 ml/min/1.73 sqM) Est GFR (CKD-EPI)NonAf >90 (>60 ml/min/1.73 sqM) Glucose 94 (74-99) mg/dL Plasma Lactic Acid Jethro (0.7-2.0) mmol/L Calcium 9.2 (8.4-10.2) mg/dL Total Bilirubin 0.4 (0.2-1.3) mg/dL AST 20 (14-36) U/L ALT 24 (4-34) U/L Alkaline Phosphatase 64 (38-126) U/L Total Protein 6.3 (6.3-8.2) g/dL Albumin 3.8 (3.5-5.0) g/dL Urine Color Urine Appearance (Clear) Urine pH (5.0-8.0) Ur Specific Weir (1.001-1.035) Urine Protein (Negative) Urine Glucose (UA) (Negative) Urine Ketones (Negative) Urine Blood (Negative) Urine Nitrite (Negative) Urine Bilirubin (Negative) Urine Urobilinogen (<2.0) mg/dL Ur Leukocyte Esterase (Negative) 10/26/22 10/26/22 Range/Units 11:03 11:08 WBC (3.8-10.6) k/uL RBC (3.80-5.40) m/uL Hgb (11.4-16.0) gm/dL Hct (34.0-46.0) % MCV (80.0-100.0) fL MCH (25.0-35.0) pg MCHC (31.0-37.0) g/dL RDW (11.5-15.5) % Plt Count (150-450) k/uL MPV Neutrophils % % Lymphocytes % % Monocytes % % Eosinophils % % Basophils % % Neutrophils # (1.3-7.7) k/uL Lymphocytes # (1.0-4.8) k/uL Monocytes # (0-1.0) k/uL Eosinophils # (0-0.7) k/uL Basophils # (0-0.2) k/uL PT (9.0-12.0) sec INR (<1.2) APTT (22.0-30.0) sec Sodium (137-145) mmol/L Potassium (3.5-5.1) mmol/L Chloride (98-107) mmol/L Carbon Dioxide (22-30) mmol/L Anion Gap mmol/L BUN (7-17) mg/dL Creatinine (0.52-1.04) mg/dL Est GFR (CKD-EPI)AfAm (>60 ml/min/1.73 sqM) Est GFR (CKD-EPI)NonAf (>60 ml/min/1.73 sqM) Glucose (74-99) mg/dL Plasma Lactic Acid Jethro 0.9 (0.7-2.0) mmol/L Calcium (8.4-10.2) mg/dL Total Bilirubin (0.2-1.3) mg/dL AST (14-36) U/L ALT (4-34) U/L Alkaline Phosphatase (38-126) U/L Total Protein (6.3-8.2) g/dL Albumin (3.5-5.0) g/dL Urine Color Light Yellow Urine Appearance Clear (Clear) Urine pH 6.0 (5.0-8.0) Ur Specific Weir 1.015 (1.001-1.035) Urine Protein Negative (Negative) Urine Glucose (UA) Negative (Negative) Urine Ketones Negative (Negative) Urine Blood Negative (Negative) Urine Nitrite Negative (Negative) Urine Bilirubin Negative (Negative) Urine Urobilinogen <2.0 (<2.0) mg/dL Ur Leukocyte Esterase Negative (Negative) Disposition Clinical Impression: Bacteremia Disposition: ADMITTED IP TO THIS HOSP Is patient prescribed a controlled substance at d/c from ED?: No Referrals: Duane Branch MD [Primary Care Provider] - 1-2 days Time of Disposition: 13:41
[2022-10-26] MEDS: SODIUM CHLORIDE 0.9% 500 ML 500 ML IV SCH ×2 (11:00→11:39)
[2022-10-26] MEDS ORDERED: cefTRIAXone IN SWFI 1,000 MG/10 ML SYRINGE IVP STA (11:12)
--- NOTE | 2022-10-26 11:22 | XR ---
EXAMINATION TYPE: XR chest 2V DATE OF EXAM: 10/26/2022 COMPARISON: Chest x-ray 2 days ago HISTORY: Fever. TECHNIQUE: Frontal and lateral views of the chest are obtained. FINDINGS: There is no new suspicious focal air space opacity, pleural effusion, or pneumothorax seen . The cardiac silhouette size is stable and within normal limits. Underlying scoliosis is redemonstr ated. IMPRESSION: No acute pulmonary process. No significant change from prior.
[2022-10-26 11:37] LABS: Basophils % (A) 0 %; Eosinophils # (A) 0.1 k/uL (0-0.7); Eosinophils % (A) 1 %; HCT 39.4 % (34.0-46.0); HGB 13.3 gm/dL (11.4-16.0); Lymphocytes # (A) 2.1 k/uL (1.0-4.8); Lymphocytes % (A) 23 %; MCH 32.1 pg (25.0-35.0); MCHC 33.8 g/dL (31.0-37.0); MCV 94.7 fL (80.0-100.0); Mean Platelet Volume 7.2; Monocytes # (A) 0.4 k/uL (0-1.0); Monocytes % (A) 5 %; Neutrophils # (A) 6.3 k/uL (1.3-7.7); Neutrophils % (A) 70 %; Platelet Count 364 k/uL (150-450); RBC 4.15 m/uL (3.80-5.40); RDW 15.4 % (11.5-15.5)
[2022-10-26 11:40] LABS: INR 0.9 (<1.2); Prothrombin Time 10.1 sec (9.0-12.0)
[2022-10-26 11:41] LABS: ALT 24 U/L (4-34); AST 20 U/L (14-36); African American GFR (CKD) >90 (>60 ml/min/1.73 sqM); Albumin 3.8 g/dL (3.5-5.0); Alkaline Phosphatase 64 U/L (38-126); Anion Gap 7 mmol/L; Blood Urea Nitrogen 16 mg/dL (7-17); Calcium 9.2 mg/dL (8.4-10.2); Carbon Dioxide 22 mmol/L (22-30); Chloride 108 mmol/L (98-107); Glucose 94 mg/dL (74-99); Non-African American GFR(CKD) >90 (>60 ml/min/1.73 sqM); Potassium 4.1 mmol/L (3.5-5.1); Sodium 137 mmol/L (137-145); Total Bilirubin 0.4 mg/dL (0.2-1.3); Total Protein 6.3 g/dL (6.3-8.2)
[2022-10-26 11:53] LABS: Partial Thromboplastin Time 20.3 sec (22.0-30.0)
[2022-10-26] MEDS ORDERED: HYDROmorphone 1 MG/ML 1 ML SYRINGE IVP STA (12:36)
[2022-10-26 12:44] LABS: Appearance,Urine Clear (Clear); Bilirubin,Urine Negative (Negative); Blood,Urine Negative (Negative); Color,Urine Light Yellow; Glucose,Urine (UA) Negative (Negative); Ketones,Urine Negative (Negative); Leukocyte Esterase,Urine Negative (Negative); Nitrite,Urine Negative (Negative); Protein,Urine Negative (Negative); Specific Gravity,Urine 1.015 (1.001-1.035); Urobilinogen,Urine <2.0 mg/dL (<2.0)
[2022-10-26] MEDS ORDERED: LORazepam 1 MG TAB PO PRN (13:37)
[2022-10-26] MEDS ORDERED: HYDROcodone/APAP 5-325MG 1 EACH TAB PO PRN (13:37)
[2022-10-26] MEDS ORDERED: ONDANSETRON 4 MG/2 ML VIAL IVP PRN (13:37)
[2022-10-26] MEDS ORDERED: VANCOMYCIN IV PER PHARMACY 1 EACH MISC MISCELLANE PRN (13:37)
[2022-10-26] MEDS ORDERED: NALOXONE 0.4 MG/ML 1 ML VIAL IV PRN (13:37)
[2022-10-26] MEDS ORDERED: VANCOMYCIN 1,500 MG in SODIUM CHLORIDE 0.9% 500 ML 500 ML IVPB STA (13:44)
--- NOTE | 2022-10-26 14:13 | P.HPIM ---
History of Present Illness H&P Date: 10/26/22 Patient is a 52-year-old female with history of hypertension, dyslipidemia, COPD, anxiety/depression presenting after blood cultures came back positive for MRSA. Patient presented on 10/24 to the emergency with multiple weight complaints. At that time she left AMA. CT abdomen and pelvis showed left lower quadrant ventral wall hernia, no colitis or diverticulitis, likely benign a drenal adenoma on the right side, multiple ventral wall fat-containing hernias. She again presented next day after her preliminary blood cultures are positive, but patient left AMA again. Patient reportedly feels really anxious, which is why she left AMA. She is presenting again with similar multiple vague complaints. Currently she is complaining of increasing anxiety, occasional chills, denies any fevers, occasional abdominal spasms, increased urinary frequency. She denies any significant chest pain, shortness of breath, bowel complaints. She denies any new skin rashes. She does have dogs and cats at home. She denies any new bites or scratches. She denies any travel history or sick contacts. She smokes 2 packs per day, denies any alcohol or illicit drug use. In the ED, her temperature was 98.7, pulse 91, blood pressure 155/87, respiratory rate 16, saturating at 96% on room air. Chest x-ray showed no acute process. EKG showed normal sinus rhythm with occasional PACs. CBC showed white count of 9, was 17.9 2 days ago. BMP was unremarkable. Urinalysis was unremarkable. Patient being admitted for possible bacteremia, unknown source. Pertinent positives and negatives as discussed in HPI, a complete review of systems was performed and all other systems are negative. Patient seen and examined at bedside. Vital signs reviewed General: nontoxic, no distress, appears at stated age Derm: warm, dry Head: atraumatic, normocephalic, symmetric Eyes: EOMI, no lid lag, anicteric sclera, pupils equal round reactive to light ENT: Nose and ears atraumatic Neck: No thyromegaly, supple Mouth: no lip lesion, mucus membranes moist Cardiovascular: S1S2 reg, no murmur, no edema Lungs: clear to auscultation bilateral, no rhonchi, no rales, no wheeze, no accessory muscle use Abdominal: soft, nontender to palpation, no guarding, no appreciable organomegaly Ext: no gross muscle atrophy, muscle strength muscle strength 5 out of 5 in all 4 extremities, no contractures Neuro: CN II-XII grossly intact Psych: Alert, oriented, anxious-appearing Assessment/Plan: Active: Possible MRSA bacteremia, unclear source Nicotine dependence -Repeat blood cultures ordered -Given leukocytosis, and 2/2 positive blood cultures, started on vancomycin IV, dosed based on trough levels, BMP ordered tomorrow monitor for renal toxicity -If repeat blood cultures are positive, we'll consider getting an echocardiogram, an ID consult -If repeat blood cultures are negative, likely a contaminant -Counseled regarding smoking cessation, nicotine patch 21 mg ordered Resolved: Leukocytosis Chronic: Hypertension Dyslipidemia COPD Anxiety/depression The patient is admitted with an anticipated greater than 2 midnight stay as inpatient status for evaluation of bacteremia. Surrogate decision-maker: Son CODE STATUS: Full code DVT prophylaxis: Lovenox Anticipated discharge date: Pending clinical course Anticipated discharge place: Pending clinical course A total of 59 minutes was spent on the care of this complex patient more than 50% of the time was spent in counseling and care coordination. Past Medical History Past Medical History: Asthma, Coronary Artery Disease (CAD), COPD, Hyperlipidemi a, Myocardial Infarction ([place]), Pulmonary Embolus ([place]) Additional Past Medical History / Comment(s): Other hx: DIVERTICULITIS. RESTLESS LEG SYNDROME. DDD, BACK PAIN, osteoporsis, palpatations. Pulmonary embolism in 2017, insomnia Last Myocardial Infarction Date:: 01-15-17 History of Any Multi-Drug Resistant Organisms: None Reported Past Surgical History: Back Surgery, Bowel Resection, Cholecystectomy, Heart Catheterization With Stent, Hernia Repair, Tonsillectomy, Tubal Ligation Additional Past Surgical History / Comment(s): "HAD A FOOT OF BOWEL REMOVED"TEMPORARY COLOSTOMY, COLOSTOMY REVERSAL. "HAD 4 SX FOR INC HERNIA-HAS CLIP/MESH IN PLACE, BACK SURGERY 04/27, cyst taken off ovary, PCI with 2 stents in RCA, Epidural injections, left knee arthroscopy 06/2018 Past Anesthesia/Blood Transfusion Reactions: Postoperative Nausea & Vomiting (PONV) Additional Past Anesthesia/Blood Transfusion Reaction / Comment(s): anxiety upon awakening from anesthesia Date of Last Stent Placement:: 01-15-17 Past Psychological History: Anxiety, Bipolar, Depression Smoking Status: Current every day smoker Past Alcohol Use History: None Reported Past Drug Use History: Marijuana - Past Family History Mother Family Medical History: Hyperlipidemia, Hypertension, Myocardial Infarction ([place]) Father Family Medical History: Hypertension Additional Family Medical History / Comment(s): per pt she thinks father has COPD of emphysema Sister(s) Family Medical History: No Reported History Brother(s) Family Medical History: No Reported History Daughter(s) Family Medical History: No Reported History Son(s) Family Medical History: No Reported History Medications and Allergies Home Medications Medication Instructions Recorded Confirmed Type Albuterol Inhaler [Ventolin Hfa 2 puff INHALATION RT-Q6H PRN 01/15/17 03/22/19 History Inhaler] Metoprolol Tartrate [Lopressor] 25 mg PO BID #60 tab 01/17/17 03/22/19 Rx Nitroglycerin Sl Tabs [Nitrostat] 0.4 mg SUBLINGUAL Q5M PRN #25 01/17/17 03/22/19 Rx lisinopriL [Zestril] 5 mg PO DAILY #30 tab 01/17/17 03/22/19 Rx Aspirin EC [Ecotrin Low Dose] 81 mg PO DAILY 02/13/17 03/22/19 History Omeprazole 20 mg PO DAILY 10/14/17 03/22/19 History Rosuvastatin [Crestor] 20 mg PO DAILY 09/13/18 03/22/19 History Escitalopram [Lexapro] 10 mg PO DAILY #30 tab 09/17/18 03/22/19 Rx rOPINIRole HCL [Requip] 0.75 mg PO HS #30 tablet 09/17/18 03/22/19 Rx Acetaminophen/Diphenhydramine 2 tab PO HS 09/20/18 03/22/19 History [Tylenol PM 500-25mg] Fish Oil/Dha/Epa [Fish Oil 1,200 1 cap PO DAILY 09/20/18 03/22/19 History mg Fish Oil] Multivitamins, Thera [Multivitamin 1 tab PO DAILY 09/20/18 03/22/19 History (formulary)] Albuterol Nebulized [Ventolin 2.5 mg INHALATION Q4H PRN #25 nebu 01/17/19 03/22/19 Rx Nebulized] Glucosamine/[place] A Sod [Osteo 1 tab PO DAILY 03/22/19 03/22/19 History Bi-Flex Caplet] lisinopriL [Zestril] 10 mg PO DAILY 03/22/19 03/22/19 History Cyclobenzaprine [Flexeril] 10 mg PO TID PRN #15 tab 05/06/19 Rx Famotidine [Pepcid] 20 mg PO BID #28 tablet 05/06/19 Rx Lidocaine 4% Cream [Lmx 4] 1 applic TOPICAL DAILY #1 kit 05/06/19 Rx Allergies Allergy/AdvReac Type Severity Reaction Status Date / Time erythromycin base AdvReac Nausea & Verified 10/26/22 10:30 [Erythromycin Base] Vomiting tramadol HCl [From Ultram] AdvReac Itching Verified 10/26/22 10:30 nicotine patch AdvReac Severe Hallucinati Uncoded 10/26/22 10:30 ons/NIGHTMA RES Physical Exam Vitals: Vital Signs Temp Pulse Resp BP Pulse Ox 10/26/22 13:48 73 18 118/85 95 10/26/22 12:08 75 18 115/86 100 10/26/22 10:25 98.7 F 91 16 155/87 96 Intake and Output 10/25/22 10/26/22 10/26/22 22:59 06:59 14:59 Other: Weight 87.997 kg Results CBC & Chem 7: 10/26/22 11:03 10/26/22 11:03 Labs: Abnormal Lab Results - Last 24 Hours (Table) 10/26/22 10/26/22 Range/Units 11:03 11:03 APTT 20.3 L (22.0-30.0) sec Chloride 108 H (98-107) mmol/L
[2022-10-26] MEDS ORDERED: NICOTINE 21MG/24HR PATCH TRANSDERM SCH (14:15)
[2022-10-26] MEDS ORDERED: ALBUTEROL HFA INHALER INHALATION PRN (14:20)
[2022-10-26] MEDS ORDERED: IPRATROPIUM-ALBUTEROL 3 ML NEB INHALATION PRN (14:20)
[2022-10-26 19:26] VITALS: BP 105/70; PULSE 69; RESP 16; TEMP 99.5
[2022-10-26] MEDS ORDERED: lisinopriL 10 MG TAB PO SCH (21:00)
[2022-10-26] MEDS ORDERED: FAMOTIDINE 20 MG TAB PO SCH (21:00)
[2022-10-26] MEDS ORDERED: METOPROLOL TARTRATE 25 MG TAB PO SCH (21:00)
--- NOTE | 2022-10-26 21:43 | P.PN ---
Progress Note - Text Progress Note Date: 10/26/22 Informed by the RN at 9:08 pm that the patient left AMA. The patient was reportedly AAOx3.
[2022-10-26] MEDS ORDERED: VANCOMYCIN 1,500 MG in SODIUM CHLORIDE 0.9% 500 ML 500 ML IVPB SCH (22:00)
--- NOTE | 2022-10-27 08:03 | P.DS ---
Providers Date of admission: 10/26/22 13:37 Expected date of discharge: 10/27/22 Attending physician: Elkin Kenyon MD Primary care physician: Duane Branch MD Hospital Course: THIS IS NOT A DISCHARGE SUMMARY, ONLY A SUMMARY OF CARE PER DOCUMENTATION IN CHART, PT LEFT AGAINST MEDICAL ADVISE ON 10/26/22 at 9:08 PM Discharge Diagnosis: Possible MRSA bacteremia, unclear source Nicotine dependence Hypertension Dyslipidemia COPD Anxiety/depression Hospital Course: Patient is a 52-year-old female with history of hypertension, dyslipidemia, COPD, anxiety/depression presenting after blood cultures came back positive for MRSA. Patient presented on 10/24 to the emergency with multiple weight complaints. At that time she left AMA. CT abdomen and pelvis showed left lower quadrant ventral wall hernia, no colitis or diverticulitis, likely benign adrenal adenoma on the right side, multiple ventral wall fat-containing hernias. She again presented next day after her preliminary blood cultures are positive, but patient left AMA again. Patient reportedly felt really anxious, which is why she left AMA. She presented again on 10/27/22 with similar multiple vague complaints. In the ED, her temperature was 98.7, pulse 91, blood pressure 155/87, respiratory rate 16, saturating at 96% on room air. Chest x-ray showed no acute process. EKG showed normal sinus rhythm with occasional PACs. CBC showed white count of 9, was 17.9 2 days ago. BMP was unremarkable. Urinalysis was unremarkable. Patient was admitted for possible bacteremia of unknown source and per documentation in chart, pt left AGAINST MEDICAL ADVICE on 10/26/22 at 9:08 PM PT LEFT AGAINST MEDICAL ADVISE ON 10/26/22 at 9:08 PM This document was prepared using [employer] dictation software. Please allow for errors in rehabilitation team lead while rare they do occur. Miguelito Vazquez NP rendered care for this patient independently, reviewed the findings and plan as documented in the note above. I did not physically speak with or examine the patient on this date. Patient Condition at Discharge: Stable Plan - Discharge Summary Discharge Rx Participant: No New Discharge Prescriptions: No Action Albuterol Inhaler [Ventolin Hfa Inhaler] 2 puff INHALATION RT-Q4H PRN PRN Reason: Shortness Of Breath Metoprolol Tartrate [Lopressor] 25 mg PO BID #60 tab Aspirin EC [Ecotrin Low Dose] 81 mg PO DAILY Omeprazole 20 mg PO DAILY lisinopriL [Zestril] 10 mg PO BID oxyCODONE-APAP 7.5-325MG [Percocet 7.5-325 mg] 1 tab PO BID PRN PRN Reason: Pain Ipratropium-Albuterol Nebulize [Duoneb 0.5 mg-3 mg/3 ml Soln] 3 ml INHALATION RT-QID PRN PRN Reason: Shortness Of Breath Fluticasone Nasal [place] [Flonase Nasal [place]] 1 - 2 spr EA NOSTRIL BID PRN PRN Reason: Allergy Symptoms amLODIPine [Norvasc] 10 mg PO DAILY rOPINIRole HCL [Requip] 1 mg PO HS Ondansetron Odt [Zofran Odt] 4 mg PO Q8H PRN PRN Reason: Nausea Nitroglycerin Sl Tabs [Nitrostat] 0.4 mg SL Q5M PRN PRN Reason: Chest Pain Discharge Medication List Albuterol Inhaler [Ventolin Hfa Inhaler] 2 puff INHALATION RT-Q4H PRN 01/15/17 [History] Metoprolol Tartrate [Lopressor] 25 mg PO BID #60 tab 01/17/17 [Rx] Aspirin EC [Ecotrin Low Dose] 81 mg PO DAILY 02/13/17 [History] Omeprazole 20 mg PO DAILY 10/14/17 [History] lisinopriL [Zestril] 10 mg PO BID 03/22/19 [History] Fluticasone Nasal [place] [Flonase Nasal [place]] 1 - 2 spr EA NOSTRIL BID PRN 10/26/22 [History] Ipratropium-Albuterol Nebulize [Duoneb 0.5 mg-3 mg/3 ml Soln] 3 ml INHALATION RT-QID PRN 10/26/22 [History] Nitroglycerin Sl Tabs [Nitrostat] 0.4 mg SL Q5M PRN 10/26/22 [History] Ondansetron Odt [Zofran Odt] 4 mg PO Q8H PRN 10/26/22 [History] amLODIPine [Norvasc] 10 mg PO DAILY 10/26/22 [History] oxyCODONE-APAP 7.5-325MG [Percocet 7.5-325 mg] 1 tab PO BID PRN 10/26/22 [History] rOPINIRole HCL [Requip] 1 mg PO HS 10/26/22 [History] Follow up Appointment(s)/Referral(s): Duane Branch MD [Primary Care Provider] - 1-2 days Discharge Disposition: Left Against Medical Advice
[2022-10-27] MEDS ORDERED: ENOXAPARIN 40 MG/0.4 ML SYRINGE SQ SCH (09:00)
[2022-10-27] MEDS ORDERED: amLODIPine 10 MG TAB PO SCH (09:00)
[2022-10-27] MEDS ORDERED: ASPIRIN 81 MG PO SCH (09:00)
[2022-10-27] MEDS ORDERED: PANTOPRAZOLE 40 MG TABLET PO SCH (09:00)
== END 2022-10-26 21:27 | disposition left against medical advice (07) ==
LOC: EC 10:21 → INTOOBSV 13:37 → 4SSUR 13:37 → 5NMEDONC 13:54 → UNDODISIN 21:27
PROVIDERS: ADMIT Student in an Organized Health Care Education/Training Program; ATTEND Student in an Organized Health Care Education/Training Program
DX: R78.81 Bacteremia (principal); Z53.29 Procedure and treatment not carried out because of patient's decision for other reasons; K43.9 Ventral hernia without obstruction or gangrene; R35.0 Frequency of micturition; J44.9 Chronic obstructive pulmonary disease, unspecified; E78.5 Hyperlipidemia, unspecified; I25.10 Atherosclerotic heart disease of native coronary artery without angina pectoris; G47.00 Insomnia, unspecified; G25.81 Restless legs syndrome; M81.0 Age-related osteoporosis without current pathological fracture; F31.9 Bipolar disorder, unspecified; F41.9 Anxiety disorder, unspecified; I25.2 Old myocardial infarction; F17.210 Nicotine dependence, cigarettes, uncomplicated; Z79.82 Long term (current) use of aspirin; Z79.899 Other long term (current) drug therapy; Z88.1 Allergy status to other antibiotic agents; Z88.5 Allergy status to narcotic agent; Z88.8 Allergy status to other drugs, medicaments and biological substances; Z86.711 Personal history of pulmonary embolism; Z87.19 Personal history of other diseases of the digestive system; Z98.51 Tubal ligation status; Z90.49 Acquired absence of other specified parts of digestive tract; Z83.49 Family history of other endocrine, nutritional and metabolic diseases; Z82.49 Family history of ischemic heart disease and other diseases of the circulatory system; Z82.5 Family history of asthma and other chronic lower respiratory diseases
CPT/HCPCS: 96361; 96365; 96375; 99285; 36415; 94760; 93005; 80053; 83605; 85025; 85610; 85730; 81003; 87040; 71046; G0378; J3370; J2060; J2405; J0696; J1170

== ENCOUNTER 2022-11-20 06:45 | Day surgery (SDC) | payer MEDICARE, OTHER ==
[2022-11-18 14:10] VITALS: BMI 31.4
[~2022-11-20 06:45] MED LIST changes: -DEXAMETHASONE SOD PHOSPHATE 10 MG/ML 1 ML VIAL IV ONE; -MIDAZOLAM 2 MG/2 ML VIAL IV PRN; -MORPHINE SULFATE 4 MG/ML SYRINGE IV PRN; -ONDANSETRON 4 MG/2 ML VIAL IVP ONE; -Pre Op ABX Message 1 EACH MISC MISCELLANE ONE
[2022-11-20 07:35] VITALS: TEMP 97.4
[2022-11-20] MEDS ORDERED: ONDANSETRON 4 MG/2 ML VIAL ONE (07:38)
[2022-11-20 07:39] LABS: Glucose,Whole Blood 124 mg/dL (70-110)
[2022-11-20] MEDS ORDERED: ONDANSETRON 4 MG/2 ML VIAL IVP ONE (07:40)
[2022-11-20] MEDS ORDERED: LIDOCAINE 2% INJ 20 MG/ML (2 ML VIAL) ONE (07:41)
[2022-11-20] MEDS ORDERED: PROPOFOL 10 MG/ML 20 ML VIAL IV ONE (07:41)
--- NOTE | 2022-11-20 07:49 | P.GSHP ---
History of Present Illness H&P Date: 11/20/22 Chief Complaint: GERD, screening colonoscopy This a 52-year-old female presents today for EGD and screening colonoscopy. She's had issues with GERD. Patient has appears history of perforated diverticulitis with colostomy and subsequent reversal colostomy. She's had some complaints of pain near her colostomy reversal site. Past Medical History Past Medical History: Asthma, Coronary Artery Disease (CAD), COPD, GERD/Reflux, Hyperlipidemia, Hypertension, Myocardial Infarction ([place]), Musculoskeletal Disorder, Osteoarthritis (OA), Pulmonary Embolus (PE), Renal Disease Additional Past Medical History / Comment(s): Current abdominal hernia, abdominal pain, difficulty swallowing food. DIVERTICULITIS, RESTLESS LEG SYNDROME, DDD, BACK PAIN, osteoporsis, palpatations, hx pulmonary embolism in 2017, insomnia, pinched nerves in back, Pre-Diabetic, watching diet, Stage 1 Kidney Disease. Last Myocardial Infarction Date:: 01-15-17 History of Any Multi-Drug Resistant Organisms: MRSA Date of last positivie culture/infection: 10/25/22 MDRO Source:: blood Past Surgical History: Back Surgery, Bowel Resection, Cholecystectomy, Heart Catheterization With Stent, Hernia Repair, Orthopedic Surgery, Tonsillectomy, Tubal Ligation Additional Past Surgical History / Comment(s): COLOSTOMY, WITH LATER REVERSAL, incisional hernia repair X4, has clip and mesh in place, ovarian cyst removed, PCI with 2 stents in RCA, epidural injections, left knee arthroscopy, cadaver ligament placed in left wrist. Past Anesthesia/Blood Transfusion Reactions: Motion Sickness, Postoperative Nausea & Vomiting (PONV) Additional Past Anesthesia/Blood Transfusion Reaction / Comment(s): Severe anxiety upon awakening from anesthesia. Date of Last Stent Placement:: 01-15-17 Past Psychological History: Anxiety, Bipolar, Depression, PTSD Additional Psychological History / Comment(s): OCD. Smoking Status: Current every day smoker Past Alcohol Use History: Abuse Additional Past Alcohol Use History / Comment(s): STARTED SMOKING IN 1985, DOWN FROM 1.5 PPD TO 1/2 PPD. No alcohol in 13 yrs. Past Drug Use History: Marijuana Additional Drug Use History / Comment(s): USES MARIJUANA MAYBE ONCE WEEKLY- INSTRUCTED TO REFRAIN FROM USE FOR AT LEAST 24 HOURS PRIOR TO PROCEDURE. - Past Family History Mother Family Medical History: Hyperlipidemia, Hypertension, Myocardial Infarction ([place]) Father Family Medical History: Hypertension Additional Family Medical History / Comment(s): Patient thinks father has COPD or Emphysema. Sister(s) Family Medical History: No Reported History Brother(s) Family Medical History: No Reported History Daughter(s) Family Medical History: No Reported History Son(s) Family Medical History: No Reported History Medications and Allergies Home Medications Medication Instructions Recorded Confirmed Type Albuterol Inhaler [Ventolin Hfa 2 puff INHALATION Q4H PRN 01/15/17 11/20/22 History Inhaler] Metoprolol Tartrate [Lopressor] 25 mg PO BID #60 tab 01/17/17 11/20/22 Rx Aspirin EC [Ecotrin Low Dose] 81 mg PO DAILY 02/13/17 11/20/22 History Omeprazole 20 mg PO DAILY 10/14/17 11/20/22 History lisinopriL [Zestril] 10 mg PO BID 03/22/19 11/20/22 History Fluticasone Nasal [place] [Flonase 1 - 2 spr EA NOSTRIL BID PRN 10/26/22 11/20/22 History Nasal [place]] Ipratropium-Albuterol Nebulize 3 ml INHALATION QID 10/26/22 11/20/22 History [Duoneb 0.5 mg-3 mg/3 ml Soln] Nitroglycerin Sl Tabs [Nitrostat] 0.4 mg SL Q5M PRN 10/26/22 11/20/22 History Ondansetron Odt [Zofran Odt] 4 mg PO TID PRN 10/26/22 11/20/22 History amLODIPine [Norvasc] 10 mg PO QAM 10/26/22 11/20/22 History rOPINIRole HCL [Requip] 1 mg PO HS 10/26/22 11/20/22 History HYDROcodone/APAP 7.5-325MG [[place] 1 tab PO DIRECTED PRN 11/18/22 11/20/22 History 7.5-325] Multivitamins, Thera [Multivitamin 1 tab PO DAILY 11/18/22 11/20/22 History (formulary)] Simvastatin [Zocor] 20 mg PO HS 11/18/22 11/20/22 History Allergies Allergy/AdvReac Type Severity Reaction Status Date / Time codeine AdvReac Itching Verified 11/20/22 07:25 erythromycin base AdvReac Nausea & Verified 11/20/22 07:25 [Erythromycin Base] Vomiting ibuprofen AdvReac Stomach Verified 11/20/22 07:25 cramps tramadol HCl [From Ultram] AdvReac Itching Verified 11/20/22 07:25 nicotine patch AdvReac Severe Hallucinati Uncoded 11/20/22 07:25 ons/NIGHTMA RES Surgical - Exam Vital Signs Temp Pulse Resp BP Pulse Ox 97.4 F L 72 14 121/80 98 11/20/22 07:34 11/20/22 07:34 11/20/22 07:34 11/20/22 07:34 11/20/22 07:34 - General well developed, well nourished, no distress - Eyes PERRL - ENT normal pinna - Neck no masses - Respiratory normal expansion - Cardiovascular Rhythm: regular - Abdomen Abdomen: soft, non tender Results - Labs Abnormal Lab Results - Last 24 Hours (Table) 11/20/22 Range/Units 07:31 POC Glucose (mg/dL) 124 H (70-110) mg/dL Assessment and Plan Assessment: GERD. We'll perform EGD. We'll also perform screening colonoscopy.
--- NOTE | 2022-11-20 08:10 | P.OP ---
Date of Procedure: 11/20/22 Preoperative Diagnosis: GERD Screening colonoscopy Postoperative Diagnosis: Antral gastritis Small sliding hiatal hernia Mild esophagitis Procedure(s) Performed: EGD Colonoscopy Anesthesia: MAC Surgeon: Sanchez Mon Pathology: other (Antrum, esophagus) Condition: stable Disposition: PACU Description of Procedure: The patient's placed on the endoscopy table in the lateral position. She received IV sedation. The gastroscope placed oropharynx passed in the esophagus and stomach. Scope was placed through the pylorus. The first and second portion of the duodenum appeared normal. Scope was then brought back the antrum this appeared mildly inflamed. A biopsies performed. Scope was then retr oflexed and remainder the stomach appeared normal. There was a small sliding hiatal hernia. The GE junction was at 38 cm per the distal esophagus appeared mildly inflamed. A biopsies performed. The proximal esophagus appeared normal. Scope withdrawn for patient. Next digital rectal exam was performed this revealed no abnormalities. The flexible colonoscope was then placed patient anus and passed throughout the entire colon. The ileocecal valve was visualized. The cecum appeared normal. In the right colon was a sessile polyp. This removed with the cold forcep. Scope was withdrawn. Remainder the ascending, transverse and descending colon appeared normal. The patient a previous sigmoid resection. The colorectal anastomosis visualized. This appeared normal. Scope was brought back the rectum and this appeared normal. Scope withdrawn for patient.
[2022-11-20 08:31] VITALS: BP 105/71; PULSE 70; RESP 16
== END 2022-11-20 08:55 | disposition home or self-care (01) ==
LOC: ORWHC2ENDO 06:45
PROVIDERS: ATTEND Surgery
DX: Z12.11 Encounter for screening for malignant neoplasm of colon (principal); K29.50 Unspecified chronic gastritis without bleeding; K63.5 Polyp of colon; K44.9 Diaphragmatic hernia without obstruction or gangrene; K21.00 Gastro-esophageal reflux disease with esophagitis, without bleeding; K63.3 Ulcer of intestine; I25.10 Atherosclerotic heart disease of native coronary artery without angina pectoris; J44.9 Chronic obstructive pulmonary disease, unspecified; I10 Essential (primary) hypertension; E78.5 Hyperlipidemia, unspecified; I25.2 Old myocardial infarction; M19.90 Unspecified osteoarthritis, unspecified site; F17.210 Nicotine dependence, cigarettes, uncomplicated; F10.90 Alcohol use, unspecified, uncomplicated; F41.9 Anxiety disorder, unspecified; F12.90 Cannabis use, unspecified, uncomplicated; F42.9 Obsessive-compulsive disorder, unspecified; F31.9 Bipolar disorder, unspecified; G25.81 Restless legs syndrome; G47.00 Insomnia, unspecified; F43.10 Post-traumatic stress disorder, unspecified; K91.0 Vomiting following gastrointestinal surgery; Z86.711 Personal history of pulmonary embolism; Z82.49 Family history of ischemic heart disease and other diseases of the circulatory system; Z98.84 Bariatric surgery status; Z90.49 Acquired absence of other specified parts of digestive tract; Z98.890 Other specified postprocedural states; Z95.5 Presence of coronary angioplasty implant and graft; Z98.51 Tubal ligation status; Z83.49 Family history of other endocrine, nutritional and metabolic diseases; Z79.51 Long term (current) use of inhaled steroids; Z79.82 Long term (current) use of aspirin; Z79.899 Other long term (current) drug therapy; Z88.5 Allergy status to narcotic agent; Z88.1 Allergy status to other antibiotic agents; Z88.6 Allergy status to analgesic agent
CPT/HCPCS: 88305; 45380; 43239; J2405; J2704; J2001

== ENCOUNTER → 2022-12-02 | Outpatient (CLI) | payer MEDICARE, OTHER ==
[2022-12-02 15:02] LABS: Basophils # (A) 0.05 X 10*3/uL (0.00-0.10); Basophils % (A) 0.5 %; Eosinophils # (A) 0.09 X 10*3/uL (0.04-0.35); Eosinophils % (A) 0.8 %; HCT 40.9 % (37.2-46.3); HGB 12.9 g/dL (12.0-15.0); Immature Grans, Automated 0.4 %; Lymphocytes # (A) 2.37 X 10*3/uL (0.90-5.00); Lymphocytes % (A) 21.9 %; MCH 31.2 pg (27.0-32.0); MCHC 31.5 g/dL (32.0-37.0); MCV 98.8 fL (80.0-97.0); Mean Platelet Volume 8.6 fL (9.5-12.2); Monocytes # (A) 0.79 X 10*3/uL (0.20-1.00); Monocytes % (A) 7.3 %; NRBC Per 100 WBC 0 /100 WBCS (0.0-0.0); Neutrophils # (A) 7.48 X 10*3/uL (1.80-7.70); Neutrophils % (A) 69.1 %; Platelet Count 412 X 10*3/uL (140-440); RBC 4.14 X 10*6/uL (4.10-5.20); RDW 17.2 % (11.5-14.5); WBC 10.82 X 10*3/uL (4.50-10.00)
== END | disposition home or self-care (01) ==
LOC: LABPAT 11:59
PROVIDERS: ATTEND Surgery
DX: Z01.812 Encounter for preprocedural laboratory examination (principal); I10 Essential (primary) hypertension; I25.2 Old myocardial infarction; I25.10 Atherosclerotic heart disease of native coronary artery without angina pectoris; E78.5 Hyperlipidemia, unspecified; K59.00 Constipation, unspecified; R06.02 Shortness of breath
CPT/HCPCS: 36415; 85025

== ENCOUNTER 2022-12-10 06:18 | Observation (INO) | payer MEDICARE, OTHER ==
[~2022-12-10 06:18] MED LIST changes: +ACETAMINOPHEN TAB 500 MG TAB PO PRN; +HEPARIN SODIUM,PORCINE/PF 5,000 UNIT/0.5 ML SYRINGE SQ PRN; -LACTATED RINGERS 1,000 ML IV SCH
[2022-12-10] MEDS ORDERED: droPERidol 5 MG/2 ML VIAL IVP ONE (06:24)
[2022-12-10] MEDS ORDERED: ONDANSETRON 4 MG/2 ML VIAL IVP ONE (06:24)
[2022-12-10] MEDS ORDERED: LIDOCAINE 1% (10MG/ML) FOR IV START INTRADERMA PRN (06:24)
[2022-12-10] MEDS ORDERED: DEXAMETHASONE SOD PHOSPHATE 4 MG/ML 1 ML VIAL IV ONE (06:24)
[2022-12-10] MEDS ORDERED: fentaNYL (PF) 50 MCG/ML 2 ML AMP IV PRN (07:00)
[2022-12-10] MEDS: LACTATED RINGERS 1,000 ML IV SCH (07:05)
[2022-12-10 07:20] LABS: Glucose,Whole Blood 109 mg/dL (70-110)
[2022-12-10] MEDS ORDERED: HYDROmorphone (PF) 1 MG/ML ONE (07:28)
[2022-12-10] MEDS ORDERED: KETAMINE 10 MG/ML 20 ML VIAL ONE (07:28)
[2022-12-10] MEDS ORDERED: NEOSTIGMINE 1 MG/ML 10 ML VIAL ONE (07:28)
[2022-12-10] MEDS ORDERED: SUCCINYLCHOLINE CHLORIDE 200 MG/10 ML VIAL IV ONE (07:28)
[2022-12-10] MEDS ORDERED: fentaNYL (PF) 50 MCG/ML 2 ML AMP ONE (07:28)
[2022-12-10] MEDS ORDERED: ePHEDrine 50 MG/ML 1 ML VIAL ONE (07:28)
[2022-12-10] MEDS ORDERED: MIDAZOLAM 2 MG/2 ML VIAL ONE (07:28)
[2022-12-10] MEDS ORDERED: ROCURONIUM 10 MG/ML (5 ML VIAL) IV ONE (07:28)
[2022-12-10] MEDS ORDERED: LIDOCAINE 2% INJ 20 MG/ML (2 ML VIAL) ONE (07:28)
[2022-12-10] MEDS ORDERED: PROPOFOL 10 MG/ML 20 ML VIAL IV ONE (07:28)
[2022-12-10] MEDS ORDERED: GLYCOPYRROLATE 0.2 MG/ML 2 ML VIAL ONE (07:28)
[2022-12-10] MEDS ORDERED: BUPIVACAINE (PF) 0.25% 30 ML VIAL SQ ONE (08:07)
[2022-12-10] MEDS ORDERED: LACTATED RINGERS 1,000 ML IV ONE ×2 (08:23→11:19)
--- NOTE | 2022-12-10 08:43 | P.OP ---
Date of Procedure: 12/10/22 Preoperative Diagnosis: GERD Postoperative Diagnosis: GERD Procedure(s) Performed: Laparoscopic Cathy fundoplication Anesthesia: DELLA Surgeon: Sanchez Mon Estimated Blood Loss (ml): 5 Pathology: none sent Condition: stable Disposition: PACU Description of Procedure: The patient was placed on the operating table in the supine position. The patient received general anesthesia. And was placed in dorsal lithotomy position. The patient was prepped and draped in the usual sterile fashion. The skin incision sites were anesthetized with 1% local Xylocaine. The skin was incised in the left periumbilical area and then using a blade less 5 mm trocar under direct visualization panel cavity was entered. After adequate insufflation the laparoscope was then placed into the peritoneal cavity. Next a 5 mm trochars placed in the right epigastric position. Another 5 millimeter trocar the right lateral position. Another 5 millimeter trocar in the left lateral position a 5 mm trocar is placed in the left epigastric position. And then the initial 5 mm trocar was exchanged for a 10 mm trocar. The left lateral lobe liver was retracted. The hernia was seen. The crural defect was then dissected using the Harmonic scissors device. A 360 crural dissection was per formed the esophagus stomach was reduced back into the peritoneal Cavity. The crural defect was then closed using 2-0 Ethibond suture. Next the fundus of the stomach was mobilized using the [place] scissors device. and then a 58-[place] bougie dilator was placed oropharynx passed into the esophagus and stomach the fundal plication wrap was then performed by grasping the fundus posteriorly and bringing it around the esophagus and stomach fundoplication was then performed using 2-0 Ethibond suture. Care was taken that the fundal location rested over top of the intra-abdominal esophagus. There was no injury seen to the stomach or esophagus. The dilator was then withdrawn. The abdomen was irrigated there is no bleeding seen. The trochars were then withdrawn and then skin incision sites were closed using 3-0 Monocryl suture Steri-Strips are applied. Patient thought procedure well and sent to recovery room in stable condition.
[2022-12-10] MEDS ORDERED: HYDROmorphone 0.5 MG/0.5 ML SYRINGE IVP ONE ×3 (08:45→10:18)
[2022-12-10] MEDS ORDERED: MEPERIDINE 50 MG/ML SYRINGE IVP ONE (08:59)
[2022-12-10] MEDS ORDERED: MIDAZOLAM 2 MG/2 ML VIAL IVP ONE (10:51)
[2022-12-10] MEDS ORDERED: hydrOXYzine pamoate 25 MG CAP PO PRN (12:58)
[2022-12-10] MEDS: ENOXAPARIN 40 MG/0.4 ML SYRINGE SQ SCH (12:59)
[2022-12-10] MEDS: HYDROmorphone 1 MG/ML 1 ML SYRINGE IVP PRN ×3 (13:10→20:58)
[2022-12-10] MEDS ORDERED: DEXTROSE 50% SYRINGE 50 ML IVP PRN ×2 (13:44)
--- NOTE | 2022-12-10 13:47 | P.HPIM ---
History of Present Illness H&P Date: 12/10/22 Patient is a 52-year-old female with coronary artery disease, COPD, hypertension, dyslipidemia, and multiple other comorbid conditions who presented to the hospital for elective Cathy fundoplication. Of note patient was recently here from 10/26 to 10/27 for possible MRSA bacteremia. Etiology, at that time patient left AGAINST MEDICAL ADVICE but she did complete a course of outpatient insulin as listed and followed with Dr. Banegas. Reports that she was doing well and did not have any fevers prior to surgery. Patient seen and examined at bedside. She is complaining of left shoulder pain. She is also complaining of significant anxiety. She states that she has been working with Dr. Chambers on this and he tried her on Abilify however she took 1 pill and felt like it didn't work so she has not been taking this at home. She does have a pain contract and is worried she will run out of her [place] at home after surgery as it will not be enough to control her pain in her typical dose. She has been trying to work with her pain doctor but has not been able to get a virtual appointment. She denies any abdominal or epigastric pain. She denies any overt chest pain or shortness of breath. She is not having any lightheadedness or dizziness. She was cleared by cardiology and Dr. Chambers prior to surgery. Does report that her blood sugars were elevated at home last several days up to 290. Vital signs reviewed General: nontoxic, mild distress, appears at stated age Cardiovascular: S1S2 irreg, no murmur, positive posterior tibial pulse bilateral, no edema, capillary refill less than 2 seconds Lungs: Decreased breath sounds bilateral, no rhonchi, no rales, no wheeze, no accessory muscle use Abdominal: soft, nontender to palpation, no guarding, no appreciable organomegaly, normal bowel sounds Ext: no gross muscle atrophy, no contractures Neuro: CN II-XII grossly intact. Neuro deficits Psych: Alert, oriented, appropriate affect Assessment: 52-year-old female status post Cathy fundoplication Acute anxiety Prediabetes with recent hypoglycemia home Recent MRSA bacteremia Hypertension Dyslipidemia Coronary artery disease status post prior cardial infarction with PCI Prior pulmonary embolism after pneumonia Chronic kidney disease stage II COPD, rarely uses rescue inhaler and not on chronic inhaler Imaging: None new Data Review: CBC reviewed from 12/02 shows a white blood cell count 10.82, hemoglobin 12.9, hematocrit 40.9, platelets 412 Plan: -Oral hydroxyzine 25 mg every 6 hours as needed for anxiety -Sliding-scale insulin, follow blood sugars, check A1c -Suggest CBC and BMP in a.m. -Resume home Requip 1 mg at night, lisinopril 10 mg twice daily, Norvasc 10 mg daily, Zocor 20 mg at night, omeprazole 20 mg daily, metoprolol 25 mg twice daily -Albuterol inhaler 2 puffs every 4 hours as needed for shortness of breath Thank you for allowing us to participate in the care of this pleasant patient. Do not hesitate to contact us with questions. Someone can be reached from the [facility] hospitalist group all hours of the day at [phone] or via Fingerprint. This dictation was prepared using [employer] voice recognition software. Though every attempt is made to correct errors during during dictation some may still exist. Past Medical History Past Medical History: Asthma, Coronary Artery Disease (CAD), Chest Pain / Angina, COPD, Hyperlipidemia, Hypertension, Myocardial Infarction (CO), Pulmonary Embolus (PE), Renal Disease Additional Past Medical History / Comment(s): DIVERTICULITIS., CHRONIC CONSTIPATION., RLS., DDD., HERNIATED DISCS., BACK PAIN., STAGE 2 KIDNEY FAILURE, PRE-DIABETIC (CHECKS CBG), HIATAL HERNIA, HX MRSA IN BLOOD 10/2022., NAUSEA. Last Myocardial Infarction Date:: 01-15-17 History of Any Multi-Drug Resistant Organisms: None Reported, MRSA Date of last positivie culture/infection: 10/25/22 MDRO Source:: blood Past Surgical History: Back Surgery, Bowel Resection, Cholecystectomy, Heart Catheterization With Stent, Hernia Repair, Tonsillectomy, Tubal Ligation Additional Past Surgical History / Comment(s): "HAD A FOOT OF BOWEL REMOVED"TEMPORARY COLOSTOMY, COLOSTOMY REVERSAL. "HAD 4 SX FOR INC HERNIA-HAS CLIP/MESH IN PLACE, BACK SURGERY 04/27, cyst taken off ovary, PCI with 2 stents in RCA, Epidural injections, left knee arthroscopy 06/2018, left hand ligament surgery. Past Anesthesia/Blood Transfusion Reactions: Postoperative Nausea & Vomiting (PONV) Additional Past Anesthesia/Blood Transfusion Reaction / Comment(s): anxiety upon awakening from anesthesia Date of Last Stent Placement:: 01-15-17 Past Psychological History: Anxiety, Bipolar, Depression Additional Psychological History / Comment(s): OCD. Smoking Status: Current every day smoker Past Alcohol Use History: None Reported Additional Past Alcohol Use History / Comment(s): STARTED SMOKING 1985 DOWN FROM 1.5 PPD TO 1/2 Ppd Past Drug Use History: Marijuana Additional Drug Use History / Comment(s): CURRENT MARIJUANA USE.- INSTRUCTED TO REFRAIN FROM USE FOR AT LEAST 24 HOURS PRIOR TO PROCEDURE - Past Family History Mother Family Medical History: Hyperlipidemia, Hypertension, Myocardial Infarction (CO) Father Family Medical History: Hypertension Additional Family Medical History / Comment(s): Patient thinks father has COPD or Emphysema. Sister(s) Family Medical History: No Reported History Brother(s) Family Medical History: No Reported History Daughter(s) Family Medical History: No Reported History Son(s) Family Medical History: No Reported History Medications and Allergies Home Medications Medication Instructions Recorded Confirmed Type Albuterol Inhaler [Ventolin Hfa 2 puff INHALATION Q4H PRN 01/15/17 12/04/22 History Inhaler] Metoprolol Tartrate [Lopressor] 25 mg PO BID #60 tab 01/17/17 12/04/22 Rx Aspirin EC [Ecotrin Low Dose] 81 mg PO DAILY 02/13/17 12/04/22 History Omeprazole 20 mg PO DAILY 10/14/17 12/04/22 History lisinopriL [Zestril] 10 mg PO BID 03/22/19 12/04/22 History Nitroglycerin Sl Tabs [Nitrostat] 0.4 mg SL Q5M PRN 10/26/22 12/04/22 History Ondansetron Odt [Zofran Odt] 4 mg PO TID PRN 10/26/22 12/04/22 History amLODIPine [Norvasc] 10 mg PO QAM 10/26/22 12/04/22 History rOPINIRole HCL [Requip] 1 mg PO HS 10/26/22 12/04/22 History HYDROcodone/APAP 7.5-325MG [[place] 1 tab PO BID PRN 11/18/22 12/04/22 History 7.5-325] Multivitamins, Thera [Multivitamin 1 tab PO DAILY 11/18/22 12/04/22 History (formulary)] Simvastatin [Zocor] 20 mg PO HS 11/18/22 12/04/22 History Acetaminophen/Diphenhydramine 1 tab PO HS 12/04/22 12/04/22 History [Tylenol PM 500-25mg] Elderberry Gummies 1 dose PO DAILY 12/04/22 History Allergies Allergy/AdvReac Type Severity Reaction Status Date / Time codeine AdvReac Itching Verified 12/10/22 06:48 erythromycin base AdvReac Nausea & Verified 12/10/22 06:48 [Erythromycin Base] Vomiting ibuprofen AdvReac Stomach Verified 12/10/22 06:48 cramps tramadol HCl [From Ultram] AdvReac Itching Verified 12/10/22 06:48 nicotine patch AdvReac Severe NIGHTMAR[place] Uncoded 12/10/22 06:48 Physical Exam Osteopathic Statement: *. No significant issues noted on an osteopathic structural exam other than those noted in the History and Physical/Consult. Vitals: Vital Signs Temp Pulse Resp BP BP Pulse Ox 12/10/22 12:27 82 121/68 86 L 12/10/22 12:12 72 137/74 95 12/10/22 12:05 97.7 F 63 18 115/65 95 12/10/22 11:57 81 132/84 95 12/10/22 11:41 75 132/83 96 12/10/22 11:07 69 20 115/56 94 L 12/10/22 10:37 67 16 123/75 99 12/10/22 10:07 72 20 121/62 96 12/10/22 09:37 54 L 20 123/64 94 L 12/10/22 09:22 51 L 16 126/67 95 12/10/22 09:07 51 L 20 145/80 98 12/10/22 08:51 62 22 135/79 99 12/10/22 08:36 97.0 F L 68 18 139/79 100 12/10/22 06:55 96.9 F L 60 16 140/88 100 Intake and Output 12/09/22 12/10/22 12/10/22 22:59 06:59 14:59 Intake Total 2049 Output Total 5 Balance 2044 Intake: IV 2049 Output: Estimated Blood Loss 5 Other: # Voids 1 Weight 88.5 kg Thrombosis Risk Factor Assmnt - Choose All That Apply Each Factor Represents 1 point: Abnormal pulmonary function (COPD), Age 41-60 years, Obesity (BMI >25) Each Risk Factor Represents 2 Points: Laparoscopic surgery, Major surgery Each Risk Factor Represents 3 Points: History of DVT/PE Thrombosis Risk Factor Assessment Total Risk Factor Score: 10 Thrombosis Risk Factor Assessment Level: High Risk
[2022-12-10 15:13] VITALS: BMI 31.9
[2022-12-10 17:08] LABS: Glucose,Whole Blood 158 mg/dL (70-110)
[2022-12-10] MEDS: INSULIN ASPART (NovoLOG) 100 UNIT/ML VIAL SQ SCH ×2 (18:26→20:08)
[2022-12-10 20:04] LABS: Glucose,Whole Blood 129 mg/dL (70-110)
[2022-12-10] MEDS: ALBUTEROL NEBULIZED 2.5 MG/3 ML INHALATION PRN (20:06)
[2022-12-10] MEDS: METOPROLOL TARTRATE 25 MG TAB PO SCH (20:16)
[2022-12-10] MEDS: lisinopriL 10 MG TAB PO SCH (20:16)
[2022-12-10] MEDS ORDERED: ATORVASTATIN 40 MG TAB PO SCH (21:00)
[2022-12-11] MEDS: HYDROmorphone 1 MG/ML 1 ML SYRINGE IVP PRN (03:21)
[2022-12-11 07:03] LABS: Glucose,Whole Blood 104 mg/dL (70-110)
[2022-12-11 07:23] VITALS: RESP 18
[2022-12-11] MEDS ORDERED: PANTOPRAZOLE 40 MG TABLET PO SCH (07:30)
[2022-12-11] MEDS: ALBUTEROL NEBULIZED 2.5 MG/3 ML INHALATION PRN ×2 (07:32→11:03)
[2022-12-11] MEDS ORDERED: ACETAMINOPHEN TAB 325 MG TAB PO PRN (08:01)
[2022-12-11] MEDS: HYDROcodone/APAP 5-325MG 1 EACH TAB PO PRN ×2 (08:13→12:34)
[2022-12-11] MEDS: lisinopriL 10 MG TAB PO SCH (08:14)
[2022-12-11] MEDS: METOPROLOL TARTRATE 25 MG TAB PO SCH (08:14)
[2022-12-11] MEDS: ENOXAPARIN 40 MG/0.4 ML SYRINGE SQ SCH (08:14)
[2022-12-11] MEDS ORDERED: amLODIPine 10 MG TAB PO SCH (09:00)
[2022-12-11] MEDS: LACTATED RINGERS 1,000 ML IV SCH (09:11)
[2022-12-11 10:51] LABS: HCT 35.6 % (37.2-46.3); HGB 11.3 g/dL (12.0-15.0); MCH 31.3 pg (27.0-32.0); MCHC 31.7 g/dL (32.0-37.0); MCV 98.6 fL (80.0-97.0); Mean Platelet Volume 9.2 fL (9.5-12.2); NRBC Per 100 WBC 0 /100 WBCS (0.0-0.0); Platelet Count 280 X 10*3/uL (140-440); RBC 3.61 X 10*6/uL (4.10-5.20); RDW 16.2 % (11.5-14.5); WBC 8.53 X 10*3/uL (4.50-10.00)
[2022-12-11 11:07] LABS: Anion Gap 11.8 mmol/L (10.00-18.00); BUN/Creat Ratio 16.6 Ratio (12.00-20.00); Blood Urea Nitrogen 8.3 mg/dL (9.0-27.0); Calcium 9.2 mg/dL (8.7-10.3); Carbon Dioxide 22.2 mmol/L (20.0-27.5); Non-African American GFR(CKD) 111.3 (60.0-200.0); Potassium 4.1 mmol/L (3.5-5.5)
[2022-12-11 11:14] LABS: Glucose,Whole Blood 129 mg/dL (70-110)
[2022-12-11 12:16] VITALS: BP 110/65; PULSE 79; TEMP 98.5
[2022-12-11] MEDS: INSULIN ASPART (NovoLOG) 100 UNIT/ML VIAL SQ SCH ×2 (12:35→12:39)
--- NOTE | 2022-12-11 14:09 | P.DS ---
Providers Date of admission: 12/10/22 08:45 Expected date of discharge: 12/11/22 Attending physician: Sanchez Mon Consults: 12/10/22 08:43 Consult Physician Routine Consulting Provider: Shagufta Kat Consult Reason/Comments: Medical management Do you want consulting provider notified?: Yes Primary care physician: Duane Branch MD Hospital Course: Discharge diagnosis 1. GERD Hospital course This is a 52-year-old female with a known history of GERD. She is status post laparoscopic Cathy fundoplication. Patient tolerating diet. Pain is controlled. She is having flatus. She has been up and ambulating. She is afebrile. She is stable for discharge. Please refer to chart for any further details. Physician Saw Tailer note has been reviewed by physician. Signing provider agrees with the documented findings, assessment, and plan of care. Patient Condition at Discharge: Stable Plan - Discharge Summary Discharge Rx Participant: Yes New Discharge Prescriptions: Continue Albuterol Inhaler [Ventolin Hfa Inhaler] 2 puff INHALATION Q4H PRN PRN Reason: Shortness Of Breath Metoprolol Tartrate [Lopressor] 25 mg PO BID #60 tab Aspirin EC [Ecotrin Low Dose] 81 mg PO DAILY Omeprazole 20 mg PO DAILY lisinopriL [Zestril] 10 mg PO BID amLODIPine [Norvasc] 10 mg PO QAM Multivitamins, Thera [Multivitamin (formulary)] 1 tab PO DAILY Simvastatin [Zocor] 20 mg PO HS Acetaminophen/Diphenhydramine [Tylenol PM 500-25mg] 1 tab PO HS Elderberry Gummies 1 dose PO DAILY rOPINIRole HCL [Requip] 1 mg PO HS Ondansetron Odt [Zofran ODT] 4 mg PO TID PRN PRN Reason: Nausea Nitroglycerin Sl Tabs [Nitrostat] 0.4 mg SL Q5M PRN PRN Reason: Chest Pain No Action HYDROcodone/APAP 7.5-325MG [[place] 7.5-325] 1 tab PO BID PRN PRN Reason: Pain Discharge Medication List Albuterol Inhaler [Ventolin Hfa Inhaler] 2 puff INHALATION Q4H PRN 01/15/17 [History] Metoprolol Tartrate [Lopressor] 25 mg PO BID #60 tab 01/17/17 [Rx] Aspirin EC [Ecotrin Low Dose] 81 mg PO DAILY 02/13/17 [History] Omeprazole 20 mg PO DAILY 10/14/17 [History] lisinopriL [Zestril] 10 mg PO BID 03/22/19 [History] Nitroglycerin Sl Tabs [Nitrostat] 0.4 mg SL Q5M PRN 10/26/22 [History] Ondansetron Odt [Zofran ODT] 4 mg PO TID PRN 10/26/22 [History] amLODIPine [Norvasc] 10 mg PO QAM 10/26/22 [History] rOPINIRole HCL [Requip] 1 mg PO HS 10/26/22 [History] HYDROcodone/APAP 7.5-325MG [[place] 7.5-325] 1 tab PO BID PRN 11/18/22 [History] Multivitamins, Thera [Multivitamin (formulary)] 1 tab PO DAILY 11/18/22 [History] Simvastatin [Zocor] 20 mg PO HS 11/18/22 [History] Acetaminophen/Diphenhydramine [Tylenol PM 500-25mg] 1 tab PO HS 12/04/22 [History] Elderberry Gummies 1 dose PO DAILY 12/04/22 [History] Follow up Appointment(s)/Referral(s): Sanchez Mon MD [STAFF PHYSICIAN] - 1 Week Activity/Diet/Wound Care/Special Instructions: No driving while taking [place] No lifting over 10 pounds You may shower. No soaking or tub baths for 2 weeks Very light activity until you are reevaluated at your follow up appointment with your surgeon Discharge Disposition: HOME SELF-CARE
--- NOTE | 2022-12-11 14:10 | P.PN ---
Subjective Progress Note Date: 12/11/22 Hospital course: Patient is a very pleasant 52-year-old female with a past medical history of recurrent MRSA bacteremia, CAD, COPD, hypertension, hyperlipidemia, nicotine dependence, anxiety, depression, bipolar disorder, and previous bowel resection with reversal. She presented to the hospital for an elective Cathy fundoplication. Physical exam: Patient seen and fully evaluated at bedside this morning. Patient ambulatory up-and-down halls and appears to be doing well. Patient denies any further episodes of nausea or vomiting. She is tolerating clear liquid diet. Vital signs reviewed and stable. General: Nontoxic, no distress and appears stated age. Derm: Skin warm and dry, normal coloration for ethnicity. Laparoscopic incisions are clean, dry, and intact with no signs of dehiscence, discharge or erythema Head: Atraumatic, normocephalic and symmetric. Eyes: EOMs intact, no lid lag, and anicteric sclera Mouth: no lip lesions, mucus membranes moist Cardiovascular: regular rate and rhythm with normal S1S2, no murmur, positive posterior tibial pulses bilaterally, and cap refill < 2 seconds. Lungs: Respirations even, regular, and unlabored on room air. Lungs CTA bilaterally, no rhonchi, no rales, no wheezing, and no accessory muscle usage. Abdominal: soft, nontender to palpation, no guarding, no appreciable organomegaly Ext: ROM intact. No gross muscle atrophy, no edema, no contractures Neuro: Speech clear, face symmetrical and CN II-XII grossly intact with no noted focal neuro deficits Psych: Alert and oriented to person, place, time, and situation. Appropriate and pleasant affect. Assessment and Plan of Care: 52-year-old female status post Cathy fundoplication postop day 1 Acute anxiety Prediabetes with recent hypoglycemia home Recent MRSA bacteremia Hypertension Dyslipidemia Coronary artery disease status post prior cardial infarction with PCI Prior pulmonary embolism after pneumonia Chronic kidney disease stage II COPD, rarely uses rescue inhaler and not on chronic inhaler -Data Review: CBC showing macrocytic anemia with hemoglobin of 11.3. BMP unremarkable. Blood glucose 109. -Continue Oral hydroxyzine 25 mg every 6 hours as needed for anxiety -Sliding-scale insulin, follow blood sugars -Hemoglobin A1c 5.8%. -Continue home medication regimen with Requip 1 mg at night, lisinopril 10 mg twice daily, Norvasc 10 mg daily, Zocor 20 mg at night, omeprazole 20 mg daily, metoprolol 25 mg twice daily -Albuterol inhaler 2 puffs every 4 hours as needed for shortness of breath -Medically, patient cleared for discharge once cleared by primary admitting general surgery team. Thank you for allowing us to participate in the care of this pleasant patient. Do not hesitate to contact us with questions. Someone can be reached from the [facility] hospitalist group all hours of the day at [phone] or via perfect serve. Patient was seen independently by Nurse Pracitioner. This document was prepared using [employer] dictation software. Please allow for errors in hand clerical verifier, while rare they do occur. I reviewed the documentation as provided by the JUNIOR above, who is the original author of this note. I agree with the documented assessment and plan, with the following changes: none Objective - Vital Signs Vital signs: Vital Signs Temp 98.1 F 12/11/22 07:03 Pulse 70 12/11/22 07:47 Resp 18 12/11/22 07:03 BP 115/68 12/11/22 07:03 Pulse Ox 98 12/11/22 07:03 FiO2 Intake & Output 12/10/22 12/11/22 12/11/22 18:59 06:59 18:59 Intake Total 2049 Output Total Balance 2044 Weight 88.5 kg Intake: IV 2049 Output: Estimated Blood Loss 5 Other: Voiding Method Toilet Toilet # Voids 1 1 1 - Labs CBC & Chem 7: 12/11/22 06:13 12/11/22 06:13 Labs: Abnormal Lab Results - Last 24 Hours (Table) 12/10/22 12/10/22 Range/Units 17:06 20:02 POC Glucose (mg/dL) 158 H 129 H (70-110) mg/dL
== END 2022-12-11 15:41 | disposition home or self-care (01) ==
LOC: OR 06:18 → 5NMEDONC 08:45 → OR 08:45 → 5NMEDONC 11:07
PROVIDERS: ADMIT Surgery; ATTEND Surgery
DX: K21.00 Gastro-esophageal reflux disease with esophagitis, without bleeding (principal); I25.10 Atherosclerotic heart disease of native coronary artery without angina pectoris; I12.9 Hypertensive chronic kidney disease with stage 1 through stage 4 chronic kidney disease, or unspecified chronic kidney disease; N18.2 Chronic kidney disease, stage 2 (mild); J44.9 Chronic obstructive pulmonary disease, unspecified; R73.03 Prediabetes; E78.5 Hyperlipidemia, unspecified; M25.512 Pain in left shoulder; F41.9 Anxiety disorder, unspecified; D53.9 Nutritional anemia, unspecified; I25.2 Old myocardial infarction; F31.9 Bipolar disorder, unspecified; F42.9 Obsessive-compulsive disorder, unspecified; G25.81 Restless legs syndrome; M79.7 Fibromyalgia; K44.9 Diaphragmatic hernia without obstruction or gangrene; F17.210 Nicotine dependence, cigarettes, uncomplicated; E66.9 Obesity, unspecified; Z68.32 Body mass index [BMI] 32.0-32.9, adult; Z79.82 Long term (current) use of aspirin; Z79.899 Other long term (current) drug therapy; Z88.1 Allergy status to other antibiotic agents; Z88.5 Allergy status to narcotic agent; Z88.6 Allergy status to analgesic agent; Z88.8 Allergy status to other drugs, medicaments and biological substances; Z90.49 Acquired absence of other specified parts of digestive tract; Z98.51 Tubal ligation status; Z98.890 Other specified postprocedural states; Z86.14 Personal history of Methicillin resistant Staphylococcus aureus infection; Z86.711 Personal history of pulmonary embolism; Z87.01 Personal history of pneumonia (recurrent); Z82.49 Family history of ischemic heart disease and other diseases of the circulatory system; Z83.49 Family history of other endocrine, nutritional and metabolic diseases
CPT/HCPCS: 94640 ×3; 80048; 85027; 83036; 43280; G0378; J2250; J0330; J1100; J2710; J2175; J0690; J2405; J1650 ×2; J3010; J1170 ×3; J2704; J1644; J2001

== ENCOUNTER 2023-04-29 09:32 | Emergency (ER) | payer MEDICARE, OTHER ==
[2023-04-29 09:50] VITALS: RESP 16
[2023-04-29] MEDS ORDERED: METOCLOPRAMIDE 5 MG/ML 2 ML VIAL IVP STA (10:06)
[2023-04-29] MEDS ORDERED: SODIUM CHLORIDE 0.9% 1,000 ML IV ONE (10:06)
[2023-04-29 10:43] LABS: Basophils % (A) 0 %; Eosinophils # (A) 0.1 k/uL (0-0.7); Eosinophils % (A) 2 %; HCT 43.1 % (34.0-46.0); HGB 14.2 gm/dL (11.4-16.0); Lymphocytes # (A) 1.3 k/uL (1.0-4.8); Lymphocytes % (A) 16 %; MCH 32.2 pg (25.0-35.0); MCV 97.6 fL (80.0-100.0); Mean Platelet Volume 7.5; Monocytes # (A) 0.3 k/uL (0-1.0); Monocytes % (A) 4 %; Neutrophils # (A) 6.2 k/uL (1.3-7.7); Neutrophils % (A) 77 %; Platelet Count 316 k/uL (150-450); RBC 4.41 m/uL (3.80-5.40); RDW 13.3 % (11.5-15.5); WBC 8.2 k/uL (3.8-10.6)
[2023-04-29 11:00] LABS: ALT 18 U/L (4-34); AST 30 U/L (14-36); African American GFR (CKD) >90 (>60 ml/min/1.73 sqM); Albumin 4.2 g/dL (3.5-5.0); Alkaline Phosphatase 90 U/L (38-126); Anion Gap 9 mmol/L; Blood Urea Nitrogen 9 mg/dL (7-17); Calcium 9.9 mg/dL (8.4-10.2); Carbon Dioxide 18 mmol/L (22-30); Chloride 111 mmol/L (98-107); Glucose 121 mg/dL (74-99); Non-African American GFR(CKD) >90 (>60 ml/min/1.73 sqM); Sodium 138 mmol/L (137-145); Total Bilirubin 0.4 mg/dL (0.2-1.3)
[2023-04-29 11:05] LABS: Potassium 4.4 mmol/L (3.5-5.1)
--- NOTE | 2023-04-29 11:43 | ED ---
General Adult HPI - General Chief complaint: Recheck/Abnormal Lab/Rx Stated complaint: trouble swallowing Time Seen by Provider: 04/29/23 09:35 Source: patient, RN notes reviewed Mode of arrival: ambulatory Limitations: no limitations - History of Present Illness Initial comments: 52-year-old female presents emergency Department with chief complaint of d ifficulty swallowing. This is been getting worse of recent. Patient states she has chronic nausea as well. Patient states that she started choking on some noodles recently feels like something may be stuck. Patient was scheduled for EGD symptoms worsen and came to the emergency Department. She did contact her surgeon who did her arrival hernia surgery in November. Patient denies any localized abdominal pain denies fevers no chest pain - Related Data Home Medications Medication Instructions Recorded Confirmed Albuterol Inhaler [Ventolin Hfa 2 puff INHALATION Q4H PRN 01/15/17 12/04/22 Inhaler] Aspirin EC [Ecotrin Low Dose] 81 mg PO DAILY 02/13/17 12/04/22 Omeprazole 20 mg PO DAILY 10/14/17 12/04/22 lisinopriL [Zestril] 10 mg PO BID 03/22/19 12/04/22 Nitroglycerin Sl Tabs [Nitrostat] 0.4 mg SL Q5M PRN 10/26/22 12/04/22 Ondansetron Odt [Zofran ODT] 4 mg PO TID PRN 10/26/22 12/04/22 amLODIPine [Norvasc] 10 mg PO QAM 10/26/22 12/04/22 rOPINIRole HCL [Requip] 1 mg PO HS 10/26/22 12/04/22 HYDROcodone/APAP 7.5-325MG [[place] 1 tab PO BID PRN 11/18/22 12/04/22 7.5-325] Multivitamins, Thera [Multivitamin 1 tab PO DAILY 11/18/22 12/04/22 (formulary)] Simvastatin [Zocor] 20 mg PO HS 11/18/22 12/04/22 Acetaminophen/Diphenhydramine 1 tab PO HS 12/04/22 12/04/22 [Tylenol PM 500-25mg] Elderberry Gummies 1 dose PO DAILY 12/04/22 Previous Rx's Medication Instructions Recorded Metoprolol Tartrate [Lopressor] 25 mg PO BID #60 tab 01/17/17 HYDROcodone/APAP 5-325MG [[place] 1 each PO Q4HR PRN #18 tab 12/11/22 5-325] Metoclopramide [Reglan] 10 mg PO TID PRN #15 tab 04/29/23 Allergies Allergy/AdvReac Type Severity Reaction Status Date / Time codeine AdvReac Itching Verified 04/29/23 09:37 erythromycin base AdvReac Nausea & Verified 04/29/23 09:37 [Erythromycin Base] Vomiting ibuprofen AdvReac Stomach Verified 04/29/23 09:37 cramps tramadol HCl [From Ultram] AdvReac Itching Verified 04/29/23 09:37 nicotine patch AdvReac Severe NIGHTMARES Uncoded 04/29/23 09:37 Review of Systems ROS Statement: Those systems with pertinent positive or pertinent negative responses have been documented in the HPI. ROS Other: All systems not noted in ROS Statement are negative. Past Medical History Past Medical History: Asthma, Coronary Artery Disease (CAD), COPD, Hyperlipidemia, Myocardial Infarction (SD), Pulmonary Embolus (PE) Additional Past Medical History / Comment(s): Other hx: DIVERTICULITIS. RESTLESS LEG SYNDROME. DDD, BACK PAIN, osteoporsis, palpatations. Pulmonary embolism in 2017, insomnia Last Myocardial Infarction Date:: 01-15-17 History of Any Multi-Drug Resistant Organisms: None Reported, MRSA Date of last positivie culture/infection: 10/25/22 MDRO Source:: blood Past Surgical History: Back Surgery, Bowel Resection, Cholecystectomy, Heart Catheterization With Stent, Hernia Repair, Tonsillectomy, Tubal Ligation Additional Past Surgical History / Comment(s): "HAD A FOOT OF BOWEL REMOVED"TEMPORARY COLOSTOMY, COLOSTOMY REVERSAL. "HAD 4 SX FOR INC HERNIA-HAS CLIP/MESH IN PLACE, BACK SURGERY 04/27, cyst taken off ovary, PCI with 2 stents in RCA, Epidural injections, left knee arthroscopy 06/2018 Past Anesthesia/Blood Transfusion Reactions: Postoperative Nausea & Vomiting (PONV) Additional Past Anesthesia/Blood Transfusion Reaction / Comment(s): anxiety upon awakening from anesthesia Date of Last Stent Placement:: 01-15-17 Past Psychological History: Anxiety, Bipolar, Depression Smoking Status: Current every day smoker Past Alcohol Use History: None Reported Past Drug Use History: Marijuana - Past Family History Mother Family Medical History: Hyperlipidemia, Hypertension, Myocardial Infarction (SD) Father Family Medical History: Hypertension Additional Family Medical History / Comment(s): Patient thinks father has COPD or Emphysema. Sister(s) Family Medical History: No Reported History Brother(s) Family Medical History: No Reported History Daughter(s) Family Medical History: No Reported History Son(s) Family Medical History: No Reported History General Exam Limitations: no limitations General appearance: alert, in no apparent distress Head exam: Present: atraumatic, normocephalic, normal inspection Eye exam: Present: normal appearance, PERRL, EOMI. Absent: scleral icterus, con junctival injection, periorbital swelling ENT exam: Present: normal exam, normal oropharynx, mucous membranes moist Neck exam: Present: normal inspection, full ROM. Absent: tenderness, meningismus, lymphadenopathy Respiratory exam: Present: normal lung sounds bilaterally. Absent: respiratory distress, wheezes, rales, rhonchi, stridor Cardiovascular Exam: Present: regular rate, normal rhythm, normal heart sounds. Absent: systolic murmur, diastolic murmur, rubs, gallop, clicks GI/Abdominal exam: Present: soft, normal bowel sounds. Absent: distended, tenderness, guarding, rebound, rigid Course Vital Signs 04/29/23 09:37 Temperature 98.3 F Pulse Rate 62 Respiratory 16 Rate Blood Pressure 169/102 O2 Sat by Pulse 99 Oximetry Medical Decision Making - Medical Decision Making Was pt. sent in by a medical professional or institution (, PA, AUTOMATIC OUTSOLE CUTTER, urgent care, hospital, or correction...) When possible be specific @ -Surgeon Did you speak to anyone other than the patient for history (EMS, parent, family, police, friend...)? What history was obtained from this source @ -No Did you review nursing and triage notes (agree or disagree)? Why? @ -I reviewed and agree with nursing and triage notes Were old charts reviewed (outside hosp., previous admission, EMS record, old EKG, old radiological studies, urgent care reports/EKG's, correction records)? Report findings @ -No old charts were reviewed Differential Diagnosis (chest pain, altered mental status, abdominal pain women, abdominal pain men, vaginal bleeding, weakness, fever, dyspnea, syncope, headache, dizziness, GI bleed, back pain, seizure, CVA, palpatations, mental health, musculoskeletal)? @ -And intermittent abdominal pain EKG interpreted by me (3pts min.). @ -[None X-rays interpreted by me (1pt min.). @ -[X-ray barium swallow/esophagram showing dysmotility no stricture or narrowing CT interpreted by me (1pt min.). @ -None done U/S interpreted by me (1pt. min.). @ -None done What testing was considered but not performed or refused? (CT, X-rays, U/S, labs)? Why? @ -None What meds were considered but not given or refused? Why? @ -None Did you discuss the management of the patient with other professionals (professionals i.e. , PA, AUTOMATIC OUTSOLE CUTTER, lab, RT, psych nurse, social media designer, android ios developer, teacher, aoc airspace control officer, vocational case manager)? Give summary @ -[Dr. Mon - did update surgeon regarding swallow eval. Patient will be discharged and follow-up in office. Was smoking cessation discussed for >3mins.? @ -No Was critical care preformed (if so, how long)? @ -No Were there social determinants of health that impacted care today? How? ( Homelessness, low income, unemployed, alcoholism, drug addiction, transportation, low edu. Level, literacy, decrease access to med. care, intermediate, rehab)? @ -No Was there de-escalation of care discussed even if they declined (Discuss DNR or withdrawal of care, Hospice)? DNR status @ -No What co-morbidities impacted this encounter? (DM, HTN, Smoking, COPD, CAD, Cancer, CVA, ARF, Chemo, Hep., AIDS, mental health diagnosis, sleep apnea, morbid obesity)? @ -None Was patient admitted / discharged? Hospital course, mention meds given and route, prescriptions, significant lab abnormalities, going to OR and other pertinent info. @ -Discharge patient has no evidence of stricture or food bolus. Patient is discharged in stable condition. Undiagnosed new problem with uncertain prognosis? @ -No Drug Therapy requiring intensive monitoring for toxicity (Heparin, Nitro, Insulin, Cardizem)? @ -No Were any procedures done? @ -No Diagnosis/symptom? @ -Esophageal dysmotility Acute, or Chronic, or Acute on Chronic? @ -Acute Uncomplicated (without systemic symptoms) or Complicated (systemic symptoms)? @ -Uncomplicated Side effects of treatment? @ -No Exacerbation, Progression, or Severe Exacerbation? @ -No Poses a threat to life or bodily function? How? (Chest pain, [place], SD, pneumonia, PE, COPD, DKA, ARF, appy, cholecystitis, CVA, Diverticulitis, Homicidal, Suicidal, threat to staff... and all critical care pts) @ -No - Lab Data Result diagrams: 04/29/23 10:30 04/29/23 10:30 Lab Results 04/29/23 04/29/23 Range/Units 10:30 10:30 WBC 8.2 (3.8-10.6) k/uL RBC 4.41 (3.80-5.40) m/uL Hgb 14.2 (11.4-16.0) gm/dL Hct 43.1 (34.0-46.0) % MCV 97.6 (80.0-100.0) fL MCH 32.2 (25.0-35.0) pg MCHC 33.0 (31.0-37.0) g/dL RDW 13.3 (11.5-15.5) % Plt Count 316 (150-450) k/uL MPV 7.5 Neutrophils % 77 % Lymphocytes % 16 % Monocytes % 4 % Eosinophils % 2 % Basophils % 0 % Neutrophils # 6.2 (1.3-7.7) k/uL Lymphocytes # 1.3 (1.0-4.8) k/uL Monocytes # 0.3 (0-1.0) k/uL Eosinophils # 0.1 (0-0.7) k/uL Basophils # 0.0 (0-0.2) k/uL Sodium 138 (137-145) mmol/L Potassium 4.4 (3.5-5.1) mmol/L Chloride 111 H (98-107) mmol/L Carbon Dioxide 18 L (22-30) mmol/L Anion Gap 9 mmol/L BUN 9 (7-17) mg/dL Creatinine 0.41 L (0.52-1.04) mg/dL Est GFR (CKD-EPI)AfAm >90 (>60 ml/min/1.73 sqM) Est GFR (CKD-EPI)NonAf >90 (>60 ml/min/1.73 sqM) Glucose 121 H (74-99) mg/dL Calcium 9.9 (8.4-10.2) mg/dL Total Bilirubin 0.4 (0.2-1.3) mg/dL AST 30 (14-36) U/L ALT 18 (4-34) U/L Alkaline Phosphatase 90 (38-126) U/L Total Protein 7.0 (6.3-8.2) g/dL Albumin 4.2 (3.5-5.0) g/dL Disposition Clinical Impression: Esophageal motility disorder Disposition: HOME SELF-CARE Condition: Stable Instructions (If sedation given, give patient instructions): Chronic Dysphagia (DC) Additional Instructions: Please return to the Emergency Department if symptoms worsen or any other concerns. Prescriptions: Metoclopramide [Reglan] 10 mg PO TID PRN #15 tab PRN Reason: Nausea Is patient prescribed a controlled substance at d/c from ED?: No Referrals: Shaan Evans MD [Primary Care Provider] - 1-2 days Time of Disposition: 12:21
--- NOTE | 2023-04-29 11:48 | FL ---
EXAMINATION TYPE: FL barium swallow DATE OF EXAM: 04/29/2023 CLINICAL INDICATION: 52-year-old female difficulty swallowing, history of hiatal hernia repair November. COMPARISON: None Total Fluoroscopy Time: 1 minute 8 seconds 255.12 mGycm2 DAP 28 images obtained. FINDINGS: Only a thin barium contrast was utilized due to the emergent nature of the exam. There is ankylosis e ndplate spondylosis mid to lower cervical spine which causes mild impressions on the back wall of the cervical esophagus but without any obstruction. Mild tertiary peristaltic waves are present and some blunted secondary stripping waves resulting in s ome residual contrast remaining in the esophagus and slight delay in clearance. No recurrent hiatal hernia, stricture, or obstruction is seen. IMPRESSION: Single contrast technique shows no obstruction or stricture. No recurrent hiatal hernia. There is mil d age-related esophageal dysmotility.
[2023-04-29 13:45] VITALS: BP 122/72; PULSE 78; TEMP 98.2
== END 2023-04-29 13:25 | disposition home or self-care (01) ==
LOC: EC 09:32
DX: K22.4 Dyskinesia of esophagus (principal); I25.10 Atherosclerotic heart disease of native coronary artery without angina pectoris; J44.9 Chronic obstructive pulmonary disease, unspecified; E78.5 Hyperlipidemia, unspecified; I25.2 Old myocardial infarction; F17.200 Nicotine dependence, unspecified, uncomplicated; F12.90 Cannabis use, unspecified, uncomplicated; Z86.59 Personal history of other mental and behavioral disorders; Z79.899 Other long term (current) drug therapy; Z79.82 Long term (current) use of aspirin; Z88.5 Allergy status to narcotic agent; Z88.6 Allergy status to analgesic agent; Z88.8 Allergy status to other drugs, medicaments and biological substances; Z95.5 Presence of coronary angioplasty implant and graft; Z90.49 Acquired absence of other specified parts of digestive tract; Z88.1 Allergy status to other antibiotic agents
CPT/HCPCS: 36415; 80053; 85025; 74220; 99283; 96374; 96361; J2765

== ENCOUNTER → 2023-05-08 | Outpatient (CLI) | payer MEDICARE, OTHER ==
--- NOTE | 2023-05-08 10:59 | CT ---
EXAMINATION TYPE: CT abdomen w con DATE OF EXAM: 05/08/2023 COMPARISON: 10/24/2022. HISTORY: Incisional hernia, hx colostomy w/reversal. CT DLP: 735 mGycm Automated exposure control for dose reduction was used. TECHNIQUE: Helical acquisition of images was performed from the lung bases through the top of iliac crest to include entire abdomen. CONTRAST: Performed with Oral Contrast and with IV Contrast, patient injected with 100 mL of Isovue 300. FINDINGS: LUNG BASES: No significant abnormality is appreciated. LIVER/GB: The liver appears unremarkable. The gallbladder surgically absent. PANCREAS: No significant abnormality is seen. SPLEEN: No significant abnormality is seen. ADRENALS: 3.6 cm right adrenal nodule is unchanged. The left adrenal appears unremarkable KIDNEYS: No significant abnormality is seen. BOWEL: No significant abnormality is seen. There appears to been a prior Johsua fundoplication. LYMPH NODES: No significant abnormality is seen. OSSEOUS STRUCTURES: No significant abnormality is seen. FREE AIR: No free air is visualized. OTHER: Mild vascular calcification is seen throughout the abdominal aorta without evidence of aneurys mal dilation or dissection. There is no abdominal wall hernia identified. IMPRESSION: 1. PRIOR SURGICAL CHANGES OF JOSHUA FUNDOPLICATION ARE NOT SIGNIFICANTLY CHANGED. 2. NO ACUTE ABNORMALITY OTHERWISE IDENTIFIED. 3. UNCHANGED RIGHT ADRENAL NODULE.
== END | disposition home or self-care (01) ==
LOC: RADCTMAIN 09:35
PROVIDERS: ATTEND Surgery
DX: K43.2 Incisional hernia without obstruction or gangrene (principal); E27.8 Other specified disorders of adrenal gland; Z98.890 Other specified postprocedural states
CPT/HCPCS: 74160; Q9967

== ENCOUNTER 2023-05-11 11:36 | Day surgery (SDC) | payer MEDICARE, OTHER ==
[2023-05-07 15:45] VITALS: BMI 31.4
[~2023-05-11 11:36] MED LIST changes: -ACETAMINOPHEN TAB 500 MG TAB PO PRN; -HEPARIN SODIUM,PORCINE/PF 5,000 UNIT/0.5 ML SYRINGE SQ PRN; +LACTATED RINGERS 1,000 ML IV SCH; +LIDOCAINE 1% (10MG/ML) FOR IV START INTRADERMA PRN
[2023-05-11] MEDS ORDERED: ONDANSETRON 4 MG/2 ML VIAL ONE (12:39)
[2023-05-11] MEDS ORDERED: ONDANSETRON 4 MG/2 ML VIAL IVP ONE (12:40)
[2023-05-11] MEDS ORDERED: PROPOFOL 10 MG/ML 20 ML VIAL IV ONE (12:48)
[2023-05-11] MEDS ORDERED: LIDOCAINE 2% (PF) 20 MG/ML 5 ML VIAL ONE (12:48)
[2023-05-11] MEDS ORDERED: fentaNYL (PF) 50 MCG/ML 2 ML AMP ONE (12:48)
[2023-05-11 12:51] VITALS: TEMP 97.5
--- NOTE | 2023-05-11 13:12 | P.GSHP ---
History of Present Illness H&P Date: 05/11/23 Chief Complaint: Dysphagia This a 53-year-old female presents for EGD. Patient has complaints of some mild dysphagia. Past Medical History Past Medical History: Asthma, Coronary Artery Disease (CAD), COPD, Hyperlipidemia, Myocardial Infarction (NH), Pulmonary Embolus (PE) Additional Past Medical History / Comment(s): Hx DIVERTICULITIS. RESTLESS LEG SYNDROME. DDD, BACK PAIN, osteoporsis, palpatations. Pulmonary embolism in 2017, insomnia. Last Myocardial Infarction Date:: 01-15-17 History of Any Multi-Drug Resistant Organisms: MRSA Date of last positivie culture/infection: 10/25/22 MDRO Source:: blood Past Surgical History: Back Surgery, Bowel Resection, Cholecystectomy, Heart Ca theterization With Stent, Hernia Repair, Orthopedic Surgery, Tonsillectomy, Tubal Ligation Additional Past Surgical History / Comment(s): "HAD A FOOT OF BOWEL REMOVED"TEMPORARY COLOSTOMY, COLOSTOMY REVERSAL. "HAD 4 SX FOR INC HERNIA-HAS CLIP/MESH IN PLACE, BACK FUSION 04/27, cyst taken off ovary, PCI with 2 stents in RCA, Epidural injections, left knee arthroscopy 06/2018, EGD, Colonoscopy. Past Anesthesia/Blood Transfusion Reactions: Postoperative Nausea & Vomiting (PONV) Additional Past Anesthesia/Blood Transfusion Reaction / Comment(s): Anxiety upon awakening from Anesthesia. Date of Last Stent Placement:: 01-15-17 Past Psychological History: Anxiety, Bipolar, Depression, PTSD Additional Psychological History / Comment(s): OCD. Smoking Status: Current every day smoker Past Alcohol Use History: None Reported Additional Past Alcohol Use History / Comment(s): STARTED SMOKING 1985 DOWN FROM 1.5 PPD TO 1/2-1 PPD. Past Drug Use History: Marijuana Additional Drug Use History / Comment(s): USES MARIJUANA EVERY OTHER DAY- INSTRUCTED TO REFRAIN FROM USE FOR AT LEAST 24 HOURS PRIOR TO PROCEDURE. - Past Family History Mother Family Medical History: Hyperlipidemia, Hypertension, Myocardial Infarction (NH) Father Family Medical History: COPD, Hypertension, Pulmonary Embolus Additional Family Medical History / Comment(s): Patient thinks father has COPD or Emphysema. Sister(s) Family Medical History: No Reported History Brother(s) Family Medical History: No Reported History Daughter(s) Family Medical History: No Reported History Son(s) Family Medical History: No Reported History Medications and Allergies Home Medications Medication Instructions Recorded Confirmed Type Albuterol Inhaler [Ventolin Hfa 2 puff INHALATION Q4H PRN 01/15/17 05/07/23 History Inhaler] Metoprolol Tartrate [Lopressor] 25 mg PO BID #60 tab 01/17/17 05/07/23 Rx Omeprazole 20 mg PO DAILY 10/14/17 05/07/23 History lisinopriL [Zestril] 10 mg PO BID 03/22/19 05/07/23 History Nitroglycerin Sl Tabs [Nitrostat] 0.4 mg SL Q5M PRN 10/26/22 05/07/23 History amLODIPine [Norvasc] 10 mg PO QAM 10/26/22 05/07/23 History rOPINIRole HCL [Requip] 1 mg PO HS 10/26/22 05/07/23 History Multivitamins, Thera [Multivitamin 1 tab PO DAILY 11/18/22 05/07/23 History (formulary)] Simvastatin [Zocor] 20 mg PO HS 11/18/22 05/07/23 History Acetaminophen/Diphenhydramine 1 tab PO HS 12/04/22 05/07/23 History [Tylenol PM 500-25mg] Elderberry Gummies 1 dose PO DAILY 12/04/22 05/07/23 History Metoclopramide [Reglan] 10 mg PO TID PRN #15 tab 04/29/23 05/07/23 Rx Buprenorphine-Nalox 8-2 mg Tab 1 tab SUBLINGUAL QAM 05/07/23 05/07/23 History [Suboxone 8-2 mg Tab] Allergies Allergy/AdvReac Type Severity Reaction Status Date / Time codeine AdvReac Itching Verified 05/07/23 15:13 erythromycin base AdvReac Nausea & Verified 05/07/23 15:13 [Erythromycin Base] Vomiting ibuprofen AdvReac Stomach Verified 05/07/23 15:13 cramps tramadol HCl [From Ultram] AdvReac Itching Verified 05/07/23 15:13 nicotine patch AdvReac Severe [place]IGHTMAR[place] Uncoded 05/07/23 15:13 Surgical - Exam Vital Signs Temp Pulse Resp BP Pulse Ox 97.5 F L 56 L 16 119/71 96 05/11/23 12:32 10/30/23 12:32 05/11/23 12:32 05/11/23 12:32 05/11/23 12:32 - General well developed, well nourished, no distress - Eyes PERRL - ENT normal pinna - Neck no masses - Respiratory normal expansion - Cardiovascular Rhythm: regular - Abdomen Abdomen: soft, non tender Assessment and Plan Assessment: History of dysphagia. We'll perform EGD.
--- NOTE | 2023-05-11 13:14 | P.OP ---
Date of Procedure: 05/11/23 Preoperative Diagnosis: Dysphagia Postoperative Diagnosis: Mild antral gastritis No evidence of recurrent hiatal hernia Procedure(s) Performed: EGD Anesthesia: MAC Surgeon: Sanchez Mon Pathology: other (Antrum) Condition: stable Description of Procedure: The patient's placed on the endoscopy table in the lateral position. She received IV sedation. The gastro-/oropharynx passed in the esophagus and stomach. Scope was then placed through the pylorus. The first and second portion of the duodenum appeared normal. Scope was then brought back the antrum is appeared inflamed. A biopsies performed. Scope was then retroflexed and remainder the stomach appeared normal. There was no recurrent hiatal hernia. The GE junction was at the 7 is. The distal esophagus appeared normal. The proximal esophagus appeared normal. There is no evidence of any obstruction at the GE junction. Scope was withdrawn for patient.
[2023-05-11 14:01] VITALS: BP 128/75; PULSE 52; RESP 16
== END 2023-05-11 13:50 | disposition home or self-care (01) ==
LOC: ORWHC2ENDO 11:36
PROVIDERS: ATTEND Surgery
DX: K31.9 Disease of stomach and duodenum, unspecified (principal); J44.9 Chronic obstructive pulmonary disease, unspecified; J45.909 Unspecified asthma, uncomplicated; I25.10 Atherosclerotic heart disease of native coronary artery without angina pectoris; E78.5 Hyperlipidemia, unspecified; I25.2 Old myocardial infarction; F41.9 Anxiety disorder, unspecified; F32.A Depression, unspecified; I10 Essential (primary) hypertension; K21.9 Gastro-esophageal reflux disease without esophagitis; F17.210 Nicotine dependence, cigarettes, uncomplicated; Z88.5 Allergy status to narcotic agent; Z90.49 Acquired absence of other specified parts of digestive tract; Z98.890 Other specified postprocedural states; Z95.5 Presence of coronary angioplasty implant and graft; Z86.711 Personal history of pulmonary embolism; Z88.1 Allergy status to other antibiotic agents; Z88.6 Allergy status to analgesic agent; Z88.4 Allergy status to anesthetic agent; Z79.891 Long term (current) use of opiate analgesic; Z79.83 Long term (current) use of bisphosphonates; Z79.899 Other long term (current) drug therapy; Z79.810 Long term (current) use of selective estrogen receptor modulators (SERMs)
CPT/HCPCS: 43239; J2405; J3010; J2704; J2001; 88305

== ENCOUNTER → 2023-07-27 | Outpatient (CLI) | payer MEDICARE, OTHER ==
[2023-07-27 19:49] LABS: HCT 41.8 % (37.2-46.3); HGB 13.4 g/dL (12.0-15.0); MCHC 32.1 g/dL (32.0-37.0); MCV 96.8 FL (80.0-97.0); Mean Platelet Volume 9.4 FL (9.5-12.2); NRBC Per 100 WBC 0 X 10*3/uL (0.00-0.01); Platelet Count 342 X 10*3/uL (140-440); RBC 4.32 X 10*6/uL (4.10-5.20); RDW 12.8 % (11.5-14.5); WBC 6.57 X 10*3/uL (4.50-10.00)
[2023-07-27 20:35] LABS: Anion Gap 10.1 mmol/L (4.00-12.00); Carbon Dioxide 24.9 mmol/L (21.6-31.8); Potassium 4.7 mmol/L (3.5-5.5)
== END | disposition home or self-care (01) ==
LOC: LABPAT 12:54
PROVIDERS: ATTEND Surgery
DX: Z01.812 Encounter for preprocedural laboratory examination (principal)
CPT/HCPCS: 80051; 85027

== ENCOUNTER 2023-07-29 06:40 | Day surgery (SDC) | payer MEDICARE, OTHER ==
[~2023-07-29 06:40] MED LIST changes: +ACETAMINOPHEN TAB 500 MG TAB PO PRN; +HEPARIN SODIUM,PORCINE 5,000 UNIT/ML 1 ML VIAL SQ PRN; -LACTATED RINGERS 1,000 ML IV SCH; -LIDOCAINE 1% (10MG/ML) FOR IV START INTRADERMA PRN; +Pre Op ABX Message 1 EACH MISC MISCELLANE ONE
[2023-07-29] MEDS ORDERED: DEXAMETHASONE SOD PHOSPHATE 4 MG/ML 1 ML VIAL IV ONE (06:59)
[2023-07-29] MEDS ORDERED: ONDANSETRON 4 MG/2 ML VIAL IVP ONE (06:59)
[2023-07-29] MEDS ORDERED: HYDROmorphone 0.5 MG/0.5 ML SYRINGE IVP PRN (07:00)
[2023-07-29] MEDS ORDERED: LACTATED RINGERS 1,000 ML IV ONE (07:40)
[2023-07-29] MEDS ORDERED: MIDAZOLAM 2 MG/2 ML VIAL IVP ONE (07:53)
[2023-07-29 08:23] VITALS: TEMP 96.9
[2023-07-29] MEDS ORDERED: NEOSTIGMINE 1 MG/ML 10 ML VIAL ONE (08:38)
[2023-07-29] MEDS ORDERED: PHENYLEPHRINE-0.9% NACL SYG 1,000 MCG/10 ML SYRINGE ONE (08:38)
[2023-07-29] MEDS ORDERED: PROPOFOL 10 MG/ML 20 ML VIAL IV ONE (08:38)
[2023-07-29] MEDS ORDERED: SUCCINYLCHOLINE CHLORIDE 200 MG/10 ML VIAL IV ONE (08:38)
[2023-07-29] MEDS ORDERED: MIDAZOLAM 2 MG/2 ML VIAL ONE (08:38)
[2023-07-29] MEDS ORDERED: HYDROmorphone (PF) 1 MG/ML ONE (08:38)
[2023-07-29] MEDS ORDERED: LIDOCAINE 1% INJ 10MG/ML (20 ML MDV) ONE (08:38)
[2023-07-29] MEDS ORDERED: GLYCOPYRROLATE 0.2 MG/ML 2 ML VIAL ONE (08:38)
[2023-07-29] MEDS ORDERED: ROCURONIUM 10 MG/ML (5 ML VIAL) IV ONE (08:38)
[2023-07-29] MEDS ORDERED: fentaNYL (PF) 50 MCG/ML 2 ML AMP ONE (08:38)
[2023-07-29] MEDS ORDERED: BUPIVACAINE (PF) 0.25% 30 ML VIAL SQ ONE ×2 (08:59→09:02)
[2023-07-29] MEDS ORDERED: SODIUM CHLORIDE 0.9% 50 ML with ceFAZolin 2,000 MG IV ONE ×2 (09:00)
[2023-07-29] MEDS ORDERED: droPERidol 5 MG/2 ML VIAL IVP ONE (09:57)
[2023-07-29] MEDS: LACTATED RINGERS 1,000 ML IV SCH ×2 (10:17→10:36)
[2023-07-29 10:49] VITALS: RESP 20
[2023-07-29 11:23] VITALS: BP 134/65; PULSE 60
--- NOTE | 2023-07-29 13:39 | P.OP ---
Date of Procedure: 07/29/23 Preoperative Diagnosis: Adhesions Postoperative Diagnosis: Extensive adhesions Procedure(s) Performed: Laparoscopic lysis of adhesions Anesthesia: DELLA Surgeon: Sanchez Mon Estimated Blood Loss (ml): 5 Pathology: other (Gallbladder) Condition: stable Disposition: PACU Description of Procedure: The patient's placed on the operative table in the supine position. She received a general endotracheal tube anesthesia. Her abdomen was prepped and draped in the usual sterile fashion. The patient had a large midline scar. A 5 mm optical trocar was placed into the pleural cavity in the left upper quadrant. The trochars placed under direct vision optically. The abdomen was then insufflated. After adequate insufflation a transversus abdominis plane block was then performed using 1% local Xylocaine. The patient had extensive adhesions located along the midline scar. Other 5 mm trocar was placed in the left lower quadrant and left lateral position. Using the Harmonic scissors the adhesions were lysed. The adhesions appeared to be adherent to piece of mesh was placed into the peritoneal cavity. The adhesions were extensive. Over 20 minutes of operative time used to lyse adhesions. There was also small bowel stuck against the mesh. This was dissected free with sharp dissection. Care was taken to identify and preserve the small bowel wall. There is no evidence of any injury to the small bowel. Once the adhesions were completely lysed. The abdomen was inspected. There is no evidence of bleeding. There is no evidence of any injury to the bowel. This point the abdomen was irrigated. The trochars withdrawn. The skin was closed interrupted 3-0 Monocryl suture. Dermabond was applied. Patient top she will pressure sent to recovery room in stable condition.
== END 2023-07-29 11:28 | disposition home or self-care (01) ==
LOC: OR 06:40
PROVIDERS: ATTEND Surgery
DX: K66.0 Peritoneal adhesions (postprocedural) (postinfection) (principal); I25.10 Atherosclerotic heart disease of native coronary artery without angina pectoris; I10 Essential (primary) hypertension; E78.5 Hyperlipidemia, unspecified; G25.81 Restless legs syndrome; F43.10 Post-traumatic stress disorder, unspecified; F10.90 Alcohol use, unspecified, uncomplicated; F17.200 Nicotine dependence, unspecified, uncomplicated; Z86.711 Personal history of pulmonary embolism; Z79.01 Long term (current) use of anticoagulants; Z79.899 Other long term (current) drug therapy
CPT/HCPCS: 44180; J2250; J0330; J1644; J1100; J2710; J2405; J0690; J2001; J3010; J1170 ×2; J2704; J1790; J2371; J0665

== ENCOUNTER → 2024-02-04 | Outpatient (CLI) | payer MEDICARE, OTHER ==
--- NOTE | 2024-02-04 11:46 | FL ---
ESOPHOGRAM. HISTORY: Dysphagia Esophagram was performed per the air contrast technique. The patient swallowed barium and effervesce nt crystals without difficulty or delay. Esophageal peristalsis and motility appear to be within normal limits. There is no evidence for filling defect, mass or diverticulum. No hiatal hernia seen. Subsequently single contrast cervical esophagram was performed which fails demonstrate evidence for a spiration penetration or mass. IMPRESSION: Unremarkable study.
== END | disposition home or self-care (01) ==
LOC: RADUSWWP 09:47
PROVIDERS: ATTEND Surgery
DX: R13.10 Dysphagia, unspecified (principal)
CPT/HCPCS: 74220

== ENCOUNTER → 2024-03-09 | Outpatient (CLI) | payer MEDICARE, OTHER ==
--- NOTE | 2024-03-09 15:05 | CT ---
EXAMINATION TYPE: CT abdomen pelvis w con CT DLP: 2014 mGycm, Automated exposure control for dose reduction was used. DATE OF EXAM: 03/09/2024 2:30 PM COMPARISON: CT abdomen 05/08/2023, CT scan pelvis 10/24/2022 CLINICAL INDICATION:Female, 53 years old with history of R10.12 LUQ PAIN; lower abdominal pain and sw elling 50lbs weight gain in 1 month TECHNIQUE: Standard CT of the abdomen and pelvis following the administration of 100 cc of Isovue 3 00 IV contrast material and oral contrast. Coronal and sagittal reformats were performed. FINDINGS: LOWER CHEST: Linear scarring and/or atelectasis within the left lower lobe. ABDOMEN LIVER: Unremarkable GALLBLADDER AND BILE DUCTS: Gallbladder is surgically absent with mild intrahepatic and extra hepatic biliary dilatation likely physiologic and a postcholecystectomy change. No evidence of choledocholit hiasis. PANCREAS: Unremarkable. SPLEEN: Unremarkable. ADRENAL GLANDS: Stable right adrenal gland 3.7 cm nodule. Unremarkable left adrenal gland. KIDNEYS AND URETERS: No evidence of hydronephrosis or renal calculus. The kidneys enhance symmetrical ly. Contrast is demonstrated within both collecting systems on the delayed phase. Retroaortic left re nal vein. PELVIS BLADDER: Incompletely distended but grossly unremarkable. REPRODUCTIVE: Unremarkable. ABDOMEN & PELVIS STOMACH AND BOWEL: Postsurgical changes of Cathy fundoplication. Additional postsurgical changes at the rectosigmoid junction without evident change. There is similar thickening at the anastomotic site . No evidence of bowel obstruction. Enteric contrast reaches the descending colon. PERITONEUM: No evidence of pneumoperitoneum or free fluid. VASCULATURE: Mild atherosclerotic calcifications are present throughout the abdominal aorta and its b ranches. No evidence of aortic aneurysm. MUSCULOSKELETAL: No acute osseous abnormalities. S-shaped scoliotic curvature of the thoracolumbar sp ine. Multilevel degenerative disc disease. LYMPH NODES: No gross evidence for lymphadenopathy. SOFT TISSUE/ABDOMINAL WALL: Stable small ventral wall fat-containing hernias. IMPRESSION: 1. No ultrasound evidence for acute abdominal/pelvic process. 2. Stable small ventral wall fat-containing hernias. 3. Stable right adrenal gland nodule.
== END | disposition home or self-care (01) ==
LOC: RADCTMAIN 12:01
PROVIDERS: ATTEND Surgery
DX: R10.12 Left upper quadrant pain
CPT/HCPCS: 74177

== ENCOUNTER → 2024-04-05 | Outpatient (CLI) | payer MEDICARE, OTHER ==
[2024-04-05 16:41] LABS: Basophils # (A) 0.05 X 10*3/uL (0.00-0.10); Basophils % (A) 0.6 %; Eosinophils # (A) 0.07 X 10*3/uL (0.04-0.35); Eosinophils % (A) 0.8 %; HCT 44.3 % (37.2-46.3); HGB 14.4 g/dL (12.0-15.0); Lymphocytes # (A) 2.33 X 10*3/uL (0.90-5.00); Lymphocytes % (A) 27.6 %; MCH 31.2 pg (27.0-32.0); MCHC 32.5 g/dL (32.0-37.0); MCV 96.1 FL (80.0-97.0); Monocytes # (A) 0.63 X 10*3/uL (0.20-1.00); Monocytes % (A) 7.5 %; NRBC Per 100 WBC 0 X 10*3/uL (0.00-0.01); Neutrophils # (A) 5.34 X 10*3/uL (1.80-7.70); Neutrophils % (A) 63.3 %; Platelet Count 360 X 10*3/uL (140-440); RBC 4.61 X 10*6/uL (4.10-5.20); RDW 16.2 % (11.5-14.5); WBC 8.44 X 10*3/uL (4.50-10.00)
== END | disposition home or self-care (01) ==
LOC: LABPAT 10:50
PROVIDERS: ATTEND Surgery
DX: Z01.818 Encounter for other preprocedural examination
CPT/HCPCS: 85025; 86850; 86900; 86901; 93005

== ENCOUNTER 2024-04-06 06:48 | Day surgery (SDC) | payer MEDICARE, OTHER ==
[2024-03-30 16:02] VITALS: BMI 38.9
[2024-04-06] MEDS: DEXAMETHASONE SOD PHOSPHATE 4 MG/ML 1 ML VIAL IV ONE (07:41)
[2024-04-06] MEDS: ONDANSETRON 4 MG/2 ML VIAL IVP ONE (07:41)
[2024-04-06] MEDS: LACTATED RINGERS 1,000 ML IV SCH ×2 (07:42→13:20)
[2024-04-06] MEDS: IV FLUID CONTINUATION 1,000 ML IV ONE (07:45)
[2024-04-06] MEDS: MIDAZOLAM 2 MG/2 ML VIAL IV ONE (08:05)
--- NOTE | 2024-04-06 08:20 | P.ANPRN ---
Procedure Note - Anesthesia - Nerve Block Performed Bilateral Erector Spinae Single Time Out Performed: Yes Date of Procedure: 04/06/24 Procedure Start Time: 08:04 Procedure Stop Time: 08:11 Location of Patient: PreOp Indication: Acute Post-Operative Pain, Analgesia, Requested by Surgeon Sedation Type: Sedate with meaningful contact maintained Preparation: Sterile Prep Position: Prone Catheter: None Needle Types: [place]unk Needle Gauge: 21 Ultrasound used to visualize needle placement: Yes Ultrasound used to observe medication spread: Yes Injectate: 0.5% Ropivacaine (see comment for volume) (Ropiv 20ml+Decadron 4mg--- Each side. T10 level needle bilateral.) Blood Aspirated: No Pain Paresthesia on Injection Noted: No Resistance on Injection: Normal Image Stored and Saved: Yes Events: Uneventful and Well Tolerated
[2024-04-06] MEDS: HEPARIN SODIUM,PORCINE 5,000 UNIT/ML 1 ML VIAL SQ STA (08:25)
[2024-04-06] MEDS ORDERED: SUCCINYLCHOLINE CHLORIDE 200 MG/10 ML VIAL IV ONE (08:49)
[2024-04-06] MEDS ORDERED: NEOSTIGMINE 1 MG/ML 10 ML VIAL ONE (08:49)
[2024-04-06] MEDS ORDERED: ROCURONIUM 10 MG/ML (5 ML VIAL) IV ONE (08:49)
[2024-04-06] MEDS ORDERED: DEXAMETHASONE SOD PHOSPHATE 4 MG/ML 1 ML VIAL ONE (08:49)
[2024-04-06] MEDS ORDERED: GLYCOPYRROLATE 0.2 MG/ML 2 ML VIAL ONE (08:49)
[2024-04-06] MEDS ORDERED: KETOROLAC 15 MG/ML 1 ML VIAL ONE (08:49)
[2024-04-06] MEDS ORDERED: MIDAZOLAM 2 MG/2 ML VIAL ONE (08:49)
[2024-04-06] MEDS ORDERED: ROPIVACAINE 5 MG/ML 30 ML VIAL ONE (08:49)
[2024-04-06] MEDS ORDERED: LIDOCAINE 1% INJ 10MG/ML (20 ML MDV) ONE (08:49)
[2024-04-06] MEDS ORDERED: fentaNYL (PF) 50 MCG/ML 2 ML AMP ONE (08:49)
[2024-04-06] MEDS ORDERED: PROPOFOL 10 MG/ML 20 ML VIAL IV ONE (08:49)
[2024-04-06] MEDS ORDERED: HYDROmorphone (PF) 1 MG/ML ONE (08:49)
[2024-04-06] MEDS: LIDOCAINE 2%-EPI 1:100,000 20 ML VIAL SQ ONE (09:21)
[2024-04-06] MEDS ORDERED: NALOXONE 0.4 MG/ML 1 ML VIAL IV PRN (09:49)
[2024-04-06] MEDS ORDERED: ACETAMINOPHEN TAB 325 MG TAB PO PRN (09:49)
[2024-04-06] MEDS ORDERED: traMADol 50 MG TAB PO PRN (09:49)
--- NOTE | 2024-04-06 09:49 | P.OP ---
Date of Procedure: 04/06/24 Preoperative Diagnosis: incisional hernia Postoperative Diagnosis: Incisional hernia Adhesions Procedure(s) Performed: Diagnosis laparoscopy Open repair of incisional hernia Partial omentectomy Anesthesia: DELLA Surgeon: Sanchez Mon Estimated Blood Loss (ml): 5 Pathology: other (Omentum) Condition: stable Disposition: PACU Operative Findings: 12 cm incisional hernia incarcerated omentum Description of Procedure: The patient was placed on the operative table in the supine position. She received general NG tube anesthesia. Her abdomen is prepped and draped you sterile fashion. The hernia been previously marked. It was in the upper midline. The 5 mm laparoscopic trocar was placed under direct vision the peritoneal cavity. The abdomen is insufflated. And then the laparoscope was placed back Liparol. There were extensive adhesions noted along the midline scar. And in the left lower quadrant. At this point another 5 mm trocar was placed in the right upper quadrant. This was placed under direct vision. And then the laparoscope is placed in the right side. In extensive adhesions were noted. Due to the adhesions decided perform an open repair of incisional hernia. The trocars were withdrawn. The skin was incised over the hernia. Then using blunt sharp dissection electrocautery the subcu tissue was divided off of the hernia. The hernia appeared to contain omentum incarcerated omentum. The hernia sac was opened and then the impression omentum was transected with electrocautery and sent to pathology. The fascial defect was then closed with [id number] 0 Ethibond suture and #1 STRATAFIX suture. There was no b leeding seen. The skin was low stable. Patient Toller procedure well. He was she was sent to recovery in stable addition.
[2024-04-06] MEDS: fentaNYL (PF) 50 MCG/ML 2 ML AMP IV PRN (10:07)
[2024-04-06] MEDS: HYDROmorphone 0.5 MG/0.5 ML SYRINGE IVP PRN (13:19)
[2024-04-06] MEDS: KETOROLAC 15 MG/ML 1 ML VIAL IVP SCH (13:43)
[2024-04-06] MEDS: HYDROmorphone 0.5 MG/0.5 ML SYRINGE IVP STA (14:15)
[2024-04-06] MEDS ORDERED: NITROGLYCERIN SL TABS 0.4 MG TAB SUBLINGUAL PRN (14:23)
[2024-04-06] MEDS: HEPARIN SODIUM,PORCINE 5,000 UNIT/ML 1 ML VIAL SQ SCH (16:00)
[2024-04-06] MEDS: HYDROmorphone 1 MG/ML 1 ML SYRINGE IVP PRN (16:00)
[2024-04-06] MEDS: ALPRAZolam 0.5 MG TAB PO PRN (17:23)
[2024-04-06] MEDS: ATORVASTATIN 80 MG TAB PO SCH (20:30)
[2024-04-06] MEDS: METOPROLOL TARTRATE 25 MG TAB PO SCH (20:30)
[2024-04-06] MEDS: NON FORMULARY DRUG (Buprenorphine-Nalox 8-2 Mg Tab 1 EACH Tablet) SUBLINGUAL SCH (20:31)
[2024-04-07] MEDS: ONDANSETRON 4 MG/2 ML VIAL IVP PRN (06:32)
[2024-04-07 08:29] VITALS: BP 128/65; RESP 17; TEMP 98.2
[2024-04-07] MEDS: ALBUTEROL NEBULIZED 2.5 MG/3 ML INHALATION PRN (08:48)
[2024-04-07 08:57] VITALS: PULSE 74
[2024-04-07] MEDS: lisinopriL 10 MG TAB PO SCH (09:13)
[2024-04-07] MEDS: amLODIPine 10 MG TAB PO SCH (09:13)
[2024-04-07] MEDS: ENOXAPARIN 40 MG/0.4 ML SYRINGE SQ SCH (09:14)
[2024-04-07] MEDS: METOCLOPRAMIDE 10 MG TAB PO PRN (09:56)
--- NOTE | 2024-04-07 11:07 | P.DS ---
Providers Expected date of discharge: 04/07/24 Attending physician: Sanchez Mon Consults: 04/06/24 09:49 Consult Physician Routine Consulting Provider: Shaan Evans Consult Reason/Comments: Medical management Do you want consulting provider notified?: Yes Primary care physician: Shaan Evans Hospital Course: Discharge diagnosis 1. Incisional hernia Hospital course This is a 53-year-old female with incisional hernia and adhesions. She is status post diagnostic laparoscopy, open repair of incisional hernia and partial omentectomy. Patient reports her pain is controlled. She is tolerating diet. She has been up and ambulating. She is having flatus. She is afebrile. She is stable for discharge. Please refer to chart for any further details. Physician Truss Assembler note has been reviewed by physician. Signing provider agrees with the documented findings, assessment, and plan of care. Patient Condition at Discharge: Stable Plan - Discharge Summary Discharge Rx Participant: Yes New Discharge Prescriptions: Continue Albuterol Inhaler [Ventolin Hfa Inhaler] 2 puff INHALATION Q4H PRN PRN Reason: Shortness Of Breath Metoprolol Tartrate [Lopressor] 25 mg PO BID #60 tab lisinopriL [Zestril] 10 mg PO QAM amLODIPine [Norvasc] 10 mg PO QAM Acetaminophen/Diphenhydramine [Tylenol PM 500-25mg] 2 tab PO HS Elderberry Gummies 3 tab PO DAILY Metoclopramide [Reglan] 10 mg PO TID PRN #15 tab PRN Reason: Nausea Buprenorphine-Nalox 8-2 mg Tab [Suboxone 8-2 mg Tab] 1 tab SUBLINGUAL BID Atorvastatin [Lipitor] 80 mg PO HS rOPINIRole HCL [Requip] 1 mg PO HS Nitroglycerin Sl Tabs [Nitrostat] 0.4 mg SL Q5M PRN PRN Reason: Chest Pain ALPRAZolam [Xanax] 0.5 mg PO TID PRN PRN Reason: Anxiety Discharge Medication List Albuterol Inhaler [Ventolin Hfa Inhaler] 2 puff INHALATION Q4H PRN 01/15/17 [History] Metoprolol Tartrate [Lopressor] 25 mg PO BID #60 tab 01/17/17 [Rx] lisinopriL [Zestril] 10 mg PO QAM 03/22/19 [History] Nitroglycerin Sl Tabs [Nitrostat] 0.4 mg SL Q5M PRN 10/26/22 [History] amLODIPine [Norvasc] 10 mg PO QAM 10/26/22 [History] rOPINIRole HCL [Requip] 1 mg PO HS 10/26/22 [History] Acetaminophen/Diphenhydramine [Tylenol PM 500-25mg] 2 tab PO HS 12/04/22 [History] Elderberry Gummies 3 tab PO DAILY 12/04/22 [History] Metoclopramide [Reglan] 10 mg PO TID PRN #15 tab 04/29/23 [Rx] Buprenorphine-Nalox 8-2 mg Tab [Suboxone 8-2 mg Tab] 1 tab SUBLINGUAL BID 05/07/23 [History] Atorvastatin [Lipitor] 80 mg PO HS 07/24/23 [History] ALPRAZolam [Xanax] 0.5 mg PO TID PRN 04/06/24 [History] Follow up Appointment(s)/Referral(s): Sanchez Mon MD [STAFF PHYSICIAN] - 04/14/24 2:10 pm Activity/Diet/Wound Care/Special Instructions: Patient to continue her Suboxone for her pain management. Patient to follow-up with her pain management physician. No lifting over 10 pounds Shower daily. No soaking or tub baths for 2 weeks Very light activity until you are reevaluated at your follow up appointment with your surgeon Discharge Disposition: HOME SELF-CARE
--- NOTE | 2024-04-07 20:34 | PN ---
PROGRESS NOTE DATE OF SERVICE: 04/07/2024 CHIEF COMPLAINT: Status post ventral herniorrhaphy. HISTORY OF PRESENT ILLNESS: This lady is doing well and expects to go home today. PHYSICAL EXAMINATION: GENERAL: She is awake and alert. VITAL SIGNS: Normal. CHEST: Clear. CARDIAC: Normal. ABDOMEN: Abdominal dressing is dry. IMPRESSION: Status post ventral herniorrhaphy. PLAN: Probably home today. MMODL / IJN: [id number] /
--- NOTE | 2024-04-08 02:40 | CONS ---
CONSULTATION CHIEF COMPLAINT: Ventral herniae. HISTORY OF PRESENT ILLNESS: This is another admission for this 53-year-old female, who is coming in for elective ventral herniorrhaphy. She has been stable, and doing well of late. REVIEW OF SYSTEMS: She has had no chest pain, shortness of breath, palpitations, syncope, nausea, vomiting, diarrhea, melena, urinary complaints, etc. Past medical history, family history, personal and social histories can be found in her admitting summary. MEDICATIONS: She is on amlodipine, lisinopril, Suboxone, Xanax, ropinirole, Lasix, atorvastatin, and metoprolol. Remainder of her history is essentially unremarkable. She does smoke. PHYSICAL EXAMINATION: VITAL SIGNS: Normal. HEAD, EARS, EYES, NOSE, MOUTH AND THROAT: Normal. NECK: Neck veins are not distended. Thyroid is enlarged. CHEST: Clear. CARDIAC EXAM: Normal. ABDOMEN: Protuberant, soft, and there is fairly large ventral hernia. There may be more than one. Bowel sounds are present. EXTREMITIES: Normal. NEUROLOGICAL: She is intact. IMPRESSION: She is admitted to the hospital with diagnoses, 1. Ventral herniae. 2. Hypertension. RECOMMENDATIONS: None. She is stable and doing well at this time. MMODL / IJN: [id number] /
== END 2024-04-07 12:22 | disposition home or self-care (01) ==
LOC: OR 06:48 → 4SSUR 09:48 → OR 04-07 12:22
PROVIDERS: ATTEND Surgery
DX: K43.2 Incisional hernia without obstruction or gangrene
CPT/HCPCS: 64999; 88305; 94640

== ENCOUNTER 2024-06-04 12:35 | Emergency (ER) | payer MEDICARE, OTHER ==
[2024-06-04 12:44] VITALS: TEMP 98.6
--- NOTE | 2024-06-04 13:09 | ED ---
General Adult HPI - General Chief complaint: Abdominal Pain Stated complaint: Vomiting,weakness Time Seen by Provider: 06/04/24 12:45 Source: patient, RN notes reviewed, old records reviewed Mode of arrival: ambulatory Limitations: no limitations - History of Present Illness Initial comments: 54-year-old female presents to the emergency department complaining of abdominal pain and nausea vomiting. Patient states she had abdominal ventral hernia surge ry by Dr. Mon a month and a half ago after that he had she had an infection and she was treated with antibiotics. Patient states over the last week or so she has been having increasing pain increasing nausea vomiting and unable to keep anything down. Patient denies any back pain. Patient has any fever chills. Patient has chest pain difficulty breathing or shortness of breath. - Related Data Home Medications Medication Instructions Recorded Confirmed Albuterol Inhaler [Ventolin Hfa 2 puff INHALATION Q4H PRN 01/15/17 04/06/24 Inhaler] lisinopriL [Zestril] 10 mg PO QAM 03/22/19 04/06/24 Nitroglycerin Sl Tabs [Nitrostat] 0.4 mg SL Q5M PRN 10/26/22 04/06/24 amLODIPine [Norvasc] 10 mg PO QAM 10/26/22 04/06/24 rOPINIRole HCL [Requip] 1 mg PO HS 10/26/22 04/06/24 Acetaminophen/Diphenhydramine 2 tab PO HS 12/04/22 04/06/24 [Tylenol PM 500-25mg] Elderberry Gummies 3 tab PO DAILY 12/04/22 04/06/24 Buprenorphine-Nalox 8-2 mg Tab 1 tab SUBLINGUAL BID 05/07/23 04/06/24 [Suboxone 8-2 mg Tab] Atorvastatin [Lipitor] 80 mg PO HS 07/24/23 04/06/24 ALPRAZolam [Xanax] 0.5 mg PO TID PRN 04/06/24 04/06/24 Previous Rx's Medication Instructions Recorded Metoprolol Tartrate [Lopressor] 25 mg PO BID #60 tab 01/17/17 Metoclopramide [Reglan] 10 mg PO TID PRN #15 tab 04/29/23 Allergies Allergy/AdvReac Type Severity Reaction Status Date / Time acetaminophen [From [place]] AdvReac Nausea & Verified 04/06/24 07:17 Vomiting codeine AdvReac Itching Verified 04/06/24 07:17 erythromycin base AdvReac Nausea & Verified 04/06/24 07:17 [Erythromycin Base] Vomiting hydrocodone [From [place]] AdvReac Nausea & Verified 04/06/24 07:17 Vomiting ibuprofen AdvReac Stomach Verified 04/06/24 07:17 cramps sulfamethoxazole AdvReac Nausea & Verified 06/04/24 12:41 [From Bactrim] Vomiting tramadol HCl [From Ultram] AdvReac Itching Verified 04/06/24 07:17 trimethoprim [From Bactrim] AdvReac Nausea & Verified 06/04/24 12:41 Vomiting nicotine patch AdvReac Severe NIGHTMARES Uncoded 04/06/24 07:17 Review of Systems ROS Statement: Those systems with pertinent positive or pertinent negative responses have been documented in the HPI. ROS Other: All systems not noted in ROS Statement are negative. Past Medical History Past Medical History: Asthma, Coronary Artery Disease (CAD), COPD, GERD/Reflux, Hyperlipidemia, Hypertension, Myocardial Infarction (MO), Musculoskeletal Disorder, Pulmonary Embolus (PE) Additional Past Medical History / Comment(s): Poor appetite, recent weight gain.Hx DIVERTICULITIS. RESTLESS LEG SYNDROME, DDD, BACK PAIN, osteoporsis, palpatations, hx pulmonary embolism in 2017, insomnia, mass on left kidney, "due to have ultrasound soon to check it". Last Myocardial Infarction Date:: 01-15-17 History of Any Multi-Drug Resistant Organisms: MRSA Date of last positivie culture/infection: 10/25/22 MDRO Source:: blood Past Surgical History: Back Surgery, Bowel Resection, Cholecystectomy, Heart Catheterization With Stent, Hernia Repair, Orthopedic Surgery, Tonsillectomy, Tubal Ligation Additional Past Surgical History / Comment(s): COLOSTOMY, COLOSTOMY REVERSAL, INCISIONAL HERNIA REPAIR X4 HAS CLIP/MESH IN PLACE, BACK FUSION 04/27, ovarian cyst removed, 2 stents, epidural injections, left knee arthroscopy, EGD, colonoscopy, left hand surgery - cadavar left hand, hiatal hernia repair, lysis of adhesions. Past Anesthesia/Blood Transfusion Reactions: Postoperative Nausea & Vomiting (P ONV) Additional Past Anesthesia/Blood Transfusion Reaction / Comment(s): Anxiety upon awakening from Anesthesia. Date of Last Stent Placement:: 01-15-17 Past Psychological History: Anxiety, Bipolar, Depression, PTSD Smoking Status: Current every day smoker Past Alcohol Use History: None Reported Past Drug Use History: Marijuana - Past Family History Mother Family Medical History: Hyperlipidemia, Hypertension, Myocardial Infarction ([place]) Father Family Medical History: COPD, Hypertension, Pulmonary Embolus Additional Family Medical History / Comment(s): Patient thinks father has COPD or Emphysema. Sister(s) Family Medical History: No Reported History Brother(s) Family Medical History: No Reported History Daughter(s) Family Medical History: No Reported History Son(s) Family Medical History: No Reported History General Exam - General Exam Comments Initial Comments: GENERAL: Patient is well-developed and well-nourished. Patient is nontoxic and well- hydrated and is in no acute distress. ENT: Neck is soft and supple. No significant lymphadenopathy is noted. Oropharynx is clear. Moist mucous membranes. Neck has full range of motion without eliciting any pain. EYES: The sclera were anicteric and conjunctiva were pink and moist. Extraocular movements were intact and pupils were equal round and reactive to light. Eyelids were unremarkable. PULMONARY: Unlabored respirations. Good breath sounds bilaterally. No audible rales r honchi or wheezing was noted. CARDIOVASCULAR: There is a regular rate and rhythm without any murmurs gallops or rubs. ABDOMEN: There is mid abdominal tenderness in the supraumbilical region but there is no point tenderness. SKIN: Skin is clear with no lesions or rashes and otherwise unremarkable. NEUROLOGIC: Patient is alert and oriented x3. Cranial nerves II through XII are grossly intact. Motor and sensory are also intact. Normal speech, volume and content. Symmetrical smile. MUSCULOSKELETAL: Normal extremities with adequate strength and full range of motion. No lower extremity swelling or edema. No calf tenderness. LYMPHATICS: No significant lymphadenopathy is noted PSYCHIATRIC: Normal psychiatric evaluation. Limitations: no limitations Course Vital Signs 06/04/24 12:42 Temperature 98.6 F Pulse Rate 86 Respiratory 20 Rate Blood Pressure 163/109 O2 Sat by Pulse 95 Oximetry Medical Decision Making - Medical Decision Making Was pt. sent in by a medical professional or institution (, PA, CATALYST IMPREGNATOR, urgent care, hospital, or fci...) When possible be specific @ -No Did you speak to anyone other than the patient for history (EMS, parent, family, police, friend...)? What history was obtained from this source @ -No Did you review nursing and triage notes (agree or disagree)? Why? @ -I reviewed and agree with nursing and triage notes Were old charts reviewed (outside hosp., previous admission, EMS record, old EKG, old radiological studies, urgent care reports/EKG's, fci records)? Report findings @ -No old charts were reviewed Differential Diagnosis? @ -Differential Abdominal Pain Women: Appendicitis, Cholecystitis, diverticulosis, ischemic bowel, pancreatitis, hepatitis, UTI, gastroenteritis, AAA, incarcerated hernia, bowel obstruction, constipation, inflammatory bowel, hepatitis, peptic ulcer disease, splenic infarction, perforated viscus, vulvitis, ovarian torsion, PID, kidney stone, placenta abruption, this is not meant to be an all-inclusive list EKG interpreted by me (3pts min.). @ -As above X-rays interpreted by me (1pt min.). @ -None done CT interpreted by me (1pt min.). @ -CT shows a fluid collection possibly seroma cannot rule out infectious etiology U/S interpreted by me (1pt. min.). @ -None done What testing was considered but not performed or refused? (CT, X-rays, U/S, la bs)? Why? @ -None What meds were considered but not given or refused? Why? @ -None Did you discuss the management of the patient with other professionals (professionals i.e. , PA, CATALYST IMPREGNATOR, lab, RT, psych nurse, licensed social worker, clinical rn, teacher, space officer, case folder)? Give summary @ -Spoke with Dr. Middleton about the patient he was in agreement to let her follow- up outpatient if she was willing. Was smoking cessation discussed for >3mins.? @ -No Was critical care preformed (if so, how long)? @ -No Were there social determinants of health that impacted care today? How? (Homelessness, low income, unemployed, alcoholism, drug addiction, transportation, low edu. Level, literacy, decrease access to med. care, intermediate, rehab)? @ -No Was there de-escalation of care discussed even if they declined (Discuss DNR or withdrawal of care, Hospice)? DNR status @ -No What co-morbidities impacted this encounter? (DM, HTN, Smoking, COPD, CAD, Cancer, CVA, ARF, Chemo, Hep., AIDS, mental health diagnosis, sleep apnea, morbid obesity)? @ -None Was patient admitted / discharged? Hospital course, mention meds given and route, prescriptions, significant lab abnormalities, going to OR and other pertinent info. @ -Patient Pain medicine nausea medicine fluids and she was feeling considerably better and she stated she would follow-up with Dr. Mon on Thursday. Patient's CAT scan showed probable seroma though infectious etiology could not be ruled out. Patient was in favor of going home she stated she felt considerably better so she will be sent home with some Zofran Undiagnosed new problem with uncertain prognosis? @ -No Drug Therapy requiring intensive monitoring for toxicity (Heparin, Nitro, Insu sarah, Cardizem)? @ -No Were any procedures done? @ -No Diagnosis/symptom? @ -Seroma Acute, or Chronic, or Acute on Chronic? @ -Acute on chronic Uncomplicated (without systemic symptoms) or Complicated (systemic symptoms)? @ -Complicated Side effects of treatment? @ -No Exacerbation, Progression, or Severe Exacerbation? @ -No Poses a threat to life or bodily function? How? (Chest pain, [place], [place], pneumonia, PE, COPD, DKA, ARF, appy, cholecystitis, CVA, Diverticulitis, Homicidal, Suicidal, threat to staff... and all critical care pts) @ -No - Lab Data Result diagrams: 06/04/24 13:15 06/04/24 13:15 Lab Results 06/04/24 06/04/24 06/04/24 Range/Units 13:15 13:15 13:15 WBC 10.3 (3.8-10.6) k/uL RBC 4.87 (3.80-5.40) m/uL Hgb 15.6 (11.4-16.0) gm/dL Hct 46.5 H (34.0-46.0) % MCV 95.5 (80.0-100.0) fL MCH 32.0 (25.0-35.0) pg MCHC 33.5 (31.0-37.0) g/dL RDW 14.7 (11.5-15.5) % Plt Count 462 H (150-450) k/uL MPV 7.1 Neutrophils % 74 % Lymphocytes % 18 % Monocytes % 5 % Eosinophils % 1 % Basophils % 0 % Neutrophils # 7.6 (1.3-7.7) k/uL Lymphocytes # 1.8 (1.0-4.8) k/uL Monocytes # 0.5 (0-1.0) k/uL Eosinophils # 0.1 (0-0.7) k/uL Basophils # 0.0 (0-0.2) k/uL Sodium 138 (137-145) mmol/L Potassium 4.0 (3.5-5.1) mmol/L Chloride 107 (98-107) mmol/L Carbon Dioxide 18 L (22-30) mmol/L Anion Gap 13 mmol/L BUN 16 (7-17) mg/dL Creatinine 0.67 (0.52-1.04) mg/dL Est GFR (CKD-EPI)AfAm >90 (>60 ml/min/1.73 sqM) Est GFR (CKD-EPI)NonAf >90 (>60 ml/min/1.73 sqM) Glucose 151 H (74-99) mg/dL Plasma Lactic Acid Jethro 1.2 (0.7-2.0) mmol/L Calcium 10.5 H (8.4-10.2) mg/dL Total Bilirubin 0.4 (0.2-1.3) mg/dL AST 21 (14-36) U/L ALT 25 (4-34) U/L Alkaline Phosphatase 102 (38-126) U/L Total Protein 7.6 (6.3-8.2) g/dL Albumin 4.8 (3.5-5.0) g/dL Amylase 56 (30-110) U/L Lipase 64 (23-300) U/L Disposition Clinical Impression: Abdominal wall seroma, Complication, postoperative Disposition: HOME SELF-CARE Condition: Good Is patient prescribed a controlled substance at d/c from ED?: No Referrals: Shaan Evans MD [Primary Care Provider] - 1-2 days Time of Disposition: 14:32
[2024-06-04] MEDS: HYDROmorphone 0.5 MG/0.5 ML SYRINGE IVP STA (13:22)
[2024-06-04] MEDS: SODIUM CHLORIDE 0.9% 1,000 ML IV ONE (13:23)
[2024-06-04] MEDS: ONDANSETRON 4 MG/2 ML VIAL IVP STA (13:23)
[2024-06-04] MEDS: SODIUM CHLORIDE 0.9% 500 ML 500 ML IV ONE (13:23)
--- NOTE | 2024-06-04 13:53 | CT ---
EXAMINATION TYPE: CT abdomen pelvis w con DATE OF EXAM: 06/04/2024 1:47 PM COMPARISON: 03/09/2024 CLINICAL INDICATION: Female, 54 years old with history of abdominal pain, ABDOMINAL PAIN, WEAKNESS, V OMITING TECHNIQUE:CT scan of the abdomen and pelvis is performed without Oral Contrast and with IV Contrast, patient injected with 100 mL of Isovue 300. CT DLP: 1495.2 mGycm, Automated exposure control for dose reduction was used. FINDINGS: LUNG BASES-: No visible nodule. No infiltrate. LIVER/GB: The gallbladder is surgically absent. No space occupying hepatic lesion. Biliary tree is of normal caliber. PANCREAS: No inflammation. No distinct mass. SPLEEN: No splenic enlargement. No lesion seen. ADRENALS: Stable right adrenal mass measuring 3.8 cm is nonspecific and could reflect adenoma. No thi ckening. KIDNEYS/BLADDER: No hydronephrosis. No nephrolithiasis. No distinct renal mass. Urinary bladder g rossly unremarkable. BOWEL: Normal appendix. Normal bowel caliber. No inflammation. GENITAL ORGANS: No gross abnormality. LYMPH NODES: No greater than 1cm abdominal or pelvic lymph nodes are appreciated. AORTA: No significant abnormality. OSSEOUS STRUCTURES: No significant abnormality is seen. OTHER: Correlate clinically for interval anterior abdominal hernia repair. There is a subcutaneous th ick-walled collection measuring 3.1 x 2.4 x 2.6 cm with surrounding induration. This could reflect se paul. Infected collection is not excluded. IMPRESSION: 1. Correlate clinically for interval anterior abdominal hernia repair. There is a subcutaneous thick- walled collection measuring 3.1 x 2.4 x 2.6 cm with surrounding induration. This could reflect seroma . Infected collection is not excluded. [facility], , 06/04/2024 1:51 PM
[2024-06-04 13:54] LABS: Basophils % (A) 0 %; Eosinophils # (A) 0.1 k/uL (0-0.7); Eosinophils % (A) 1 %; HCT 46.5 % (34.0-46.0); HGB 15.6 gm/dL (11.4-16.0); Lymphocytes # (A) 1.8 k/uL (1.0-4.8); Lymphocytes % (A) 18 %; MCHC 33.5 g/dL (31.0-37.0); MCV 95.5 fL (80.0-100.0); Mean Platelet Volume 7.1; Monocytes # (A) 0.5 k/uL (0-1.0); Monocytes % (A) 5 %; Neutrophils # (A) 7.6 k/uL (1.3-7.7); Neutrophils % (A) 74 %; Platelet Count 462 k/uL (150-450); RBC 4.87 m/uL (3.80-5.40); RDW 14.7 % (11.5-15.5); WBC 10.3 k/uL (3.8-10.6)
[2024-06-04 14:11] LABS: ALT 25 U/L (4-34); AST 21 U/L (14-36); African American GFR (CKD) >90 (>60 ml/min/1.73 sqM); Albumin 4.8 g/dL (3.5-5.0); Alkaline Phosphatase 102 U/L (38-126); Amylase 56 U/L (30-110); Anion Gap 13 mmol/L; Blood Urea Nitrogen 16 mg/dL (7-17); Calcium 10.5 mg/dL (8.4-10.2); Carbon Dioxide 18 mmol/L (22-30); Chloride 107 mmol/L (98-107); Glucose 151 mg/dL (74-99); Lipase 64 U/L (23-300); Non-African American GFR(CKD) >90 (>60 ml/min/1.73 sqM); Sodium 138 mmol/L (137-145); Total Bilirubin 0.4 mg/dL (0.2-1.3); Total Protein 7.6 g/dL (6.3-8.2)
[2024-06-04] MEDS ORDERED: ONDANSETRON 4 MG ODT STARTER PACK 2 TAB BTL PO STA (14:33)
[2024-06-04 14:56] VITALS: BP 107/92; PULSE 67; RESP 16
== END 2024-06-04 14:57 | disposition home or self-care (01) ==
LOC: EC 12:35
DX: K91.872 Postprocedural seroma of a digestive system organ or structure following a digestive system procedure (principal); F17.200 Nicotine dependence, unspecified, uncomplicated; Z88.5 Allergy status to narcotic agent; Z88.1 Allergy status to other antibiotic agents; Z88.6 Allergy status to analgesic agent; Z88.2 Allergy status to sulfonamides
CPT/HCPCS: 36415; 80053; 82150; 83605; 83690; 85025; 74177; 99284; 96374; 96375; 96361; J2405; J1171; Q9967

== ENCOUNTER 2024-06-30 07:28 | Day surgery (SDC) | payer MEDICARE, OTHER ==
[2024-06-30] MEDS ORDERED: LIDOCAINE 1% (10MG/ML) FOR IV START INTRADERMA PRN (07:47)
[2024-06-30] MEDS: IV FLUID CONTINUATION 1,000 ML IV ONE (08:13)
[2024-06-30 08:20] VITALS: TEMP 97.8
[2024-06-30] MEDS: LACTATED RINGERS 1,000 ML IV SCH (08:23)
[2024-06-30] MEDS ORDERED: PROPOFOL 10 MG/ML 20 ML VIAL IV ONE (08:29)
[2024-06-30] MEDS ORDERED: LIDOCAINE 1% INJ 10MG/ML (20 ML MDV) ONE (08:29)
--- NOTE | 2024-06-30 08:49 | P.OP ---
Date of Procedure: 06/30/24 Preoperative Diagnosis: Dysphagia Postoperative Diagnosis: Dysphagia Procedure(s) Performed: EGD Anesthesia: MAC Surgeon: Sanchez Mon Pathology: other (Antrum, esophagus) Condition: stable Disposition: PACU Description of Procedure: The patient was placed on the endoscopy table in the lateral position. She received IV sedation. D the gas was placed oropharynx passed in the esophagus and stomach. Scope was then placed through the pylorus. The first and second portion of the duodenum appeared normal. Scope was then brought back to the antrum this appeared minimal Flaim. A biopsy performed. The scope was then retroflexed and the remainder of the stomach appeared normal. There was no significant hiatal hernia. The GE junction was at 40 cm. The distal esophagus appeared mildly Flaim. This was biopsied. The proximal esophagus appeared normal. Scope withdrawn for the patient.
[2024-06-30 09:01] VITALS: RESP 16
[2024-06-30 09:13] VITALS: BP 103/67; PULSE 65
== END 2024-06-30 09:23 | disposition home or self-care (01) ==
LOC: ORWHC2ENDO 07:28
PROVIDERS: ATTEND Surgery
DX: K21.9 Gastro-esophageal reflux disease without esophagitis (principal); I10 Essential (primary) hypertension; E78.5 Hyperlipidemia, unspecified; I25.2 Old myocardial infarction; I25.10 Atherosclerotic heart disease of native coronary artery without angina pectoris; J44.89 Other specified chronic obstructive pulmonary disease; N20.0 Calculus of kidney; M54.50 Low back pain, unspecified; G25.81 Restless legs syndrome; Z88.5 Allergy status to narcotic agent; Z88.6 Allergy status to analgesic agent; Z88.1 Allergy status to other antibiotic agents; Z88.2 Allergy status to sulfonamides; Z79.02 Long term (current) use of antithrombotics/antiplatelets; Z79.899 Other long term (current) drug therapy
CPT/HCPCS: 88305; 43239; J2003; J2704